=== PATIENT | female | born 1965 | race Caucasian/White ===

== ENCOUNTER → 2018-02-26 11:19 | Outpatient (CLI) | payer OTHER, SELFPAY ==
--- NOTE | 2018-02-26 | DI.RAD.S_ITS ---
PROCEDURE: XR ABDOMEN MIN 2V INDICATIONS: CONSTIPATION TECHNIQUE: 2 views of the abdomen were acquired. COMPARISON: None. FINDINGS: Surgical changes and devices: None. Bowel: No pneumoperitoneum. The bowel gas pattern is normal. Soft tissues: No masses; visualized solid organ contours appear normal in size. No suspicious abdominal calcifications. Bones: No suspicious bony abnormalities. IMPRESSION: Normal for age, source of current symptoms is not seen. Dictated by: Lewis Breen M.D. on 02/26/2018 at 14:27 Approved by: Lewis Breen M.D. on 02/26/2018 at 14:27
== END ==
PROVIDERS: Visit Provider Physician Assistant
DX: K59.00 Constipation, unspecified (principal)
CPT/HCPCS: 74019

== ENCOUNTER → 2019-07-17 18:52 | Outpatient (ROUT) | payer OTHER, SELFPAY ==
[2019-07-17 19:05] LABS: Add Manual Diff / Slide Review NO; Basophils Absolute Auto 100 /uL (0-100); Basophils Percent Auto 0.8 % (0-2); Eosinophils Absolute Auto 100 /uL (0-450); Eosinophils Percent Auto 1.3 % (2-4); Hematocrit 39.2 % (36-46); Hemoglobin 13.2 g/dL (12.0-16.0); Lymphocytes Absolute Auto 3100 /uL (1100-4500); Lymphocytes Percent Auto 32.8 % (25-40); Mean Corpuscular HGB Conc 33.6 % (30-36); Mean Corpuscular Hemoglobin 30.2 PG (26-34); Mean Corpuscular Volume 89.8 fL (80-100); Monocytes Absolute Auto 800 /uL (0-900); Monocytes Percent Auto 8.6 % (3-14); Neutrophils Absolute Auto 5400 /uL (1500-7000); Neutrophils Percent Auto 56.5 % (50-75); Platelet Count 298 X10^3/uL (150-400); Red Blood Cell Count 4.36 X10^6/uL (4.0-5.2); Red Cell Distribution Width 13.5 % (11.6-14.8); White Blood Cell Count 9.6 X10^3/uL (4.5-11.0)
[2019-07-17 19:39] LABS: Alanine Aminotransferase 15 IU/L (<35); Albumin 4.2 g/dL (3.5-5.0); Albumin Globulin Ratio 1.5 (1.0-2.8); Alkaline Phosphatase 56 U/L (38-126); Aspartate Aminotransferase 18 IU/L (14-36); BUN Creatinine Ratio 23.3 (6-22); Bilirubin Total 0.2 mg/dL (0.2-1.3); Blood Urea Nitrogen 21 mg/dL (7-17); Calcium 9.7 mg/dL (8.4-10.2); Carbon Dioxide 26 mmol/L (22-32); Chloride 104 mmol/L (98-107); Cholesterol 216 mg/dL (140-199); Estimated Glomerular Filt Rate > 60.0 mL/min (>60); Globulin 2.8 g/dL (1.7-4.1); Glucose 94 mg/dL (70-100); HDL Cholesterol 84 mg/dL (40-60); HEMOLYSIS < 15 (0-50); LDL Cholesterol Calculated 108 mg/dL (<100); Potassium 4.5 mmol/L (3.4-5.1); Sodium 137 mmol/L (137-145); Triglycerides 118 mg/dL (35-150)
[2019-07-17 19:56] LABS: Vitamin D 25 Hydroxy (D3) 20.1 ng/mL (30.0-100.0)
== END ==
PROVIDERS: Visit Provider Physician Assistant
DX: E78.2 Mixed hyperlipidemia (principal); E55.9 Vitamin D deficiency, unspecified
CPT/HCPCS: 80053; 80061; 82306; 85025

== ENCOUNTER → 2020-10-07 16:01 | Outpatient (CLI) | payer OTHER, SELFPAY ==
[2020-10-07] MEDS: COVID-19 VACC #1, MRNA(MOD) 100 MCG/0.5 ML VIAL IM (16:09)
== END ==
PROVIDERS: Visit Provider Internal Medicine
DX: Z23 Encounter for immunization (principal)
CPT/HCPCS: 0011A; 91301

== ENCOUNTER → 2020-11-04 16:01 | Outpatient (CLI) | payer OTHER, SELFPAY ==
[2020-11-04] MEDS: COVID-19 VACC #2, MRNA(MOD) 100 MCG/0.5 ML VIAL IM (16:11)
== END ==
PROVIDERS: Visit Provider Internal Medicine
DX: Z23 Encounter for immunization (principal)
CPT/HCPCS: 0012A; 91301

== ENCOUNTER 2021-04-27 18:49 | Inpatient (IN) | payer OTHER, SELFPAY ==
[2021-04-27 18:57] VITALS: BP 143/87; PULSE 79; RESP 20; O2SAT 97; BMI 27.4
--- NOTE | 2021-04-27 19:15 | DI.CT.S_ITS ---
PROCEDURE: CT HEAD/BRAIN WO CON INDICATIONS: head injury sunday, dizziness and amnesia since TECHNIQUE: Noncontrast 4.5 mm thick angled axial sections acquired from the foramen magnum to the vertex, with coronal and sagittal reformats. For radiation dose reduction, the following was used: automated exposure control, adjustment of mA and/or kV according to patient size. COMPARISON: None. FINDINGS: Image quality: Excellent. CSF spaces: Basal cisterns are patent. No extra-axial fluid collections. Ventricles are normal in size and shape. Brain: Small acute parenchymal hemorrhagic contusions with surrounding edema noted in the left temporal lobe, left frontal operculum left parietal operculum. No midline shift. No intracranial masses. Keith-white matter interface is normal. Skull and face: Calvarium and visualized facial bones are intact, without suspicious lesions. Right parietal scalp contusion. Sinuses: Visualized sinuses and mastoids are clear. IMPRESSION: Small parenchymal hemorrhagic contusions involving the lateral margins of the left temporal lobe, frontal lobe and parietal lobe. Findings discussed with JOSE RAFAEL Blackburn on April 27, 2021 at 7:45 p.m. Dictated by: Shayla Arana MD, PhD on 04/27/2021 at 19:41 Approved by: Shayla Arana MD, PhD on 04/27/2021 at 19:46
--- NOTE | 2021-04-27 19:17 | ED.DIZZY ---
HPI - Dizziness <DAHIANA Boston - Last Filed: 04/27/21 20:27> General Chief Complaint: Dizziness Stated Complaint: think she fell, bruise face, ear bleed, no memory Time Seen by Provider: 04/27/21 18:59 Source: patient and family Mode of arrival: Wheelchair History of Present Illness HPI Narrative: 55-year-old female presents to the emergency department with complaint of dizziness, amnesia, a possible head injury, and nausea and vomiting since this possible head injury 2 nights ago. Patient's states he came home and found emesis on the stairs and patient did not have any recollection of a fall, however patient did have a swollen and bloody bottom lip, complaint of blood found in her ear, and sleeping more than usual today. Patient reports she feels as if the room is spinning around her when she moves her head, she thought her ear was bleeding when she found blood in her right ear. She reports Sunday night she had 1 or 2 alcoholic beverages, she endorses smoking marijuana sometimes, she reports she does not do any other drugs or drink more than what she said she had that night. Patient does not know any sick contacts. She reports she called in sick to work yesterday because she had nausea and vomiting all day. Patient does not recall having any falls, she denies any chest pain, shortness of breath, headache, fever or abdominal pain. She denies any changes to her stool, denies dysuria. Patient's has been denies any changes to her speech or mentation with exception for this amnesia around the event. Related Data Home Medications Medication Instructions Recorded Confirmed acyclovir 200 mg capsule (Zovirax) 400 mg PO 1-2XD #0 07/12/17 04/27/21 citalopram 10 mg tablet (Celexa) #0 07/12/17 04/07/21 cyclobenzaprine 5 mg tablet #0 07/12/17 04/07/21 ResMed AirSense 10 CPAP #1 ea 09/17/18 04/07/21 omeprazole 40 mg capsule,delayed 40 mg PO DAILY 10/05/20 04/07/21 release Allergies Allergy/AdvReac Type Severity Reaction Status Date / Time No Known Drug Allergies Allergy Verified 04/07/21 15:40 Review of Systems <DAHIANA Boston - Last Filed: 04/27/21 20:27> Review of Systems Narrative: General: denies fever, chills Head/Neck: denies headache, neck pain, complains of dizziness Eyes: denies visual changes, eye pain Cardio: denies chest pain, palpitations Respiratory: denies shortness of breath, cough GI: denies abdominal pain or diarrhea, endorses nausea and vomiting : denies dysuria, hematuria MSK: denies joint pain, muscle weakness Skin: denies rash, itching Neuro: denies numbness, tingling, loss of bowel or bladder Patient History <DAHIANA Boston - Last Filed: 04/27/21 20:27> Medical History Excessive daytime sleepiness Fatigue due to sleep pattern disturbance GERD (gastroesophageal reflux disease) Insomnia due to medical condition Morbid obesity with body mass index (BMI) of 40.0 to 49.9 Obstructive sleep apnea, adult Social History household members: none Smoking Status: Former smoker Smoking Status: Former smoker alcohol intake frequency: 3 or more drinks per day Substance Use Type: marijuana Exam <DAHIANA Boston - Last Filed: 04/27/21 20:27> Narrative Exam Narrative: Independently reviewed vitals signs and nursing notes. General: Awake, alert, nontoxic, no cardiorespiratory distress Head/Neck: Atraumatic, neck full range of motion, No Solitario sign or raccoon eyes, no point tenderness along C-spine Eyes: EOMI, conjunctiva normal, Ears: Right ear with dried blood which appears to drained from her cheek in to the cavum, patient endorses right ear canal pain, no erythema, no bulging TM, no blood behind TM, no blood beyond the cavum of the right pinna. Nose: nares patent, no rhinorrhea Mouth/Throat: moist mucus membranes, posterior pharynx normal, no oral lesions, patient's bottom lip with a contusion, no laceration, no open perioral wound Cardio: Regular rate and rhythm, no peripheral edema Respiratory: respirations unlabored without wheezing, stridor, or rales. No retractions. GI: Abdomen soft, nontender to palpation, no masses MSK: Moves all extremities, neurovascularly intact Skin: Normal capillary refill, no rash Neuro: Normal speech and cognition, normal gait Initial Vital Signs Initial Vital Signs: Vital Signs Pulse Rate 79 04/27/21 18:57 Respiratory Rate 20 04/27/21 18:57 Blood Pressure 143/87 H 04/27/21 18:57 Pulse Oximetry 97 04/27/21 18:57 <Maria G Bernal MD - Last Filed: 04/27/21 23:37> Initial Vital Signs Initial Vital Signs: Vital Signs Pulse Rate 79 04/27/21 18:57 Respiratory Rate 20 04/27/21 18:57 Blood Pressure 143/87 H 04/27/21 18:57 Pulse Oximetry 97 04/27/21 18:57 Course <DAHIANA Boston - Last Filed: 04/27/21 20:27> Orders Ordered: ED Orders 04/27/21 18:15 Complete Blood Count AUTO DIFF Stat Comprehensive Metabolic Panel Stat Magnesium Stat Phosphorous Stat Troponin I Stat 04/27/21 19:14 Urinalysis Screen (Dip Only) Stat 04/27/21 19:15 CT head/brain wo con Stat EKG-12 Lead Stat 04/27/21 20:04 CT cervical spine wo con Stat 04/27/21 21:16 COVID19 - ADMIT (CABLE RIGGER swab/PCR) Stat Acetaminophen (Acetaminophen 325 Mg Tablet) 650 mg PO Q6HR PRN PRN Reason: Fever/Mild Pain (1-3) Hydrocodone Bitart/Acetaminophen (Hydrocodone/Acet 5/325 Tablet) 1 tab PO Q4HR PRN PRN Reason: Pain, Moderate (4-6) Al Hydrox/Mg Hydrox/Simethicone (Mag Hydrox/Alum/Simeth 30 Ml Udc) 30 ml PO Q6HR PRN PRN Reason: Dyspepsia Bisacodyl (Bisacodyl 10 Mg Supp) 10 mg MO DAILY PRN PRN Reason: Constipation Docusate Sodium (Docusate 100 Mg Capsule) 100 mg PO BID KRISTIAN Sodium Chloride (Normal Saline 0.9%) 1,000 mls @ 150 mls/hr IV CONT KRISTIAN Last Infusion: 04/27/21 22:36 Dose: 150 mls/hr Documented by: Admin: 04/27/21 21:55 Dose: 150 mls/hr Documented by: SAIMA Naloxone HCl (Naloxone 0.4 Mg/Ml Vial) 0.2 mg IV Q2MIN PRN PRN Reason: Opiate Reversal Ondansetron HCl (Ondansetron 4 Mg/2 Ml Inj) 4 mg IV Q8HR PRN PRN Reason: Nausea And Vomiting Pantoprazole Sodium (Pantoprazole Dr 20 Mg Tablet) 20 mg PO 0600 KRISTIAN Discontinued Medications Sodium Chloride (Normal Saline 0.9%) 1,000 mls @ 1,000 mls/hr IV BOLUS ONE Stop: 04/27/21 20:13 Last Infusion: 04/27/21 21:55 Dose: 0 mls/hr Documented by: Admin: 04/27/21 19:41 Dose: 1,000 mls/hr Documented by: SAIMA Ondansetron HCl (Ondansetron 4 Mg/2 Ml Inj) 4 mg IV NOW ONE Stop: 04/27/21 19:15 Last Admin: 04/27/21 19:41 Dose: 4 mg Documented by: SAIMA Vital Signs Vital signs: Vital Signs - 8 hr 04/27/21 18:57 04/27/21 19:18 04/27/21 19:33 Pulse Rate 79 68 60 Respiratory Rate 20 Blood Pressure 143/87 H Pulse Oximetry 97 98 98 04/27/21 20:00 04/27/21 20:30 Pulse Rate 59 L 57 L Respiratory Rate Blood Pressure Pulse Oximetry 96 94 <Maria G Bernal MD - Last Filed: 04/27/21 23:37> Orders Ordered: ED Orders 04/27/21 18:15 Complete Blood Count AUTO DIFF Stat Comprehensive Metabolic Panel Stat Magnesium Stat Phosphorous Stat Troponin I Stat 04/27/21 19:14 Urinalysis Screen (Dip Only) Stat 04/27/21 19:15 CT head/brain wo con Stat EKG-12 Lead Stat 04/27/21 20:04 CT cervical spine wo con Stat 04/27/21 21:16 COVID19 - ADMIT (CABLE RIGGER swab/PCR) Stat Acetaminophen (Acetaminophen 325 Mg Tablet) 650 mg PO Q6HR PRN PRN Reason: Fever/Mild Pain (1-3) Hydrocodone Bitart/Acetaminophen (Hydrocodone/Acet 5/325 Tablet) 1 tab PO Q4HR PRN PRN Reason: Pain, Moderate (4-6) Al Hydrox/Mg Hydrox/Simethicone (Mag Hydrox/Alum/Simeth 30 Ml Udc) 30 ml PO Q6HR PRN PRN Reason: Dyspepsia Bisacodyl (Bisacodyl 10 Mg Supp) 10 mg MO DAILY PRN PRN Reason: Constipation Docusate Sodium (Docusate 100 Mg Capsule) 100 mg PO BID KRISTIAN Sodium Chloride (Normal Saline 0.9%) 1,000 mls @ 150 mls/hr IV CONT KRISTIAN Last Infusion: 04/27/21 22:36 Dose: 150 mls/hr Documented by: Admin: 04/27/21 21:55 Dose: 150 mls/hr Documented by: SAIMA Naloxone HCl (Naloxone 0.4 Mg/Ml Vial) 0.2 mg IV Q2MIN PRN PRN Reason: Opiate Reversal Ondansetron HCl (Ondansetron 4 Mg/2 Ml Inj) 4 mg IV Q8HR PRN PRN Reason: Nausea And Vomiting Pantoprazole Sodium (Pantoprazole Dr 20 Mg Tablet) 20 mg PO 0600 KRISTIAN Discontinued Medications Sodium Chloride (Normal Saline 0.9%) 1,000 mls @ 1,000 mls/hr IV BOLUS ONE Stop: 04/27/21 20:13 Last Infusion: 04/27/21 21:55 Dose: 0 mls/hr Documented by: Admin: 04/27/21 19:41 Dose: 1,000 mls/hr Documented by: SAIMA Ondansetron HCl (Ondansetron 4 Mg/2 Ml Inj) 4 mg IV NOW ONE Stop: 04/27/21 19:15 Last Admin: 04/27/21 19:41 Dose: 4 mg Documented by: SAIMA Vital Signs Vital signs: Vital Signs - 8 hr 04/27/21 18:57 04/27/21 19:18 04/27/21 19:33 Pulse Rate 79 68 60 Respiratory Rate 20 Blood Pressure 143/87 H Pulse Oximetry 97 98 98 04/27/21 20:00 04/27/21 20:30 Pulse Rate 59 L 57 L Respiratory Rate Blood Pressure Pulse Oximetry 96 94 MDM - Dizziness <DAHIANA Boston - Last Filed: 04/27/21 20:27> Lab Data Result diagrams: 04/27/21 18:15 04/27/21 18:15 Labs: Lab Results 04/27/21 04/27/21 04/27/21 Range/Units 18:15 18:15 18:15 WBC 10.9 (4.5-11.0) X10^3/uL RBC 4.28 (4.0-5.2) X10^6/uL Hgb 12.9 (12.0-16.0) g/dL Hct 38.4 (36-46) % MCV 89.7 (80-100) fL MCH 30.1 (26-34) PG MCHC 33.5 (30-36) % RDW 13.4 (11.6-14.8) % Plt Count 338 (150-400) X10^3/uL Neut % (Auto) 71.1 (50-75) % Lymph % (Auto) 21.9 L (25-40) % Hendricks % (Auto) 6.0 (3-14) % Eos % (Auto) 0.3 L (2-4) % Baso % (Auto) 0.7 (0-2) % Neut # (Auto) 7700 H (8344-1974) /uL Lymph # (Auto) 2400 (0797-5903) /uL Hendricks # (Auto) 700 (0-900) /uL Eos # (Auto) 0 (0-450) /uL Baso # (Auto) 100 (0-100) /uL Sodium 137 (137-145) mmol/L Potassium 3.7 (3.4-5.1) mmol/L Chloride 104 (98-107) mmol/L Carbon Dioxide 24 (22-32) mmol/L BUN 17 (7-17) mg/dL Creatinine 0.71 (0.52-1.04) mg/dL Estimated GFR > 60.0 (>60) mL/min BUN/Creatinine Ratio 23.9 H (6-22) Glucose 121 H (70-100) mg/dL Calcium 9.4 (8.4-10.2) mg/dL Phosphorus (2.5-4.5) mg/dL Magnesium (1.6-2.3) mg/dL Total Bilirubin 0.7 (0.2-1.3) mg/dL AST 30 (14-36) IU/L ALT 25 (<35) IU/L Alkaline Phosphatase 57 (38-126) U/L Troponin I < 0.012 (0.01-0.034) ng/mL Total Protein 7.5 (6.3-8.2) g/dL Albumin 4.3 (3.5-5.0) g/dL Globulin 3.2 (1.7-4.1) g/dL Albumin/Globulin Ratio 1.3 (1.0-2.8) SARS-CoV-2 (PCR) (Negative) 04/27/21 04/27/21 Range/Units 18:15 21:16 WBC (4.5-11.0) X10^3/uL RBC (4.0-5.2) X10^6/uL Hgb (12.0-16.0) g/dL Hct (36-46) % MCV (80-100) fL MCH (26-34) PG MCHC (30-36) % RDW (11.6-14.8) % Plt Count (150-400) X10^3/uL Neut % (Auto) (50-75) % Lymph % (Auto) (25-40) % Hendricks % (Auto) (3-14) % Eos % (Auto) (2-4) % Baso % (Auto) (0-2) % Neut # (Auto) (6518-1504) /uL Lymph # (Auto) (2415-0589) /uL Hendricks # (Auto) (0-900) /uL Eos # (Auto) (0-450) /uL Baso # (Auto) (0-100) /uL Sodium (137-145) mmol/L Potassium (3.4-5.1) mmol/L Chloride (98-107) mmol/L Carbon Dioxide (22-32) mmol/L BUN (7-17) mg/dL Creatinine (0.52-1.04) mg/dL Estimated GFR (>60) mL/min BUN/Creatinine Ratio (6-22) Glucose (70-100) mg/dL Calcium (8.4-10.2) mg/dL Phosphorus 2.3 L (2.5-4.5) mg/dL Magnesium 2.1 (1.6-2.3) mg/dL Total Bilirubin (0.2-1.3) mg/dL AST (14-36) IU/L ALT (<35) IU/L Alkaline Phosphatase (38-126) U/L Troponin I (0.01-0.034) ng/mL Total Protein (6.3-8.2) g/dL Albumin (3.5-5.0) g/dL Globulin (1.7-4.1) g/dL Albumin/Globulin Ratio (1.0-2.8) SARS-CoV-2 (PCR) Negative (Negative) Imaging Data CT scan - head: Radiologist's Impression: PROCEDURE: CT HEAD/BRAIN WO CON INDICATIONS: head injury sunday, dizziness and amnesia since TECHNIQUE: Noncontrast 4.5 mm thick angled axial sections acquired from the foramen magnum to the vertex, with coronal and sagittal reformats. For radiation dose reduction, the following was used: automated exposure control, adjustment of mA and/or kV according to patient size. COMPARISON: None. FINDINGS: Image quality: Excellent. CSF spaces: Basal cisterns are patent. No extra-axial fluid collections. Ventricles are normal in size and shape. Brain: Small acute parenchymal hemorrhagic contusions with surrounding edema noted in the left temporal lobe, left frontal operculum left parietal operculum. No midline shift. No intracranial masses. Keith-white matter interface is normal. Skull and face: Calvarium and visualized facial bones are intact, without suspicious lesions. Right parietal scalp contusion. Sinuses: Visualized sinuses and mastoids are clear. IMPRESSION: Small parenchymal hemorrhagic contusions involving the lateral margins of the left temporal lobe, frontal lobe and parietal lobe. Findings discussed with JOSE RAFAEL Blackburn on April 27, 2021 at 7:45 p.m. Dictated by: Shayla Arana MD, PhD on 04/27/2021 at 19:41 Approved by: Shayla Arana MD, PhD on 04/27/2021 at 19:46 MDM Narrative Medical decision making narrative: [HPI] Initial ddx to include but not limited to [] [Vitals exam] ED workup to include [] [Tx] [Dispo] <Maria G Bernal MD - Last Filed: 04/27/21 23:37> Lab Data Labs: Lab Results 04/27/21 04/27/21 04/27/21 Range/Units 18:15 18:15 18:15 WBC 10.9 (4.5-11.0) X10^3/uL RBC 4.28 (4.0-5.2) X10^6/uL Hgb 12.9 (12.0-16.0) g/dL Hct 38.4 (36-46) % MCV 89.7 (80-100) fL MCH 30.1 (26-34) PG MCHC 33.5 (30-36) % RDW 13.4 (11.6-14.8) % Plt Count 338 (150-400) X10^3/uL Neut % (Auto) 71.1 (50-75) % Lymph % (Auto) 21.9 L (25-40) % Hendricks % (Auto) 6.0 (3-14) % Eos % (Auto) 0.3 L (2-4) % Baso % (Auto) 0.7 (0-2) % Neut # (Auto) 7700 H (6723-3434) /uL Lymph # (Auto) 2400 (6173-5373) /uL Hendricks # (Auto) 700 (0-900) /uL Eos # (Auto) 0 (0-450) /uL Baso # (Auto) 100 (0-100) /uL Sodium 137 (137-145) mmol/L Potassium 3.7 (3.4-5.1) mmol/L Chloride 104 (98-107) mmol/L Carbon Dioxide 24 (22-32) mmol/L BUN 17 (7-17) mg/dL Creatinine 0.71 (0.52-1.04) mg/dL Estimated GFR > 60.0 (>60) mL/min BUN/Creatinine Ratio 23.9 H (6-22) Glucose 121 H (70-100) mg/dL Calcium 9.4 (8.4-10.2) mg/dL Phosphorus (2.5-4.5) mg/dL Magnesium (1.6-2.3) mg/dL Total Bilirubin 0.7 (0.2-1.3) mg/dL AST 30 (14-36) IU/L ALT 25 (<35) IU/L Alkaline Phosphatase 57 (38-126) U/L Troponin I < 0.012 (0.01-0.034) ng/mL Total Protein 7.5 (6.3-8.2) g/dL Albumin 4.3 (3.5-5.0) g/dL Globulin 3.2 (1.7-4.1) g/dL Albumin/Globulin Ratio 1.3 (1.0-2.8) SARS-CoV-2 (PCR) (Negative) 04/27/21 04/27/21 Range/Units 18:15 21:16 WBC (4.5-11.0) X10^3/uL RBC (4.0-5.2) X10^6/uL Hgb (12.0-16.0) g/dL Hct (36-46) % MCV (80-100) fL MCH (26-34) PG MCHC (30-36) % RDW (11.6-14.8) % Plt Count (150-400) X10^3/uL Neut % (Auto) (50-75) % Lymph % (Auto) (25-40) % Hendricks % (Auto) (3-14) % Eos % (Auto) (2-4) % Baso % (Auto) (0-2) % Neut # (Auto) (7844-9478) /uL Lymph # (Auto) (5460-6756) /uL Hendricks # (Auto) (0-900) /uL Eos # (Auto) (0-450) /uL Baso # (Auto) (0-100) /uL Sodium (137-145) mmol/L Potassium (3.4-5.1) mmol/L Chloride (98-107) mmol/L Carbon Dioxide (22-32) mmol/L BUN (7-17) mg/dL Creatinine (0.52-1.04) mg/dL Estimated GFR (>60) mL/min BUN/Creatinine Ratio (6-22) Glucose (70-100) mg/dL Calcium (8.4-10.2) mg/dL Phosphorus 2.3 L (2.5-4.5) mg/dL Magnesium 2.1 (1.6-2.3) mg/dL Total Bilirubin (0.2-1.3) mg/dL AST (14-36) IU/L ALT (<35) IU/L Alkaline Phosphatase (38-126) U/L Troponin I (0.01-0.034) ng/mL Total Protein (6.3-8.2) g/dL Albumin (3.5-5.0) g/dL Globulin (1.7-4.1) g/dL Albumin/Globulin Ratio (1.0-2.8) SARS-CoV-2 (PCR) Negative (Negative) MDM Narrative Medical decision making narrative: 55-year-old woman who fell down the stairs 48 hours ago she has no recollection of the accident her events surrounding that. She comes in today complaining of dizziness low-grade headache and general malaise along with nausea. She has no focal neurologic findings. CT scan reveals parenchymal bleed with mild edema in the left temporal lobe and the frontal and parietal operculum areas. As she has a fracture of her left zygomatic arch (no complaints of pain at that site) and bilateral temporal bone fractures nondistressed. The right fracture extends through the skull base into the sphenoid sinuses . C-spine is unremarkable 9:10: Images were pushed to [facility] And talked with transfer center 9:20-spoke with , neurosurgeon at [facility]. After really and CT scans his recommendation was observation admission overnight. If there is any acute neurologic deterioration to repeat a CT scan as soon as that is noted. Aside from that repeating CT scan in the morning to make sure that there are no changes and repeating sodium level in the morning as well. Care is reviewed with Dr. Qureshi, hospitalist, who will arrange for admission. Patient is stable at this time, Zofran has not been particularly helpful for her nausea she is not complaining of pain significant enough to request additional pain medications. She is having no signs or symptoms of alcohol withdrawal at this time. Discharge Plan Departure Patient Disposition: Admitted as Observation Clinical Impression: Fall down stairs, Amnesia, Traumatic cerebral parenchymal hemorrhage, Closed fracture of temporal bone, Closed fracture of zygomatic arch, Closed sphenoid sinus fracture Admit Date/Time: 04/27/21 21:37 Admit Provider: Marry Qureshi
[2021-04-27 19:18] VITALS: PULSE 68; O2SAT 98
[2021-04-27 19:28] LABS: Add Manual Diff / Slide Review NO; Basophils Absolute Auto 100 /uL (0-100); Basophils Percent Auto 0.7 % (0-2); Eosinophils Absolute Auto 0 /uL (0-450); Eosinophils Percent Auto 0.3 % (2-4); Hematocrit 38.4 % (36-46); Hemoglobin 12.9 g/dL (12.0-16.0); Lymphocytes Absolute Auto 2400 /uL (1100-4500); Lymphocytes Percent Auto 21.9 % (25-40); Mean Corpuscular HGB Conc 33.5 % (30-36); Mean Corpuscular Hemoglobin 30.1 PG (26-34); Mean Corpuscular Volume 89.7 fL (80-100); Monocytes Absolute Auto 700 /uL (0-900); Neutrophils Absolute Auto 7700 /uL (1500-7000); Neutrophils Percent Auto 71.1 % (50-75); Platelet Count 338 X10^3/uL (150-400); Red Blood Cell Count 4.28 X10^6/uL (4.0-5.2); Red Cell Distribution Width 13.4 % (11.6-14.8); White Blood Cell Count 10.9 X10^3/uL (4.5-11.0)
[2021-04-27 19:33] VITALS: PULSE 60; O2SAT 98
[2021-04-27] MEDS: ONDANSETRON 4 MG/2 ML INJ IV (19:41)
[2021-04-27] MEDS: SODIUM CHLORIDE 0.9% 1,000 ML 1000 ML IV (19:41)
[2021-04-27 19:49] LABS: Magnesium 2.1 mg/dL (1.6-2.3); Phosphorous 2.3 mg/dL (2.5-4.5)
[2021-04-27 19:50] LABS: Alanine Aminotransferase 25 IU/L (<35); Albumin 4.3 g/dL (3.5-5.0); Albumin Globulin Ratio 1.3 (1.0-2.8); Alkaline Phosphatase 57 U/L (38-126); Aspartate Aminotransferase 30 IU/L (14-36); BUN Creatinine Ratio 23.9 (6-22); Bilirubin Total 0.7 mg/dL (0.2-1.3); Blood Urea Nitrogen 17 mg/dL (7-17); Calcium 9.4 mg/dL (8.4-10.2); Carbon Dioxide 24 mmol/L (22-32); Chloride 104 mmol/L (98-107); Estimated Glomerular Filt Rate > 60.0 mL/min (>60); Globulin 3.2 g/dL (1.7-4.1); Glucose 121 mg/dL (70-100); HEMOLYSIS 26 (0-50); Potassium 3.7 mmol/L (3.4-5.1); Sodium 137 mmol/L (137-145); Total Protein 7.5 g/dL (6.3-8.2)
[2021-04-27 20:00] VITALS: PULSE 59; O2SAT 96
[2021-04-27 20:01] LABS: Troponin I < 0.012 ng/mL (0.01-0.034)
--- NOTE | 2021-04-27 20:04 | DI.CT.S_ITS ---
PROCEDURE: CT CERVICAL SPINE WO CON INDICATIONS: head trauma 48 hrs ago w/bleed. r/o hemmorhage TECHNIQUE: Noncontrast 3 mm thick sections acquired from the skull base to the T4 level. Sagittal and coronal reformats were then constructed. For radiation dose reduction, the following was used: automated exposure control, adjustment of mA and/or kV according to patient size. COMPARISON: None. FINDINGS: Image quality: Excellent. Bones: No cervical spine fractures or dislocations. Nondepressed bilateral temporal bone fractures noted. Right temporal bone fracture extends through the skull base into the sphenoid bone and the sphenoid sinuses. Right otic capsule is intact. Spine degenerative disc disease and facet arthropathy. Visualized superior ribs are intact. Left side medic arch fractures noted Soft tissues: Prevertebral soft tissues are normal in thickness. Hemorrhage noted in the sphenoid sinuses. No paravertebral hematomas. No apical pneumothoraces. IMPRESSION: 1. No cervical spine fracture. No acute osseous lesion. If symptoms and/or clinical suspicion for pathology persists, evaluation with MRI should be considered for further assessment. 2. Nondepressed bilateral temporal bone fractures. Right temporal bone fracture extends longitudinally through the skull base into sphenoid bone and the sphenoid sinuses. Dictated by: Shayla Arana MD, PhD on 04/27/2021 at 20:40 Approved by: Shayla Arana MD, PhD on 04/27/2021 at 20:47
[2021-04-27 20:30] VITALS: PULSE 57; O2SAT 94
--- NOTE | 2021-04-27 20:46 | PC.NURSE ---
Pt with HX of sleep apnea, uses c-pap at home, desats to 88% when sleeping, place on 2L NC at this time.
[2021-04-27] MEDS: SODIUM CHLORIDE 0.9% 1,000 ML 150 ML IV (21:55)
[2021-04-27 22:33] LABS: COVID19 - ADMIT (NP swab/PCR) Negative (Negative)
[2021-04-27 22:43] VITALS: BMI 27.4
[2021-04-27 23:27] VITALS: BP 137/77; PULSE 54; RESP 16; TEMP 36.5; O2SAT 98
--- NOTE | 2021-04-27 23:32 | PM.HP.1 ---
History of Present Illness History of Present Illness Date Patient Seen: 04/27/21 Time Patient Seen: 23:32 Chief complaint: think she fell, bruise face, ear bleed, no memory Narrative: The patient is a 55 y/o female with a history of GERD, Morbid Obesity, CHRISTIANO, who presented to the ED for evaluation of blood coming from her ear. She also reports dizziness, not feeling well for the last few days secondary to nausea, and had evidence of head trauma 2 days prior to admission. She does not recall falling, she is unable to provide any history of what happened. Per the notes from the ED, her boyfriend came into her home and found emesis on the stairs. The patient does not recall what happened. She was noted to have a swollen and bloody bottom lip, complaint of blood found in her ear, reportedly sleeping more than usual. She also complained of the room spining and some visual changes. She does admit to drinking 3-4 drinks nightly to include rum and soda. She denies any history of alcohol withdrawal or seizures. She is vaccinated against Covid-19 and does not report any fever, chills, cough, loss of taste or smell. She does report feeling some shortness of breath. She was unable to work for the last few days as she has not felt very well. She does not recall much more and specifically does not remember falling or the circumstances of her fall. The patient underwent a head CT in the ED that revealed the following: Small parenchymal hemorrhagic contusions involving the lateral margins of the left temporal lobe, frontal lobe and parietal lobe.Bilateral temporal bone fractures.? Right temporal bone fracture extends to the skullbase into the sphenoid bone in the sphenoid sinuses.?A cervical spine CT was obtained as well that revealed the following: ?No cervical spine fracture. No acute osseous lesion. If symptoms and/or clinical suspicion for pathology persists, evaluation with MRI should be considered for further assessment. 2. Nondepressed bilateral temporal bone fractures.? Right temporal bone fracture extends longitudinally through the skull base into sphenoid bone and the sphenoid sinuses.? Evaluation of the eardrum reveals no evidence of rupture. The ED consulted with Neurosurgery who recommended repeat Head CT in am, Repeat sodium in AM, urgent CT if clinical deterioration. Patient does report forgetfulness. She is admitted to the hospital for observation. ? ? Patient History Medical History Excessive daytime sleepiness Fatigue due to sleep pattern disturbance GERD (gastroesophageal reflux disease) Insomnia due to medical condition Morbid obesity with body mass index (BMI) of 40.0 to 49.9 Obstructive sleep apnea, adult Family & Social History Family History (Updated 04/27/21 @ 23:51 by Marry Qureshi MD) Father Cirrhosis of liver Social History: household members none Prior Living Arrangements Apartment/Condo Safety & Behavioral: Feels Safe in Current Yes Environment Been Physically Hurt or No Threatened By a Person Suicidal Ideation Description None Suicide Plan Description No Plan Tobacco & Substance use: Smoking Status Former smoker alcohol intake frequency 3 or more drinks per day Substance Use Type marijuana Meds Home Medications and Allergies Home Medications Medication Instructions Recorded Confirmed Type acyclovir 200 mg capsule (Zovirax) 400 mg PO 1-2XD #0 07/12/17 04/27/21 History citalopram 10 mg tablet (Celexa) #0 07/12/17 04/07/21 History cyclobenzaprine 5 mg tablet #0 07/12/17 04/07/21 History ResMed AirSense 10 CPAP #1 ea 09/17/18 04/07/21 History omeprazole 40 mg capsule,delayed 40 mg PO DAILY 10/05/20 04/07/21 History release Allergies Allergy/AdvReac Type Severity Reaction Status Date / Time No Known Drug Allergies Allergy Verified 04/07/21 15:40 Review of Systems Review of Systems Narrative: 10 point review of system is negative except as described above Exam Vital Signs (past 8 hours): - 04/27/21 18:57 04/27/21 19:18 04/27/21 19:33 Pulse Rate 79 68 60 Respiratory Rate 20 Blood Pressure 143/87 H Pulse Oximetry 97 98 98 04/27/21 20:00 04/27/21 20:30 Pulse Rate 59 L 57 L Respiratory Rate Blood Pressure Pulse Oximetry 96 94 Oxygen Delivery Method Room Air Narrative Exam Narrative: Pleasant female slightly confused but in no acute distress HENMT Other: NC/AT right lower lip with blood, abrasion, oropharyx clear with dry mucus membranes Neck supple, no adenopathy or thyromegaly EOMI, sclera anicteric Resp Other: Lungs: clear to auscultation Cardio Other: RRR nl Sl S2 GI Other: Abd: soft/nontender/ non distended, no HSM, no rebound tenderness, no boardlike rigidity Skin Other: no lesions noted Neuro Other: Cranial 2-12 intact, strength is symmetric and equal, sensation is grossly intact, She did have some difficulty naming some objects, she was somewhat forgetful and had difficulty naming her usual medications, describing recent events, and stating her ongoing medical issues. She commented that she felt like she should be able to answer certain questions and was unable to do so. She recognized the cactus but could not name it correctly Psych Other: Calm and appropriate, thought content normal, no hallucinations, Objective Labs Result Diagrams: 04/27/21 18:15 04/27/21 18:15 Labs: Laboratory Results - last 24 hr 04/27/21 04/27/21 04/27/21 18:15 18:15 18:15 WBC 10.9 RBC 4.28 Hgb 12.9 Hct 38.4 MCV 89.7 MCH 30.1 MCHC 33.5 RDW 13.4 Plt Count 338 Neut % (Auto) 71.1 Lymph % (Auto) 21.9 L Winkler % (Auto) 6.0 Eos % (Auto) 0.3 L Baso % (Auto) 0.7 Neut # (Auto) 7700 H Lymph # (Auto) 2400 Winkler # (Auto) 700 Eos # (Auto) 0 Baso # (Auto) 100 Sodium 137 Potassium 3.7 Chloride 104 Carbon Dioxide 24 BUN 17 Creatinine 0.71 Estimated GFR > 60.0 BUN/Creatinine Ratio 23.9 H Glucose 121 H Calcium 9.4 Phosphorus Magnesium Total Bilirubin 0.7 AST 30 ALT 25 Alkaline Phosphatase 57 Troponin I < 0.012 Total Protein 7.5 Albumin 4.3 Globulin 3.2 Albumin/Globulin Ratio 1.3 SARS-CoV-2 (PCR) 04/27/21 04/27/21 18:15 21:16 WBC RBC Hgb Hct MCV MCH MCHC RDW Plt Count Neut % (Auto) Lymph % (Auto) Winkler % (Auto) Eos % (Auto) Baso % (Auto) Neut # (Auto) Lymph # (Auto) Winkler # (Auto) Eos # (Auto) Baso # (Auto) Sodium Potassium Chloride Carbon Dioxide BUN Creatinine Estimated GFR BUN/Creatinine Ratio Glucose Calcium Phosphorus 2.3 L Magnesium 2.1 Total Bilirubin AST ALT Alkaline Phosphatase Troponin I Total Protein Albumin Globulin Albumin/Globulin Ratio SARS-CoV-2 (PCR) Negative Assessment & Plan Assessment & Plan narrative: 55 y/o female with a history of depression, morbid obesity, obstructive sleep apnea, GERD admitted for generalized confusion after an unwitnessed fall -patient presents with a concussion following an unwitnessed fall -?seizure from withdrawal or primary, unable to determine-will check prolactin level -small parencymal hemorrhagic contusions involving the lateral margins of the left temporal lobe, frontal lobe, and parietal lobe -bilateral temporal bone fractures/right temporal bone fracture extends to the skull base into the sphenoid bone in the sphenoid sinuses -per Neurosurgery, non operative at this time -will repeat serum sodium and Head CT in am to confirm stability of hemorrhage and fractures -will get speech/OT evaluation for cognitive evaluation, she continues to be forgetful, likely from her concussion -will ask PT to evaluate given her unwitnessed fall -suspect blood in the eardrum related to the fall Nausea- -will observe, advance diet as tolerated -LFT's, cbc, labs normal GERD -will continue PPI Depression -resume celexa at discharge CHRISTIANO -home CPAP Morbid Obesity -consult dietary Patient reports she is a full code. Her boyfriend, Jan would be her surrogate decision maker Patient will be admitted under observation I have utilized all available means to update, review, and confirm her current medications. Time Spent With Patient Critical Care time: I spent a total of [] minutes of critical care time on this patient's care today; this time is exclusive of procedural time. Quality VTE Deep Vein Thrombosis/Pulmonary Embolism Present on Admission: No
[2021-04-28 00:40] LABS: Prolactin 35.5 ng/mL (3.0-18.6)
[2021-04-28 05:20] VITALS: BP 136/71; PULSE 68; RESP 18; TEMP 36.6; O2SAT 97
[2021-04-28] MEDS: SODIUM CHLORIDE 0.9% 1,000 ML 150 ML IV ×2 (05:36→12:36)
--- NOTE | 2021-04-28 06:00 | DI.CT.S_ITS ---
PROCEDURE: CT HEAD/BRAIN WO CON INDICATIONS: follow up for intracranial bleed TECHNIQUE: Noncontrast 4.5 mm thick angled axial sections acquired from the foramen magnum to the vertex, with coronal and sagittal reformats. For radiation dose reduction, the following was used: automated exposure control, adjustment of mA and/or kV according to patient size. COMPARISON: [facility], CT, CT HEAD/BRAIN WO CON, 04/27/2021, 19:22. FINDINGS: Image quality: Excellent. CSF spaces: Basal cisterns are patent. No extra-axial fluid collections. Ventricles are normal in size and shape. Brain: No midline shift. Again noted are acute parenchymal hemorrhagic contusions involving the left temporal lobe, left frontal lobe, and left parietal lobe with unchanged adjacent vasogenic edema. No new or increasing hemorrhages are identified. Keith-white matter interface is otherwise normal. Skull and face: Again noted are nondisplaced temporal bone fractures bilaterally. Sinuses: Bilateral sphenoid sinus hemorrhage, as before. Mastoids are clear. IMPRESSION: 1. Multifocal hemorrhagic parenchymal contusions are unchanged in the left temporal lobe, frontal lobe, and parietal lobe, with no significant change in the associated edema. 2. Bilateral temporal bone fractures, as before. Comment: Final report is concordant with preliminary interpretation provided by [facility]. Dictated by: Fabian Harris M.D. on 04/28/2021 at 7:22 Approved by: Fabian Harris M.D. on 04/28/2021 at 7:28
--- NOTE | 2021-04-28 06:09 | PC.NURSE ---
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
[2021-04-28] MEDS: PANTOPRAZOLE DR 20 MG TABLET PO (06:35)
[2021-04-28] MEDS: ACETAMINOPHEN 325 MG TABLET 650 MG PO ×2 (06:35→21:04)
[2021-04-28 08:18] VITALS: BP 126/89; PULSE 82; RESP 16; TEMP 36.1; O2SAT 97
[2021-04-28] MEDS: DOCUSATE 100 MG CAPSULE PO (09:00)
--- NOTE | 2021-04-28 10:05 | PC.NURSE ---
Patient is alert and oriented this morning and she denies pain. She slept in this morning and did eat some breakfast. Up to the commode to void and had good output this am. Does get dizzy at times. She is napping now and doing well.
[2021-04-28 11:07] LABS: BUN Creatinine Ratio 20.3 (6-22); Blood Urea Nitrogen 13 mg/dL (7-17); Calcium 8.8 mg/dL (8.4-10.2); Carbon Dioxide 27 mmol/L (22-32); Chloride 106 mmol/L (98-107); Estimated Glomerular Filt Rate > 60.0 mL/min (>60); Glucose 114 mg/dL (70-100); HEMOLYSIS 15 (0-50); Sodium 137 mmol/L (137-145)
--- NOTE | 2021-04-28 11:16 | ST.IPIE ---
Visit Care Team Role Provider Type Maria G Bernal MD Emergency Provider Physician Referring Provider Specialty: Emergency Medicine Address: [address] [place] [address], [id number] Email: Marry Qureshi MD Admit Provider Physician Attending Provider Specialty: Internal Medicine Address: [address] [place] [address], [id number] Email: [email or web address] Diagnoses Nontraumatic intracranial hemorrhage, unspecified (04/27/21) Past Medical History (Last Reviewed 04/27/21 @ 23:50 by Marry Qureshi MD) Excessive daytime sleepiness (Medical) resolved with CPAP Fatigue due to sleep pattern disturbance (Medical) resolved with CPAP GERD (gastroesophageal reflux disease) (Medical) Insomnia due to medical condition (Medical) Morbid obesity with body mass index (BMI) of 40.0 to 49.9 (Medical) Obstructive sleep apnea, adult (Medical) ST IP Initial Evaluation Report 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 Qureshi Reason for Referral concussion/cognitive function Setting Assessment Location Acute Care Visit Type Note Type Initial evaluation Next Note Type Next Note Type Treatment Note Patient Information Identification Type Name,Wristband Medical History PER H&P: Pt is a 55 y/o female with a history of depression, morbid obesity, obstructive sleep apnea, GERD admitted for generalized confusion and concussion after an unwitnessed fall. She was unable to work for the last few days as she has not felt very well. She does not recall much more and specifically does not remember falling or the circumstances of her fall. The patient underwent a head CT in the ED that revealed the following: Small parenchymal hemorrhagic contusions involving the lateral margins of the left temporal lobe, frontal lobe and parietal lobe .Bilateral temporal bone fractures.? Right temporal bone fracture extends to the skull base into the sphenoid bone in the sphenoid sinuses.? A cervical spine CT was obtained as well that revealed the following: ?No cervical spine fracture. No acute osseous lesion. If symptoms and/or clinical suspicion for pathology persists, evaluation with MRI should be considered for further assessment. 2. Nondepressed bilateral temporal bone fractures.? Right temporal bone fracture extends longitudinally through the skull base into sphenoid bone and the sphenoid sinuses. ? Subjective Patient Report Pt in her room napping. Introduced self and purpose for visit. She was agreeable to an evaluation. Pt reported she has no recall of the fall she took. Location Head Mental Status Alert,Responsive,Cooperative Assessment Oral Motor Examination Completed No Informal Assessment Receptive Language Normal Yes Expressive Language Normal No: Mild word finding deficit Expressive Language Impairment(s) Divergent naming Pragmatic Language Normal Yes Speech Normal Yes Cognition Normal No Cognitive Impairment(s) Long-term memory Formal Assessment Standardized Test/Screener Type [facility] Status ([facility]) Administration Complete Results Pt presented with a mild cognitive disorder based on the results of the SLUMS. She scored full points for most activities. She was able to name 2/5 words following ~ 5 minutes and she dad difficulty with divergent naming. During the SLUMS, it was observed that the pt had difficulty with word finding and demonstrated paraphasias when naming/describing objects , indicating mild aphasia. Findings/Results Language Function Mildly impaired Cognitive Function Mildly impaired Cognitive Communication Deficits Self-awareness of Cognitive- Situational awareness ( Communication Deficits recognition of problem in context;in real time) Impact on Functioning Activity Limits/Particip.Rest. Mild: General Tasks and Demands Interpersonal Interactions Employment Safety Risks Mild: Reacting to Emergency Managing Medication Prognosis Prognosis Good Based on Cognitive status,Duration of symptoms/severity,Time since onset Plan of Care Speech-Language Treatment Yes Frequency 1-2x/ day Duration during inpatient stay Patient/Caregiver Education Described results of evaluation,Patient expressed understanding of evaluation, Patient expressed agreement with goals and treatment plans Short Term Goals pt will be able to name a minimum of 15 items within a category. Pt will complete therapy tasks for word finding (i.e., word search, completion lists, etc) , Discharge Recommendations Home,Home with Home Health, Outpatient therapy
[2021-04-28 11:19] LABS: Potassium 4.2 mmol/L (3.4-5.1)
--- NOTE | 2021-04-28 11:38 | CM.IDA ---
Initial DCP Assessment Note Pt is a 55 yo female, resident of [place], arrives two days after a fall at home, has no memory of fall. Presents to the ED w/ S.O. w/complaints of dizziness, amnesia, a possible head injury, and nausea and vomiting since this possible head injury 2 nights ago. Imaging revealed Bilateral temporal bone fractures w/brain bleed. 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 PCP: None Listed Payer: Joseph Met w/patient to introduce role, stayed for session w/PT Sanjuana. According to patient's report: Patient lives in an apt, alone, S.O. Jan lives on [address]. Patient works for [employer] in [place] and is indp and active at baseline. Patient admits to drinking two alcoholic drinks at the restaurant where she ordered take out Sunday evening. Patient denies current domestic violence. Patient able to recall the same details that have already been well charted by medical staff since patient's arrival to the ED Patient became tearful re: next steps in medical care, paying my rent and states feeling overwhelmed. S.O. Jan scheduled to visit this afternoon/evening which appeared to be a relief to patient. At this time, no needs from this WIRE SAWYER, will plan to follow closely as medical plan of care unfolds, in case any DC needs or concerns arise. JETT Galvan Discharge Planning/Care Management CM Discharge Assessment Start: 04/28/21 11:32 Freq: Status: Active Protocol: Document 04/28/21 11:32 PK (Rec: 04/28/21 11:37 PK [id number]) Discharge Planning Assessment Assigned Bulk Pallet Builder JETT Talbot DPOA/Assigned Designee Name Jan Farley SMonica Contact Information [phone] Advance Directives? No Advance Directives on File No History Provided By Patient Prior Living Arrangements Apartment/Condo Household Members none Type of transporation used prior to Drives own vehicle admit Independent with ADL's Yes Is patient alert and oriented? Yes Barriers to Discharge Yes Comment Patient continues to have mild cog impairment. Medical plan of care unknown Transportation Arrangement TBD Referrals Initiated None needed Additional Comment At this time Whiteboard Updated in Patient Room with Yes name and ext. # of Bulk Pallet Builder
--- NOTE | 2021-04-28 11:39 | PT.IIE ---
Current Diagnoses Nontraumatic intracranial hemorrhage, unspecified (04/27/21) Medical History (Last Reviewed 04/27/21 @ 23:50 by Marry Qureshi MD) Excessive daytime sleepiness Fatigue due to sleep pattern disturbance GERD (gastroesophageal reflux disease) Insomnia due to medical condition Morbid obesity with body mass index (BMI) of 40.0 to 49.9 Obstructive sleep apnea, adult Physical Therapy Inpatient Evaluation/Re-Eval M1 PT/OT-IP Prior Functional Status Start: 04/28/21 11:11 Freq: Status: Active Protocol: Document 04/28/21 10:11 MB (Rec: 04/28/21 11:39 MB [id number]) Medical Review Prior Functional Status Medical History Reviewed Yes Diet/Fluid Consistency Regular Communication WNLs Mobility and Gait I Activities of Daily Living and IADL's I Prior Functional Level (Other details) I Social History Household Members none Living Arrangements Apartment/Condo Number of Floors (Floors) One Floor Number of Stairs To Enter/Railing? Flight of steps with rail to enter Additional Social History Comment Works, pt cannot state how much M2 PT-IP Current Condition Start: 04/28/21 11:11 Freq: Status: Active Protocol: Document 04/28/21 10:11 MB (Rec: 04/28/21 11:38 MB [id number]) Physical Therapy Current Condition Current Condition Evaluation Date 04/28/21 Treatment Diagnosis Decreased right pupil constriction and right hearing , imbalance s/p TBI Onset Date 04/25/21 M3 PT-IP Subjective Start: 04/28/21 11:11 Freq: Status: Active Protocol: Document 04/28/21 10:11 MB (Rec: 04/28/21 11:38 MB [id number]) Subjective Physical Therapy Visit Type Type Initial Evaluation Visit Start Time 10:11 Visit Stop Time 10:48 Total Visit Minutes 37 Physical Therapy Visit Comments Patient Comments Pt is tearful during assessment, is concerned about missing work and being able to pay rent at the end of the month Patient Goals To get back to work Therapy Pain Assessment Pain When Pain Assessed At Rest Location head Intensity 0 M4 PT-IP Mobility and Gait Start: 04/28/21 11:11 Freq: Status: Active Protocol: Document 04/28/21 10:11 MB (Rec: 04/28/21 11:38 MB [id number]) PT-Bed Mobility Assessment Rolling Type of Rolling Roll to Right Level of Assist Independent Supine to Sit Supine to Sit Standby Assistance,Head of Bed Elevated,Bedrails Sit to Supine Sit to Supine Standby Assistance,Head of Bed Elevated,Bedrails Scooting Scooting to Edge of Bed Standby Assistance PT-Transfer Assessment Sit to and From Stand Sit to and from Stand Standby Assistance,Contact Guard Assistance,1 Person Assistance,Use of Upper Extremities Equipment Transfer Assistive Device Gait Belt Orthotic/Prosthetic Devices or Brace: No Transfer Ability Level of Assist Standby Assistance,Contact Guard Assistance,1 Person Assistance,Use of Upper Extremities Comments Mobility Comments Pt is slow and cautious d/t imbalance and dizziness when getting up, heavy UE use and does push IV pole with gait training to the bathroom. Upon lying down, she gets quick beat torsional nystagmus and this does appear to be BPPV but PT does not feel safe treating in setting of recent skull fractures with lobe contusions, dried blood in right ear Gait Assessment Gait Gait Assistance Required: Contact Guard Assist,1 Person Assist Distance (Feet) 15 Able to Maintain Weight Bearing Status Yes During Gait Assistive Devices Assistive Device Gait Belt Orthotic/Prosthetic Devices or Brace: No Gait Deviations General Gait Pattern Flexed Trunk,Lateral Trunk Lean,Wide Based Gait Factors Limiting Gait Function Factors Limiting Gait Function Decreased Activity Tolerance Comments Gait Comments Pt's gait is not particularly ataxic in nature at this time. Given head injury, skull fractures and bone contusions, it will be beneficial to see if her gait quality changes. She pushes IV pole and gait trains x2 15' from door side of bed to BR and back. PT-Balance Assessment Sitting Balance and Reactions Static Sitting Balance Ability Fair Dynamic Sitting Balance Ability Fair Standing Balance and Reactions Static Standing Balance Ability Fair Dynamic Standing Balance Ability Fair Comments Other Balance Tests/Deviations/Treatment UE support for static and : dynamic sitting balance on EOB and reaches for IV pole for standing balance M5 PT-IP Objective Assessments Start: 04/28/21 11:11 Freq: Status: Active Protocol: Document 04/28/21 10:11 MB (Rec: 04/28/21 11:38 MB [id number]) Orientation Orientation/Cognition Level of Alertness Lethargic Orientation Name,Age,Birthday,Month,Date Language Function Ability Word Finding Difficulties Safety Awareness Decreased Safety Awareness Memory Description Short Term Impaired Comments Pt states location as [place] to begin with and knows that this is not correct, but has trouble coming up with Erica. She knows she lives and works here and can point to apartment outside hospital window but she cannot think of the name of her company where she works. She can recall the event happened on Sunday night and she woke up in her bed on Sunday morning but she cannot give any other clear details about the event. She states her boyfriend was not with her and lives on [place] and is helpful and is returning this evening. She states he noticed some blood on the floor near stairs. There is a flight of steps to get to her apartment. Gross Range of Motion Upper Extremity ROM Assessment Within Functional Limits Lower Extremity ROM Assessment Within Functional Limits Strength Upper Extremity Strength Assessment Within Functional Limits Lower Extremity Strength Assessment Within Functional Limits Coordination Assessment Gross Coordination Gross Coordination WNL Assessment Coordination Comments PT can only check right rapid supination and pronation d/t left IV and it is normal. Opposite foot tap over also normal B R pupil does not constrict readily to pen light compared to the left. She reports less hearing right ear with PT rubbing glove near both ears. Dried blood right ear, bruising and blood right mandible, B knees with ecchymosis and abrasions. Muscle Tone Muscle Tone WNL Yes Other Assessments Other Other Assessments See above comments for positional nystagmus, pupil constriction, coordination test. No clonus with rapid passive DF B. M6 PT-IP Treatment Start: 04/28/21 11:11 Freq: Status: Active Protocol: Document 04/28/21 10:11 MB (Rec: 04/28/21 11:38 MB [id number]) Physical Therapy Treatment Education Education Provided Precautions,Safety Other Treatments Other Treatment Performed PT ed pt on signs and symptoms of brain injury and concussion including dizziness , headache, fatigue, emotional lability and confusion and PT encourages pt that it is okay for her to cry and to let providers know if she is overwhelmed. PT does educate pt PT is going to recommend neurology consult and then PT at d/c for pt. M7 PT-IP Assessment and Plan Start: 04/28/21 11:11 Freq: Status: Active Protocol: Document 04/28/21 10:11 MB (Rec: 04/28/21 11:38 MB [id number]) PT Summary Assessment and Plan Potential Rehabilitation Potential Fair Status of Condition at Evaluation Evolving Summary Impairments Balance,Cognition,Bed Mobility ,Transfers,Gait,Activity Tolerance Assessment Summary Pt is a 55 y/o female presenting with B temporal fractures, right sphenoid fracture, temporal and other lobe contusions, right ear with dried blood, right mandibular bruising and dried blood and B knee contusions and abrasions. Mechanism of injury is unknown and this is concerning given bilateral temporal fractures. See PT comments above about pt's recollection of events and her reports of living situation. Pt is very concerned about missing work and getting her rent paid. She presents with right pupil with decreased constriction to pen light compared to the left, decreased right ear hearing. Normal smile and tongue movement today. She presents with confusion, decreased short-term memory and trouble with word-finding. She typically works and lives alone. PT does not note coordination impairment or ataxia today with testing. She is imbalance. She has positionally provoked nystagmus and PT does not feel comfortable assessing and treating BPPV given new brain injury and skull fractures. PT recommends neurology consult and outpatient follow-up as well as OPPT for imbalance and vertigo s/p TBI. Recommend social work follow-up about home safety situation. Recommend cognitive evaluation . Goals Bed Mobility Goal Independent Transfer Goal Independent Gait Goal Independent Gait Distance 200 Other Goals Ascend and descend flight of steps with rail and I Days to Meet Goals 5 Frequency of Treatment Frequency Of Treatment Once a Day Treatment Plan Physical Therapy Treatment Plan Bed Mobility Training,Transfer Training,Gait Training, Therapeutic Exercise,Balance Retraining,Neuromuscular Re-ed Other Recommendations and Next Treatment Formal balance assessment, Focus gait in hallway and steps Precautions Other Precautions S/p TBI and vestibular PT does feel that she also has BPPV BP and HR in RUE in hook lying 135/80, 62 and cuff does not read again when up Recommendations To Nursing Amount of Assist Needed 1 Person Assist Discharge Recommendations Other Discharge Recommendations 24 hour assist at d/c Progress to OPPT for imbalance post-concussion/TBI Transportation Needs at Discharge Private Vehicle
--- NOTE | 2021-04-28 12:31 | DI.MRI.S_ITS ---
PROCEDURE: MR HEAD/BRAIN WO CON INDICATIONS: 55-year-old female with recent fall, left-sided hemorrhagic contusions, bilateral temporal bone fractures TECHNIQUE: Noncontrast axial T1 spin echo, axial T2 fast spin echo, sagittal and axial FLAIR, coronal T2 fast spin echo, axial gradient echo, axial diffusion and ADC through the brain. COMPARISON: [facility], CT, CT HEAD/BRAIN WO CON, 04/27/2021, 19:22. [facility], CT, CT HEAD/BRAIN WO CON, 04/28/2021, 5:48. FINDINGS: Cerebrum, Cerebellum and Brainstem: Left-sided hemorrhagic contusions noted involving the mid left middle temporal gyrus, right inferior frontal gyrus pars orbitalis and opercularis. Surrounding cerebral edema similar from the prior CT. Diffusion sequence otherwise unremarkable without evidence of territorial acute infarct. No midline shift. Ventricles: Appropriate in size and position. No hydrocephalus. Skull Base: The bony sella, pituitary gland and infundibulum are unremarkable. Clivus and craniovertebral relationships are appropriate. Visualized portions of the seventh and eighth cranial nerve complexes and internal auditory canals are within normal limits. Scalp and Calvarium: Bilateral temporal bone fractures noted on the prior CT are not well demonstrated by MRI. Scalp subgaleal hematoma noted near the vertex. Paranasal Sinuses: Sphenoid mucosal thickening and debris noted. Remainder the paranasal sinuses are clear. Mastoids: Bilateral mastoid effusions greater on the right Orbits: The orbits, globes and ocular muscles are unremarkable. IMPRESSION: 1. Left-sided frontal and temporal hemorrhagic contusions with similar vasogenic edema. Otherwise, no evidence of acute territorial infarct. 2. Bilateral mastoid effusions probably related to temporal bone fractures. Consider dedicated CT temporal bones for complete assessment. 3. Sphenoid mucosal thickening and debris, stable Approved by: Ganga Cannon M.D. on 04/28/2021 at 15:37
[2021-04-28 13:00] VITALS: BP 133/74; PULSE 68; RESP 16; TEMP 36.4; O2SAT 92
--- NOTE | 2021-04-28 14:02 | OT.IP.EVAL ---
Current Diagnoses Nontraumatic intracranial hemorrhage, unspecified (04/27/21) Past Medical History (Last Reviewed 04/27/21 @ 23:50 by Marry Qureshi MD) Excessive daytime sleepiness Fatigue due to sleep pattern disturbance GERD (gastroesophageal reflux disease) Insomnia due to medical condition Morbid obesity with body mass index (BMI) of 40.0 to 49.9 Obstructive sleep apnea, adult Occupational Therapy Inpatient Evaluation/Re-Eval M1 PT/OT-IP Prior Functional Status Start: 04/28/21 11:11 Freq: Status: Active Protocol: Document 04/28/21 13:30 [facility] (Rec: 04/28/21 15:28 [facility] [id number]) Medical Review Prior Functional Status Medical History Reviewed Yes Diet/Fluid Consistency Regular Communication WNLs Mobility and Gait I Activities of Daily Living and IADL's I Prior Functional Level (Other details) I Social History Household Members none Living Arrangements Apartment/Condo Number of Floors (Floors) One Floor Number of Stairs To Enter/Railing? Flight of steps with left rail to enter Additional Social History Comment Works, pt cannot state how much. Pt is PM able to recall that she works for [employer]. M2 OT-IP Current Condition Start: 04/28/21 15:12 Freq: Status: Active Protocol: Document 04/28/21 13:30 [facility] (Rec: 04/28/21 15:28 [facility] [id number]) Occupational Therapy Current Condition Current Condition Evaluation Date 04/28/21 Treatment Diagnosis Concussion Diagnosis Onset Date 04/27/21 M3 OT- IP Subjective and Pain Start: 04/28/21 15:12 Freq: Status: Active Protocol: Document 04/28/21 13:30 [facility] (Rec: 04/28/21 15:28 [facility] [id number]) OT- Subjective Occupational Therapy Visit Type Type Initial Evaluation Visit Start Time 13:30 Visit Stop Time 14:02 Total Visit Minutes 32 Occupational Therapy Visit Comments Patient Comments Pt agreed to get up. Patient/Caregiver Goals TO go home. OT Pain Assessment Pain When Pain Assessed At Rest Pain Present Pain Present Denied Pain M4 OT- IP ADL's Start: 04/28/21 15:12 Freq: Status: Active Protocol: Document 04/28/21 13:30 [facility] (Rec: 04/28/21 15:28 [facility] [id number]) OT [id number] Comments OT Self-Feeding Comments NOt at meal time. OT ADL-Grooming General Evaluation Grooming Ability Independent OT ADL-Dressing General Eval Lower Body Dressing Ability Independent Comments OT Dressing Comments Pt able to independently don/ doff her socks while sitting on the edge of the bed. OT ADL-Toileting Comments OT Toileting Comments Pt did not have to go. OT ADL-Bathing Comments OT Bathing Comments Not performed. M5 OT- IP IADL's Start: 04/28/21 15:12 Freq: Status: Active Protocol: Document 04/28/21 13:30 [facility] (Rec: 04/28/21 15:28 [facility] [id number]) OT-Instrumental Activities of Daily Living Home Safety Awareness Home Safety Comments Pt has word finding difficulties and not remembering her medications or initially did not remember where she works. At this time pt would be beneficial for someone to stay with pt initially when she goes home. M6 OT- IP Functional Cognition Start: 04/28/21 15:12 Freq: Status: Active Protocol: Document 04/28/21 13:30 [facility] (Rec: 04/28/21 15:28 [facility] [id number]) Cognitive Factors Limiting Selfcare Function Cognitive Ability Level of Alertness Alert,Confusional State Patient Orientation Name,Place,Situation Attention Span Ability Capable of Focused Attention, Capable of Sustained Attention Ability to Follow Commands Able to Follow Multi-Step Commands Safety Awareness No Deficits Noted Problem Solving Ability No deficits Noted Cognitive Comments Cognitive Assessment Comments Per CRITICAL CARE PHYSICIAN eval pt scored 26/30 on the SLUMS. Pt scored 78 seconds on [place] making Part B which implies normal but not perfect for visual attention, speed of processing, mental flexibility, executive functioning, and task switching. Pt score is 40% for her age group. Pt's main difficulty is word finding at this time. OT- Vision and Hearing OT- Vision Assessment Visual Acuity Glasses For Reading Visual Attentiveness WFL Occular Pursuits WFL Visual Convergence WFL Visual [place] WFL Diplopia Absent M7 OT- IP Mobility and Balance Start: 04/28/21 15:12 Freq: Status: Active Protocol: Document 04/28/21 13:30 [facility] (Rec: 04/28/21 15:28 [facility] [id number]) OT- Bed Mobility Assessment Rolling Type of Rolling Roll to Right Level of Assistance Independent Supine to Sit Supine to Sit Assist Independent Sit to Supine Sit to Supine Assist Independent OT-Transfer Assessment Sit to and From Stand Sit to and from Stand Independent Transfers Transfer Ability Independent Technique Transfer Destination Bed Transfer Technique Stand Step Pivot Devices Transfer Assistive Devices Gait Belt Comments Mobility Comments Pt independent to move in the room and just assist with IV pole for level surfaces. OT- Balance Assessment Sitting Balance and Reactions Static Sitting Balance Ability Normal Dynamic Sitting Balance Ability Normal Standing Balance and Reactions Static Standing Balance Ability Good M8 OT- IP Objective Assessments Start: 04/28/21 15:12 Freq: Status: Active Protocol: Document 04/28/21 13:30 [facility] (Rec: 04/28/21 15:28 [facility] [id number]) OT Gross Range of Motion Upper Extremity Range of Motion Assessment Within Functional Limits OT Strength Upper Extremity Strength Assessment Within Functional Limits OT- Coordination Assessment Upper Extremity Finger to Nose Test Within Functional Limits OT-Muscle Tone Assessment Muscle Tone WNL Yes M9 OT- IP Assessment and Plan Start: 04/28/21 15:12 Freq: Status: Active Protocol: Document 04/28/21 13:30 [facility] (Rec: 04/28/21 15:28 [facility] [id number]) OT Summary Assessment and Plan Potential Rehabilitation Potential Good Analytic Complexity at Evaluation Low Summary OT Impairments Pain,Balance,Functional Cognition,Functional Mobility, Bathing Progress Towards Goals Progressing Toward Goals Assessment Summary Pt low complexity and here due to concussion and main barriers are word finding difficulties at this time. Pt lives alone and suggested to have someone stay with her initially as she recovers. Goals Dressing Goal Independent Toileting Goal Independent Bathing Goal Independent Toilet Transfer Goal Independent Shower Transfer Goal Independent Days to Meet Goals 2 Frequency of Treatment Frequency Of Treatment Once a Day Treatment Plan OT Treatment Plan ADL Training,Functional Mobility,Patient/Family Education,Discharge Planning Other Treatment Recommendations and Next shower if still here Treatment Focus Discharge Recommendations OT Discharge Recommendations Home with Assistance Transportation Needs at Discharge Private Vehicle
--- NOTE | 2021-04-28 14:41 | P.PN_ITS ---
Subjective Subjective Date Patient Seen: 04/28/21 Time Patient Seen: 08:00 Interval history: Today she still states she has a headache. She thinks she may have had a fall on stairs, but is not completely sure. She has a difficult time with her memory currently. Physical therapist reported to me concern for fixed right pupil, immediately went to examine, but per my exam pupil was reactive normally and equal with left eye. Exam Vital Signs (past 8 hours): - 04/28/21 08:18 04/28/21 13:00 Temperature 97 F L 97.6 F Pulse Rate 82 68 Respiratory Rate 16 16 Blood Pressure 126/89 133/74 Pulse Oximetry 97 92 Oxygen Delivery Method Room Air Oxygen Flow Rate 0 Narrative Exam Narrative: GEN: no acute distress HEENT: lower lip with blood, laceration, right ear with blood PULM: clear bilaterally CV: regular rate and rhythm with no murmurs ABD: soft, nontender, nondistended, no organomegaly Neuro: CN 2-12 intact, strength 5/5 ini upper and lower extremities, no numbness, she recognizes she is forgetful, difficulty thinking of words and explaining events Objective Labs Result Diagrams: 04/27/21 18:15 04/28/21 10:10 Labs: Laboratory Results - last 24 hr 04/27/21 04/27/21 04/27/21 18:15 18:15 18:15 WBC 10.9 RBC 4.28 Hgb 12.9 Hct 38.4 MCV 89.7 MCH 30.1 MCHC 33.5 RDW 13.4 Plt Count 338 Neut % (Auto) 71.1 Lymph % (Auto) 21.9 L Patrick % (Auto) 6.0 Eos % (Auto) 0.3 L Baso % (Auto) 0.7 Neut # (Auto) 7700 H Lymph # (Auto) 2400 Patrick # (Auto) 700 Eos # (Auto) 0 Baso # (Auto) 100 Sodium 137 Potassium 3.7 Chloride 104 Carbon Dioxide 24 BUN 17 Creatinine 0.71 Estimated GFR > 60.0 BUN/Creatinine Ratio 23.9 H Glucose 121 H Calcium 9.4 Phosphorus Magnesium Total Bilirubin 0.7 AST 30 ALT 25 Alkaline Phosphatase 57 Troponin I < 0.012 Total Protein 7.5 Albumin 4.3 Globulin 3.2 Albumin/Globulin Ratio 1.3 Prolactin SARS-CoV-2 (PCR) 1004/27/21 04/27/21 18:15 18:15 21:16 WBC RBC Hgb Hct MCV MCH MCHC RDW Plt Count Neut % (Auto) Lymph % (Auto) Patrick % (Auto) Eos % (Auto) Baso % (Auto) Neut # (Auto) Lymph # (Auto) Patrick # (Auto) Eos # (Auto) Baso # (Auto) Sodium Potassium Chloride Carbon Dioxide BUN Creatinine Estimated GFR BUN/Creatinine Ratio Glucose Calcium Phosphorus 2.3 L Magnesium 2.1 Total Bilirubin AST ALT Alkaline Phosphatase Troponin I Total Protein Albumin Globulin Albumin/Globulin Ratio Prolactin 35.5 H SARS-CoV-2 (PCR) Negative 04/28/21 10:10 WBC RBC Hgb Hct MCV MCH MCHC RDW Plt Count Neut % (Auto) Lymph % (Auto) Patrick % (Auto) Eos % (Auto) Baso % (Auto) Neut # (Auto) Lymph # (Auto) Patrick # (Auto) Eos # (Auto) Baso # (Auto) Sodium 137 Potassium 4.2 Chloride 106 Carbon Dioxide 27 BUN 13 Creatinine 0.64 Estimated GFR > 60.0 BUN/Creatinine Ratio 20.3 Glucose 114 H Calcium 8.8 Phosphorus Magnesium Total Bilirubin AST ALT Alkaline Phosphatase Troponin I Total Protein Albumin Globulin Albumin/Globulin Ratio Prolactin SARS-CoV-2 (PCR) PFSH Medical History Excessive daytime sleepiness Fatigue due to sleep pattern disturbance GERD (gastroesophageal reflux disease) Insomnia due to medical condition Morbid obesity with body mass index (BMI) of 40.0 to 49.9 Obstructive sleep apnea, adult Family History (Updated 04/27/21 @ 23:51 by Marry Qureshi MD) Father Cirrhosis of liver Social History (Reviewed 04/27/21 @ 19:22 by Penny Whitfield [facility]) household members: none Smoking Status: Former smoker Assessment & Plan Assessment & Plan narrative: Ms. Elizalde is a 55W with PMH of depression, morbid obesity, obstructive sleep apnea, GERD admitted for acute encephalopathy with trauma resulting in skull fracture and brain contusion 1. Bilateral temporal bone fracture, sphenoid fracture, brain contusion with acute encephalopathy -currently patient very forgetful, slightly confused, but no focal deficits -CT head was repeated and showed stable fracture and hemorrhage -neurosurgery said nonoperative -discussed with general surgery as patient is a trauma and states fracture are not surgical, and to follow up with ENT as outpatient -discussed with neurology and recommend MRI, eval for possible stroke as u nexplained cause of fall -prolactin was elevated, but patient has no known seizures, and this is not specific enough to indicate seizures -continue to monitor for seizures, no anti-epileptic for now 2. Nausea- -will observe, advance diet as tolerated -LFT's, cbc, labs normal 3. GERD -will continue PPI 4. Depression -resume celexa at discharge 5. CHRISTIANO -home CPAP Time Spent With Patient Critical Care time: I spent a total of [] minutes of critical care time on this patient's care today; this time is exclusive of procedural time. Quality VTE Deep Vein Thrombosis/Pulmonary Embolism Present on Admission: No
[2021-04-28 15:25] VITALS: BP 120/73; PULSE 54; RESP 16; TEMP 36.5; O2SAT 97
[2021-04-28 16:41] LABS: Add Manual Diff / Slide Review NO; Basophils Absolute Auto 200 /uL (0-100); Basophils Percent Auto 1.3 % (0-2); Eosinophils Absolute Auto 0 /uL (0-450); Eosinophils Percent Auto 0.2 % (2-4); Hematocrit 36.9 % (36-46); Hemoglobin 12.1 g/dL (12.0-16.0); Lymphocytes Absolute Auto 2500 /uL (1100-4500); Lymphocytes Percent Auto 21.4 % (25-40); Mean Corpuscular HGB Conc 32.8 % (30-36); Mean Corpuscular Hemoglobin 29.9 PG (26-34); Monocytes Absolute Auto 900 /uL (0-900); Monocytes Percent Auto 7.6 % (3-14); Neutrophils Absolute Auto 8100 /uL (1500-7000); Neutrophils Percent Auto 69.5 % (50-75); Platelet Count 301 X10^3/uL (150-400); Red Blood Cell Count 4.05 X10^6/uL (4.0-5.2); Red Cell Distribution Width 13.6 % (11.6-14.8); White Blood Cell Count 11.7 X10^3/uL (4.5-11.0)
--- NOTE | 2021-04-28 17:20 | DI.CT.S_ITS ---
PROCEDURE: CT MASTOID TEMPORAL INDICATIONS: mastoid effusion on MRI COMPARISON: [facility], CT, CT HEAD/BRAIN WO CON, 04/28/2021, 5:48. TECHNIQUE: Noncontrast 0.6 mm thick direct axial and coronal sections acquired through each temporal bone separately. FINDINGS: Image quality: Excellent. RIGHT: There is a longitudinal right temporal bone fracture extending through the right mastoid bone, right middle ear and extending into the right middle cranial fossa. Fracture extends through the right aspect of the sphenoid bone extends to the sphenoid sinus. Left additional fractures through the squamous portion of the right temporal bone is partially imaged. External auditory canal: Debris noted in the external auditory canal. Middle ear: There is fluid in the epitympanic present. Ossicular chain intact. Inner ear: Inner ear is normally formed and appears unremarkable. Facial nerve appears normal throughout is course. Mastoids: Moderate mastoid effusion probably reflects hemorrhage. Fluid in the sphenoid noted. LEFT: There is a short nondisplaced fracture through the squamous cell portion of the left temporal bone. A nondisplaced fracture through the left zygomatic arch current External auditory canal: Canal has a normal appearance. Middle ear: The middle ear structures, including the ossicles and tympanic membrane, appear normal. No abnormal fluid or soft tissue density. Inner ear: Inner ear is normally formed and appears unremarkable. Facial nerve appears normal throughout its course. Mastoids: Small mastoid effusion noted superiorly. MISCELLANEOUS: Visualized surrounding bones appear unremarkable. Visualized intracranial structures, including the cerebellopontine angle cisterns, appear normal. IMPRESSION: 1. Longitudinal right temporal bone fracture extends through the middle ear and extends to the right middle cranial fossa and sphenoid bone. Fluid in the middle ear and mastoid consistent with hemorrhage. No ossicular chain disruption 2. Nondisplace Approved by: Ganga Cannon M.D. on 04/28/2021 at 18:07
[2021-04-28 20:50] VITALS: BP 118/55; PULSE 57; RESP 14; TEMP 36.4; O2SAT 97
[2021-04-29 01:00] VITALS: BP 123/72; PULSE 49; RESP 14; TEMP 36.2; O2SAT 98
[2021-04-29 04:48] VITALS: BP 126/77; PULSE 63; RESP 14; TEMP 36.2; O2SAT 97
[2021-04-29] MEDS: SODIUM CHLORIDE 0.9% 1,000 ML 150 ML IV ×3 (06:11→19:14)
[2021-04-29] MEDS: PANTOPRAZOLE DR 20 MG TABLET PO (06:11)
[2021-04-29 07:26] LABS: Hematocrit 35.8 % (36-46); Hemoglobin 11.9 g/dL (12.0-16.0); Mean Corpuscular HGB Conc 33.2 % (30-36); Mean Corpuscular Hemoglobin 30.1 PG (26-34); Mean Corpuscular Volume 90.5 fL (80-100); Platelet Count 283 X10^3/uL (150-400); Red Blood Cell Count 3.95 X10^6/uL (4.0-5.2); Red Cell Distribution Width 13.5 % (11.6-14.8); White Blood Cell Count 9.5 X10^3/uL (4.5-11.0)
[2021-04-29 07:32] LABS: BUN Creatinine Ratio 15.9 (6-22); Blood Urea Nitrogen 11 mg/dL (7-17); Calcium 8.6 mg/dL (8.4-10.2); Carbon Dioxide 25 mmol/L (22-32); Chloride 106 mmol/L (98-107); Estimated Glomerular Filt Rate > 60.0 mL/min (>60); Glucose 103 mg/dL (70-100); HEMOLYSIS < 15 (0-50); Potassium 3.8 mmol/L (3.4-5.1); Sodium 137 mmol/L (137-145)
[2021-04-29 07:50] VITALS: BP 142/99; PULSE 60; RESP 18; TEMP 36.1; O2SAT 100
[2021-04-29] MEDS: DOCUSATE 100 MG CAPSULE PO ×2 (08:16→20:04)
[2021-04-29] MEDS: ACETAMINOPHEN 325 MG TABLET 650 MG PO ×2 (09:47→19:17)
--- NOTE | 2021-04-29 10:22 | PT.IPTN ---
Current Diagnoses Contusion and laceration of left cerebrum with loss of consciousness of unspecified duration, initial encounter (04/27/21) Physical Therapy Treatment Note M2 PT-IP Current Condition Start: 04/28/21 11:11 Freq: Status: Active Protocol: Document 04/28/21 10:11 MB (Rec: 04/28/21 11:38 MB [id number]) Physical Therapy Current Condition Current Condition Evaluation Date 04/28/21 Treatment Diagnosis Decreased right pupil constriction and right hearing , imbalance s/p TBI Onset Date 04/25/21 M3 PT-IP Subjective Start: 04/28/21 11:11 Freq: Status: Active Protocol: Document 04/29/21 09:10 AB (Rec: 04/29/21 11:23 AB [id number]) Subjective Physical Therapy Visit Type Type Treatment Note Visit Start Time 09:10 Visit Stop Time 09:46 Total Visit Minutes 36 Number of BARK SCALER Visits 0 Physical Therapy Visit Comments Patient Comments agreeable to do PT Therapy Pain Assessment Pain When Pain Assessed At Rest Pain Present Pain Present Pain Reported Location head Intensity 7 Scale Used Numeric (0 - 10) Pain Management Techniques Distraction,Modification of Treatment,Re-positioning, Timing of Activity with Medications M4 PT-IP Mobility and Gait Start: 04/28/21 11:11 Freq: Status: Active Protocol: Document 04/29/21 09:10 AB (Rec: 04/29/21 11:23 AB [id number]) PT-Bed Mobility Assessment Supine to Sit Supine to Sit Standby Assistance PT-Transfer Assessment Equipment Transfer Assistive Device Gait Belt Orthotic/Prosthetic Devices or Brace: No Transfers Transfer Destination Bed Transfer Technique ambulated Transfer Ability Level of Assist Standby Assistance,Contact Guard Assistance,1 Person Assistance,Use of Upper Extremities Comments Mobility Comments pt agreed to do PT. stated that she still has a headache and dizziness. BP in supine: 123/73. pt completed supine to sit SBA. c/o dizziness. BP in sittin/78. pt completed sit to stand SBA to CGA and ambulated in room without AD CGA and cues. presents with unsteady guarded gait and very slow guzman and tends to hold on to the bed/wall for support. pt stated that her head feels off . educated pt on use of FWW for steadiness/support and as an external feed back for head orientation. pt agreed to use FWW. completed ambulation using FWW SBA ~ 35 ft. pt is steadier with FWW and pt stated that she feels she was able to walk straighter. pt requested to go back to bed. pt sat on EOB and encouraged to eat and agreed. pt sitting on EOB for breakfast. Left with BF in room. informed nurse regarding pt's mobility and use of FWW at this time. Gait Assessment Gait Gait Assistance Required: Standby Assistance,Contact Guard Assist Distance (Feet) 35 Able to Maintain Weight Bearing Status Yes During Gait Assistive Devices Assistive Device None,Gait Belt,Front Wheeled Walker Orthotic/Prosthetic Devices or Brace: No Gait Deviations General Gait Pattern Decreased Stride Length, Decreased Feet Clearance,Step- to Gait Factors Limiting Gait Function Factors Limiting Gait Function Decreased Activity Tolerance, Decreased Strength,Difficulty Following Directions,Pain,Poor Balance,Poor Safety Awareness Comments Gait Comments pls refer to mobility section for details M5 PT-IP Objective Assessments Start: 04/28/21 11:11 Freq: Status: Active Protocol: Document 04/28/21 10:11 MB (Rec: 04/28/21 11:38 MB [id number]) Orientation Orientation/Cognition Level of Alertness Lethargic Orientation Name,Age,Birthday,Month,Date Language Function Ability Word Finding Difficulties Safety Awareness Decreased Safety Awareness Memory Description Short Term Impaired Comments Pt states location as [place] to begin with and knows that this is not correct, but has trouble coming up with [place]. She knows she lives and works here and can point to apartment outside hospital window but she cannot think of the name of her company where she works. She can recall the event happened on Sunday night and she woke up in her bed on Sunday morning but she cannot give any other clear details about the event. She states her boyfriend was not with her and lives on [address] and is helpful and is returning this evening. She states he noticed some blood on the floor near stairs. There is a flight of steps to get to her apartment. Gross Range of Motion Upper Extremity ROM Assessment Within Functional Limits Lower Extremity ROM Assessment Within Functional Limits Strength Upper Extremity Strength Assessment Within Functional Limits Lower Extremity Strength Assessment Within Functional Limits Coordination Assessment Gross Coordination Gross Coordination WNL Assessment Coordination Comments PT can only check right rapid supination and pronation d/t left IV and it is normal. Opposite foot tap over also normal B R pupil does not constrict readily to pen light compared to the left. She reports less hearing right ear with PT rubbing glove near both ears. Dried blood right ear, bruising and blood right mandible, B knees with ecchymosis and abrasions. Muscle Tone Muscle Tone WNL Yes Other Assessments Other Other Assessments See above comments for positional nystagmus, pupil constriction, coordination test. No clonus with rapid passive DF B. M6 PT-IP Treatment Start: 04/28/21 11:11 Freq: Status: Active Protocol: Document 04/29/21 09:10 AB (Rec: 04/29/21 11:23 AB [id number]) Physical Therapy Treatment Education Education Provided Safety M7 PT-IP Assessment and Plan Start: 04/28/21 11:11 Freq: Status: Active Protocol: Document 04/29/21 09:10 AB (Rec: 04/29/21 11:23 AB [id number]) PT Summary Assessment and Plan Potential Rehabilitation Potential Good Summary Impairments Pain,ROM,Strength,Balance, Coordination,Sensation,Tone, Cognition,Bed Mobility, Transfers,Gait,Activity Tolerance Assessment Summary pt requiring CGA with ambulation without AD and presents with unsteady gait. Assessed ambulation using FWW and pt is steadier and recommending use of FWW at this time. pt has decrease activity tolerance limiting independence. pt lives alone and at this time is not safe to go home. May require SNF vs acute rehab vs 24/7 assist available at home. will continue to assess progress. Goals Bed Mobility Goal Independent Transfer Goal Independent Gait Goal Independent,Front Wheel Walker Gait Distance 250 Other Goals improve ambulation without AD 150 ft mod I up/down 15 steps 1 rail mod I Days to Meet Goals 10 Frequency of Treatment Frequency Of Treatment Once a Day Treatment Plan Physical Therapy Treatment Plan Bed Mobility Training,Transfer Training,Gait Training, Therapeutic Exercise,Balance Retraining,Neuromuscular Re-ed Recommendations To Nursing Amount of Assist Needed 1 Person Assist Discharge Recommendations PT Discharge Recommendations Home with 24/7 Assist Available,Home Health,SNF Rehab,Acute Rehab,SNF vs Acute Rehab Transportation Needs at Discharge Private Vehicle
--- NOTE | 2021-04-29 11:03 | OT.IP.TRT ---
Current Diagnoses Contusion and laceration of left cerebrum with loss of consciousness of unspecified duration, initial encounter (04/27/21) Occupational Therapy Treatment Note M2 OT-IP Current Condition Start: 04/28/21 15:12 Freq: Status: Active Protocol: Document 04/28/21 13:30 [facility] (Rec: 04/28/21 15:28 [facility] [id number]) Occupational Therapy Current Condition Current Condition Evaluation Date 04/28/21 Treatment Diagnosis Concussion Diagnosis Onset Date 04/27/21 M3 OT- IP Subjective and Pain Start: 04/28/21 15:12 Freq: Status: Active Protocol: Document 04/29/21 12:08 [facility] (Rec: 04/29/21 12:20 [facility] [id number]) OT- Subjective Occupational Therapy Visit Type Type Treatment Note Visit Start Time 11:03 Visit Stop Time 11:50 Total Visit Minutes 47 Occupational Therapy Visit Comments Patient Comments Pt's boyfriend in the room for OT session and also hospitalist in the room for part of the session to talk to the pt. Patient/Caregiver Goals Pt wanting to be able to sleep and get better. Pt a bit labile. OT Pain Assessment Pain When Pain Assessed At Rest Pain Present Pain Present Pain Reported M4 OT- IP ADL's Start: 04/28/21 15:12 Freq: Status: Active Protocol: Document 04/28/21 13:30 [facility] (Rec: 04/28/21 15:28 [facility] [id number]) OT [id number] Comments OT Self-Feeding Comments NOt at meal time. OT ADL-Grooming General Evaluation Grooming Ability Independent OT ADL-Dressing General Eval Lower Body Dressing Ability Independent Comments OT Dressing Comments Pt able to independently elizabeth. doff her socks while sitting on the edge of the bed. OT ADL-Toileting Comments OT Toileting Comments Pt did not have to go. OT ADL-Bathing Comments OT Bathing Comments Not performed. Suggested to have a shower chair /stool in the shower in addition to a hand held shower spray. M5 OT- IP IADL's Start: 04/28/21 15:12 Freq: Status: Active Protocol: Document 04/28/21 13:30 [facility] (Rec: 04/28/21 15:28 [facility] [id number]) OT-Instrumental Activities of Daily Living Home Safety Awareness Home Safety Comments Pt has word finding difficulties and not remembering her medications or initially did not remember where she works. At this time would be beneficial for someone to stay with pt when she goes home. M6 OT- IP Functional Cognition Start: 04/28/21 15:12 Freq: Status: Active Protocol: Document 04/29/21 12:08 [facility] (Rec: 04/29/21 12:20 [facility] [id number]) Cognitive Factors Limiting Selfcare Function Cognitive Ability Level of Alertness Alert,Confusional State Patient Orientation Name,Place,Situation Attention Span Ability Capable of Focused Attention, Capable of Sustained Attention Ability to Follow Commands Able to Follow One Step Commands Memory Description Short Term Impaired Cognitive Comments Cognitive Assessment Comments Pt more emotional today and not comprehending information as well. Pt not open to taking a shower or redoing cognitive assessment at this time as just wanting to sleep due to not feeling well. M8 OT- IP Objective Assessments Start: 04/28/21 15:12 Freq: Status: Active Protocol: Document 04/28/21 13:30 [facility] (Rec: 04/28/21 15:28 [facility] [id number]) OT Gross Range of Motion Upper Extremity Range of Motion Assessment Within Functional Limits OT Strength Upper Extremity Strength Assessment Within Functional Limits OT- Coordination Assessment Upper Extremity Finger to Nose Test Within Functional Limits OT-Muscle Tone Assessment Muscle Tone WNL Yes M9 OT- IP Assessment and Plan Start: 04/28/21 15:12 Freq: Status: Active Protocol: Document 04/29/21 12:08 [facility] (Rec: 04/29/21 12:20 [facility] [id number]) OT Summary Assessment and Plan Potential Rehabilitation Potential Good Analytic Complexity at Evaluation Moderate Summary OT Impairments Pain,Balance,Functional Cognition,Functional Mobility, Bathing Progress Towards Goals Slow Progress due to Medical Issues,Slow Progress due to Cognition Assessment Summary Pt not thinking as well today or comprehending information as well and worried a bit emotional and having trouble to stay focused. Pt's boyfriend states can stay with her but uncertain for how long. Due to pt's increased difficulty with thinking, memory and getting the words out pt would benefit from 24/7 assist or skilled rehab. Per pt did PT earlier and due to dizziness having to use the FWW as she felt more unsteady than yesterday. Continue to work with pt for her needs while here in the hospital. Goals Dressing Goal Independent Toileting Goal Independent Bathing Goal Independent Toilet Transfer Goal Independent Shower Transfer Goal Independent Days to Meet Goals 15 Frequency of Treatment Frequency Of Treatment Once a Day Treatment Plan OT Treatment Plan ADL Training,Functional Cognition Training,Functional Mobility,Patient/Family Education,Discharge Planning Other Treatment Recommendations and Next shower if still here Treatment Focus Discharge Recommendations OT Discharge Recommendations Home with Assistance,Home with 24/7 Assist Available,SNF Rehab,Home vs SNF,SNF vs Acute Rehab Other Discharge Recommendations Pt would benefit from acute rehab that specializes in TBI, however as this time pt not able to tolerate much therapy. Transportation Needs at Discharge Private Vehicle,Wheelchair/ Cabulance
[2021-04-29 12:00] VITALS: BP 127/70; PULSE 53; RESP 16; TEMP 35.7; O2SAT 99
--- NOTE | 2021-04-29 14:27 | SLP.IPNOTE ---
Attempted to see patient at 11:35 and 14:20. She was with a hospitalist at 11:35 and asleep with a do not disturb sign at 14:20.
--- NOTE | 2021-04-29 14:42 | CM.DPNOTE ---
Faxed referral packet at [facility]'s request to [facility] and [facility] Received confirmations. Called all facilities previously to ensure they were contracted with [employer] because patient wants to stay in network. Hiral Kumar CM Asst.
[2021-04-29 15:00] VITALS: BP 127/63; PULSE 51; RESP 16; TEMP 36.1; O2SAT 99
--- NOTE | 2021-04-29 15:07 | CM.DPNOTE ---
Addendum entered by JETT Judd 04/29/21 15:52: ADD: Spoke w/Carlos Eduardo at [facility]; they can accept clinically and will begin auth request through [employer] this afternoon, do not anticipate an auth until Sunday however. Patient/S.O. Jan need update. Jan planning to stay in [place] for the weekend. JW Original Note: DCP Note According to Dr Lovell and therapy team; patient will benefit from SNF upon DC. Spoke w/Marina, OT, reviewed case. Discussed SNF vs Acute Rehab (?) According to PT Beth, patient would likely not meet the requirement for 3+ hours daily of therapies. Met w/patient and partner Jan (together 10 years). Reviewed recommendations for DCP. Patient agreeable to SNF stay, hopes to stay in [place] but agreeable to expanded search; patient asks how much it will cost w/her [employer] coverage? Explained coverage unknown until further research done by SNFs. S.O. Jan explained he and patient's sister Belen ( [place]) are discussing patient's needs and states if patient cannot DC to SNF he could take care of patient at her home, likely w/assist from her sister (a retired trauma RN). Placed call to Vero at [facility], reviewed referral. According to Vero- [facility] is out of network and so patient would be responsible for 50% of her bill, accrued at SNF. In network it would be 20% and patient has not yet met her annual deductible. NIRAJ Blackman assisting in this DCP and Referrals have been faxed to [facility], [facility] and [facility], all reviewing. [facility] will not be open over the w/e. CM team over the w/e will need to follow closely for coordination efforts- either DC home w/S.O. and HH vs awaiting SNF auth attempt 05.02. Need PASRR if SNF JETT Galvan
--- NOTE | 2021-04-29 17:11 | PM.PN.1 ---
Subjective Subjective Date Patient Seen: 04/29/21 Time Patient Seen: 08:00 Interval history: Today she remained forgetful. Still has a headache. Still is not able to state how injured herself. Exam Vital Signs (past 8 hours): - 04/29/21 12:00 04/29/21 15:00 Temperature 96.2 F L 97.0 F L Pulse Rate 53 L 51 L Respiratory Rate 16 16 Blood Pressure 127/70 127/63 Pulse Oximetry 99 99 Oxygen Delivery Method Room Air Oxygen Flow Rate 0 Narrative Exam Narrative: GEN: no acute distress HEENT: lower lip with blood, laceration, right ear with blood PULM: clear bilaterally CV: regular rate and rhythm with no murmurs ABD: soft, nontender, nondistended, no organomegaly Neuro: CN 2-12 intact, strength 5/5 ini upper and lower extremities, no numbness, she recognizes she is forgetful, difficulty thinking of words and explaining events Objective Labs Result Diagrams: 04/29/21 06:47 04/29/21 06:47 Labs: Laboratory Results - last 24 hr 04/28/21 04/29/21 04/29/21 10:10 06:47 06:47 WBC 11.7 H 9.5 RBC 4.05 3.95 L Hgb 12.1 11.9 L Hct 36.9 35.8 L MCV 91.0 90.5 MCH 29.9 30.1 MCHC 32.8 33.2 RDW 13.6 13.5 Plt Count 301 283 Neut % (Auto) 69.5 Lymph % (Auto) 21.4 L [place] % (Auto) 7.6 Eos % (Auto) 0.2 L Baso % (Auto) 1.3 Neut # (Auto) 8100 H Lymph # (Auto) 2500 [place] # (Auto) 900 Eos # (Auto) 0 Baso # (Auto) 200 H Sodium 137 Potassium 3.8 Chloride 106 Carbon Dioxide 25 BUN 11 Creatinine 0.69 Estimated GFR > 60.0 BUN/Creatinine Ratio 15.9 Glucose 103 H Calcium 8.6 PFSH Medical History Excessive daytime sleepiness Fatigue due to sleep pattern disturbance GERD (gastroesophageal reflux disease) Insomnia due to medical condition Morbid obesity with body mass index (BMI) of 40.0 to 49.9 Obstructive sleep apnea, adult Family History (Updated 04/27/21 @ 23:51 by Marry Qureshi MD) Father Cirrhosis of liver Social History household members: none Smoking Status: Former smoker Assessment & Plan Assessment & Plan narrative: Ms. Elizalde is a 55W with PMH of depression, morbid obesity, obstructive sleep apnea, GERD admitted for acute encephalopathy with trauma resulting in skull fracture and brain contusion 1. Bilateral temporal bone fracture, sphenoid fracture, brain contusion with acute encephalopathy -currently patient very forgetful, slightly confused, but no focal deficits -CT head was repeated and showed stable fracture and hemorrhage -neurosurgery said nonoperative -discussed with general surgery as patient is a trauma and states fracture are not surgical, and to follow up with ENT as outpatient -discussed with neurology and recommend MRI, eval for possible stroke as unexplained cause of fall, MRI negative for stroke -prolactin was elevated, but patient has no known seizures, and this is not specific enough to indicate seizures -continue to monitor for seizures, no anti-epileptic for now 2. Nausea- -will observe, advance diet as tolerated -LFT's, cbc, labs normal 3. GERD -will continue PPI 4. Depression -resume celexa at discharge 5. CHRISTIANO -home CPAP Dispo: patient is medically stable for discharge, she is awaiting placement to SNF Time Spent With Patient Critical Care time: I spent a total of [] minutes of critical care time on this patient's care today; this time is exclusive of procedural time. Quality VTE Deep Vein Thrombosis/Pulmonary Embolism Present on Admission: No
[2021-04-29 19:39] VITALS: BP 128/69; PULSE 53; RESP 16; TEMP 36; O2SAT 99
[2021-04-30] VITALS (9 sets, daily range): BP systolic 74–141; BP diastolic 46–112; PULSE 46–76; RESP 18–20; TEMP 35.9–36.8; O2SAT 97–100
[2021-04-30] MEDS: SODIUM CHLORIDE 0.9% 1,000 ML 150 ML IV (02:33)
[2021-04-30] MEDS: ACETAMINOPHEN 325 MG TABLET 650 MG PO ×2 (05:58→17:59)
[2021-04-30] MEDS: PANTOPRAZOLE DR 20 MG TABLET PO (05:58)
[2021-04-30] MEDS: DOCUSATE 100 MG CAPSULE PO ×2 (09:15→20:02)
[2021-04-30] MEDS: HYDROCODONE/ACET 5/325 TABLET 1 TAB PO (09:16)
--- NOTE | 2021-04-30 09:20 | PT.IPTN ---
Current Diagnoses Contusion and laceration of left cerebrum with loss of consciousness of unspecified duration, initial encounter (04/27/21) Physical Therapy Treatment Note M2 PT-IP Current Condition Start: 04/28/21 11:11 Freq: Status: Active Protocol: Document 04/28/21 10:11 MB (Rec: 04/28/21 11:38 MB [id number]) Physical Therapy Current Condition Current Condition Evaluation Date 04/28/21 Treatment Diagnosis Decreased right pupil constriction and right hearing , imbalance s/p TBI Onset Date 04/25/21 M3 PT-IP Subjective Start: 04/28/21 11:11 Freq: Status: Active Protocol: Document 04/30/21 09:20 AB (Rec: 04/30/21 11:34 AB [id number]) Subjective Physical Therapy Visit Type Type Treatment Note Visit Start Time 09:20 Visit Stop Time 09:55 Total Visit Minutes 35 Number of COOK LARDER Visits 0 Physical Therapy Visit Comments Patient Comments agreeable to do PT Therapy Pain Assessment Pain When Pain Assessed At Rest Pain Present Pain Present Pain Reported Location head Scale Used scale not stated M4 PT-IP Mobility and Gait Start: 04/28/21 11:11 Freq: Status: Active Protocol: Document 04/30/21 09:20 AB (Rec: 04/30/21 11:34 AB [id number]) PT-Bed Mobility Assessment Supine to Sit Supine to Sit Standby Assistance PT-Transfer Assessment Sit to and From Stand Sit to and from Stand Standby Assistance,1 Person Assistance Equipment Transfer Assistive Device Front Wheeled Walker Orthotic/Prosthetic Devices or Brace: No Comments Mobility Comments pt agreed to do PT. completed supine to sit SBA. able to sit on EOB SBA. BP: 133/78. completed sit to stand SBA to CGA and ambulated in room using FWW SBA to CGA ~ 25 ft. CGA during turns and cues for vision/head orientation to decrease dizziness. pt sat back on EOB. initiated VOR exercise with pt focusin on pen and slow head movement. pt tolerated. agreed to walk again and ambulated without AD CGA 25 ft. pt sat back on EOB. positioned breakfast table. left pt with BF in room. call light next to pt. Gait Assessment Gait Gait Assistance Required: Standby Assistance,Contact Guard Assist,1 Person Assist Distance (Feet) 25 Able to Maintain Weight Bearing Status Yes During Gait Assistive Devices Assistive Device None,Gait Belt,Front Wheeled Walker Orthotic/Prosthetic Devices or Brace: No Gait Deviations General Gait Pattern Decreased Stride Length, Decreased Feet Clearance Factors Limiting Gait Function Factors Limiting Gait Function Decreased Activity Tolerance, Decreased Strength,Pain,Poor Balance,Poor Safety Awareness Comments Gait Comments pls refer to mobility section for details M5 PT-IP Objective Assessments Start: 04/28/21 11:11 Freq: Status: Active Protocol: Document 04/28/21 10:11 MB (Rec: 04/28/21 11:38 MB [id number]) Orientation Orientation/Cognition Level of Alertness Lethargic Orientation Name,Age,Birthday,Month,Date Language Function Ability Word Finding Difficulties Safety Awareness Decreased Safety Awareness Memory Description Short Term Impaired Comments Pt states location as [place] to begin with and knows that this is not correct, but has trouble coming up with [place]. She knows she lives and works here and can point to apartment outside hospital window but she cannot think of the name of her company where she works. She can recall the event happened on Sunday night and she woke up in her bed on Sunday morning but she cannot give any other clear details about the event. She states her boyfriend was not with her and lives on [email or web address] and is helpful and is returning this evening. She states he noticed some blood on the floor near stairs. There is a flight of steps to get to her apartment. Gross Range of Motion Upper Extremity ROM Assessment Within Functional Limits Lower Extremity ROM Assessment Within Functional Limits Strength Upper Extremity Strength Assessment Within Functional Limits Lower Extremity Strength Assessment Within Functional Limits Coordination Assessment Gross Coordination Gross Coordination WNL Assessment Coordination Comments PT can only check right rapid supination and pronation d/t left IV and it is normal. Opposite foot tap over also normal B R pupil does not constrict readily to pen light compared to the left. She reports less hearing right ear with PT rubbing glove near both ears. Dried blood right ear, bruising and blood right mandible, B knees with ecchymosis and abrasions. Muscle Tone Muscle Tone WNL Yes Other Assessments Other Other Assessments See above comments for positional nystagmus, pupil constriction, coordination test. No clonus with rapid passive DF B. M6 PT-IP Treatment Start: 04/28/21 11:11 Freq: Status: Active Protocol: Document 04/30/21 09:20 AB (Rec: 04/30/21 11:34 [id number]) Physical Therapy Treatment Education Education Provided Safety Other Treatments Other Treatment Performed VOR exercise initiated M7 PT-IP Assessment and Plan Start: 04/28/21 11:11 Freq: Status: Active Protocol: Document 04/30/21 09:20 AB (Rec: 04/30/21 11:34 AB [id number]) PT Summary Assessment and Plan Potential Rehabilitation Potential Good Summary Impairments Pain,ROM,Strength,Balance, Coordination,Sensation,Tone, Cognition,Bed Mobility, Transfers,Gait,Activity Tolerance Progress Towards Goals Slow Progress due to Medical Issues,Slow Progress due to Activity Tolerance Assessment Summary pt requiring SBA to CGA with ambulation with FWW and CGA without AD but only able to ambulate short distance with c /o dizziness with movement. pt stated that she will not have assistance at home. pt will require SNF rehab to improve strength and mobility. Goals Bed Mobility Goal Independent Transfer Goal Independent Gait Goal Independent,Front Wheel Walker Gait Distance 250 Other Goals improve ambulation without AD 150 ft mod I up/down 15 steps 1 rail mod I Days to Meet Goals 10 Frequency of Treatment Frequency Of Treatment Once a Day Treatment Plan Physical Therapy Treatment Plan Bed Mobility Training,Transfer Training,Gait Training, Therapeutic Exercise,Balance Retraining,Neuromuscular Re-ed Recommendations To Nursing Amount of Assist Needed 1 Person Assist Discharge Recommendations PT Discharge Recommendations SNF Rehab Transportation Needs at Discharge Private Vehicle
--- NOTE | 2021-04-30 10:47 | OT.IP.TRT ---
Current Diagnoses Contusion and laceration of left cerebrum with loss of consciousness of unspecified duration, initial encounter (04/27/21) Occupational Therapy Treatment Note M2 OT-IP Current Condition Start: 04/28/21 15:12 Freq: Status: Active Protocol: Document 04/28/21 13:30 [facility] (Rec: 04/28/21 15:28 [facility] [id number]) Occupational Therapy Current Condition Current Condition Evaluation Date 04/28/21 Treatment Diagnosis Concussion Diagnosis Onset Date 04/27/21 M3 OT- IP Subjective and Pain Start: 04/28/21 15:12 Freq: Status: Active Protocol: Document 04/30/21 10:25 [facility] (Rec: 04/30/21 11:57 [facility] [id number]) OT- Subjective Occupational Therapy Visit Type Type Treatment Note Visit Start Time 10:25 Visit Stop Time 10:47 Total Visit Minutes 22 Occupational Therapy Visit Comments Patient Comments Pt's boyfriend in the room. Patient/Caregiver Goals Pt agreed to take a shower after encouragement from her boyfriend. OT Pain Assessment Pain When Pain Assessed At Rest Pain Present Pain Present Pain Reported M4 OT- IP ADL's Start: 04/28/21 15:12 Freq: Status: Active Protocol: Document 04/30/21 10:25 [facility] (Rec: 04/30/21 11:57 [facility] [id number]) OT ADL-Dressing General Eval Lower Body Dressing Ability Minimal Assistance OT ADL-Bathing Comments OT Bathing Comments Attempted to get pt into the bathroom for a shower. 04/30/21 Pt independent to get out of bed and use of FWW CGA to get to the doorway of the bathroom. Pt agreed to shower and then on the way to the shower, states not able to do and then proceeded to get shakey, panicked, and her legs started to buckle and needed to be lowered to the floor. Staff Emergency emergency called, codi lift brought in , vital and EKG taken. M8 OT- IP Objective Assessments Start: 04/28/21 15:12 Freq: Status: Active Protocol: Document 04/28/21 13:30 [facility] (Rec: 04/28/21 15:28 [facility] [id number]) OT Gross Range of Motion Upper Extremity Range of Motion Assessment Within Functional Limits OT Strength Upper Extremity Strength Assessment Within Functional Limits OT- Coordination Assessment Upper Extremity Finger to Nose Test Within Functional Limits OT-Muscle Tone Assessment Muscle Tone WNL Yes M9 OT- IP Assessment and Plan Start: 04/28/21 15:12 Freq: Status: Active Protocol: Document 04/30/21 10:25 [facility] (Rec: 04/30/21 11:57 [facility] [id number]) OT Summary Assessment and Plan Potential Rehabilitation Potential Good Analytic Complexity at Evaluation Moderate Summary OT Impairments Pain,Balance,Functional Cognition,Functional Mobility, Toileting,Bathing,Toilet Transfers,Shower Transfers, Activity Tolerance Progress Towards Goals Slow Progress due to Medical Issues,Slow Progress due to Activity Tolerance,Slow Progress due to Cognition Assessment Summary Pt not feeling well and had a controlled fall to the floor while trying to get into the bathroom. Pt's vitals were normal and EKG was taken. Staff emergency was called, Hospitalist and staff came in, codi lift used to assist pt back to bed, and Staff huddle performed. Goals Grooming Goal Independent Dressing Goal Independent Toileting Goal Independent Bathing Goal Independent Toilet Transfer Goal Independent Shower Transfer Goal Independent Days to Meet Goals 30 Frequency of Treatment Frequency Of Treatment Once a Day Treatment Plan OT Treatment Plan ADL Training,Functional Cognition Training,Functional Mobility,Patient/Family Education,Discharge Planning Other Treatment Recommendations and Next redo Belcher making B and try Treatment Focus SLUMS Discharge Recommendations OT Discharge Recommendations SNF Rehab,SNF vs Acute Rehab Transportation Needs at Discharge Wheelchair/Cabulance
--- NOTE | 2021-04-30 11:17 | DI.ECHO.S_ITS ---
[place] [facility]---------+ [facility] +---------+ : : [address] : [address] : : : : [id number] : : : : Phone: [phone]+ Echocardiogram Report + + :Name: MARY NORIEGA Study Date: 04/30/2021 Height: 65 in : :[facility] ReadingLocation: Weight: 266 lb : : Gender: Female BSA: 2.2 m2 : :: 1965 Age: 55 yrs BP: 118/74 mmHg: :Reason For Study: PRESYNCOPE : :Ordering Physician: NIKOLE, : :[place] Performed By: Rubia Jacobs : :Referring: STANFORD AGUSTIN : + + Interpretation Summary The left ventricle is normal in size and wall thickness. Left ventricular systolic function appears normal without focal wall motion abnormalities. The ejection fraction is estimated to be 60-65%. Diastolic parameters suggest a pseudonormalization pattern, consistent with probable elevated filling pressures. The right ventricle is normal in size and function. Pulmonary artery pressures cannot be estimated because of the lack of a measurable TR jet velocity but the IVC suggests a CVP of around 3 mmHg. The left atrium is mildly dilated. Right atrial size is normal. There is no significant valvular heart disease. The aortic root is normal size. Procedure: A two-dimensional transthoracic echocardiogram with color flow and Doppler was performed. The study quality was technically adequate. There is no prior echocardiogram noted for this patient. The patient was in sinus bradycardia with heart rates between 46-52 bpm during the exam. Left Ventricle: The left ventricle is normal in size and wall thickness. Left ventricular systolic function appears normal without focal wall motion abnormalities. The ejection fraction is estimated to be 60-65%. Diastolic parameters suggest a pseudonormalization pattern, consistent with probable elevated filling pressures. Right Ventricle: The right ventricle is normal in size and function. Atria: The left atrium is mildly dilated. Right atrial size is normal. There is no Doppler evidence for an interatrial shunt. Mitral Valve: The mitral valve is normal in structure and function. There is no mitral regurgitation noted. Aortic Valve: The aortic valve is trileaflet. The aortic valve opens well. There is no aortic valve stenosis. No aortic regurgitation is present. Tricuspid Valve: The tricuspid valve is normal in structure and function. There is trace tricuspid regurgitation. Pulmonary artery pressures cannot be estimated because of the lack of a measurable TR jet velocity but the IVC suggests a CVP of around 3 mmHg. Pulmonic Valve: The pulmonic valve leaflets are thin and pliable; valve motion is normal. There is no pulmonic valvular regurgitation. There is no significant valvular heart disease. Great Vessels: The aortic root is normal size. The ascending aorta is normal in size. The IVC is of normal diameter and collapses greater than 50% with a sniff. This suggests a low right atrial pressure of 3 mm Hg. Pericardium/ Pleura There is no pericardial effusion. There is no pleural effusion. MMode/2D Measurements & Calculations LVIDd: 4.9 cm LVOT diam: 2.0 cm LVIDs: 3.6 cm Ao root diam: 2.8 cm FS: 26.3 % asc Aorta Diam: 3.4 cm IVSd: 0.92 cm Ao Arch Diam (Prox Trans): 2.8 cm LVPWd: 0.84 cm LV forbes. diameter/BSA (cm/m^2): 2.2 LV sys. diameter/BSA (cm/m^2): 1.6 LA A2 area: 26.3 cm2 RA long axis: 5.8 cm LA A4 area: 22.0 cm2 RA area: 20.1 cm2 LA length (vol): 6.1 cm RA vol: 59.3 ml LA vol: 80.9 ml RA : 26.6 ml/m2 LA vol index: 36.2 ml/m2 IVC diam: 1.7 cm RVD1 (basal): 3.5 cm TAPSE: 2.8 cm Doppler Measurements & Calculations Ao V2 max: 160.5 cm/sec LVOT Max Finn: 110.5 cm/sec Ao V2 mean: 100.5 cm/sec LV V1 max P.9 mmHg Ao max P.3 mmHg LV V1 VTI: 28.6 cm Ao mean P.6 mmHg CAM(I,D): 2.8 cm2 Ao V2 VTI: 33.7 cm CAM(V,D): 2.3 cm2 sev ratio: 0.85 CAM indexed to BSA (cm^2/m^2): 1.2 MV E max finn: 120.3 cm/sec PA V2 max: 79.6 cm/sec MV A max finn: 65.8 cm/sec PA V2 mean: 55.7 cm/sec MV E/A: 1.8 PA mean P.4 mmHg Med Peak E' Finn: 6.4 cm/sec PA pr(Accel): 22.5 mmHg E/E' med: 18.8 Lat Peak E' Finn: 7.7 cm/sec E/E' lat: 15.7 E/e' average: 17.2 MV dec time: 0.23 sec SV(OT): 93.7 ml Reading Physician:04:13 PM
--- NOTE | 2021-04-30 11:33 | DI.CT.S_ITS ---
PROCEDURE: CT HEAD/BRAIN WO CON INDICATIONS: neuro change, recent head injury TECHNIQUE: Noncontrast 4.5 mm thick angled axial sections acquired from the foramen magnum to the vertex, with coronal and sagittal reformats. For radiation dose reduction, the following was used: automated exposure control, adjustment of mA and/or kV according to patient size. COMPARISON: , CT, CT HEAD/BRAIN WO CON, 04/27/2021, 19:22. , CT, CT HEAD/BRAIN WO CON, 04/28/2021, 5:48. FINDINGS: Image quality: Excellent. CSF spaces: Basal cisterns are patent. No extra-axial fluid collections. Ventricles are normal in size and shape. Brain: Several areas of hemorrhagic contusion are again seen, which are worst involving the left lateral temporal lobe. Small areas of hemorrhagic contusion are also seen involving the left lateral frontal lobe and the left lateral parietal lobe. The volume of blood is resolving compared to prior head CT examinations. No midline shift. No intracranial masses. Keith-white matter interface is normal. Skull and face: There is a right temporal bone fracture seen, which extends through the skull base and into the right sphenoid sinus. This fracture involves the right lateral calvarium, as on series 3, image 11. There is also a mildly displaced left temporal bone fracture seen, which also involves the lateral calvarium, as on series 3, image 6. Right parietal region scalp hematoma is again seen. Sinuses: Blood is seen within the sphenoid sinuses, with milder mucosal thickening seen elsewhere. No significant abnormal mastoid air cell fluid can be seen. IMPRESSION: Bilateral hemorrhagic contusions are seen, with slow resolution of the hemorrhage. No new hemorrhage can be seen. Bilateral temporal bone fractures are seen, with involvement of the lateral calvarium on both sides. The right temporal bone fracture extends into the right sphenoid sinus. There is a right parietal scalp hematoma again seen. Dictated by: Joey Thomas M.D. on 04/30/2021 at 11:37 Approved by: Joey Thomas M.D. on 04/30/2021 at 11:43
--- NOTE | 2021-04-30 11:50 | PC.NURSE ---
1040 Staff emergency paged to patients room, patient was lying on floor in the bathroom doorway, occupational therapist was behind patient on the floor supporting patients back and head. Per OT patient had agreed to shower and was ambulating with OT to the bathroom with FWW when patient stated I just can not do this, I do not feel well. Per OT, attempted to walk patient back to bed or recliner, patient became anxious, shaky and legs buckled. Patient was unable to move, OT lowered patient to the floor. Patient did not loose consciousness or hit her head. CHarge nurse and Dr Lovell in room to assist and assess. Patient hoyered to bed, vitals WNL, CBG 99, EKG ordered and completed. Tele placed as ordered and CT and labs ordered. Patient denies pain, states I'm just embarrassed.
[2021-04-30] MEDS: CITALOPRAM 10 MG TABLET 40 MG PO (12:10)
--- NOTE | 2021-04-30 13:14 | P.PN_ITS ---
Subjective Subjective Date Patient Seen: 04/30/21 Time Patient Seen: 08:00 Interval history: She feels quite poor. She got up to ambulate today felt lightheaded and unsteady, was slid down to the ground with PT. No head strike. She is still a bit dizzy and sleepy. She is emotionally labile Exam Vital Signs (past 8 hours): - 04/30/21 05:57 04/30/21 09:00 04/30/21 10:50 Temperature 98.1 F 97.9 F Pulse Rate 57 L 62 52 L Respiratory Rate 20 20 20 Blood Pressure 129/74 133/71 130/68 Pulse Oximetry 99 98 100 Oxygen Delivery Method Room Air Oxygen Flow Rate 0 Narrative Exam Narrative: GEN: no acute distress HEENT: lower lip with blood, laceration, right ear with blood PULM: clear bilaterally CV: regular rate and rhythm with no murmurs ABD: soft, nontender, nondistended, no organomegaly Neuro: CN 2-12 intact, strength 5/5 ini upper and lower extremities, no numbness, she recognizes she is forgetful, difficulty thinking of words and explaining events Objective Labs Result Diagrams: 04/29/21 06:47 04/29/21 06:47 [facility] Medical History Excessive daytime sleepiness Fatigue due to sleep pattern disturbance GERD (gastroesophageal reflux disease) Insomnia due to medical condition Morbid obesity with body mass index (BMI) of 40.0 to 49.9 Obstructive sleep apnea, adult Family History (Updated 04/27/21 @ 23:51 by Marry Qureshi MD) Father Cirrhosis of liver Social History household members: none Smoking Status: Former smoker Assessment & Plan Assessment & Plan narrative: Ms. Elizalde is a 55W with PMH of depression, morbid obesity, obstructive sleep apnea, GERD admitted for acute encephalopathy with trauma resulting in skull fracture and brain contusion 1. Bilateral temporal bone fracture, sphenoid fracture, brain contusion with acute encephalopathy -currently patient very forgetful, slightly confused, but no focal deficits -CT head was repeated and showed stable fracture and hemorrhage -neurosurgery said nonoperative -discussed with general surgery as patient is a trauma and states fracture are not surgical, and to follow up with ENT as outpatient -discussed with neurology and recommend MRI, eval for possible stroke as unexplained cause of fall, MRI negative for stroke -prolactin was elevated, but patient has no known seizures, and this is not specific enough to indicate seizures -continue to monitor for seizures, no anti-epileptic for now 2. Suspected fall -unclear how this happened -tele and EKG shows sinus bradycardia -no witnessed seizures -will order ECHO to see if any etiology to explain syncope 2. Nausea- -will observe, advance diet as tolerated -LFT's, cbc, labs normal 3. GERD -will continue PPI 4. Depression -resume celexa 5. CHRISTIANO -home CPAP Dispo: patient is medically stable for discharge, she is awaiting placement to SNF Time Spent With Patient Critical Care time: I spent a total of [] minutes of critical care time on this patient's care today; this time is exclusive of procedural time. Quality VTE Deep Vein Thrombosis/Pulmonary Embolism Present on Admission: No
[2021-04-30 13:26] LABS: TSH w/ Reflex to FT4 1.08 uIU/mL (0.47-4.68)
--- NOTE | 2021-04-30 14:03 | CM.DPC ---
DCP Ongoing SNF planning: Per MD, pt continuing to receive care but if SNF can accept pt could be stable enough to d/c to SNF. Per PT, pt had an assisted lowering to the ground this morning when working with OT for shower and did not get injured but was too weak and shaky to hold herself up. Pt was able to work some with PT after that but quite fatigued and PT/OT do not feel pt could tolerate Acute Inpt Rehab at this time and recommending SNF. PT states pt discussed that she is very agreeable and open to d/c to SNF as she does not have anyone who could stay 24/7 and her own space would not accommodate another person staying with her so preference is SNF. SW attempted to meet bedside with pt and sig other to update them on acceptance at [facility] and awaiting insurance auth likely on Sunday but pt was sleeping and RN states pt requested to sleep with no disturbances. PASRR completed today in anticipation of SNF at d/c. Plan: SW to follow for plan of [facility] if Joseph auth obtained for SNF on Sunday. JETT Marinelli
[2021-04-30] MEDS: ONDANSETRON 4 MG/2 ML INJ IV (17:45)
[2021-04-30] MEDS: SODIUM CHLORIDE 0.9% FLUSH 10 ML IV (20:03)
--- NOTE | 2021-04-30 21:03 | PC.NURSE ---
Addendum entered by Elvira Vizcaino R.N. 04/30/21 22:01: Dr. Bautista aware that this nurse wasn't able to do his orthorstatic vital signs due to pt feeling dizzy with any movement, he is also aware of pt tele being SR/SB as low as 39. Original Note: orthorstatic vital signs not done due to pt still complaining of dizziness with any type of movement. Pt this afternoon tolerated saltine crackles and gingerale. she voided via bed ortiz. C/o headache, tylenol given and headache resolved. pt on tele SR/SB as low as 47. Pt boyfriend Jan at the bed side most of the shift. Pt more alert towards the end of the shift.
[2021-05-01] VITALS (7 sets, daily range): BP systolic 67–152; BP diastolic 43–105; PULSE 55–94; RESP 17–20; TEMP 36–36.6; O2SAT 94–98
[2021-05-01] MEDS: PANTOPRAZOLE DR 20 MG TABLET PO (05:40)
[2021-05-01] MEDS: SODIUM CHLORIDE 0.9% FLUSH 10 ML IV ×2 (08:39→20:52)
[2021-05-01] MEDS: DOCUSATE 100 MG CAPSULE PO (08:39)
[2021-05-01] MEDS: CITALOPRAM 10 MG TABLET 40 MG PO (08:39)
--- NOTE | 2021-05-01 10:36 | PT.IPTN ---
Addendum entered and electronically signed by Jazz Kurtz, PT 05/01/21 11:55: Positive orthostatic hypotension reported to RN. Original Note: Current Diagnoses Contusion and laceration of left cerebrum with loss of consciousness of unspecified duration, initial encounter (04/27/21) Physical Therapy Treatment Note M2 PT-IP Current Condition Start: 04/28/21 11:11 Freq: Status: Active Protocol: Document 04/28/21 10:11 MB (Rec: 04/28/21 11:38 MB [id number]) Physical Therapy Current Condition Current Condition Evaluation Date 04/28/21 Treatment Diagnosis Decreased right pupil constriction and right hearing , imbalance s/p TBI Onset Date 04/25/21 M3 PT-IP Subjective Start: 04/28/21 11:11 Freq: Status: Active Protocol: Document 05/01/21 10:36 AW (Rec: 05/01/21 11:54 AW [id number]) Subjective Physical Therapy Visit Type Type Treatment Note Visit Start Time 09:35 Visit Stop Time 10:36 Total Visit Minutes 38 Notes Split visits [id number] and [id number] Number of NURSING STAFF DEVELOPMENT COORDINATOR Visits 0 Physical Therapy Visit Comments Patient Comments agreeable to do PT Therapy Pain Assessment Pain When Pain Assessed At Rest Pain Present Pain Present Pain Reported Location head Scale Used not quantified M4 PT-IP Mobility and Gait Start: 04/28/21 11:11 Freq: Status: Active Protocol: Document 05/01/21 10:36 AW (Rec: 05/01/21 11:54 AW [id number]) PT-Bed Mobility Assessment Supine to Sit Supine to Sit Standby Assistance PT-Transfer Assessment Sit to and From Stand Sit to and from Stand Standby Assistance,1 Person Assistance Equipment Transfer Assistive Device Front Wheeled Walker Orthotic/Prosthetic Devices or Brace: No Transfers Transfer Destination Chair Transfer Technique ambulated with FWW Transfer Ability Level of Assist Standby Assistance,Contact Guard Assistance,1 Person Assistance,Use of Upper Extremities Comments Mobility Comments As PT entered the room and walked past foot of bed, pt stated she had sensation that all objects in her visual field were repeatedly moving toward the left. Pt agreed to get up. She sat up EOB SBA and reported some dizziness. No nystagmus observed. Seated BP 111/64 HR 86. Pt stood from the bed and complained of increased dizziness. BP 81/50 HR 111. Pt was instructed to sit again. Symptoms resolved and pt returned to supine. PT departed for meeting and returned afterward. Her SO was in the room. Pt agreed to mobilize again, sitting up EOB and participating in seated VOR exercises to improve gaze stabilization. She stood and ambulated with FWW toward the window, remembering to fix her gaze to improve stability. She ambulated a total of 40 feet around the room slowly but with little reported dizziness. She then transferred to the chair SBA. BP was 111/77 HR 82. She agreed to remain in the chair and to call for all mobility needs. Gait Assessment Gait Gait Assistance Required: Standby Assistance,Contact Guard Assist,1 Person Assist Distance (Feet) 40 Assistive Devices Assistive Device Gait Belt,Front Wheeled Walker Orthotic/Prosthetic Devices or Brace: No Gait Deviations General Gait Pattern Decreased Stride Length, Decreased Feet Clearance Factors Limiting Gait Function Factors Limiting Gait Function Decreased Activity Tolerance, Decreased Strength,Pain,Poor Balance,Poor Safety Awareness Comments Gait Comments See mobility comments for details. Stair Climbing Assessment Comments Stair Climbing Comments Not assessed. PT-Balance Assessment Sitting Balance and Reactions Static Sitting Balance Ability Good Dynamic Sitting Balance Ability Good Standing Balance and Reactions Static Standing Balance Ability Good Dynamic Standing Balance Ability Fair Device Used FWW M5 PT-IP Objective Assessments Start: 04/28/21 11:11 Freq: Status: Active Protocol: Document 04/28/21 10:11 MB (Rec: 04/28/21 11:38 MB [id number]) Orientation Orientation/Cognition Level of Alertness Lethargic Orientation Name,Age,Birthday,Month,Date Language Function Ability Word Finding Difficulties Safety Awareness Decreased Safety Awareness Memory Description Short Term Impaired Comments Pt states location as [place] to begin with and knows that this is not correct, but has trouble coming up with [place]. She knows she lives and works here and can point to apartment outside hospital window but she cannot think of the name of her company where she works. She can recall the event happened on Sunday night and she woke up in her bed on Sunday morning but she cannot give any other clear details about the event. She states her boyfriend was not with her and lives on [address] and is helpful and is returning this evening. She states he noticed some blood on the floor near stairs. There is a flight of steps to get to her apartment. Gross Range of Motion Upper Extremity ROM Assessment Within Functional Limits Lower Extremity ROM Assessment Within Functional Limits Strength Upper Extremity Strength Assessment Within Functional Limits Lower Extremity Strength Assessment Within Functional Limits Coordination Assessment Gross Coordination Gross Coordination WNL Assessment Coordination Comments PT can only check right rapid supination and pronation d/t left IV and it is normal. Opposite foot tap over also normal B R pupil does not constrict readily to pen light compared to the left. She reports less hearing right ear with PT rubbing glove near both ears. Dried blood right ear, bruising and blood right mandible, B knees with ecchymosis and abrasions. Muscle Tone Muscle Tone WNL Yes Other Assessments Other Other Assessments See above comments for positional nystagmus, pupil constriction, coordination test. No clonus with rapid passive DF B. M6 PT-IP Treatment Start: 04/28/21 11:11 Freq: Status: Active Protocol: Document 05/01/21 10:36 AW (Rec: 05/01/21 11:54 AW [id number]) Physical Therapy Treatment Education Education Provided Safety Other Treatments Other Treatment Performed Instructed pt in seated gaze stabilization exercise with limited head rotation ROM. Pt was able to tolerate with no dizziness but headache did increase slightly with reps. Letters were clear but pt unable to increase head turn speed beyond 60 bpm. Pt was left with handout on gaze stabilization exercise and advised to continue at slow pace and small ROM as tolerated. M7 PT-IP Assessment and Plan Start: 04/28/21 11:11 Freq: Status: Active Protocol: Document 05/01/21 10:36 AW (Rec: 05/01/21 11:54 AW [id number]) PT Summary Assessment and Plan Potential Rehabilitation Potential Good Summary Impairments Pain,ROM,Strength,Balance, Coordination,Sensation,Tone, Cognition,Bed Mobility, Transfers,Gait,Activity Tolerance Progress Towards Goals Slow Progress due to Medical Issues,Slow Progress due to Activity Tolerance Assessment Summary Pt continues to require SBA to CGA for ambulation and transfers with FWW. She remains slightly confused and has some word-finding difficulty. She admits to memory impairments. Pt is not safe for home environment at this time and will require SNF rehab to improve mobility independence. Pt will ultimately benefit from outpatient PT for concussion/ TBI management. Goals Bed Mobility Goal Independent Transfer Goal Independent Gait Goal Independent,Front Wheel Walker Gait Distance 250 Other Goals improve ambulation without AD 150 ft mod I up/down 15 steps 1 rail mod I Days to Meet Goals 10 Frequency of Treatment Frequency Of Treatment Once a Day Treatment Plan Physical Therapy Treatment Plan Bed Mobility Training,Transfer Training,Gait Training, Therapeutic Exercise,Balance Retraining,Neuromuscular Re-ed Recommendations To Nursing Amount of Assist Needed 1 Person Assist Discharge Recommendations PT Discharge Recommendations SNF Rehab Transportation Needs at Discharge Private Vehicle
[2021-05-01] MEDS: ACETAMINOPHEN 325 MG TABLET 650 MG PO ×2 (11:04→20:49)
--- NOTE | 2021-05-01 11:09 | CM.DPC ---
DCP Cont: SW met bedside with pt and Sig Other Jan and updated pt on [facility] not being contracted with her insurance and acceptance at [facility] and location and still awaiting confirmation on insurance auth prior to being accepted at [facility] facility. SW discussed facility van for transport and pt and Sig Other are very agreeable with the plan and PT Jazz bedside and about to work further with pt today to determine her progress but likely still not appropriate for Acute Inpt Rehab at d/c. Plan: SW to follow tomorrow (Sun) with [facility] to inquire if they have received insurance auth yet for plan of SNF at discharge once auth obtained and pt stable. Rosenda Jung MSW
[2021-05-01] MEDS: SODIUM CHLORIDE 0.9% 1,000 ML 1000 ML IV (13:28)
--- NOTE | 2021-05-01 15:50 | P.PN_ITS ---
Subjective Subjective Date Patient Seen: 05/01/21 Time Patient Seen: 08:00 Interval history: She feels improved today. She is still dizzy when she gets up, but less so. She has more energy. She has less of headache. Exam Vital Signs (past 8 hours): - 05/01/21 08:45 05/01/21 11:34 05/01/21 15:15 Temperature 97.8 F 98 F 97.6 F Pulse Rate 55 L 78 70 Pulse Rate [Orthostatic Lying] 55 L Pulse Rate [Orthostatic Sitting] 74 Pulse Rate [Orthostatic Standing] 94 H Respiratory Rate 18 18 18 Blood Pressure 111/77 143/72 H 124/78 Blood Pressure [Orthostatic Lying] 111/77 Blood Pressure [Orthostatic Sitting] 107/46 L Blood Pressure [Orthostatic Standing] 67/43 L Pulse Oximetry 98 97 98 Oxygen Delivery Method Room Air Oxygen Flow Rate 0 Narrative Exam Narrative: GEN: no acute distress HEENT: lower lip with blood, laceration, right ear with blood PULM: clear bilaterally CV: regular rate and rhythm with no murmurs ABD: soft, nontender, nondistended, no organomegaly Neuro: CN 2-12 intact, strength 5/5 ini upper and lower extremities, no numbness, she recognizes she is forgetful, difficulty thinking of words and explaining events Objective Labs Result Diagrams: 04/29/21 06:47 04/29/21 06:47 [facility] Medical History Excessive daytime sleepiness Fatigue due to sleep pattern disturbance GERD (gastroesophageal reflux disease) Insomnia due to medical condition Morbid obesity with body mass index (BMI) of 40.0 to 49.9 Obstructive sleep apnea, adult Family History (Updated 04/27/21 @ 23:51 by Marry Qureshi MD) Father Cirrhosis of liver Social History household members: none Smoking Status: Former smoker Assessment & Plan Assessment & Plan narrative: Ms. Elizalde is a 55W with PMH of depression, morbid obesity, obstructive sleep apnea, GERD admitted for acute encephalopathy with trauma resulting in skull fracture and brain contusion 1. Bilateral temporal bone fracture, sphenoid fracture, brain contusion with acute encephalopathy -currently patient very forgetful, slightly confused, but no focal deficits -CT head was repeated and showed stable fracture and hemorrhage -neurosurgery said nonoperative -discussed with general surgery as patient is a trauma and states fracture are not surgical, and to follow up with ENT as outpatient -discussed with neurology and recommend MRI, eval for possible stroke as unexplained cause of fall, MRI negative for stroke -prolactin was elevated, but patient has no known seizures, and this is not specific enough to indicate seizures -continue to monitor for seizures, no anti-epileptic for now 2. Suspected fall -unclear how this happened -tele and EKG shows sinus bradycardia -no witnessed seizures -ECHO with no acute abnormalities 2. Nausea- -will observe, advance diet as tolerated -LFT's, cbc, labs normal 3. GERD -will continue PPI 4. Depression -resume celexa 5. CHRISTIANO -home CPAP Time Spent With Patient Critical Care time: I spent a total of [] minutes of critical care time on this patient's care today; this time is exclusive of procedural time. Quality VTE Deep Vein Thrombosis/Pulmonary Embolism Present on Admission: No
[2021-05-02] VITALS (7 sets, daily range): BP systolic 117–146; BP diastolic 57–108; PULSE 60–84; RESP 16–20; TEMP 35.9–36.6; O2SAT 96–99
--- NOTE | 2021-05-02 01:30 | PC.NURSE ---
Patient is alert and oriented except to day of month. Still not able to remember circumstances surrounding what happened prior to coming to ER. Does admit to some word finding difficulty at times. Breath sounds CTA with RA sat of 95%. HRR but bradycardic with rate in 50's. Does endorse intermittent episodes of dizziness especially if she turns her head too fast. Denied headache but is tender on right parietal/occipital bones. Denied nausea. BT present and abdomen is soft. Up to bathroom to void and denied dysuria, frequency or urgency. Able to turn self in bed and is using walker and 1 assist when getting up as is weak in bilateral LE. Bruising noted on right chin and bilateral knees. Refused to wear bilateral calf SCD's so reminded to ankle wave when awake. Fall risk score is high and bed alarm is activated.
[2021-05-02] MEDS: ACETAMINOPHEN 325 MG TABLET 650 MG PO ×2 (04:05→08:50)
[2021-05-02] MEDS: PANTOPRAZOLE DR 20 MG TABLET PO (06:26)
[2021-05-02] MEDS: CITALOPRAM 10 MG TABLET 40 MG PO (08:50)
[2021-05-02] MEDS: DOCUSATE 100 MG CAPSULE PO (08:50)
[2021-05-02] MEDS: SODIUM CHLORIDE 0.9% FLUSH 10 ML IV ×2 (08:50→21:14)
--- NOTE | 2021-05-02 10:00 | OT.IP.TRT ---
Current Diagnoses Contusion and laceration of left cerebrum with loss of consciousness of unspecified duration, initial encounter (04/27/21) Occupational Therapy Treatment Note M2 OT-IP Current Condition Start: 04/28/21 15:12 Freq: Status: Active Protocol: Document 04/28/21 13:30 CCC (Rec: 04/28/21 15:28 CCC [id number]) Occupational Therapy Current Condition Current Condition Evaluation Date 04/28/21 Treatment Diagnosis Concussion Diagnosis Onset Date 04/27/21 M3 OT- IP Subjective and Pain Start: 04/28/21 15:12 Freq: Status: Active Protocol: Document 05/02/21 10:06 CGR (Rec: 05/02/21 10:14 CGR [id number]) OT- Subjective Occupational Therapy Visit Type Type Progress Note Visit Start Time 09:33 Visit Stop Time 10:00 Total Visit Minutes 27 Notes Pt's sig other present throughout session. OT Pain Assessment Pain When Pain Assessed At Rest Pain Present Pain Present Pain Reported Location head Scale Used did not rate Management Techniques Distraction,Modification of Treatment M4 OT- IP ADL's Start: 04/28/21 15:12 Freq: Status: Active Protocol: Document 05/02/21 10:06 CGR (Rec: 05/02/21 10:14 CGR [id number]) OT [id number] Comments OT Self-Feeding Comments not meal time OT ADL-Grooming General Evaluation Grooming Ability Standby Assistance,Total Assistance Areas Needing Assistance Combing/Brushing Hair,Face Washing Comments OT Grooming Comments SBA for washing face standing at sink. Total assist for brushing out significant tangles and then braide performed to hair to prevent reoccurance of tangles . OT ADL-Oral Care General Eval Oral Care Ability Standby Assistance Areas of Assistance Brushing Teeth,Retrieving/Set- Up of Items Comments Oral Care Comments Standing at sink OT ADL-Dressing Comments OT Dressing Comments not performed OT ADL-Toileting General Evaluation Toileting Ability Standby Assistance Comments OT Toileting Comments Pt had BM seated on toielt, pt was able to perform back pericare without assist.. Nursing notified. OT ADL-Bathing Comments OT Bathing Comments Pt declined shower at this time. States concern over near fall with last attempted shower. M5 OT- IP IADL's Start: 04/28/21 15:12 Freq: Status: Active Protocol: Document 04/28/21 13:30 [facility] (Rec: 04/28/21 15:28 [facility] [id number]) OT-Instrumental Activities of Daily Living Home Safety Awareness Home Safety Comments Pt has word finding difficulties and not remembering her medications or initially dod not remember where she works. At this time woudl be beneficial for someone to stay with pt when she goes home. M6 OT- IP Functional Cognition Start: 04/28/21 15:12 Freq: Status: Active Protocol: Document 04/30/21 10:25 [facility] (Rec: 04/30/21 11:57 [facility] [id number]) Cognitive Factors Limiting Selfcare Function Cognitive Ability Level of Alertness Alert Patient Orientation Name,Place,Situation Attention Span Ability Capable of Focused Attention, Capable of Sustained Attention Ability to Follow Commands Able to Follow One Step Commands with Increased Time, Able to Follow One Step Commands with Repetition Cognitive Comments Cognitive Assessment Comments Initially pt able to folllow commands, however when pt starts to panic and get emotional partially due to her concussion has difficulty to follow commands. M7 OT- IP Mobility and Balance Start: 04/28/21 15:12 Freq: Status: Active Protocol: Document 05/02/21 10:06 CGR (Rec: 05/02/21 10:14 CGR [id number]) OT-Transfer Assessment Sit to and From Stand Sit to and from Stand Standby Assistance Transfers Transfer Ability Standby Assistance Technique Transfer Destination Chair,Toilet Transfer Technique Stand Step Pivot Devices Transfer Assistive Devices Gait Belt,Front Wheeled Walker Comments Mobility Comments Mobility around the room with SBA and walker. Noted scissoring of her feet with some steps. OT- Gait Assessment Gait Gait Assistance Required: Standby Assistance Assistive Devices Assistive Device Gait Belt,Front Wheeled Walker Comments Gait Ability Comments Mobility around the room with SBA and walker. Noted scissoring of her feet with some steps. OT- Balance Assessment Sitting Balance and Reactions Static Sitting Balance Ability Good M8 OT- IP Objective Assessments Start: 04/28/21 15:12 Freq: Status: Active Protocol: Document 04/28/21 13:30 [facility] (Rec: 04/28/21 15:28 [facility] [id number]) OT Gross Range of Motion Upper Extremity Range of Motion Assessment Within Functional Limits OT Strength Upper Extremity Strength Assessment Within Functional Limits OT- Coordination Assessment Upper Extremity Finger to Nose Test Within Functional Limits OT-Muscle Tone Assessment Muscle Tone WNL Yes M9 OT- IP Assessment and Plan Start: 04/28/21 15:12 Freq: Status: Active Protocol: Document 05/02/21 10:06 CGR (Rec: 05/02/21 10:14 CGR [id number]) OT Summary Assessment and Plan Potential Rehabilitation Potential Good Analytic Complexity at Evaluation Moderate Summary OT Impairments Pain,Balance,Functional Cognition,Functional Mobility, Toileting,Bathing,Toilet Transfers,Shower Transfers, Activity Tolerance Progress Towards Goals Slow Progress due to Medical Issues,Slow Progress due to Activity Tolerance,Slow Progress due to Cognition Assessment Summary Pt agreeable to therapy services but declined shower at this time. Pt was able to stand at sink for ADLs then go to toilet for BM. Nursing notified of BM. Pt will continue to benefit from therapy services. BP HR Position 139/92 74 sitting 140/83 80 standing at chair ~2 minutes 127/80 77 end of session Goals Grooming Goal Independent Dressing Goal Independent Toileting Goal Independent Bathing Goal Independent Toilet Transfer Goal Independent Shower Transfer Goal Independent Days to Meet Goals 30 Frequency of Treatment Frequency Of Treatment Once a Day Treatment Plan OT Treatment Plan ADL Training,Functional Cognition Training,Functional Mobility,Patient/Family Education,Discharge Planning Other Treatment Recommendations and Next redo [place] making B and try Treatment Focus SLUMS Discharge Recommendations OT Discharge Recommendations SNF Rehab,SNF vs Acute Rehab Transportation Needs at Discharge Wheelchair/Cabulance
--- NOTE | 2021-05-02 10:25 | ST.IPTN ---
Visit Care Team Role Provider Type Maria G Bernal MD Emergency Provider Physician Referring Provider Address: [address] [place] [address], [id number] Marry Qureshi MD Admit Provider Physician Attending Provider Address: [address] [place] [address], [id number] [facility] [facility]NER Treatment Note ANIMAL SKINNER Treatment Note Start: 04/28/21 10:40 Freq: Status: Active Protocol: Document 05/02/21 11:27 [facility] (Rec: 05/02/21 11:41 [facility] [id number]) Speech Pathology Treatment Note Session Time Visit Start Time 09:05 Visit Stop Time 09:25 Total Visit Minutes 20 Setting Treatment Setting Acute Care Visit Type Note Type Treatment Note Next Note Type Next Note Type Treatment Note General Information General Information Pt is a 55 y/o female with a history of depression, morbid obesity, obstructive sleep apnea, GERD admitted for generalized confusion and concussion after an unwitnessed fall. CT revealed Small parenchymal hemorrhagic contusions involving the lateral margins of the left temporal lobe, frontal lobe and parietal lobe.Bilateral temporal bone fractures.? Right temporal bone fracture extends to the skullbase into the sphenoid bone in the sphenoid sinuses.?A cervical spine CT was obtained as well that revealed the following: ? No cervical spine fracture. No acute osseous lesion. If symptoms and/or clinical suspicion for pathology persists, evaluation with MRI should be considered for further assessment. 2. Nondepressed bilateral temporal bone fractures.? Right temporal bone fracture extends longitudinally through the skull base into sphenoid bone and the sphenoid sinuses. ? Subjective Identification Type Name,ID Card Identification Reconciled With Medical Record Others Present Family Observations/Patient Presentation The pt was sitting up in bed awake and just having finished using the bathroom and grooming with OT assistance. Her SO was present throughout the session. ANIMAL SKINNER introduced herself and areas of treatment under umbrella of Speech Therapy. Pt denied swallow difficulties and reported occ memory and word retrieval difficulties. This is consistent with SLUMS results of last week. Chief Complaint(s) Language Patient Knowledge/Awareness of ANIMAL SKINNER Role Good in Treatment Parent/Caretake Knowledge/Awareness of Good ANIMAL SKINNER Role in Treatment Objective Treatment Activities Education and training was provided to the pt and SO RE word retrieval strategies and exercises. The pt indicated she had been using semantic features analysis (describing target words) and gestures when experiencing WFDs. She verbalized understanding of and interest in using the variety of strategies presented by ANIMAL SKINNER verbally and in writing. Word retrieval exercises were also provided with oral and written instructions. Pt completed divergent naming task, naming 21 foods in 60 sec with 1 repetition and 1 liquid item. This is an improvement since SLUMS administration, and the pt verbalized her thinking patterns, which indicated appropriate organization for recall. The pt expressed enthusiasm toward both strategies and exercises provided and requested her SO retrieve a book from her home so she could resume reading. She was agreeable to reading aloud, which was recommended as an exercise. During conversation, the pt exhibited WFD x1 and was responsive to phonemic cuing. Education was provided to SO regarding cuing strategies for conversation partners. He verbalized understanding and remarked on the pt's responsiveness to ANIMAL SKINNER's phonemic cue, demonstrating understanding. Assessment Patient Response to Treatment Excellent Rehab Potential Excellent Impairments Identified Aphasia,Memory - Transportation Officer Progress Towards Goals Excellent Progress Assessment of Overall Progress Improving Assessment of Improvement Based on ongoing assessment, pt, SO and Nsg reports, the pt has demonstrated improvement in mild expressive language deficits, particularly word recall, but mild deficits to persist. The pt was agreeable to and participatory with today's targets, demonstrated motivation and enthusiasm to improve. Would be a good candidate for inpatient rehab if otherwise appropriate. Reviewed with Patient Goals,Progress Being Made,Home Exercise Program Patient/Caregiver Understanding Excellent Plan Comment Daily during hospital stay Treatment Emphasis Next Session Word recall, STM exercises Therapeutic Contents Client Education,Cognitive- Linguistic Training,Expressive Language Training,Home Exercise Program Provided Patient/Caregiver Instruction Home Exercise Program,Plan of Care,Questions/Concerns Therapy Recommendations Continue with Current Program
--- NOTE | 2021-05-02 10:58 | PT.IPTN ---
Current Diagnoses Contusion and laceration of left cerebrum with loss of consciousness of unspecified duration, initial encounter (04/27/21) Physical Therapy Treatment Note M2 PT-IP Current Condition Start: 04/28/21 11:11 Freq: Status: Active Protocol: Document 04/28/21 10:11 MB (Rec: 04/28/21 11:38 MB [id number]) Physical Therapy Current Condition Current Condition Evaluation Date 04/28/21 Treatment Diagnosis Decreased right pupil constriction and right hearing , imbalance s/p TBI Onset Date 04/25/21 M3 PT-IP Subjective Start: 04/28/21 11:11 Freq: Status: Active Protocol: Document 05/02/21 10:32 KS (Rec: 05/02/21 11:56 KS [id number]) Subjective Physical Therapy Visit Type Type Treatment Note Visit Start Time 10:32 Visit Stop Time 10:58 Total Visit Minutes 26 Number of CODIFIER Visits 1 Physical Therapy Visit Comments Patient Comments agreeable to do PT M4 PT-IP Mobility and Gait Start: 04/28/21 11:11 Freq: Status: Active Protocol: Document 05/02/21 10:32 KS (Rec: 05/02/21 11:56 KS [id number]) PT-Transfer Assessment Sit to and From Stand Sit to and from Stand Standby Assistance,1 Person Assistance Equipment Transfer Assistive Device Front Wheeled Walker Orthotic/Prosthetic Devices or Brace: No Transfers Transfer Destination Chair Transfer Technique ambulated with FWW Transfer Ability Level of Assist Standby Assistance,Contact Guard Assistance,1 Person Assistance,Use of Upper Extremities Comments Mobility Comments Pt in chair upon arrival from therapy. Reveiwed gaze stabilizing exercises which pt reports she has been practicing on her own as well. Pts BP sitting 137/100, pt sit<>stand SBA w/ FWW and BP assessed again at 146/97. Pt reported feeling well and requested to walk around room. Pt ambulated 20 ft around room w/ FWW and CGA. Pt remained steady when able to focus gaze on still object. Pts BP assessed again and was 146/112 standing. Instructed pt to sit down, feet reclined and all needs in reach, RN and SURGICAL PATHOLOGIST notified of high BP. Gait Assessment Gait Gait Assistance Required: Contact Guard Assist,1 Person Assist Distance (Feet) 20 Assistive Devices Assistive Device Gait Belt,Front Wheeled Walker Orthotic/Prosthetic Devices or Brace: No Gait Deviations General Gait Pattern Decreased Stride Length, Decreased Feet Clearance Factors Limiting Gait Function Factors Limiting Gait Function Decreased Activity Tolerance, Decreased Strength,Pain,Poor Balance,Poor Safety Awareness Comments Gait Comments Pt limited in ambulation due to high BP today. Please see mobility section for more details. Stair Climbing Assessment Comments Stair Climbing Comments Not assessed. PT-Balance Assessment Sitting Balance and Reactions Static Sitting Balance Ability Good Dynamic Sitting Balance Ability Good Standing Balance and Reactions Static Standing Balance Ability Good Dynamic Standing Balance Ability Fair Device Used FWW M5 PT-IP Objective Assessments Start: 04/28/21 11:11 Freq: Status: Active Protocol: Document 04/28/21 10:11 MB (Rec: 04/28/21 11:38 MB [id number]) Orientation Orientation/Cognition Level of Alertness Lethargic Orientation Name,Age,Birthday,Month,Date Language Function Ability Word Finding Difficulties Safety Awareness Decreased Safety Awareness Memory Description Short Term Impaired Comments Pt states location as [place] to begin with and knows that this is not correct, but has trouble coming up with [place]. She knows she lives and works here and can point to apartment outside hospital window but she cannot think of the name of her company where she works. She can recall the event happened on Sunday night and she woke up in her bed on Sunday morning but she cannot give any other clear details about the event. She states her boyfriend was not with her and lives on [address] and is helpful and is returning this evening. She states he noticed some blood on the floor near stairs. There is a flight of steps to get to her apartment. Gross Range of Motion Upper Extremity ROM Assessment Within Functional Limits Lower Extremity ROM Assessment Within Functional Limits Strength Upper Extremity Strength Assessment Within Functional Limits Lower Extremity Strength Assessment Within Functional Limits Coordination Assessment Gross Coordination Gross Coordination WNL Assessment Coordination Comments PT can only check right rapid supination and pronation d/t left IV and it is normal. Opposite foot tap over also normal B R pupil does not constrict readily to pen light compared to the left. She reports less hearing right ear with PT rubbing glove near both ears. Dried blood right ear, bruising and blood right mandible, B knees with ecchymosis and abrasions. Muscle Tone Muscle Tone WNL Yes Other Assessments Other Other Assessments See above comments for positional nystagmus, pupil constriction, coordination test. No clonus with rapid passive DF B. M6 PT-IP Treatment Start: 04/28/21 11:11 Freq: Status: Active Protocol: Document 05/02/21 10:32 KS (Rec: 05/02/21 11:56 KS [id number]) Physical Therapy Treatment Education Education Provided Safety Other Treatments Other Treatment Performed Reveiwed gaze stabilization exercises. M7 PT-IP Assessment and Plan Start: 04/28/21 11:11 Freq: Status: Active Protocol: Document 05/02/21 10:32 KS (Rec: 05/02/21 11:56 KS [id number]) PT Summary Assessment and Plan Potential Rehabilitation Potential Good Summary Impairments Pain,ROM,Strength,Balance, Coordination,Sensation,Tone, Cognition,Bed Mobility, Transfers,Gait,Activity Tolerance Progress Towards Goals Slow Progress due to Medical Issues,Slow Progress due to Activity Tolerance Assessment Summary Pt limited in therapy due to high BP today. 146/112 in standing. Pt SBA for sit<> stand w/ FWW and CGA for 20 ft ambulation around room w/ FWW . Continues to be confused and have some word finding issues and is not safe to go home and will require SNF to improve functional mobility. Pt will ultimately benefit from outpatient PT for concussion/TBI management. Goals Bed Mobility Goal Independent Transfer Goal Independent Gait Goal Independent,Front Wheel Walker Gait Distance 250 Other Goals improve ambulation without AD 150 ft mod I up/down 15 steps 1 rail mod I Days to Meet Goals 10 Frequency of Treatment Frequency Of Treatment Once a Day Treatment Plan Physical Therapy Treatment Plan Bed Mobility Training,Transfer Training,Gait Training, Therapeutic Exercise,Balance Retraining,Neuromuscular Re-ed Recommendations To Nursing Amount of Assist Needed 1 Person Assist Discharge Recommendations PT Discharge Recommendations SNF Rehab Transportation Needs at Discharge Private Vehicle
[2021-05-02] MEDS: TRAMADOL 50 MG TABLET PO (16:32)
--- NOTE | 2021-05-02 17:43 | P.PN_ITS ---
Subjective Subjective Date Patient Seen: 05/02/21 Interval history: The patient is a 55-year-old female who was admitted to the hospital following unwitnessed fall. She does not recall the events. She had a post concussive syndrome. Patient continues to have headache, and complaints of dizziness. She was found to be markedly orthostatic previously. Blood pressures have been improved over the past 2 days. Exam Vital Signs (past 8 hours): - 05/02/21 11:00 05/02/21 16:07 05/02/21 16:08 Temperature 97.8 F 96.6 F L Pulse Rate 62 61 Pulse Rate [Orthostatic Lying] 76 61 Pulse Rate [Orthostatic Sitting] 62 76 Pulse Rate [Orthostatic Standing] 84 84 Respiratory Rate 16 18 Blood Pressure 146/96 H 136/85 Blood Pressure [Orthostatic Lying] 137/100 H 136/85 Blood Pressure [Orthostatic Sitting] 145/96 H 146/57 H Blood Pressure [Orthostatic Standing] 146/97 H 143/107 H Pulse Oximetry 96 98 Oxygen Delivery Method Room Air Oxygen Flow Rate 0 Narrative Exam Narrative: Pleasant female sitting in a chair in no obvious distress Resp Other: Lungs clear to auscultation Cardio Other: Cardiac exam: Regular rate and rhythm normal S1-S2 GI Other: Abdomen soft nontender nondistended Extrem Other: Extremity no edema Objective Labs Result Diagrams: 04/29/21 06:47 04/29/21 06:47 [facility] Medical History Excessive daytime sleepiness Fatigue due to sleep pattern disturbance GERD (gastroesophageal reflux disease) Insomnia due to medical condition Morbid obesity with body mass index (BMI) of 40.0 to 49.9 Obstructive sleep apnea, adult Family History (Updated 04/27/21 @ 23:51 by Marry Qureshi MD) Father Cirrhosis of liver Social History household members: none Smoking Status: Former smoker Assessment & Plan Assessment & Plan narrative: Bilateral temporal bone fracture, sphenoid fracture, brain contusion with acute encephalopathy -currently patient very forgetful, slightly confused, but no focal deficits -CT head was repeated and showed stable fracture and hemorrhage -neurosurgery said nonoperative -discussed with general surgery as patient is a trauma and states fracture are not surgical, and to follow up with ENT as outpatient -discussed with neurology and recommend MRI, eval for possible stroke as unexplained cause of fall, MRI negative for stroke -prolactin was elevated, but patient has no known seizures, and this is not specific enough to indicate seizures -continue to monitor for seizures, no anti-epileptic for now -patient found to have marked orthostatic hypotension. This may have precipitated her fall at home. No longer orthostatic 2. Suspected fall -unclear how this happened -tele and EKG shows sinus bradycardia -no witnessed seizures -ECHO with no acute abnormalities -orthostatic hypotension likely etiology 2. Nausea- -will observe, advance diet as tolerated -LFT's, cbc, labs normal 3. GERD -will continue PPI 4. Depression -resume celexa 5. CHRISTIANO -continue CPAP Patient will continue with PT OT. She is quite unsteady. She will need placement in rehabilitation prior to returning home. Time Spent With Patient Critical Care time: I spent a total of [] minutes of critical care time on this patient's care today; this time is exclusive of procedural time. Quality VTE Deep Vein Thrombosis/Pulmonary Embolism Present on Admission: No
[2021-05-03] VITALS (8 sets, daily range): BP systolic 122–147; BP diastolic 68–116; PULSE 64–91; RESP 16–18; TEMP 36.1–37.1; O2SAT 95–100
--- NOTE | 2021-05-03 03:11 | PC.NURSE ---
Patient is alert and oriented but still having some memory problems. Breath sounds CTA with RA sat of 99%; encouraged to wear home CPAP but declined. HRR. Still having some intermittent dizziness. Denied nausea. BT hypoactive but is passing flatus and had a BM yesterday. Denied dysuria, frequency or urgency with urination. Is able to turn self in bed. Up to bathroom with walker and 1 assist. Still complains of tenderness on left parietal/occipital regions and rates severity as 6/10 but declines offer of pain medication; ice pack provided. Again refused to wear SCD's so reminded of importance of ankle waving when awake. Fall risk score is high and bed alarm is activated.
[2021-05-03] MEDS: PANTOPRAZOLE DR 20 MG TABLET PO (05:41)
[2021-05-03] MEDS: ACETAMINOPHEN 325 MG TABLET 650 MG PO ×2 (05:41→17:53)
[2021-05-03] MEDS: DOCUSATE 100 MG CAPSULE PO ×2 (08:45→19:59)
[2021-05-03] MEDS: CITALOPRAM 10 MG TABLET 40 MG PO (08:45)
--- NOTE | 2021-05-03 09:28 | PC.NURSE ---
Addendum entered by Lynne Soriano R.N. 05/03/21 13:44: Patient had a sponge bath with OT, tolerated well. SHe denies pain at this time... She is visiting with her boyfriend now. Original Note: Patient is awaiting to go to senior living facility. Covid test will be done before she leaves to rehab. She denies pain. One person assist to ambulate to the bathroom. She is sitting up in her chair now and eating breakfst.
[2021-05-03 10:26] LABS: COVID19 -Nasal RAPID Negative (Negative)
--- NOTE | 2021-05-03 11:32 | PT.IPTN ---
Current Diagnoses Contusion and laceration of left cerebrum with loss of consciousness of unspecified duration, initial encounter (04/27/21) Physical Therapy Treatment Note M2 PT-IP Current Condition Start: 04/28/21 11:11 Freq: Status: Active Protocol: Document 04/28/21 10:11 MB (Rec: 04/28/21 11:38 MB [id number]) Physical Therapy Current Condition Current Condition Evaluation Date 04/28/21 Treatment Diagnosis Decreased right pupil constriction and right hearing , imbalance s/p TBI Onset Date 04/25/21 M3 PT-IP Subjective Start: 04/28/21 11:11 Freq: Status: Active Protocol: Document 05/03/21 11:12 KS (Rec: 05/03/21 12:20 KS [id number]) Subjective Physical Therapy Visit Type Type Treatment Note Visit Start Time 11:12 Visit Stop Time 11:32 Total Visit Minutes 20 Number of APPLICATION PROGRAMMER ANALYST Visits 2 Physical Therapy Visit Comments Patient Comments agreeable to do PT, significant other present M4 PT-IP Mobility and Gait Start: 04/28/21 11:11 Freq: Status: Active Protocol: Document 05/03/21 11:12 KS (Rec: 05/03/21 12:20 KS [id number]) PT-Bed Mobility Assessment Scooting Scooting to Edge of Bed Standby Assistance PT-Transfer Assessment Sit to and From Stand Sit to and from Stand Standby Assistance,1 Person Assistance Equipment Transfer Assistive Device Front Wheeled Walker Orthotic/Prosthetic Devices or Brace: No Transfers Transfer Destination Chair Transfer Technique ambulated with FWW Transfer Ability Level of Assist Standby Assistance,Contact Guard Assistance,1 Person Assistance,Use of Upper Extremities Comments Mobility Comments Pt in chair upon arrival from therapy w/ significant other in room. Pts BP in sitting 136 /94. SBA for scooting to edge of chair and for sit<>stand w/ FWW. Pts BP in standing 137/ 92. Pt then ambulated ~65 ft in room w/ FWW and CGA. Pt ambulated slowly and cautiously w/ decreased stride and foot clearance but demonstrated appropriate use of FWW. Pt then performed 3 min standing balance w/ FWW prior to sitting back in chair SBA. Pts BP following ambulation 147/85. Explained importance of ankle pumps, reviewed gaze stabilization exercises. Pt left reclined in chair w/ all needs in reach. Gait Assessment Gait Gait Assistance Required: Contact Guard Assist,1 Person Assist Distance (Feet) 65 Assistive Devices Assistive Device Gait Belt,Front Wheeled Walker Orthotic/Prosthetic Devices or Brace: No Gait Deviations General Gait Pattern Decreased Stride Length, Decreased Feet Clearance Factors Limiting Gait Function Factors Limiting Gait Function Decreased Activity Tolerance, Decreased Strength,Pain,Poor Balance,Poor Safety Awareness Comments Gait Comments Please see mobility section for more details. Stair Climbing Assessment Comments Stair Climbing Comments Not assessed. PT-Balance Assessment Sitting Balance and Reactions Static Sitting Balance Ability Good Dynamic Sitting Balance Ability Good Standing Balance and Reactions Static Standing Balance Ability Good Dynamic Standing Balance Ability Fair Device Used FWW M5 PT-IP Objective Assessments Start: 04/28/21 11:11 Freq: Status: Active Protocol: Document 04/28/21 10:11 MB (Rec: 04/28/21 11:38 MB [id number]) Orientation Orientation/Cognition Level of Alertness Lethargic Orientation Name,Age,Birthday,Month,Date Language Function Ability Word Finding Difficulties Safety Awareness Decreased Safety Awareness Memory Description Short Term Impaired Comments Pt states location as [place] to begin with and knows that this is not correct, but has trouble coming up with [place]. She knows she lives and works here and can point to apartment outside hospital window but she cannot think of the name of her company where she works. She can recall the event happened on Sunday night and she woke up in her bed on Sunday morning but she cannot give any other clear details about the event. She states her boyfriend was not with her and lives on [address] and is helpful and is returning this evening. She states he noticed some blood on the floor near stairs. There is a flight of steps to get to her apartment. Gross Range of Motion Upper Extremity ROM Assessment Within Functional Limits Lower Extremity ROM Assessment Within Functional Limits Strength Upper Extremity Strength Assessment Within Functional Limits Lower Extremity Strength Assessment Within Functional Limits Coordination Assessment Gross Coordination Gross Coordination WNL Assessment Coordination Comments PT can only check right rapid supination and pronation d/t left IV and it is normal. Opposite foot tap over also normal B R pupil does not constrict readily to pen light compared to the left. She reports less hearing right ear with PT rubbing glove near both ears. Dried blood right ear, bruising and blood right mandible, B knees with ecchymosis and abrasions. Muscle Tone Muscle Tone WNL Yes Other Assessments Other Other Assessments See above comments for positional nystagmus, pupil constriction, coordination test. No clonus with rapid passive DF B. M6 PT-IP Treatment Start: 04/28/21 11:11 Freq: Status: Active Protocol: Document 05/03/21 11:12 KS (Rec: 05/03/21 12:20 KS [id number]) Physical Therapy Treatment Exercises Exercises Ankle Pumps Education Education Provided Safety Other Treatments Other Treatment Performed Reveiwed gaze stabilization exercises. M7 PT-IP Assessment and Plan Start: 04/28/21 11:11 Freq: Status: Active Protocol: Document 05/03/21 11:12 KS (Rec: 05/03/21 12:20 KS [id number]) PT Summary Assessment and Plan Potential Rehabilitation Potential Good Summary Impairments Pain,ROM,Strength,Balance, Coordination,Sensation,Tone, Cognition,Bed Mobility, Transfers,Gait,Activity Tolerance Progress Towards Goals Slow Progress due to Medical Issues,Slow Progress due to Activity Tolerance Assessment Summary Pt had slightly lower BP today and was not orthostatic either, therefore able to complete more with therapy. SBA for scooting and transfers , CGA for ambulation w/ FWW.Pt ambulated ~65 ft w/ FWW and CGA and performed 3 min standing balance. Reveiwed ankle pumps and gaze stabilization exercises w/ pt which she agrees to keep working on. Continues to have poor memory and some word finding issues. Pt unsafe to go home due to dizziness and weakness and will benefit from SNF and eventually outpatient PT for concussion/TBI management when appropriate. Goals Bed Mobility Goal Independent Transfer Goal Independent Gait Goal Independent,Front Wheel Walker Gait Distance 250 Other Goals improve ambulation without AD 150 ft mod I up/down 15 steps 1 rail mod I Days to Meet Goals 10 Frequency of Treatment Frequency Of Treatment Once a Day Treatment Plan Physical Therapy Treatment Plan Bed Mobility Training,Transfer Training,Gait Training, Therapeutic Exercise,Balance Retraining,Neuromuscular Re-ed Recommendations To Nursing Amount of Assist Needed 1 Person Assist Discharge Recommendations PT Discharge Recommendations SNF Rehab Transportation Needs at Discharge Private Vehicle
--- NOTE | 2021-05-03 13:05 | OT.IP.TRT ---
Current Diagnoses Contusion and laceration of left cerebrum with loss of consciousness of unspecified duration, initial encounter (04/27/21) Occupational Therapy Treatment Note M2 OT-IP Current Condition Start: 04/28/21 15:12 Freq: Status: Active Protocol: Document 04/28/21 13:30 [facility] (Rec: 04/28/21 15:28 [facility] [id number]) Occupational Therapy Current Condition Current Condition Evaluation Date 04/28/21 Treatment Diagnosis Concussion Diagnosis Onset Date 04/27/21 M3 OT- IP Subjective and Pain Start: 04/28/21 15:12 Freq: Status: Active Protocol: Document 05/03/21 13:32 [facility] (Rec: 05/03/21 13:40 [facility] [id number]) OT- Subjective Occupational Therapy Visit Type Type Treatment Note Visit Start Time 13:05 Visit Stop Time 13:29 Total Visit Minutes 24 Occupational Therapy Visit Comments Patient Comments Pt not wanting to get into the shower, but agreed to sponge off while standing with FWW in front of the sink. Patient/Caregiver Goals Pt not sure what she wants to do. OT Pain Assessment Pain When Pain Assessed At Rest Pain Present Pain Present Denied Pain M4 OT- IP ADL's Start: 04/28/21 15:12 Freq: Status: Active Protocol: Document 05/03/21 13:32 [facility] (Rec: 05/03/21 13:40 [facility] [id number]) OT [id number] Comments OT Self-Feeding Comments not meal time OT ADL-Oral Care General Eval Oral Care Ability Standby Assistance Areas of Assistance Brushing Teeth,Retrieving/Set- Up of Items Comments Oral Care Comments Standing at sink with FWW OT ADL-Bathing Bathing Type Bathing Type Sponge Bath General Evaluation Bathing Ability Minimal Assistance Comments OT Bathing Comments Pt able to stand at the sink with FWW and able to sit for part of the task to [facility] Pt just needing assist to wash/ dry her back at this time. Pt having to sit at times throughout the task. Pt able to reach and do her own pericare needs. Noted brown color while wiping with wash cloth, pt states has hemorrhoids. M5 OT- IP IADL's Start: 04/28/21 15:12 Freq: Status: Active Protocol: pt when she goes home. M6 OT- IP Functional Cognition Start: 04/28/21 15:12 Freq: Status: Active Protocol: Document 05/03/21 13:32 [facility] (Rec: 05/03/21 13:40 [facility] [id number]) Cognitive Factors Limiting Selfcare Function Cognitive Comments Cognitive Assessment Comments Pt getting the words out better today. M7 OT- IP Mobility and Balance Start: 04/28/21 15:12 Freq: Status: Active Protocol: Document 05/03/21 13:32 [facility] (Rec: 05/03/21 13:40 [facility] [id number]) OT-Transfer Assessment Sit to and From Stand Sit to and from Stand Standby Assistance Transfers Transfer Ability Standby Assistance Technique Transfer Destination Bedside Commode,Chair Transfer Technique Stand Step Pivot Devices Transfer Assistive Devices Gait Belt,Front Wheeled Walker Comments Mobility Comments SBA with FWW to the sink and back. OT- Gait Assessment Comments Gait Ability Comments CGA/closeSBA with FWW to and from the recliner to sink. OT- Balance Assessment Sitting Balance and Reactions Static Sitting Balance Ability Normal Dynamic Sitting Balance Ability Normal Standing Balance and Reactions Static Standing Balance Ability Good M8 OT- IP Objective Assessments Start: 04/28/21 15:12 Freq: Status: Active Protocol: Document 04/28/21 13:30 [facility] (Rec: 04/28/21 15:28 [facility] [id number]) OT Gross Range of Motion Upper Extremity Range of Motion Assessment Within Functional Limits OT Strength Upper Extremity Strength Assessment Within Functional Limits OT- Coordination Assessment Upper Extremity Finger to Nose Test Within Functional Limits OT-Muscle Tone Assessment Muscle Tone WNL Yes M9 OT- IP Assessment and Plan Start: 04/28/21 15:12 Freq: Status: Active Protocol: Document 05/03/21 13:32 [facility] (Rec: 05/03/21 13:40 [facility] [id number]) OT Summary Assessment and Plan Potential Rehabilitation Potential Good Analytic Complexity at Evaluation Moderate Summary OT Impairments Pain,Balance,Functional Cognition,Functional Mobility, Toileting,Bathing,Toilet Transfers,Shower Transfers, Activity Tolerance Progress Towards Goals Slow Progress due to Medical Issues,Slow Progress due to Activity Tolerance,Slow Progress due to Cognition Assessment Summary Pt agreed to sponge off at this time. BP 146/90 while seated and 138/92 while standing. Pt would benefit from therapy to help get pt back to prior level. Pt today seems to have a little better awareness to take breaks and sit down as needed. Able to educate pt on decreasing use of electronic devices and it can flare her symptoms of her concussion. Goals Grooming Goal Independent Dressing Goal Independent Toileting Goal Independent Bathing Goal Independent Toilet Transfer Goal Independent Shower Transfer Goal Independent Days to Meet Goals 29 Frequency of Treatment Frequency Of Treatment Once a Day Treatment Plan OT Treatment Plan ADL Training,Functional Cognition Training,Functional Mobility,Patient/Family Education,Discharge Planning Other Treatment Recommendations and Next redo [place] making B and try Treatment Focus [facility] Discharge Recommendations OT Discharge Recommendations SNF Rehab,SNF vs Acute Rehab Transportation Needs at Discharge Wheelchair/Cabulance
--- NOTE | 2021-05-03 13:58 | ST.IPTN ---
Visit Care Team Role Provider Type Maria G Bernal MD Emergency Provider Physician Referring Provider Address: [address] [place] [address], [id number] Marry Qureshi MD Admit Provider Physician Attending Provider Address: [address] [place] [address], [id number] WAREHOUSE REPRESENTATIVE Treatment Note WAREHOUSE REPRESENTATIVE Treatment Note Start: 04/28/21 10:40 Freq: Status: Active Protocol: Document 05/03/21 13:53 LNK (Rec: 05/03/21 13:57 LNK [id number]) Speech Pathology Treatment Note Session Time Visit Start Time 08:35 Visit Stop Time 08:55 Total Visit Minutes 20 Setting Treatment Setting Acute Care Visit Type Note Type Treatment Note Next Note Type Next Note Type Treatment Note General Information General Information Pt is a 55 y/o female with a history of depression, morbid obesity, obstructive sleep apnea, GERD admitted for generalized confusion and concussion after an unwitnessed fall. CT revealed Small parenchymal hemorrhagic contusions involving the lateral margins of the left temporal lobe, frontal lobe and parietal lobe.Bilateral temporal bone fractures.? Right temporal bone fracture extends to the skullbase into the sphenoid bone in the sphenoid sinuses.?A cervical spine CT was obtained as well that revealed the following: ? No cervical spine fracture. No acute osseous lesion. If symptoms and/or clinical suspicion for pathology persists, evaluation with MRI should be considered for further assessment. 2. Nondepressed bilateral temporal bone fractures.? Right temporal bone fracture extends longitudinally through the skull base into sphenoid bone and the sphenoid sinuses. ? Subjective Identification Type Name,ID Card Identification Reconciled With Medical Record Others Present Family Observations/Patient Presentation agreeable to do PT, significant other present Chief Complaint(s) Language Patient Knowledge/Awareness of WAREHOUSE REPRESENTATIVE Role Good in Treatment Parent/Caretake Knowledge/Awareness of Good WAREHOUSE REPRESENTATIVE Role in Treatment Objective Treatment Activities Education and training was provided to the pt and SO RE word finding strategies and exercises. The pt indicated she had been practicing her word lists and naming body parts, things in her room, etc with SO. She verbalized understanding of and interest in using the variety of strategies presented by WAREHOUSE REPRESENTATIVE in writing. The pt expressed enthusiasm toward both strategies and exercises provided and noted that her SO brought a book so she could resume reading. She was agreeable to reading aloud, which was recommended as an exercise. Assessment Patient Response to Treatment Excellent Rehab Potential Excellent Impairments Identified Aphasia,Memory - Curbing Stonecutter Progress Towards Goals Excellent Progress Assessment of Overall Progress Improving Assessment of Improvement Based on ongoing assessment, pt, SO and Nsg reports, the pt has demonstrated improvement in mild expressive language deficits, particularly word recall, but mild deficits to persist. The pt was agreeable to and participatory with today's targets, demonstrated motivation and enthusiasm to improve. Would be a good candidate for inpatient rehab if otherwise appropriate. Reviewed with Patient Goals,Progress Being Made,Home Exercise Program Patient/Caregiver Understanding Excellent Plan Comment Daily during hospital stay Treatment Emphasis Next Session Word recall, STM exercises Therapeutic Contents Client Education,Cognitive- Linguistic Training,Expressive Language Training,Home Exercise Program Provided Patient/Caregiver Instruction Home Exercise Program,Plan of Care,Questions/Concerns Therapy Recommendations Continue with Current Program
--- NOTE | 2021-05-03 18:42 | PM.PN.1 ---
Subjective Subjective Date Patient Seen: 05/03/21 Time Patient Seen: 18:42 Interval history: Patient is a 55-year-old female who was admitted to the hospital for an unwitnessed fall resulting in bitemporal fractures and small parenchymal hemorrhages. She continues to have intermittent headaches, dizziness, and overall feeling weak. Exam Vital Signs (past 8 hours): - 05/03/21 12:00 05/03/21 15:45 Temperature 97.2 F L 98.7 F Pulse Rate 76 75 Respiratory Rate 18 16 Blood Pressure 147/85 H 129/78 Pulse Oximetry 98 100 Oxygen Delivery Method Room Air Oxygen Flow Rate 0 Narrative Exam Narrative: Pleasant female lying in bed Resp Other: lungs clear to auscultation Cardio Other: cardiac exam: Regular rate and rhythm normal S1-S2 with a 2/6 systolic ejection murmur GI Other: abdomen: Soft nontender nondistended Extrem Other: extremities: No edema Objective Labs Result Diagrams: 04/29/21 06:47 04/29/21 06:47 Labs: Laboratory Results - last 24 hr 05/03/21 10:05 SARS-CoV-2 (PCR) Negative [facility] Medical History Excessive daytime sleepiness Fatigue due to sleep pattern disturbance GERD (gastroesophageal reflux disease) Insomnia due to medical condition Morbid obesity with body mass index (BMI) of 40.0 to 49.9 Obstructive sleep apnea, adult Family History (Updated 04/27/21 @ 23:51 by Marry Qureshi MD) Father Cirrhosis of liver Social History household members: none Smoking Status: Former smoker Assessment & Plan Assessment & Plan narrative: Bilateral temporal bone fracture, sphenoid fracture, brain contusion with acute encephalopathy -currently patient very forgetful, slightly confused, but no focal deficits -CT head was repeated and showed stable fracture and hemorrhage -neurosurgery said nonoperative -discussed with general surgery as patient is a trauma and states fracture are not surgical, and to follow up with ENT as outpatient -discussed with neurology and recommend MRI, eval for possible stroke as unexplained cause of fall, MRI negative for stroke -prolactin was elevated, but patient has no known seizures, and this is not specific enough to indicate seizures -continue to monitor for seizures, no anti-epileptic for now -patient found to have marked orthostatic hypotension.? This may have precipitated her fall at home.? No longer orthostatic -patient still with some weakness, awaiting placement, hopefully tomorrow -will add meclizine for dizziness 2. Suspected fall -unclear how this happened -tele and EKG shows sinus bradycardia -no witnessed seizures -ECHO with no acute abnormalities -orthostatic hypotension likely etiology, this is now resolved 2. Nausea- -will observe, advance diet as tolerated -LFT's, cbc, labs normal 3. GERD -will continue PPI 4. Depression -resume celexa 5. CHRISTIANO -continue CPAP Patient will continue with PT OT.? She is quite unsteady.? She will need placement in rehabilitation prior to returning home. Awaiting placement Time Spent With Patient Critical Care time: I spent a total of [] minutes of critical care time on this patient's care today; this time is exclusive of procedural time. Quality VTE Deep Vein Thrombosis/Pulmonary Embolism Present on Admission: No
[2021-05-03] MEDS: SODIUM CHLORIDE 0.9% FLUSH 10 ML IV (22:41)
[2021-05-04 00:23] VITALS: BP 138/69; PULSE 67; RESP 19; TEMP 36.6; O2SAT 98
[2021-05-04 04:34] VITALS: BP 112/84; BP 137/93; PULSE 63; PULSE 83; RESP 19; TEMP 36.8
[2021-05-04] MEDS: PANTOPRAZOLE DR 20 MG TABLET PO (06:31)
[2021-05-04 08:00] VITALS: BP 125/61; PULSE 57; RESP 14; TEMP 36; O2SAT 100
--- NOTE | 2021-05-04 08:10 | CM.DPC ---
Addendum entered by Hannah Escobar R.N. 05/04/21 13:07: Authorization was received by patient's [facility] PPO. Had already updated patient that this was pending. Authorization number is: [id number]. Went ahead and had Dr. Qureshi complete orders. Spoke to Yogi at [facility], and confirmed picker/puller time for 1330. Faxed over DC Summary, PASSR, med orders and prescriptions, COVID swab information, as well as vaccination information. Updated patient and spouse, and updated white board at main nurses station. Original Note: DCP Cont: Have a message out to Benitez, in admissions at [facility] to see about insurance auth. Asking Hiral, assistant program manager in care management, if she would be able to call Joseph as well to follow up with authorization. P: DCP to continue to work on getting patient over to [facility]. COVID swab was completed yesterday. Hannah Escobar RN/Crutch Maker
[2021-05-04 08:54] VITALS: O2SAT 99
[2021-05-04] MEDS: CITALOPRAM 10 MG TABLET 40 MG PO (09:20)
[2021-05-04] MEDS: DOCUSATE 100 MG CAPSULE PO (09:20)
[2021-05-04] MEDS: ACETAMINOPHEN 325 MG TABLET 650 MG PO (09:23)
[2021-05-04] MEDS: SODIUM CHLORIDE 0.9% FLUSH 10 ML IV (09:24)
--- NOTE | 2021-05-04 09:26 | CM.DPNOTE ---
Spoke to [facility], at 0925 and she said they did receive additional clinicals this morning and the information was routed to their nurse. She asked to call this afternoon, if we did not hear from them. Hiral Kumar CM Asst.
--- NOTE | 2021-05-04 09:55 | PT.IPTN ---
Current Diagnoses Contusion and laceration of left cerebrum with loss of consciousness of unspecified duration, initial encounter (04/27/21) Physical Therapy Treatment Note M2 PT-IP Current Condition Start: 04/28/21 11:11 Freq: Status: Active Protocol: Document 05/04/21 09:20 SP (Rec: 05/04/21 12:32 SP [id number]) Physical Therapy Current Condition Current Condition Evaluation Date 04/28/21 Treatment Diagnosis Decreased right pupil constriction and right hearing , imbalance s/p TBI Onset Date 04/25/21 M3 PT-IP Subjective Start: 04/28/21 11:11 Freq: Status: Active Protocol: Document 05/04/21 09:20 SP (Rec: 05/04/21 12:32 SP [id number]) Subjective Physical Therapy Visit Type Type Treatment Note Visit Start Time 09:20 Visit Stop Time 09:55 Total Visit Minutes 35 Notes LORRAINE Barboza attended tx, observation only provided. SO in room when arrived, completed caregiver training, donned GB and provided assist required during stair mgt only needed. Vitals during tx: seated at EOB: BP 141/91 HR 87 SaO2 98 % on RA. Standing: BP 137/ 87 Number of CORPORATE VP ADVERTISING & ONLINE Visits 3 Physical Therapy Visit Comments Patient Comments Pt agreeable to working with therapy. Patient Goals Return home with SO to assist her after acute rehab. Therapy Pain Assessment Pain When Pain Assessed At Rest Pain Present Pain Present Pain Reported Location head Intensity 8 Scale Used Numeric (0 - 10) Pain Behaviors Facial Grimacing Pain Management Techniques Distraction,Re-positioning M4 PT-IP Mobility and Gait Start: 04/28/21 11:11 Freq: Status: Active Protocol: Document 05/04/21 09:20 SP (Rec: 05/04/21 12:32 SP [id number]) PT-Bed Mobility Assessment Supine to Sit Supine to Sit Standby Assistance Scooting Scooting to Edge of Bed Standby Assistance PT-Transfer Assessment Sit to and From Stand Sit to and from Stand Standby Assistance,1 Person Assistance,Use of Upper Extremities Equipment Transfer Assistive Device Gait Belt,Front Wheeled Walker Orthotic/Prosthetic Devices or Brace: No Transfers Transfer Destination Chair,Toilet Transfer Technique ambulated w/ FWW Transfer Ability Level of Assist Standby Assistance,1 Person Assistance,Use of Upper Extremities Comments Mobility Comments sup>sit and scoot to EOB SBA. Pt performed gaze exercises pre standing mobility, she states trying to be better about looking at stationary object, feels little weird if looks to quick. SO donned gait belt. Sit>stand use of 1 UE and FWW, ambulated to restroom SBA w/ FWW, pivot front toilet and good slow descent without need for UE support SBA. Pt was able to void and lrg loose BM noted. Provided assist for pericare due to pain in R lateral ribcage while reaching posteriorly. sit>stand SBA with support of 1 UE needed on grab bar. progressed gait to sink w/FWW SBA slowed turns cues for looking at stationary object for safety balance, stable. Pt returned to chair SPT and safety descent to chair with 1 UE support. Rest in chair. Gait further distance into hallway to stairs and back approx 230 ft using FWW close sBA by SO and CORPORATE VP ADVERTISING & ONLINE, SPTA followed with w/c for safety, not needed. Pt complete 6 stairs using L HR ARCHIVAL STUDIES PROFESSOR initially then with BUE on 1 rail. Completed gait around nursing station and back to room. Pt returned to chair. Pt had call light and all needs in reach with SO in room before left. Gait Assessment Gait Gait Assistance Required: Standby Assistance,1 Person Assist Distance (Feet) 230 Able to Maintain Weight Bearing Status Yes During Gait Assistive Devices Assistive Device Gait Belt,Front Wheeled Walker Orthotic/Prosthetic Devices or Brace: No Gait Deviations General Gait Pattern Decreased Stride Length, Decreased Feet Clearance Factors Limiting Gait Function Factors Limiting Gait Function Decreased Activity Tolerance, Decreased Strength,Pain,Poor Balance Comments Gait Comments Please see mobility comments. Stair Climbing Assessment Evaluation Level of Assist On Stairs Contact Guard Assistance, Minimal Assistance,1 Person Assistance Devices Stair Climbing Assistive Devices Left Railing Technique/Endurance Stair Climbing Direction Ascend and Descend Stair Climbing Technique Step Over Step Number of Steps Climbed 3 Stair Climbing Set # Repetitions (reps) 2 Comments Stair Climbing Comments Pt receiprocal patterning ascend/ descend, L HR and ARCHIVAL STUDIES PROFESSOR initially then use of BUE on HR descend, cued for slow eccentric knee flexion not stable firm land R>L CG-Min A. After 2nd set pt unsteady wt shift at bottom of step, reported looking up and felt uneasy not tracking self recovery. PT-Balance Assessment Sitting Balance and Reactions Static Sitting Balance Ability Normal Dynamic Sitting Balance Ability Normal Standing Balance and Reactions Static Standing Balance Ability Good Dynamic Standing Balance Ability Fair Device Used FWW M5 PT-IP Objective Assessments Start: 04/28/21 11:11 Freq: Status: Active Protocol: Document 04/28/21 10:11 MB (Rec: 04/28/21 11:38 MB [id number]) Orientation Orientation/Cognition Level of Alertness Lethargic Orientation Name,Age,Birthday,Month,Date Language Function Ability Word Finding Difficulties Safety Awareness Decreased Safety Awareness Memory Description Short Term Impaired Comments Pt states location as [place] to begin with and knows that this is not correct, but has trouble coming up with [place]. She knows she lives and works here and can point to apartment outside hospital window but she cannot think of the name of her company where she works. She can recall the event happened on Sunday night and she woke up in her bed on Sunday morning but she cannot give any other clear details about the event. She states her boyfriend was not with her and lives on [address] and is helpful and is returning this evening. She states he noticed some blood on the floor near stairs. There is a flight of steps to get to her apartment. Gross Range of Motion Upper Extremity ROM Assessment Within Functional Limits Lower Extremity ROM Assessment Within Functional Limits Strength Upper Extremity Strength Assessment Within Functional Limits Lower Extremity Strength Assessment Within Functional Limits Coordination Assessment Gross Coordination Gross Coordination WNL Assessment Coordination Comments PT can only check right rapid supination and pronation d/t left IV and it is normal. Opposite foot tap over also normal B R pupil does not constrict readily to pen light compared to the left. She reports less hearing right ear with PT rubbing glove near both ears. Dried blood right ear, bruising and blood right mandible, B knees with ecchymosis and abrasions. Muscle Tone Muscle Tone WNL Yes Other Assessments Other Other Assessments See above comments for positional nystagmus, pupil constriction, coordination test. No clonus with rapid passive DF B. M6 PT-IP Treatment Start: 04/28/21 11:11 Freq: Status: Active Protocol: Document 05/04/21 09:20 SP (Rec: 05/04/21 12:32 SP [id number]) Physical Therapy Treatment Education Education Provided Safety Other Treatments Other Treatment Performed Reveiwed gaze stabilization exercises. M7 PT-IP Assessment and Plan Start: 04/28/21 11:11 Freq: Status: Active Protocol: Document 05/04/21 09:20 SP (Rec: 05/04/21 12:32 SP [id number]) PT Summary Assessment and Plan Potential Rehabilitation Potential Good Status of Condition at Evaluation Evolving Summary Impairments Pain,ROM,Strength,Balance, Coordination,Sensation,Tone, Cognition,Bed Mobility, Transfers,Gait,Activity Tolerance Progress Towards Goals Progressing Toward Goals,Slow Progress due to Medical Issues ,Slow Progress due to Activity Tolerance Assessment Summary Pt maintained stable vitals. SBA for most mobility using fWW, CG- Min A on stairs, LEs unsteady firm land descend to next step, weak quad control. Cues for eye tracking during mobility for improve stability stance/gait while using fWW for safety support. Recommending SNF and eventually outpatient PT for concussion/TBI management when appropriate. Goals Bed Mobility Goal Independent Transfer Goal Independent Gait Goal Independent,Front Wheel Walker Gait Distance 250 Other Goals improve ambulation without AD 150 ft mod I up/down 15 steps 1 rail mod I Days to Meet Goals 10 Frequency of Treatment Frequency Of Treatment Once a Day Treatment Plan Physical Therapy Treatment Plan Bed Mobility Training,Transfer Training,Gait Training, Therapeutic Exercise,Balance Retraining,Neuromuscular Re-ed Other Recommendations and Next Treatment transfers, gaze exercises, Focus check vitals, gait using FWW, stair mgt if safe. Recommendations To Nursing Amount of Assist Needed Standby Assistance,1 Person Assist Discharge Recommendations PT Discharge Recommendations SNF Rehab Transportation Needs at Discharge Private Vehicle
--- NOTE | 2021-05-04 11:39 | ST.IPTN ---
Visit Care Team Role Provider Type Maria G Bernal MD Emergency Provider Physician Referring Provider Address: [address] [place] [address], [id number] Marry Qureshi MD Admit Provider Physician Attending Provider Address: [address] [place] [address], [id number] FURNITURE AND BEDDING INSPECTOR Treatment Note FURNITURE AND BEDDING INSPECTOR Treatment Note Start: 04/28/21 10:40 Freq: Status: Active Protocol: Document 05/04/21 11:23 PERCY (Rec: 05/04/21 11:39 PERCY [id number]) Speech Pathology Treatment Note Session Time Visit Start Time 09:05 Visit Stop Time 09:25 Total Visit Minutes 20 Setting Treatment Setting Acute Care Visit Type Note Type Treatment Note Next Note Type Next Note Type Treatment Note General Information General Information Per MD report: Patient is a 55 -year-old female who was admitted to the hospital for an unwitnessed fall resulting in bitemporal fractures and small parenchymal hemorrhages. She continues to have intermittent headaches, dizziness, and overall feeling weak. Subjective Identification Type Name,ID Card Identification Reconciled With Intake Sheet Others Present Family Observations/Patient Presentation The pt was seen immediately following PT session. She was sitting up in chair with SO present. The pt recognized this FURNITURE AND BEDDING INSPECTOR from 2 days ago and stated she was enjoying completing word recall tasks with SO and was reading quite a lot. Per MD report, the pt is presenting with some forgetfulness and confusion. When asked about this, the pt agreed there might be a little of that. Chief Complaint(s) Language,Cognitive Patient Knowledge/Awareness of FURNITURE AND BEDDING INSPECTOR Role Excellent in Treatment Parent/Caretake Knowledge/Awareness of Excellent FURNITURE AND BEDDING INSPECTOR Role in Treatment Patient/Caregiver Compliance with Home Excellent Exercise Program Objective Treatment Activities Education and training was provided in areas of memory strategies and external tools to assist with memory. Information was provided orally and in writing. The pt identified tools/strategies including visualization, calendar use, smart phone tools (e.g., notes, audio messages) and memory notebook as likely to be helpful both for personal use and related to work responsibilities. FURNITURE AND BEDDING INSPECTOR provided recommendations for setting up a memory notebook, and SO explored the pt's cell phone and identified tools that it had. He offered to assist the pt in learning to use these tools, and the pt was agreeable to this. The pt was able to read the handouts provided (12-16 font sizes) with occasional need to distance paper, stating The lines are a bit blurred. SO reminded pt of strategy recommended in previous session to use paper or other marker to isolate lines of text, demonstrating good family support. WFDs x3 were noted during the session. The pt managed 2 episodes independently by using strategies (substituting a synonym, and semantic features analysis) and was unable to resolve one episode, although this did not result in a communication breakdown. Assessment Patient Response to Treatment Good Rehab Potential Excellent Impairments Identified Attention,Cognitive-Linguistic Skills,Expressive Language, Memory - Short Term,Memory - Working Assessment of Improvement The pt is using word recall strategies independently with good success and is compliant with HEP tasks. She has excellent support from her SO. She was receptive to memory and attention strategies education and training provided today. Expressive language and cognitive deficits appear to be mild but do interfere with communication and ability to track information. She continues to be a good candidate for inpatient rehab from a Speech Therapy standpoint or would benefit from SNF and/or outpatient therapy, particularly as she prepares to return to work. Reviewed with Patient Goals,Progress Being Made,Home Exercise Program Patient/Caregiver Understanding Excellent Plan Comment Daily during hospital stay Therapy Recommendations Continue with Current Program Comment Inpt rehab, SNF or outpatient therapy upon hospital dc
[2021-05-04 12:00] VITALS: BP 106/63; BP 122/61; BP 123/75; PULSE 52; PULSE 70; PULSE 84
[2021-05-04] MEDS: MECLIZINE HCL 12.5 MG TABLET 25 MG PO (12:08)
--- NOTE | 2021-05-04 12:20 | OT.IP.TRT ---
Current Diagnoses Contusion and laceration of left cerebrum with loss of consciousness of unspecified duration, initial encounter (04/27/21) Occupational Therapy Treatment Note M2 OT-IP Current Condition Start: 04/28/21 15:12 Freq: Status: Active Protocol: Document 04/28/21 13:30 [facility] (Rec: 04/28/21 15:28 [facility] [id number]) Occupational Therapy Current Condition Current Condition Evaluation Date 04/28/21 Treatment Diagnosis Concussion Diagnosis Onset Date 04/27/21 M3 OT- IP Subjective and Pain Start: 04/28/21 15:12 Freq: Status: Active Protocol: Document 05/04/21 12:19 [facility] (Rec: 05/04/21 12:28 [facility] [id number]) OT- Subjective Occupational Therapy Visit Type Type Treatment Note Visit Start Time 11:20 Visit Stop Time 12:20 Total Visit Minutes 60 Occupational Therapy Visit Comments Patient Comments Pt wanting to wash her hair. Patient/Caregiver Goals TO go to skilled rehab. OT Pain Assessment Pain When Pain Assessed During Mobility Pain Present Pain Present Pain Reported M4 OT- IP ADL's Start: 04/28/21 15:12 Freq: Status: Active Protocol: Document 05/04/21 12:19 [facility] (Rec: 05/04/21 12:28 [facility] [id number]) OT [id number] Comments OT Self-Feeding Comments not meal time OT ADL-Grooming Comments OT Grooming Comments Not performed. OT ADL-Dressing General Eval Lower Body Dressing Ability Standby Assistance Comments OT Dressing Comments Pt able to bend over to elizabeth/ doff her socks while seated on the bed. OT ADL-Toileting Comments OT Toileting Comments Pt not having to go at this time. OT ADL-Bathing Comments OT Bathing Comments Pt wanting to try to shower but starting to feel whoozy , tired and deciding to lie down instead. M6 OT- IP Functional Cognition Start: 04/28/21 15:12 Freq: Status: Active Protocol: Document 05/04/21 12:19 [facility] (Rec: 05/04/21 12:28 [facility] [id number]) Cognitive Factors Limiting Selfcare Function Cognitive Comments Cognitive Assessment Comments Pt scored 80 seconds on [place] Making Part B which is similiar score as on OT eval. Pt score is 40% for her age group. Pt's main difficulty is at times has word finding. Able to have pt write down a list of items that she will need to bring to skilled rehab . M7 OT- IP Mobility and Balance Start: 04/28/21 15:12 Freq: Status: Active Protocol: Document 05/04/21 12:19 [facility] (Rec: 05/04/21 12:28 [facility] [id number]) OT-Transfer Assessment Sit to and From Stand Sit to and from Stand Standby Assistance Transfers Transfer Ability Standby Assistance Technique Transfer Destination Bed,Chair Transfer Technique Stand Step Pivot Devices Transfer Assistive Devices Gait Belt,Front Wheeled Walker Comments Mobility Comments BP sitting 123/75, standing 122/61 and in supine 106/63. Nursing present in the room. Educated pt to try to slow down her movements as tends to use momentum and move quickly during bed mobility needs.Pt complaining of pain/tightness underneath her chest, nursing present and aware. M8 OT- IP Objective Assessments Start: 04/28/21 15:12 Freq: Status: Active Protocol: Document 04/28/21 13:30 [facility] (Rec: 04/28/21 15:28 [facility] [id number]) OT Gross Range of Motion Upper Extremity Range of Motion Assessment Within Functional Limits OT Strength Upper Extremity Strength Assessment Within Functional Limits OT- Coordination Assessment Upper Extremity Finger to Nose Test Within Functional Limits OT-Muscle Tone Assessment Muscle Tone WNL Yes M9 OT- IP Assessment and Plan Start: 04/28/21 15:12 Freq: Status: Active Protocol: Document 05/04/21 12:19 [facility] (Rec: 05/04/21 12:28 [facility] [id number]) OT Summary Assessment and Plan Potential Rehabilitation Potential Good Analytic Complexity at Evaluation Moderate Summary OT Impairments Pain,Balance,Functional Cognition,Functional Mobility, Toileting,Bathing,Toilet Transfers,Shower Transfers, Activity Tolerance Progress Towards Goals Slow Progress due to Medical Issues,Slow Progress due to Activity Tolerance,Slow Progress due to Cognition Assessment Summary Pt initially wanting to try to shower however after doing cognitive needs starting to feel tired and then whoozy after bed mobility needs. Pt looking to go to skilled rehab when medically stable. Goals Grooming Goal Independent Dressing Goal Independent Toileting Goal Independent Bathing Goal Independent Toilet Transfer Goal Independent Shower Transfer Goal Independent Days to Meet Goals 29 Frequency of Treatment Frequency Of Treatment Once a Day Treatment Plan OT Treatment Plan ADL Training,Functional Cognition Training,Functional Mobility,Patient/Family Education,Discharge Planning Other Treatment Recommendations and Next shower Treatment Focus Discharge Recommendations OT Discharge Recommendations SNF Rehab,SNF vs Acute Rehab Transportation Needs at Discharge Wheelchair/Cabulance
--- NOTE | 2021-05-04 12:36 | PM.DS.1 ---
History of Present Illness History of Present Illness Chief complaint: think she fell, bruise face, ear bleed, no memory Narrative: The patient is a 55 y/o female with a history of GERD, Morbid Obesity, CHRISTIANO, who presented to the ED for evaluation of blood coming from her ear. She also reports dizziness, not feeling well for the last few days secondary to nausea, and had evidence of head trauma 2 days prior to admission. She does not recall falling, she is unable to provide any history of what happened. Per the notes from the ED, her boyfriend came into her home and found emesis on the stairs. The patient does not recall what happened. She was noted to have a swollen and bloody bottom lip, complaint of blood found in her ear, reportedly sleeping more than usual. She also complained of the room spining and some visual changes. She does admit to drinking 3-4 drinks nightly to include rum and soda. She denies any history of alcohol withdrawal or seizures. She is vaccinated against Covid-19 and does not report any fever, chills, cough, loss of taste or smell. She does report feeling some shortness of breath. She was unable to work for the last few days as she has not felt very well. She does not recall much more and specifically does not remember falling or the circumstances of her fall. The patient underwent a head CT in the ED that revealed the following: Small parenchymal hemorrhagic contusions involving the lateral margins of the left temporal lobe, frontal lobe and parietal lobe.Bilateral temporal bone fractures.? Right temporal bone fracture extends to the skullbase into the sphenoid bone in the sphenoid sinuses.?A cervical spine CT was obtained as well that revealed the following: ?No cervical spine fracture. No acute osseous lesion. If symptoms and/or clinical suspicion for pathology persists, evaluation with MRI should be considered for further assessment. 2. Nondepressed bilateral temporal bone fractures.? Right temporal bone fracture extends longitudinally through the skull base into sphenoid bone and the sphenoid sinuses.? Evaluation of the eardrum reveals no evidence of rupture. The ED consulted with Neurosurgery who recommended repeat Head CT in am, Repeat sodium in AM, urgent CT if clinical deterioration. Patient does report forgetfulness. She is admitted to the hospital for observation. ? ? Discharge Providers Provider Date of admission: 04/27/21 21:37 Discharge Date: 05/04/21 Consults: 04/27/21 23:30 Consult to Occupational Therapy Evaluate & Treat Comment: Physician Instructions: Evaluate and treat Consult to Speech Therapy Evaluate & Treat Comment: cognitive evaluation Physician Instructions: Evaluate and treat 04/28/21 00:04 Consult to Physical Therapy Evaluate & Treat Comment: Physician Instructions: Evaluate and Treat 04/28/21 00:05 Consult to Dietitian, Adult Routine Comment: morbid obesity, dietary discussion Reason For Exam: dietary discussion Discharge provider: Marry Qureshi MD Summary Hospital Course Discharge Diagnosis: 1. Contusion status post fall 2. Bitemporal bonefracture 3. Small parenchymal hemorrhages following a fall 4. orthostatic hypotension, resolved 5. GERD 6. Depression 7. Morbid obesity Hospital Course: Patient was admitted to the hospital following a fall. This was an unwitnessed event. In the patient was confused and amnestic for the event. CT scan confirmed is bitemporal bone fractures. A repeat CT revealed the fracture was stable and as well as parenchymal hemorrhages. A neurosurgery consultation was obtained via the phone and they recommended no intervention. Patient should follow-up with ENT as above outpatient. The patient was discussed with Neurology. They recommended an MRI to look for a cause such as stroke. The MRI was negative for stroke. Patient's prolactin was elevated. However this was unclear whether this was a seizure. We monitored her for seizures and there were no evidence of seizure. Patient was found to have orthostatic hypotension. She received IV hydration and that resolved. She continued to have intermittent headaches and dizziness. She was started on meclizine for that. She made slow but steady progress. She was seen by PT and OT. Recommendations were made for rehabilitation before discharge home. Patient was deemed appropriate for discharge and discharged accordingly. Status at Discharge Cognitive/behavioral status at discharge: oriented Functional status at discharge: uses cane/walker Overall status at discharge: patient is progressing back to baseline Exam Vital Signs (past 8 hours): - 05/04/21 08:00 05/04/21 08:54 Temperature 96.8 F L Pulse Rate 57 L Respiratory Rate 14 Blood Pressure 125/61 Pulse Oximetry 100 99 Oxygen Delivery Method Room Air Oxygen Flow Rate 0 Narrative Exam Narrative: Pleasant female in no acute distress Resp Other: Lungs clear to auscultation Cardio Other: Cardiac exam: Regular rate and rhythm normal S1-S2 GI Other: Abdomen soft nontender nondistended Extrem Other: Extremity no edema Objective Labs Result Diagrams: 04/29/21 06:47 04/29/21 06:47 [facility] Medical History Excessive daytime sleepiness Fatigue due to sleep pattern disturbance GERD (gastroesophageal reflux disease) Insomnia due to medical condition Morbid obesity with body mass index (BMI) of 40.0 to 49.9 Obstructive sleep apnea, adult Family History (Updated 04/27/21 @ 23:51 by Marry Qureshi MD) Father Cirrhosis of liver Social History household members: none Smoking Status: Former smoker Discharge Assessment & Plan Assessment and Plan Assessment: 1. By temporal bone fractures following a fall 2. Intraparenchymal hemorrhage, following a fall 3. Post concussive syndrome 4. Orthostatic hypotension, resolved 5. Depression 6. GERD 7. Morbid obesity Plan of Treatment: Discharge to [facility] for ongoing rehabilitation Outpatient ENT follow-up given fractures on CT. Discharge Plan Discharge Plan Patient Disposition: SNF Transfer to: [facility] Consult as needed: Dental, Hearing, Mental health, Podiatry and Vision Discharge orders & Medications Prescriptions: New hydrocodone-acetaminophen 5-325 mg Tablet 1 tab PO Q4HR PRN (Reason: Pain, Moderate (4-6)) Qty: 15 RF: 0 tramadol 50 mg Tablet 50 mg PO QID PRN (Reason: Pain, Moderate (4-6)) Qty: 15 RF: 0 meclizine 12.5 mg Tablet 25 mg PO TID PRN (Reason: Vertigo) Qty: 30 RF: 0 Continued citalopram [Celexa] 10 mg Tablet 40 mg PO DAILY Qty: 0 RF: 0 acyclovir [Zovirax] 200 mg Capsule 400 mg PO DAILY Qty: 0 RF: 0 omeprazole 40 mg capsule,delayed release(DR/EC) 40 mg PO DAILY RF: 0 No Action (DME) ResMed AirSense 10 CPAP Qty: 1 RF: 0 Quality VTE Deep Vein Thrombosis/Pulmonary Embolism Present on Admission: No
--- NOTE | 2021-05-04 13:45 | PC.NURSE ---
Pt A&Ox3, slightly forgetful. Needing reminders to change position slowly and to call for assistance for transferring from bed to chair. at bedside this a.m. helpful and supportive. She initially complains of headache 7-02/15 but requests tylenol only. Upon reassessment pt reports headache is much improved with only intermittent aching. OT attempting to work with patient this a.m. and preparing patient for shower, however patient feels whoozy Orthostatic BP was negative. Pt settled to bed and BP in low 100's, at this time feeling symptomatic. Medicated patient with PRN meclizine. Pt cleared for discharge by hospitalist. Per CM, received authorization from insurance and discharge scheduled for 1330. 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
[2021-05-04 14:00] VITALS: BP 123/75; PULSE 57; RESP 18; TEMP 36.5; O2SAT 100
== END 2021-05-04 14:30 | DRG 83 ==
LOC: ED 20:09 → AC 21:45
PROVIDERS: Internal Medicine; Nurse Practitioner Critical Care Medicine; Admitting Provider Internal Medicine; Emergency Provider Emergency Medicine; Referring Provider Emergency Medicine; Visit Provider Internal Medicine
DX: S06.329A Contusion and laceration of left cerebrum with loss of consciousness of unspecified duration, initial encounter (principal); Z68.42 Body mass index [BMI] 45.0-49.9, adult; G93.40 Encephalopathy, unspecified; S02.19XA Other fracture of base of skull, initial encounter for closed fracture; S02.40FA Zygomatic fracture, left side, initial encounter for closed fracture; E66.01 Morbid (severe) obesity due to excess calories; R00.1 Bradycardia, unspecified; K21.9 Gastro-esophageal reflux disease without esophagitis; G47.33 Obstructive sleep apnea (adult) (pediatric); F32.A Depression, unspecified; F07.81 Postconcussional syndrome; W19.XXXA Unspecified fall, initial encounter; Z20.822 Contact with and (suspected) exposure to COVID-19; Z87.891 Personal history of nicotine dependence
CPT/HCPCS: 36415; 70450; 70480; 70551; 72125; 80048; 80053; 83735; 84100; 84146; 84443; 84484; 85025; 85027; 87635; 92507; 92523; 93005; 93010; 93306; 94760; 97110; 97112; 97116; 97129; 97130; 97163; 97165; 97530; 97535; 99284; C9803; J2405

== ENCOUNTER 2021-11-01 16:45 | Outpatient (RCR) | payer OTHER, SELFPAY ==
--- NOTE | 2021-09-07 17:49 | PT.OIE ---
Current Diagnoses Benign paroxysmal vertigo, right ear (09/07/21) Sensorineural hearing loss, bilateral (09/07/21) Dizziness and giddiness (09/07/21) Unspecified intracranial injury with loss of consciousness of 30 minutes or less, initial encounter (09/07/21) Personal history of (healed) traumatic fracture (09/07/21) Past Medical History (Last Reviewed 04/27/21 @ 23:50 by Marry Qureshi MD) Excessive daytime sleepiness Fatigue due to sleep pattern disturbance GERD (gastroesophageal reflux disease) Insomnia due to medical condition Morbid obesity with body mass index (BMI) of 40.0 to 49.9 Obstructive sleep apnea, adult Visit Care Team Role Provider Type Terri Batista PA-C Family Provider Non-Staff Primary Care Provider Specialty: Internal Medicine Address: [address] [place] [address] Email: [email or web address] Supa Williamson MD Attending Provider Physician Referring Provider Specialty: Ear, Nose, Throat Address: [address] [place] [address], [facility] Email: [email or web address] Physical Therapy Initial Evaluation PT-OP-A Visit Information Start: 09/07/21 16:32 Freq: Status: Active Protocol: Document 09/07/21 13:45 [facility] (Rec: 09/07/21 16:37 [facility] [id number]) Out-Patient Physical Therapy Visit Information Visit Information Visit Type Initial Evaluation Visit Start Time 13:45 Visit Stop Time 14:30 Total Visit Minutes 45 Visit Number 1 Number of WATCH MECHANIC Visits 0 Evaluation Information Evaluation Date 09/07/21 PT-OP-B Current Condition Start: 09/07/21 16:32 Freq: Status: Active Protocol: Document 09/07/21 13:45 [facility] (Rec: 09/07/21 17:48 [facility] [id number]) Current Condition History of Current Condition Onset Date 04/25/21 Current Complaints Positional dizziness History of Current Condition Pt is a 56 year old female complaining of a 4.5 month history of motion-induced vertigo. On 04/25/21, pt tripped and fell down her steps, resulting in cranial fractures and a significant TBI. Pt was initially hospitalized, and then spent 20 days in a rehab center, followed by a month of home health. Notes her dizziness has improved over the past few months, was initially fairly constant. Pt reports she had multiple falls while she was in the hospital, and was experiencing nausea and vomiting. Pt reports current episodes last a few seconds. Symptoms are provoked by changes in position. Pt was seen at [facility] on , when her symptoms were largely suggestive of TBI after effects, and again on and 08/30/21, following a VNG on 08/23/21, where her symptoms were more suggestive of BPPV. Pt underwent an Edmond maneuver, which helped reduce some of her symptoms, however pt has been experiencing persistent imbalance and positional vertigo. Pt does note she is very anxious today . Does feel that her other symptoms have been improving significantly. Treatment Goals Patient/Caregiver Goals To feel better and hopefully normal again. Personal Factors Other Personal Factors That May Effect TBI, Skull fracture, Therapy/Recovery positional vertigo, multiple falls PT-OP-C Subjective Start: 09/07/21 16:32 Freq: Status: Active Protocol: Document 09/07/21 13:45 [facility] (Rec: 09/07/21 16:40 [facility] [id number]) OP-PT Subjective Patient Comments Patient Comments I'm sorry, I'm just really nervous about thas. Patient Reported Progress Improving Patient Questionnaires Dizziness Handicap Inventory DHI Score 58% DHI Functional Impairment 40 to 59% Impaired (Score 40- 59) OP-PT Pain Assessment Location head Intensity 6 Scale Used Numeric (0 - 10) Frequency Constant PT-OP-O Vestibular Start: 09/07/21 16:32 Freq: Status: Active Protocol: Document 09/07/21 13:45 [facility] (Rec: 09/07/21 16:42 [facility] [id number]) Vestibular Assessment Screening Tests Vestibular Artery Screen Negative Sharp-Jodee Test Negative Auditory Tests Richard Test Within normal limits Rinne Test Negative Air Conduction Results Equal Visual Testing Smooth Pursuits Horizontal WNL Smooth Pursuits Vertical WNL Saccades Horizontal WNL Saccades Vertical WNL Heave Test Negative Thrust Head Negative Positional Testing Lori-Hallpike Positive Right,Negative Left, Upbeating,< 60 Seconds PT-OP-Q Treatments Start: 09/07/21 16:32 Freq: Status: Active Protocol: Document 09/07/21 13:45 [facility] (Rec: 09/07/21 16:39 [facility] [id number]) Canalithic Repositioning BPPV Treatment Edmond Affected Canal(s) R posterior Reps x2 Comments Modifies Edmond PT-OP-T Assessment and Plan Start: 09/07/21 16:32 Freq: Status: Active Protocol: Document 09/07/21 13:45 [facility] (Rec: 09/07/21 17:48 [facility] [id number]) Physical Therapy Assessment Rehab Potential Rehabilitation Potential Good Evaluation Complexity Number of Personal Factors/Comorbidities 3 or More Number of Body Systems Impaired 4 or More Clinical Presentation at Evaluation Unstable Impairments Impairments Balance,Functional Activities, Functional Mobility,Gait, Vestibular Goals Two Impairment Pt has difficulty with bed mobility due to vertigo [place] Loader And Unloader Goal (LTG) Pt to report no positional vertigo with bed mobility over a period of two weeks. LTG Duration 10/19/21 One Impairment Positive right Mil[place]-Hallpike Residential Goal (LTG) Positional testing negative bilaterally LTG Duration 10/19/21 Assessment Summary Assessment During right Lori-Hallpike test , pt complained of vertigo and demonstrated up-beating, torsional nystagmus lasting approximately 10 seconds, consistent with diagnosis of right-sided posterior canal BPPV, canalithiasis-type. Pt was treated with a right-sided modified Edmond maneuver. Pt complained of symptoms in the first and third position, which is normally indicative of a successful treatment. Further positional testing was negative. Pt was educated on BPPV, expectations for treatment, possible recurrence (BPPV has a ~50% recurrence rate in the five years following treatment), and post -Edmond restrictions. Pt to return in ~1 week for a follow -up appointment, and intermittently afterward as indicated for treatment of BPPV. Pt may also be suffering from after effects from TBI/ Post-concussion syndrome, however other testing today was inconclusive. Upon pt'e return to this clinic, therapist should plan to retest for BPPV, and then complete testing for balance/ vestibular effects following TBI. Due to pt's increased anxiety regarding her evaluation today, more aggressive testing was put on hold until pt hopefully feels more comfortable. Physical Therapy Plan Frequency and Duration Frequency of Treatment 1-2 x/week Duration of Treatment 6 weeks Plan of Care Start Date 09/07/21 Plan of Care End Date 10/19/21 Therapeutic Interventions Therapeutic Interventions Balance Training,Canalithic Repositioning,Coordination Training,Home Exercise Program ,Manual Therapy,Neuromuscular Re-education,Patient/Caregiver Education,Self-Care/Home Management,Therapeutic Activities,Therapeutic Exercises Next Visit Focus/Plan Next Note Type Treatment Note Next Visit Plan Positional testing, further vestibular/balance/TBI assessment
--- NOTE | 2021-09-07 17:50 | PT.OPPOC ---
Physical, Occupational & Speech Therapy At [facility] Current Diagnoses Benign paroxysmal vertigo, right ear (09/07/21) Sensorineural hearing loss, bilateral (09/07/21) Dizziness and giddiness (09/07/21) Unspecified intracranial injury with loss of consciousness of 30 minutes or less, initial encounter (09/07/21) Personal history of (healed) traumatic fracture (09/07/21) Visit Care Team Role Provider Type Terri Batista PA-C Family Provider Non-Staff Primary Care Provider Specialty: Internal Medicine Address: [address] [place] [address] Email: [email or web address] Supa Williamson MD Attending Provider Physician Referring Provider Specialty: Ear, Nose, Throat Address: [address] [place] [address] Email: [email or web address] Plan Of Care PT-OP-T Assessment and Plan Start: 09/07/21 16:32 Freq: Status: Active Protocol: Document 09/07/21 13:45 [facility] (Rec: 09/07/21 17:48 [facility] [id number]) Physical Therapy Assessment Rehab Potential Rehabilitation Potential Good Evaluation Complexity Number of Personal Factors/Comorbidities 3 or More Number of Body Systems Impaired 4 or More Clinical Presentation at Evaluation Unstable Impairments Impairments Balance,Functional Activities, Functional Mobility,Gait, Vestibular Goals Two Impairment Pt has difficulty with bed mobility due to vertigo Prison Goal (LTG) Pt to report no positional vertigo with bed mobility over a period of two weeks. LTG Duration 10/19/21 One Impairment Positive right Lori-Hallpike Community Liaison Officer Goal (LTG) Positional testing negative bilaterally LTG Duration 10/19/21 Assessment Summary Assessment During right Crosby-Hallpike test , pt complained of vertigo and demonstrated up-beating, torsional nystagmus lasting approximately 10 seconds, consistent with diagnosis of right-sided posterior canal BPPV, canalithiasis-type. Pt was treated with a right-sided modified Edmond maneuver. Pt complained of symptoms in the first and third position, which is normally indicative of a successful treatment. Further positional testing was negative. Pt was educated on BPPV, expectations for treatment, possible recurrence (BPPV has a ~50% recurrence rate in the five years following treatment), and post -Edmond restrictions. Pt to return in ~1 week for a follow -up appointment, and intermittently afterward as indicated for treatment of BPPV. Pt may also be suffering from after effects from TBI/ Post-concussion syndrome, however other testing today was inconclusive. Upon pt'e return to this clinic, therapist should plan to retest for BPPV, and then complete testing for balance/ vestibular effects following TBI. Due to pt's increased anxiety regarding her evaluation today, more aggressive testing was put on hold until pt hopefully feels more comfortable. Physical Therapy Plan Frequency and Duration Frequency of Treatment 1-2 x/week Duration of Treatment 6 weeks Plan of Care Start Date 09/07/21 Plan of Care End Date 10/19/21 Therapeutic Interventions Therapeutic Interventions Balance Training,Canalithic Repositioning,Coordination Training,Home Exercise Program ,Manual Therapy,Neuromuscular Re-education,Patient/Caregiver Education,Self-Care/Home Management,Therapeutic Activities,Therapeutic Exercises Next Visit Focus/Plan Next Note Type Treatment Note Next Visit Plan Positional testing, further vestibular/balance/TBI assessment Plan of Care Dates Plan of Care Start Date 09/07/21 Plan of Care End Date 10/19/21 Electronically Signed by: Isidro Saldivar, PT 09/07/21 1409 Please Sign and Return: I have reviewed this Plan of Care and certify that the skilled therapy services above are required to meet the patient?s needs. Physician Signature Date Printed Name and Credentials Clinical Instructor Signature Printed Name and Credentials
--- NOTE | 2021-09-28 12:35 | PT.OTN ---
Current Diagnoses Benign paroxysmal vertigo, right ear (09/28/21) Sensorineural hearing loss, bilateral (09/28/21) Dizziness and giddiness (09/28/21) Unspecified intracranial injury with loss of consciousness of 30 minutes or less, initial encounter (09/28/21) Personal history of (healed) traumatic fracture (09/28/21) Physical Therapy Treatment Note PT-OP-A Visit Information Start: 09/07/21 16:32 Freq: Status: Active Protocol: Document 09/28/21 12:00 DCW (Rec: 09/28/21 12:33 DCW [id number]) Out-Patient Physical Therapy Visit Information Visit Information Visit Type Treatment Note Visit Start Time 12:00 Visit Stop Time 12:25 Total Visit Minutes 25 Visit Number 2 Number of PROCUREMENT PROFESSIONAL LOGISTICS Visits 0 Evaluation Information Evaluation Date 09/07/21 PT-OP-B Current Condition Start: 09/07/21 16:32 Freq: Status: Active Protocol: Document 09/07/21 13:45 DCW (Rec: 09/07/21 17:48 DCW [id number]) Current Condition History of Current Condition Onset Date 04/25/21 Current Complaints Positional dizziness History of Current Condition Pt is a 56 year old female complaining of a 4.5 month history of motion-induced vertigo. On 04/25/21, pt tripped and fell down her steps, resulting in cranial fractures and a significant TBI. Pt was initially hospitalized, adn then spent 20 days in a rehab center, followed by a month of home health. Notes her dizziness has improved over the past few months, was initially fairly constant. Pt reports she had multiple falls while she was in the hospital, and was experiencing nausea and vomiting. Pt reports current episodes last a few seconds. Symptoms are provoked by changes in position. Pt was seen at [facility] on , when her symptoms were largely suggestive of TBI after effects, and again on and 08/30/21, following a VNG on 08/23/21, where her symptoms were more suggestive of BPPV. Pt underwent an Edmond maneuver, which helped reduce some of her symptoms, however pt has been experiencing persistent imbalance and positional vertigo. Pt does note she is very anxious today . Does feel that her other symptoms have been improving significantly. Treatment Goals Patient/Caregiver Goals To feel better and hopefully normal again. Personal Factors Other Personal Factors That May Effect TBI, Skull fracture, Therapy/Recovery positional vertigo, multiple falls PT-OP-C Subjective Start: 09/07/21 16:32 Freq: Status: Active Protocol: Document 09/28/21 12:00 DCW (Rec: 09/28/21 12:33 DCW [id number]) OP-PT Subjective Patient Comments Patient Comments Pt notes she has been better overall, has had few instances of positional symptoms, less severe, less frequently, but still present. PT-OP-O Vestibular Start: 09/07/21 16:32 Freq: Status: Active Protocol: Document 09/28/21 12:00 DCW (Rec: 09/28/21 12:33 DCW [id number]) Vestibular Assessment Positional Testing Lori-Hallpike Positive Left,Positive Right, Upbeating,< 60 Seconds PT-OP-Q Treatments Start: 09/07/21 16:32 Freq: Status: Active Protocol: Document 09/28/21 12:00 DCW (Rec: 09/28/21 12:34 DCW [id number]) Manual Therapy Treatment Other Other Manual Treatments Positional testing Canalithic Repositioning BPPV Treatment Edmond Affected Canal(s) R posterior Reps x2 Comments Modified Edmond PT-OP-T Assessment and Plan Start: 09/07/21 16:32 Freq: Status: Active Protocol: Document 09/28/21 12:00 DCW (Rec: 09/28/21 12:33 DCW [id number]) Physical Therapy Assessment Impairments Impairments Balance,Functional Activities, Functional Mobility,Gait, Vestibular Goals Two Impairment Pt has difficulty with bed mobility due to vertigo [facility] Goal (LTG) Pt to report no positional vertigo with bed mobility over a period of two weeks. 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 Pt complained of vertigo and demonstrated up- beating, torsional nystagmus lasting approximately 10 seconds, consistent with diagnosis of bilateral posterior canal BPPV, canalithiasis-type. Pt was treated with a right-sided modified Edmond maneuver. Pt complained of symptoms in the first and third position, which is normally indicative of a successful treatment. Unfortunately, treating both sides during the same treatment session is typically unsuccessful, so will address the left side at her next appointment. Physical Therapy Plan Frequency and Duration Frequency of Treatment 1-2 x/week Duration of Treatment 6 weeks Plan of Care Start Date 09/07/21 Plan of Care End Date 10/19/21 Therapeutic Interventions Therapeutic Interventions Balance Training,Canalithic Repositioning,Coordination Training,Home Exercise Program ,Manual Therapy,Neuromuscular Re-education,Patient/Caregiver Education,Self-Care/Home Management,Therapeutic Activities,Therapeutic Exercises Next Visit Focus/Plan Next Note Type Treatment Note Next Visit Plan Positional testing, further vestibular/balance/TBI assessment
--- NOTE | 2021-10-05 12:25 | PT.OTN ---
Current Diagnoses Benign paroxysmal vertigo, right ear (10/05/21) Sensorineural hearing loss, bilateral (10/05/21) Dizziness and giddiness (10/05/21) Unspecified intracranial injury with loss of consciousness of 30 minutes or less, initial encounter (10/05/21) Personal history of (healed) traumatic fracture (10/05/21) Physical Therapy Treatment Note PT-OP-A Visit Information Start: 09/07/21 16:32 Freq: Status: Active Protocol: Document 10/05/21 12:00 DCW (Rec: 10/05/21 12:25 DCW [id number]) Out-Patient Physical Therapy Visit Information Visit Information Visit Type Treatment Note Visit Start Time 12:00 Visit Stop Time 12:17 Total Visit Minutes 17 Visit Number 3 Number of ARCHITECTURAL DESIGNER Visits 0 Evaluation Information Evaluation Date 09/07/21 PT-OP-B Current Condition Start: 09/07/21 16:32 Freq: Status: Active Protocol: Document 09/07/21 13:45 DCW (Rec: 09/07/21 17:48 DCW [id number]) Current Condition History of Current Condition Onset Date 04/25/21 Current Complaints Positional dizziness History of Current Condition Pt is a 56 year old female complaining of a 4.5 month history of motion-induced vertigo. On 04/25/21, pt tripped and fell down her steps, resulting in cranial fractures and a significant TBI. Pt was initially hospitalized, adn then spent 20 days in a rehab center, followed by a month of home health. Notes her dizziness has improved over the past few months, was initially fairly constant. Pt reports she had multiple falls while she was in the hospital, and was experiencing nausea and vomiting. Pt reports current episodes last a few seconds. Symptoms are provoked by changes in position. Pt was seen at [facility] on , when her symptoms were largely suggestive of TBI after effects, and again on and 08/30/21, following a VNG on 08/23/21, where her symptoms were more suggestive of BPPV. Pt underwent an Edmond maneuver, which helped reduce some of her symptoms, however pt has been experiencing persistent imbalance and positional vertigo. Pt does note she is very anxious today . Does feel that her other symptoms have been improving significantly. Treatment Goals Patient/Caregiver Goals To feel better and hopefully normal again. Personal Factors Other Personal Factors That May Effect TBI, Skull fracture, Therapy/Recovery positional vertigo, multiple falls PT-OP-C Subjective Start: 09/07/21 16:32 Freq: Status: Active Protocol: Document 10/05/21 12:00 DCW (Rec: 10/05/21 12:25 DCW [id number]) OP-PT Subjective Patient Comments Patient Comments I'm doing pretty good. I haven't been as dizzy this week. I did notice one yesterday though. PT-OP-O Vestibular Start: 09/07/21 16:32 Freq: Status: Active Protocol: Document 10/05/21 12:00 DCW (Rec: 10/05/21 12:25 DCW [id number]) Vestibular Assessment Positional Testing [place]-Hallpike Positive Left,Positive Right, Upbeating,< 60 Seconds PT-OP-Q Treatments Start: 09/07/21 16:32 Freq: Status: Active Protocol: Document 10/05/21 12:00 DCW (Rec: 10/05/21 12:25 DCW [id number]) Canalithic Repositioning BPPV Treatment Edmond Affected Canal(s) R posterior Reps x2 Comments Modified Edmond PT-OP-T Assessment and Plan Start: 09/07/21 16:32 Freq: Status: Active Protocol: Document 10/05/21 12:00 DCW (Rec: 10/05/21 12:25 DCW [id number]) Physical Therapy Assessment Impairments Impairments Balance,Functional Activities, Functional Mobility,Gait, Vestibular Goals Two Impairment Pt has difficulty with bed mobility due to vertigo Tax Examiner Goal (LTG) Pt to report no positional vertigo with bed mobility over a period of two weeks. LTG Duration 10/19/21 One Impairment Positive right Lori-Hallpike Snf Goal (LTG) Positional testing negative bilaterally LTG Duration 10/19/21 Assessment Summary Assessment Pt presents once again today with a bilaterally positive lori-hallpike. Right was substantially less severe than last week, but still present. Left-side was symptomatic during second position of R Edmond. During second Hallpike, pt symptoms and nystagmus were almost nonexistent, only 3-4 beats of mild nystagmus. Once again chose to defer treatment of left side to another day that the right side was not addressed. Physical Therapy Plan Frequency and Duration Frequency of Treatment 1-2 x/week Duration of Treatment 6 weeks Plan of Care Start Date 09/07/21 Plan of Care End Date 10/19/21 Therapeutic Interventions Therapeutic Interventions Balance Training,Canalithic Repositioning,Coordination Training,Home Exercise Program ,Manual Therapy,Neuromuscular Re-education,Patient/Caregiver Education,Self-Care/Home Management,Therapeutic Activities,Therapeutic Exercises Next Visit Focus/Plan Next Note Type Treatment Note Next Visit Plan Positional testing, further vestibular/balance/TBI assessment
--- NOTE | 2021-10-12 12:27 | PT.OTN ---
Current Diagnoses Benign paroxysmal vertigo, right ear (10/12/21) Sensorineural hearing loss, bilateral (10/12/21) Dizziness and giddiness (10/12/21) Unspecified intracranial injury with loss of consciousness of 30 minutes or less, initial encounter (10/12/21) Personal history of (healed) traumatic fracture (10/12/21) Physical Therapy Treatment Note PT-OP-A Visit Information Start: 09/07/21 16:32 Freq: Status: Active Protocol: Document 10/12/21 12:00 DCW (Rec: 10/12/21 12:27 DCW [id number]) Out-Patient Physical Therapy Visit Information Visit Information Visit Type Treatment Note Visit Start Time 12:00 Visit Stop Time 12:25 Total Visit Minutes 25 Visit Number 4 Number of CLINICAL TRAINER Visits 0 Evaluation Information Evaluation Date 09/07/21 PT-OP-B Current Condition Start: 09/07/21 16:32 Freq: Status: Active Protocol: Document 09/07/21 13:45 DCW (Rec: 09/07/21 17:48 DCW [id number]) Current Condition History of Current Condition Onset Date 04/25/21 Current Complaints Positional dizziness History of Current Condition Pt is a 56 year old female complaining of a 4.5 month history of motion-induced vertigo. On 04/25/21, pt tripped and fell down her steps, resulting in cranial fractures and a significant TBI. Pt was initially hospitalized, adn then spent 20 days in a rehab center, followed by a month of home health. Notes her dizziness has improved over the past few months, was initially fairly constant. Pt reports she had multiple falls while she was in the hospital, and was experiencing nausea and vomiting. Pt reports current episodes last a few seconds. Symptoms are provoked by changes in position. Pt was seen at [facility] on , when her symptoms were largely suggestive of TBI after effects, and again on and 08/30/21, following a VNG on 08/23/21, where her symptoms were more suggestive of BPPV. Pt underwent an Edmond maneuver, which helped reduce some of her symptoms, however pt has been experiencing persistent imbalance and positional vertigo. Pt does note she is very anxious today . Does feel that her other symptoms have been improving significantly. Treatment Goals Patient/Caregiver Goals To feel better and hopefully normal again. Personal Factors Other Personal Factors That May Effect TBI, Skull fracture, Therapy/Recovery positional vertigo, multiple falls PT-OP-C Subjective Start: 09/07/21 16:32 Freq: Status: Active Protocol: Document 10/12/21 12:00 DCW (Rec: 10/12/21 12:26 DCW [id number]) OP-PT Subjective Patient Comments Patient Comments Pt notes she is not too bad, I've had a couple of episodes, but nothing really terrible. PT-OP-O Vestibular Start: 09/07/21 16:32 Freq: Status: Active Protocol: Document 10/12/21 12:00 DCW (Rec: 10/12/21 12:26 DCW [id number]) Vestibular Assessment Positional Testing Lori-Hallpike Positive Left,Positive Right, Upbeating,< 60 Seconds PT-OP-Q Treatments Start: 09/07/21 16:32 Freq: Status: Active Protocol: Document 10/12/21 12:00 DCW (Rec: 10/12/21 12:27 DCW [id number]) Manual Therapy Treatment Other Other Manual Treatments Positional testing Canalithic Repositioning BPPV Treatment Edmond Affected Canal(s) L posterior Reps x2 Comments Modified Edmond PT-OP-T Assessment and Plan Start: 09/07/21 16:32 Freq: Status: Active Protocol: Document 10/12/21 12:00 DCW (Rec: 10/12/21 12:26 DCW [id number]) Physical Therapy Assessment Assessment Summary Assessment Attempted today to address left side instead of right. Initial Hallpike was mildly positive with light up-beating nystagmus. Following first L- Edmond, pt had a severe reversal. Follow-up testing showed significantly less severe L posterior BPPV, a second Edmond was performed, and a mild reversal was once again present. Due to continued reversal, decision was made to attempt to treat both sides, however right Hallpike was then negative, as was roll test. Physical Therapy Plan Frequency and Duration Frequency of Treatment 1-2 x/week Duration of Treatment 6 weeks Plan of Care Start Date 09/07/21 Plan of Care End Date 10/19/21 Therapeutic Interventions Therapeutic Interventions Balance Training,Canalithic Repositioning,Coordination Training,Home Exercise Program ,Manual Therapy,Neuromuscular Re-education,Patient/Caregiver Education,Self-Care/Home Management,Therapeutic Activities,Therapeutic Exercises Next Visit Focus/Plan Next Note Type Treatment Note Next Visit Plan Positional testing, further vestibular/balance/TBI assessment
--- NOTE | 2021-10-18 15:36 | PT.OTN ---
Current Diagnoses Benign paroxysmal vertigo, right ear (10/18/21) Sensorineural hearing loss, bilateral (10/18/21) Dizziness and giddiness (10/18/21) Unspecified intracranial injury with loss of consciousness of 30 minutes or less, initial encounter (10/18/21) Personal history of (healed) traumatic fracture (10/18/21) Physical Therapy Treatment Note PT-OP-A Visit Information Start: 09/07/21 16:32 Freq: Status: Active Protocol: Document 10/18/21 15:15 DCW (Rec: 10/18/21 15:36 DCW [id number]) Out-Patient Physical Therapy Visit Information Visit Information Visit Type Treatment Note Visit Start Time 15:15 Visit Stop Time 15:34 Total Visit Minutes 19 Visit Number 5 Number of EMBRYOLOGY TEACHER Visits 0 Evaluation Information Evaluation Date 09/07/21 PT-OP-B Current Condition Start: 09/07/21 16:32 Freq: Status: Active Protocol: Document 09/07/21 13:45 DCW (Rec: 09/07/21 17:48 DCW [id number]) Current Condition History of Current Condition Onset Date 04/25/21 Current Complaints Positional dizziness History of Current Condition Pt is a 56 year old female complaining of a 4.5 month history of motion-induced vertigo. On 04/25/21, pt tripped and fell down her steps, resulting in cranial fractures and a significant TBI. Pt was initially hospitalized, adn then spent 20 days in a rehab center, followed by a month of home health. Notes her dizziness has improved over the past few months, was initially fairly constant. Pt reports she had multiple falls while she was in the hospital, and was experiencing nausea and vomiting. Pt reports current episodes last a few seconds. Symptoms are provoked by changes in position. Pt was seen at [facility] on , when her symptoms were largely suggestive of TBI after effects, and again on and 08/30/21, following a VNG on 08/23/21, where her symptoms were more suggestive of BPPV. Pt underwent an Edmond maneuver, which helped reduce some of her symptoms, however pt has been experiencing persistent imbalance and positional vertigo. Pt does note she is very anxious today . Does feel that her other symptoms have been improving significantly. Treatment Goals Patient/Caregiver Goals To feel better and hopefully normal again. Personal Factors Other Personal Factors That May Effect TBI, Skull fracture, Therapy/Recovery positional vertigo, multiple falls PT-OP-C Subjective Start: 09/07/21 16:32 Freq: Status: Active Protocol: Document 10/18/21 15:15 DCW (Rec: 10/18/21 15:36 DCW [id number]) OP-PT Subjective Patient Comments Patient Comments I've felt pretty good, I've only had the room spin not too bad 2-3 times this past week. PT-OP-O Vestibular Start: 09/07/21 16:32 Freq: Status: Active Protocol: Document 10/18/21 15:15 DCW (Rec: 10/18/21 15:36 DCW [id number]) Vestibular Assessment Positional Testing Lori-Hallpike Positive Left,Positive Right, Upbeating,< 60 Seconds PT-OP-Q Treatments Start: 09/07/21 16:32 Freq: Status: Active Protocol: Document 10/18/21 15:15 DCW (Rec: 10/18/21 15:36 DCW [id number]) Manual Therapy Treatment Other Other Manual Treatments Positional testing Canalithic Repositioning BPPV Treatment Edmond Affected Canal(s) L posterior Reps x2 Comments Modified Edmond PT-OP-T Assessment and Plan Start: 09/07/21 16:32 Freq: Status: Active Protocol: Document 10/18/21 15:15 DCW (Rec: 10/18/21 15:36 DCW [id number]) Physical Therapy Assessment Impairments Impairments Balance,Functional Activities, Functional Mobility,Gait, Vestibular Goals Two Impairment Pt has difficulty with bed mobility due to vertigo [employer] Goal (LTG) Pt to report no positional vertigo with bed mobility over a period of two weeks. 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 First Hallpike was mildly positive, up-beating nystagmus, left Edmond was performed, pt tolerated well. Second L Hallpike was negative , but pt did show symptoms from right ear during position 2 and upon return to sitting. Will work again next visit on treatment of right ear. Physical Therapy Plan Frequency and Duration Frequency of Treatment 1-2 x/week Duration of Treatment 6 weeks Plan of Care Start Date 10/18/21 Plan of Care End Date 11/29/21 Therapeutic Interventions Therapeutic Interventions Balance Training,Canalithic Repositioning,Coordination Training,Home Exercise Program ,Manual Therapy,Neuromuscular Re-education,Patient/Caregiver Education,Self-Care/Home Management,Therapeutic Activities,Therapeutic Exercises Next Visit Focus/Plan Next Note Type Treatment Note Next Visit Plan Positional testing, further vestibular/balance/TBI assessment
--- NOTE | 2021-10-27 15:44 | PT.OTN ---
Current Diagnoses Benign paroxysmal vertigo, right ear (10/27/21) Sensorineural hearing loss, bilateral (10/27/21) Dizziness and giddiness (10/27/21) Unspecified intracranial injury with loss of consciousness of 30 minutes or less, initial encounter (10/27/21) Personal history of (healed) traumatic fracture (10/27/21) Physical Therapy Treatment Note PT-OP-A Visit Information Start: 09/07/21 16:32 Freq: Status: Active Protocol: Document 10/27/21 15:15 DCW (Rec: 10/27/21 15:44 DCW [id number]) Out-Patient Physical Therapy Visit Information Visit Information Visit Type Treatment Note Visit Start Time 15:15 Visit Stop Time 15:40 Total Visit Minutes 25 Visit Number 6 Number of INTERNET MARKETING STRATEGIST Visits 0 Evaluation Information Evaluation Date 09/07/21 PT-OP-B Current Condition Start: 09/07/21 16:32 Freq: Status: Active Protocol: Document 09/07/21 13:45 DCW (Rec: 09/07/21 17:48 DCW [id number]) Current Condition History of Current Condition Onset Date 04/25/21 Current Complaints Positional dizziness History of Current Condition Pt is a 56 year old female complaining of a 4.5 month history of motion-induced vertigo. On 04/25/21, pt tripped and fell down her steps, resulting in cranial fractures and a significant TBI. Pt was initially hospitalized, adn then spent 20 days in a rehab center, followed by a month of home health. Notes her dizziness has improved over the past few months, was initially fairly constant. Pt reports she had multiple falls while she was in the hospital, and was experiencing nausea and vomiting. Pt reports current episodes last a few seconds. Symptoms are provoked by changes in position. Pt was seen at [facility] on , when her symptoms were largely suggestive of TBI after effects, and again on and 08/30/21, following a VNG on 08/23/21, where her symptoms were more suggestive of BPPV. Pt underwent an Edmond maneuver, which helped reduce some of her symptoms, however pt has been experiencing persistent imbalance and positional vertigo. Pt does note she is very anxious today . Does feel that her other symptoms have been improving significantly. Treatment Goals Patient/Caregiver Goals To feel better and hopefully normal again. Personal Factors Other Personal Factors That May Effect TBI, Skull fracture, Therapy/Recovery positional vertigo, multiple falls PT-OP-C Subjective Start: 09/07/21 16:32 Freq: Status: Active Protocol: Document 10/27/21 15:15 DCW (Rec: 10/27/21 15:44 DCW [id number]) OP-PT Subjective Patient Comments Patient Comments I've been feeling a little dizzier today, not really the spinning, just overall feeling more imbalanced. PT-OP-O Vestibular Start: 09/07/21 16:32 Freq: Status: Active Protocol: Document 10/27/21 15:15 DCW (Rec: 10/27/21 15:44 DCW [id number]) Vestibular Assessment Positional Testing [place]-Hallpike Positive Left,Upbeating,< 60 Seconds PT-OP-Q Treatments Start: 09/07/21 16:32 Freq: Status: Active Protocol: Document 10/27/21 15:15 DCW (Rec: 10/27/21 15:44 DCW [id number]) Manual Therapy Treatment Other Other Manual Treatments Positional testing Canalithic Repositioning BPPV Treatment Edmond Affected Canal(s) L posterior Reps x2 Comments Modified Edmond PT-OP-T Assessment and Plan Start: 09/07/21 16:32 Freq: Status: Active Protocol: Document 10/27/21 15:15 DCW (Rec: 10/27/21 15:44 DCW [id number]) Physical Therapy Assessment Impairments Impairments Balance,Functional Activities, Functional Mobility,Gait, Vestibular Goals Two Impairment Pt has difficulty with bed mobility due to vertigo [facility] Goal (LTG) Pt to report no positional vertigo with bed mobility over a period of two weeks. LTG Duration 10/19/21 One Impairment Positive right Lori-Hallpike Photocomposing Machine Operator Goal (LTG) Positional testing negative bilaterally LTG Duration 10/19/21 Assessment Summary Assessment Incredibly mildly positive to the point of being negative to the right, Hallpike still positive left, first Edmond provoked symptoms in 1st and 3rd, as well as reversal upon sitting. Further testing Physical Therapy Plan Frequency and Duration Frequency of Treatment 1-2 x/week Duration of Treatment 6 weeks Plan of Care Start Date 10/18/21 Plan of Care End Date 11/29/21 Therapeutic Interventions Therapeutic Interventions Balance Training,Canalithic Repositioning,Coordination Training,Home Exercise Program ,Manual Therapy,Neuromuscular Re-education,Patient/Caregiver Education,Self-Care/Home Management,Therapeutic Activities,Therapeutic Exercises Next Visit Focus/Plan Next Note Type Treatment Note Next Visit Plan Positional testing, further vestibular/balance/TBI assessment
--- NOTE | 2021-11-01 17:05 | PT.OTN ---
Current Diagnoses Benign paroxysmal vertigo, right ear (11/01/21) Sensorineural hearing loss, bilateral (11/01/21) Dizziness and giddiness (11/01/21) Unspecified intracranial injury with loss of consciousness of 30 minutes or less, initial encounter (11/01/21) Personal history of (healed) traumatic fracture (11/01/21) Physical Therapy Treatment Note PT-OP-A Visit Information Start: 09/07/21 16:32 Freq: Status: Active Protocol: Document 11/01/21 16:45 DCW (Rec: 11/01/21 17:05 DCW [id number]) Out-Patient Physical Therapy Visit Information Visit Information Visit Type Treatment Note Visit Start Time 16:45 Visit Stop Time 17:00 Total Visit Minutes 15 Visit Number 7 Number of CARTON INSPECTOR Visits 0 Evaluation Information Evaluation Date 09/07/21 PT-OP-B Current Condition Start: 09/07/21 16:32 Freq: Status: Active Protocol: Document 09/07/21 13:45 DCW (Rec: 09/07/21 17:48 DCW [id number]) Current Condition History of Current Condition Onset Date 04/25/21 Current Complaints Positional dizziness History of Current Condition Pt is a 56 year old female complaining of a 4.5 month history of motion-induced vertigo. On 04/25/21, pt tripped and fell down her steps, resulting in cranial fractures and a significant TBI. Pt was initially hospitalized, adn then spent 20 days in a rehab center, followed by a month of home health. Notes her dizziness has improved over the past few months, was initially fairly constant. Pt reports she had multiple falls while she was in the hospital, and was experiencing nausea and vomiting. Pt reports current episodes last a few seconds. Symptoms are provoked by changes in position. Pt was seen at [facility] on , when her symptoms were largely suggestive of TBI after effects, and again on and 08/30/21, following a VNG on 08/23/21, where her symptoms were more suggestive of BPPV. Pt underwent an Edmond maneuver, which helped reduce some of her symptoms, however pt has been experiencing persistent imbalance and positional vertigo. Pt does note she is very anxious today . Does feel that her other symptoms have been improving significantly. Treatment Goals Patient/Caregiver Goals To feel better and hopefully normal again. Personal Factors Other Personal Factors That May Effect TBI, Skull fracture, Therapy/Recovery positional vertigo, multiple falls PT-OP-C Subjective Start: 09/07/21 16:32 Freq: Status: Active Protocol: Document 11/01/21 16:45 DCW (Rec: 11/01/21 17:05 DCW [id number]) OP-PT Subjective Patient Comments Patient Comments I feel like something is clogging my right ear, but I haven't been dizzy. PT-OP-O Vestibular Start: 09/07/21 16:32 Freq: Status: Active Protocol: Document 11/01/21 16:45 DCW (Rec: 11/01/21 17:05 DCW [id number]) Vestibular Assessment Positional Testing [place]-Hallpike Positive Right,Upbeating,< 60 Seconds PT-OP-Q Treatments Start: 09/07/21 16:32 Freq: Status: Active Protocol: Document 11/01/21 16:45 DCW (Rec: 11/01/21 17:05 DCW [id number]) Manual Therapy Treatment Other Other Manual Treatments Positional testing Canalithic Repositioning BPPV Treatment Edmond Affected Canal(s) R posterior Reps x2 Comments Modified Edmond PT-OP-T Assessment and Plan Start: 09/07/21 16:32 Freq: Status: Active Protocol: Document 11/01/21 16:45 DCW (Rec: 11/01/21 17:05 DCW [id number]) Physical Therapy Assessment Impairments Impairments Balance,Functional Activities, Functional Mobility,Gait, Vestibular Goals Two Impairment Pt has difficulty with bed mobility due to vertigo Fci Goal (LTG) Pt to report no positional vertigo with bed mobility over a period of two weeks. LTG Duration 10/19/21 One Impairment Positive right [place]-Hallpike [facility]ci Goal (LTG) Positional testing negative bilaterally LTG Duration 10/19/21 Assessment Summary Assessment Pt was treated with a right- sided modified Edmond maneuver. Pt complained of symptoms in the first and third position, which is normally indicative of a successful treatment. Further positional testing was negative. Pt not scheduling any more visits, will call for an appointment within the next month if symptoms recur. If not, pt will be discharged at that time. Physical Therapy Plan Frequency and Duration Frequency of Treatment 1-2 x/week Duration of Treatment 6 weeks Plan of Care Start Date 10/18/21 Plan of Care End Date 11/29/21 Therapeutic Interventions Therapeutic Interventions Balance Training,Canalithic Repositioning,Coordination Training,Home Exercise Program ,Manual Therapy,Neuromuscular Re-education,Patient/Caregiver Education,Self-Care/Home Management,Therapeutic Activities,Therapeutic Exercises Next Visit Focus/Plan Next Note Type Treatment Note Next Visit Plan Positional testing, further vestibular/balance/TBI assessment
--- NOTE | 2022-02-24 10:07 | PT.OPDS ---
Current Diagnoses Benign paroxysmal vertigo, right ear (11/01/21) Sensorineural hearing loss, bilateral (11/01/21) Dizziness and giddiness (11/01/21) Unspecified intracranial injury with loss of consciousness of 30 minutes or less, initial encounter (11/01/21) Personal history of (healed) traumatic fracture (11/01/21) Visit Care Team Role Provider Type Terri Batista PA-C Family Provider Non-Staff Primary Care Provider Specialty: Internal Medicine Address: [address] [place] [address] Email: [email or web address] Supa Williamson MD Attending Provider Physician Referring Provider Specialty: Ear, Nose, Throat Address: [address] [place] [address], [facility] Email: [email or web address] Visit Number Visit Number 7 Discharge Summary PT-OP-B Current Condition Start: 09/07/21 16:32 Freq: Status: Active Protocol: Document 09/07/21 13:45 DCW (Rec: 09/07/21 17:48 DCW [id number]) Current Condition History of Current Condition Onset Date 04/25/21 Current Complaints Positional dizziness History of Current Condition Pt is a 56 year old female complaining of a 4.5 month history of motion-induced vertigo. On 04/25/21, pt tripped and fell down her steps, resulting in cranial fractures and a significant TBI. Pt was initially hospitalized, adn then spent 20 days in a rehab center, followed by a month of home health. Notes her dizziness has improved over the past few months, was initially fairly constant. Pt reports she had multiple falls while she was in the hospital, and was experiencing nausea and vomiting. Pt reports current episodes last a few seconds. Symptoms are provoked by changes in position. Pt was seen at [facility] on , when her symptoms were largely suggestive of TBI after effects, and again on and 08/30/21, following a VNG on 08/23/21, where her symptoms were more suggestive of BPPV. Pt underwent an Edmond maneuver, which helped reduce some of her symptoms, however pt has been experiencing persistent imbalance and positional vertigo. Pt does note she is very anxious today . Does feel that her other symptoms have been improving significantly. Treatment Goals Patient/Caregiver Goals To feel better and hopefully normal again. Personal Factors Other Personal Factors That May Effect TBI, Skull fracture, Therapy/Recovery positional vertigo, multiple falls PT-OP-C Subjective Start: 09/07/21 16:32 Freq: Status: Active Protocol: Document 11/01/21 16:45 DCW (Rec: 11/01/21 17:05 DCW [id number]) OP-PT Subjective Patient Comments Patient Comments I feel like something is clogging my right ear, but I haven't been dizzy. PT-OP-O Vestibular Start: 09/07/21 16:32 Freq: Status: Active Protocol: Document 11/01/21 16:45 DCW (Rec: 11/01/21 17:05 DCW [id number]) Vestibular Assessment Positional Testing [place]-Hallpike Positive Right,Upbeating,< 60 Seconds PT-OP-T Assessment and Plan Start: 09/07/21 16:32 Freq: Status: Active Protocol: Document 02/24/22 10:06 DCW (Rec: 02/24/22 10:07 DCW [id number]) Physical Therapy Assessment Assessment Summary Assessment Pt was instructed to call for a follow-up within one month if BPPV symptoms recurred. This was three months ago, and pt has not scheduled any further follow-up visits. Pt will be discharged at this time, will require a new referral in order to return to skilled PT Physical Therapy Plan Discharge Physical Therapy Discharge Reasons No Longer Attending PT
== END 2022-02-27 13:19 ==
LOC: PHYS 16:45
PROVIDERS: Family Provider Physician Assistant; PCP Physician Assistant; Referring Provider Otolaryngology; Visit Provider Otolaryngology
DX: H81.11 Benign paroxysmal vertigo, right ear (principal); S06.9X1A Unspecified intracranial injury with loss of consciousness of 30 minutes or less, initial encounter; Z87.81 Personal history of (healed) traumatic fracture; H90.3 Sensorineural hearing loss, bilateral
CPT/HCPCS: 95992; 97140; 97163

== ENCOUNTER → 2022-02-23 16:42 | Outpatient (CLI) | payer OTHER, SELFPAY ==
--- NOTE | 2022-02-23 16:48 | DI.MG.S_ITS ---
BILATERAL DIGITAL SCREENING MAMMOGRAM 3D/2D WITH CAD: 02/23/2022 CLINICAL: Routine screening. Comparison is made to exam dated: 11/18/2012 mammogram - [facility]. There are scattered fibroglandular elements in both breasts. Current study was also evaluated with a Computer Aided Detection (CAD) system. There is a focal asymmetry in the right breast central to the nipple anterior depth. No other significant masses, calcifications, or other findings are seen in either breast. IMPRESSION: INCOMPLETE: NEEDS ADDITIONAL IMAGING EVALUATION The focal asymmetry in the right breast is indeterminate. Additional views with possible ultrasound are recommended. Based on the Tyrer Cuzick model (a risk assessment model) the patient's lifetime risk is 9.5% and her 10 year risk is 3.1%. According to the ACR, ACS, and NCCN guidelines, an annual breast MRI exam along with mammogram is recommended if the patient's lifetime risk is 20% or greater. This exam was interpreted at Station ID: [id number]. NOTE: For mammograms, a report in lay terms will be sent to the patient. Approximately 15% of breast malignancies will not be visualized mammographically. In the management of a palpable breast mass, a negative mammogram must not discourage biopsy of a clinically suspicious lesion. Electronically Signed By: Bri del valle/:02/24/2022 13:14:37 letter sent: Additional Imaging Needed ACR BI-RADS Category 0: Incomplete 3340F
== END ==
PROVIDERS: Family Provider Physician Assistant; PCP Physician Assistant; Referring Provider Physician Assistant; Visit Provider Physician Assistant
DX: Z12.31 Encounter for screening mammogram for malignant neoplasm of breast (principal); M25.552 Pain in left hip; M25.551 Pain in right hip
CPT/HCPCS: 73522; 77063; 77067

== ENCOUNTER → 2022-02-23 16:50 | Outpatient (CLI) | payer OTHER, SELFPAY ==
--- NOTE | 2022-02-23 16:57 | DI.RAD.S_ITS ---
PROCEDURE: XR HIP W PEL IF DONE DWAYNE MIN 4V INDICATIONS: DWAYNE. HIP PAIN TECHNIQUE: AP pelvis with lateral view(s) of both hip(s). COMPARISON: None. FINDINGS: Bones: No fractures or dislocations. Pelvic ring appears intact. No suspicious bony lesions. Mild bilateral hip joint space narrowing and spurring. Soft tissues: The visualized bowel gas pattern is normal. No suspicious soft tissue calcifications. IMPRESSION: Mild degenerative changes of both hips. Dictated by: Ed Callejas M.D. on 02/24/2022 at 13:33 Approved by: Ed Callejas M.D. on 02/24/2022 at 13:38
== END ==
PROVIDERS: Family Provider Physician Assistant; PCP Physician Assistant; Referring Provider Physician Assistant; Visit Provider Physician Assistant
DX: M25.552 Pain in left hip (principal); M25.551 Pain in right hip
CPT/HCPCS: 73522

== ENCOUNTER → 2022-07-06 13:22 | Outpatient (CLI) | payer OTHER, SELFPAY ==
--- NOTE | 2022-07-06 | DI.MG.S_ITS ---
UNILATERAL RIGHT DIGITAL DIAGNOSTIC MAMMOGRAM 3D/2D WITH ADDITIONAL VIEWS: 07/06/2022 CLINICAL: Additional evaluation requested from prior study. Comparison is made to exams dated: 02/23/2022 mammogram and 11/18/2012 mammogram - [facility]. There are scattered areas of fibroglandular density in the right breast (category b / 25%-50% glandular tissue). There is an irregular mass with an indistinct margin in the right breast central to the nipple anterior depth. No other significant masses or calcifications are seen in the breast. IMPRESSION: INCOMPLETE: NEEDS ADDITIONAL IMAGING EVALUATION The irregular mass in the right breast is indeterminate. An ultrasound is recommended. Based on the Tyrer Cuzick model (a risk assessment model) the patient's lifetime risk is 7.5% and her 10 year risk is 2.6%. According to the ACR, ACS, and NCCN guidelines, an annual breast MRI exam along with mammogram is recommended if the patient's lifetime risk is 20% or greater. This exam was interpreted at Station ID: [id number]. NOTE: For mammograms, a report in lay terms will be sent to the patient. Approximately 15% of breast malignancies will not be visualized mammographically. In the management of a palpable breast mass, a negative mammogram must not discourage biopsy of a clinically suspicious lesion. Electronically Signed By: Matty Oro M.D., jr/keegan:07/06/2022 15:27:23 ACR BI-RADS Category 0: Incomplete 3340F
--- NOTE | 2022-07-06 | DI.US.S_ITS ---
LIMITED ULTRASOUND OF RIGHT BREAST AND AXILLA: 07/06/2022 CLINICAL: Patient returns today to evaluate a focal asymmetry in the right breast. Comparison is made to exams dated: 07/06/2022 mammogram, 02/23/2022 mammogram, and 11/18/2012 mammogram - [facility]. Color flow and real-time ultrasound of the right breast retroareolar and axilla regions were performed. Keith scale images of the real-time examination were reviewed. There is an oval intraductal mass in the right breast central to the nipple anterior depth. This oval intraductal mass is hypoechoic with no posterior acoustic shadowing or enhancement. Color flow imaging demonstrates that there is vascularity present. No significant abnormalities were seen sonographically in the right axilla. IMPRESSION: SUSPICIOUS OF MALIGNANCY The oval intraductal mass in the right breast is suspicious of malignancy. An ultrasound guided biopsy is recommended. This exam was interpreted at Station ID: [id number]. Electronically Signed By: Matty Oro M.D. jr/:07/06/2022 15:28:26 letter sent: Biopsy Required Ultrasound BI-RADS: 4 Suspicious for malignancy
== END ==
LOC: MAMMO 13:23
PROVIDERS: Family Provider Physician Assistant; PCP Physician Assistant; Referring Provider Physician Assistant; Visit Provider Physician Assistant
DX: R92.8 Other abnormal and inconclusive findings on diagnostic imaging of breast (principal); N63.15 Unspecified lump in the right breast, overlapping quadrants
CPT/HCPCS: 76642; 77065; G0279

== ENCOUNTER → 2022-08-04 12:24 | Outpatient (CLI) | payer OTHER, SELFPAY ==
--- NOTE | 2022-08-04 | DI.MG.S_ITS ---
UNILATERAL RIGHT DIGITAL DIAGNOSTIC MAMMOGRAM 3D/2D: 08/04/2022 CLINICAL: Post clip right. Comparison is made to exams dated: 08/04/2022 ultrasound biopsy, 07/06/2022 ultrasound, 07/06/2022 mammogram, and 02/23/2022 mammogram - [facility]. There are scattered areas of fibroglandular density in the right breast (category b / 25%-50% glandular tissue). There is a marker clip in the right breast at 7 o'clock anterior depth. This marker clip placement is in the region of the biopsy site, although the mass was poorly visualized after biopsy samples were taken. IMPRESSION: POST PROCEDURE MAMMOGRAM FOR MARKER PLACEMENT Marker clip placement in the right breast anterior depth is in the approximate location of the biopsy site. Based on the Tyrer Cuzick model (a risk assessment model) the patient's lifetime risk is 7.5% and her 10 year risk is 2.6%. According to the ACR, ACS, and NCCN guidelines, an annual breast MRI exam along with mammogram is recommended if the patient's lifetime risk is 20% or greater. This exam was interpreted at Station ID: [id number]. NOTE: For mammograms, a report in lay terms will be sent to the patient. Approximately 15% of breast malignancies will not be visualized mammographically. In the management of a palpable breast mass, a negative mammogram must not discourage biopsy of a clinically suspicious lesion. Electronically Signed By: Ed Mclaughlin M.D. ar/:08/04/2022 16:41:41 ACR BI-RADS Category Post-procedure mammogram for marker placement
--- NOTE | 2022-08-04 | DI.US.S_ITS ---
ULTRASOUND GUIDED BIOPSY RIGHT BREAST USING VACUUM DEVICE WITH MARKING DEVICE INSERTED AND POST DIGITAL MAMMOGRAPHIC AND ULTRASOUND IMAGIN08/04/2022 CLINICAL: Right breast mass. PATIENT CONSENT: Risks (minor bleeding, infection, vasovagal reaction and repeat procedure), benefits and alternatives were explained to the patient and written informed consent was obtained. Correlation is made to exams dated: 07/06/2022 ultrasound, 07/06/2022 mammogram, and 02/23/2022 mammogram - [facility]. An ultrasound guided biopsy using real-time ultrasound was performed for the 1 cm x 0.3 cm x 0.5 cm mass located in the right breast at 7 o'clock anterior depth 4 cm from the nipple. This was described on the previous mammography and ultrasound reports. The skin was prepped in the usual manner. Local anesthetic was administered to the access site. A skin clint was made in the breast. The abnormality was approached from the lateral aspect. A 13 gauge biopsy needle was placed adjacent to the abnormality under ultrasound guidance. Once the needle was documented to be in the correct location, four specimens were obtained using the Mammotome biopsy system. A clip was inserted into the biopsy cavity. A sterile dressing was applied to the access site. Post procedure digital mammographic and ultrasound imaging demonstrates the location device resides in the targeted area. The specimens were sent to the laboratory for pathological analysis. IMPRESSION: ULTRASOUND GUIDED BIOPSY BENIGN Ultrasound guided biopsy of the 1 cm x 0.3 cm x 0.5 cm mass in the right breast at 7 o'clock anterior depth 4 cm from the nipple was successful with no apparent post procedure complications. Pathology indicates benign intraductal papilloma with adenosis and usual ductal hyperplasia. Pathology results are concordant with imaging findings. Consideration for surgical consultation is recommended. This exam was interpreted at Station ID: [id number]. Ed Lala M.D. ar,aty/:08/11/2022 18:36:43
--- NOTE | 2022-08-04 | PATH_ITS ---
[facility] Accession Number: [id number] No. of containers..01 Tissue . 01 Material submitted: . breast - RIGHT BREAST MASS . 01 Diagnosis: Right Breast, Intraductal Mass, Biopsies: Benign intraductal papilloma with adenosis and usual ductal hyperplasia. Negative for atypical hyperplasia, in-situ or invasive carcinoma. MRV 08/07/2022 1429 Local . 01 Electronically signed: . Penny Patel MD, Pathologist NPI- [id number] . 01 Gross description: . The specimen is received in formalin labeled with the patient's name, , and bx breast, and consists of multiple yellow to gómez soft tissue fragments aggregating to 2.4 x 1.2 x 0.2 cm. The specimen is inked green, filtered into a biopsy bag, and submitted entirely in cassette A1. The specimen was removed on 08/04/22 at 1349. Time in formalin not provided. Cold ischemic time cannot be calculated. Total fixation time is approximately 49 hours. ([id number]) /FRR 08/05/2022 1544 Local . 01 Pathologist provided ICD-10: D24.9 . 01 CPT . 532148 Specimen Comment: A courtesy copy of this report has been sent to [phone] Performed at: 01 [facility] [address] [place] [address], [place], [place] [id number] MD Adriel Mendes MD Phone: [phone]
== END ==
LOC: US 12:26
PROVIDERS: Family Provider Physician Assistant; PCP Physician Assistant; Referring Provider Physician Assistant; Visit Provider Physician Assistant
DX: D24.1 Benign neoplasm of right breast (principal); N60.21 Fibroadenosis of right breast
CPT/HCPCS: 19083; 77065

== ENCOUNTER → 2024-04-10 14:17 | Outpatient (CLI) | payer OTHER, MEDICAID, SELFPAY ==
--- NOTE | 2024-04-10 14:18 | DI.MG.S_ITS ---
BILATERAL DIGITAL SCREENING MAMMOGRAM 3D/2D WITH CAD: 04/10/2024 CLINICAL: Routine screening. Comparison is made to exams dated: 02/23/2022 mammogram, 11/18/2012 mammogram, 08/04/2022 mammogram, and 07/06/2022 mammogram - [facility]. The breasts are almost entirely fatty (category a/<25% glandular tissue). Current study was also evaluated with a Computer Aided Detection (CAD) system. There are benign calcifications in the left breast. There also is a biopsy clip in the right breast. No significant masses, calcifications, or other findings are seen in either breast. There has been no significant interval change. IMPRESSION: BENIGN There is no mammographic evidence of malignancy. A 1 year screening mammogram is recommended. Based on the Tyrer Cuzick model (a risk assessment model) the patient's lifetime risk is 4.9% and her 10 year risk is 1.8%. According to the ACR, ACS, and NCCN guidelines, an annual breast MRI exam along with mammogram is recommended if the patient's lifetime risk is 20% or greater. This exam was interpreted at Station ID: [id number]. NOTE: For mammograms, a report in lay terms will be sent to the patient. Approximately 15% of breast malignancies will not be visualized mammographically. In the management of a palpable breast mass, a negative mammogram must not discourage biopsy of a clinically suspicious lesion. Electronically Signed By: Audrey connelly/keegan:04/11/2024 12:41:29 letter sent: Normal Exam ACR BI-RADS Category 2: Benign
== END ==
LOC: MAMMO 14:18
PROVIDERS: Family Provider Physician Assistant; PCP Family Medicine; Referring Provider Family Medicine; Visit Provider Family Medicine
DX: Z12.31 Encounter for screening mammogram for malignant neoplasm of breast (principal); R92.313 Mammographic fatty tissue density, bilateral breasts
CPT/HCPCS: 77063; 77067

== ENCOUNTER → 2024-09-10 11:04 | Outpatient (CLI) | payer OTHER, SELFPAY ==
[2024-09-10 11:46] LABS: Add Manual Diff / Slide Review NO; Basophils Absolute Auto 0 /uL (0-100); Basophils Percent Auto 0.6 % (0-2); Eosinophils Absolute Auto 100 /uL (0-450); Eosinophils Percent Auto 1.9 % (2-4); Hematocrit 40.1 % (36-46); Hemoglobin 13.5 g/dL (12.0-16.0); Lymphocytes Absolute Auto 2900 /uL (1100-4500); Lymphocytes Percent Auto 39.6 % (25-40); Mean Corpuscular HGB Conc 33.7 % (30-36); Mean Corpuscular Hemoglobin 29.4 PG (26-34); Mean Corpuscular Volume 87.1 fL (80-100); Monocytes Absolute Auto 500 /uL (0-900); Monocytes Percent Auto 6.3 % (3-14); Neutrophils Absolute Auto 3800 /uL (1500-7000); Neutrophils Percent Auto 51.6 % (50-75); Platelet Count 312 X10^3/uL (150-400); Red Blood Cell Count 4.61 X10^6/uL (4.0-5.2); Red Cell Distribution Width 13.8 % (11.6-14.8); White Blood Cell Count 7.4 X10^3/uL (4.5-11.0)
[2024-09-10 13:25] LABS: Hemoglobin A1C% w Est Avg Glu 5.2 % (4.0-6.0)
[2024-09-10 13:26] LABS: Alanine Aminotransferase 18 IU/L (<35); Albumin 4.3 g/dL (3.5-5.0); Albumin Globulin Ratio 1.5 (1.0-2.8); Alkaline Phosphatase 48 U/L (38-126); Aspartate Aminotransferase 23 IU/L (14-36); BUN Creatinine Ratio 18.8 (6-22); Bilirubin Total 0.4 mg/dL (0.2-1.3); Blood Urea Nitrogen 16 mg/dL (7-17); Calcium 9.8 mg/dL (8.4-10.2); Carbon Dioxide 24 mmol/L (22-32); Chloride 107 mmol/L (98-107); Cholesterol 259 mg/dL (140-199); Estimated Glomerular Filt Rate > 60 mL/min (>60); Globulin 2.8 g/dL (1.7-4.1); Glucose 86 mg/dL (70-100); HDL Cholesterol 78 mg/dL (40-60); HEMOLYSIS < 15 (0-50); LDL Cholesterol Calculated 168 mg/dL (<100); Potassium 4.8 mmol/L (3.4-5.1); Sodium 140 mmol/L (137-145); Total Protein 7.1 g/dL (6.3-8.2); Triglycerides 67 mg/dL (35-150)
== END ==
PROVIDERS: Family Provider Physician Assistant; PCP Family Medicine; Referring Provider Family Medicine; Visit Provider Family Medicine
DX: E66.01 Morbid (severe) obesity due to excess calories (principal); Z79.899 Other long term (current) drug therapy; Z00.00 Encounter for general adult medical examination without abnormal findings; E78.00 Pure hypercholesterolemia, unspecified
CPT/HCPCS: 36415; 80053; 80061; 83036; 85025

== ENCOUNTER → 2024-12-18 10:48 | Outpatient (CLI) | payer OTHER, SELFPAY ==
--- NOTE | 2024-12-18 10:53 | DI.RAD.S_ITS ---
PROCEDURE: XR HIP W PEL IF DONE BILAT 2V INDICATIONS: BILAT HIP PAIN TECHNIQUE: AP pelvis with lateral view(s) of the bilateral hip(s). COMPARISON: [facility], , XR HIP W PEL IF DONE DWAYNE 3TO4V, 02/23/2022, 17:04. FINDINGS: Bones: No fractures or dislocations. Pelvic ring appears intact. No suspicious bony lesions. Moderate degenerative changes of the bilateral femoroacetabular joints which have mildly progressed compared to the prior study. Lower lumbar spondylosis. Soft tissues: The visualized bowel gas pattern is normal. No suspicious soft tissue calcifications. IMPRESSION: Bilateral hip without acute osseous abnormalities. Mild interval progression of moderate degenerative changes of the bilateral femoroacetabular joints. Dictated by: Terry Lala M.D. on 12/18/2024 at 16:02 Approved by: Terry Lala M.D. on 12/18/2024 at 16:03
== END ==
LOC: RAD 10:51
PROVIDERS: Family Provider Family Medicine; PCP Family Medicine; Referring Provider Family Medicine; Visit Provider Internal Medicine Cardiovascular Disease
DX: M25.551 Pain in right hip (principal); M25.552 Pain in left hip; M47.816 Spondylosis without myelopathy or radiculopathy, lumbar region
CPT/HCPCS: 73521

== ENCOUNTER 2025-03-18 09:00 | Outpatient (RCR) | payer OTHER, SELFPAY ==
--- NOTE | 2024-10-10 10:27 | PT.OIE ---
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 Morbid obesity with body mass index (BMI) of 40.0 to 49.9 Obstructive sleep apnea, adult Visit Care Team Role Provider Type Michelle Cronin DO Attending Provider Physician Family Provider Primary Care Provider Referring Provider Specialty: Family Practice Address: [address] [place] [address], [address], [facility] Email: [email or web address] Physical Therapy Initial Evaluation PT-OP-A Visit Information Start: 10/10/24 08:58 Freq: Status: Active Protocol: Document 10/10/24 09:04 KW (Rec: 10/10/24 10:25 KW [id number]) Out-Patient Physical Therapy Visit Information Visit Information Visit Type Initial Evaluation Visit Start Time 09:00 Visit Stop Time 09:46 Visit Number 1 Evaluation Information Evaluation Date 10/10/24 Precautions Precautions none PT-OP-B Current Condition Start: 10/10/24 08:58 Freq: Status: Active Protocol: Document 10/10/24 09:04 KW (Rec: 10/10/24 10:25 KW [id number]) Current Condition History of Current Condition Onset Date 2020 Current Complaints B hip groin pain History of Current Condition 50 yo female, childhood h/o hypermobility, now with B groin pain with sit/stand, ambulation, stairs, ambulation . significant current h/o 80 Lb weight loss, struggling with prior TBI, job loss, stress of sister's sudden , loss of personal relationship. She comes to PT to improve her B hip pain. She is in therapy and is in a TBI support group. She currently bought a [employer] bike and would like to start riding it around town. Prior Treatments and Tests x-rays years ago, B hips, hip OA Future Testing and Treatments Planned F/u with PCP Treatment Goals Patient/Caregiver Goals continue with 80Lb weight loss , ride her bike, possibly return to sailing, isn't sure she can go back to work due to her TBI Sx Prior Functional Status Baseline Function- ADL's Independent Baseline Function- Mobility Independent Baseline Function- Gait has trekking poles for snow shoeing Baseline Function- Recreation/Hobbies bike, sail, walking trails Current Functional Impairments (Reported) Functional Limitations- ADL's struggles to go up/down 2 flights of stairs, especially if carrying objects. Personal Factors Other Personal Factors That May Effect TBI Sx Therapy/Recovery PT-OP-C Subjective Start: 10/10/24 08:58 Freq: Status: Active Protocol: Document 10/10/24 09:04 KW (Rec: 10/10/24 10:25 KW [id number]) OP-PT Subjective Patient Comments Patient Comments patient is quite motivated Patient Questionnaires Lower Extremity Functional Scale LEFS Impairment 20 to 39% Impaired (Score 48- 62) OP-PT Pain Assessment Pain Assessment Grid Paper Pain Assessment Grid Completed Yes Location head Pain Location Details hips and low back Intensity 6 Scale Used Numeric (0 - 10) Description Aching,Pinching,Pulling,Sharp, With Movement Frequency Frequent Radiating Location B thighs, inner primarily Pain Aggravating Factors Position,ADL's,Activity, Exercise,Standing,Walking Other Pain Aggravating Factors sitting position, ie tucking feet under her when in chair Pain Alleviating Factors Cold,Heat,Medication,Position, Massage Other Pain Alleviating Factors hooklying supine bolster Patient Stated Pain Goal to make it manageable PT-OP-D Balance Start: 10/10/24 08:58 Freq: Status: Active Protocol: Document 10/10/24 09:04 KW (Rec: 10/10/24 10:25 KW [id number]) OP-PT Balance Assessment Sitting Balance Static Sitting Balance Ability Normal Dynamic Sitting Balance Ability Normal Standing Balance Static Standing Balance Ability Good Dynamic Standing Balance Ability Fair Sol Fall Scale Copyright Permission PT-OP-E Functional Tests Start: 10/10/24 08:58 Freq: Status: Active Protocol: Document 10/10/24 09:04 KW (Rec: 10/10/24 10:25 KW [id number]) Functional Tests Timed Up and Go (TUG) TUG Impairment Rating 1 to <20% Impaired (Score 11) PT-OP-F Manual Assessment Start: 10/10/24 08:58 Freq: Status: Active Protocol: Document 10/10/24 09:04 KW (Rec: 10/10/24 10:25 KW [id number]) Manual Assessments Soft Tissue Assessment Soft Tissue Mobility Assessment guarded adductor tone R > L Joint Mobility Assessment Joint Mobility Assessment B hip impingement R > L , anterior/inferior Other Manual Assessments Other Manual Assessments tight posterior hip capsule R and L PT-OP-G Mobility & Gait Start: 10/10/24 08:58 Freq: Status: Active Protocol: Document 10/10/24 09:04 KW (Rec: 10/10/24 10:25 KW [id number]) OP Mobility Evaluation Bed Mobility Supine to and from Sit tends to denise knife, cues to exhale as she comes up. Tends to brace with breath hold Transfers Sit to Stand pain in groin, breath holding, heels lifted off of ground Functional Movements Squats increased lumbar extension Other Functional Movements forward bend to touch top of ankles, R knee hyper-extension > L OP Gait Assessment Gait Gait Assistance Required: Independent Assistive Devices Assistive Device None Gait Deviations General Gait Pattern Antalgic,Wide Based Gait Factors Limiting Gait Function Factors Limiting Gait Function Pain Stair Climbing Evaluation Comments Stair Climbing Comments deferred. will assess next visit PT-OP-H Neuro Start: 10/10/24 08:58 Freq: Status: Active Protocol: Document 10/10/24 09:04 KW (Rec: 10/10/24 10:25 KW [id number]) Sensation Evaluation Gross Sensation Gross Sensation WNL PT-OP-J Posture/Palpation/Skin Start: 10/10/24 08:58 Freq: Status: Active Protocol: Document 10/10/24 09:04 KW (Rec: 10/10/24 10:25 KW [id number]) Posture Evaluation Dorian Postural Classification System Dorian Postural Classifications Posterior/Anterior Comments Posture Comments anterior pelvic tilt, genu recurvatum R > L, toe gripping PT-OP-K Range of Motion Start: 10/10/24 08:58 Freq: Status: Active Protocol: Document 10/10/24 09:04 KW (Rec: 10/10/24 10:25 KW [id number]) Hip Goniometric Range of Motion Hip ROM Limitations Hip ROM Limitations Pain Comments R hip IR in sitting 45, supine 10 L hip IR in sitting 55, supine 20 R hip pure flexion 90 before impingement with lumbar compensation and deviation into BLAISE L hip flexion 95, then deviates into BLAISE PT-OP-M Strength Start: 10/10/24 08:58 Freq: Status: Active Protocol: Document 10/10/24 09:04 KW (Rec: 10/10/24 10:25 KW [id number]) Hip Strength Hip Manual Muscle Testing Right Flexion (L2) 3+ Fair+ Abduction 4- Good- Adduction 4 Good External Rotation 4- Good- Internal Rotation 4- Good- Comments painful, guared anticipation Left Flexion (L2) 4- Good- Abduction 4- Good- Adduction 4 Good External Rotation 4- Good- Internal Rotation 4- Good- Comments painful, guarded, breath holding PT-OP-Q Treatments Start: 10/10/24 08:58 Freq: Status: Active Protocol: Document 10/10/24 09:04 KW (Rec: 10/10/24 10:25 KW [id number]) Therapeutic Exercises Supine Exercises 4 Supine Exercise Name supine hamstring curls with physioball and coordinated breathing Side bilateral Equipment Used red ball Reps/Minutes 10 3 Supine Exercise Name supine bridge on exhale Side bilateral Equipment Used ball between knees Reps/Minutes 10 Comments elbows pressing in at side for added stability 2 Supine Exercise Name supine TKE over small ball, lift foot on exhale, lower on the inhale Side bilateral Equipment Used ball Reps/Minutes 10 Comments eyes closed helped her to feel the movement 1 Supine Exercise Name supine bent knee fall outs with coordinated breathing, stay in pain free RO Side bilateral Reps/Minutes 10 Comments eyes closed helped her to concentrate mind body connection Sitting Exercises 1 Sitting Exercise Name sit to stand with coordinated exhale Equipment Used band Reps/Minutes [address] thru heels, toes pressing down Neuro Re-Education Treatment Movement Re-Education Movement Re-education Activities cues for arm swing and breathing with gait PT-OP-T Assessment and Plan Start: 10/10/24 08:58 Freq: Status: Active Protocol: Document 10/10/24 09:04 KW (Rec: 10/10/24 10:25 KW [id number]) Physical Therapy Assessment Rehab Potential Rehabilitation Potential Good Evaluation Complexity Number of Personal Factors/Comorbidities 3 or More Number of Body Systems Impaired 1-2 Clinical Presentation at Evaluation Evolving Impairments Impairments Activity Tolerance,Functional Mobility,Gait,Pain,Posture,ROM ,Strength Other Impairments TBI limiting focus and contributing to mind/body disconnect but in our controlled environment today, she did quite well. Goals 1 Impairment LEFS 35% limitations with recreation, ADLS, gait, sitting, sit to stand Short Term Goal (STG) patient with improved LEFS to 50% STG Duration 6 weeks Biomedical Photographer Goal (LTG) patient with improved LEFS to 75% LTG Duration 12 weeks Assessment Summary Assessment very pleasant 59 y/o female, presents to PT with B hip impingement, significant muscle spasm and significant mind/body disconnect s/p TBI. patient responded very well with PT session and anticipate slow and steady progress in a controlled therapy environment . She has significant life stress at presents which is likely to be a barrier to treatment. She is motivated to improve her physical condition and pain. Physical Therapy Plan Frequency and Duration Frequency of Treatment 2xWx2, 1 x W Duration of treatment (weeks) 12 Plan of Care Start Date 10/10/24 Plan of Care End Date 01/09/25 Therapeutic Interventions Therapeutic Interventions Balance Training,Gait Training ,Home Exercise Program, Neuromuscular Re-education, Patient/Caregiver Education, Self-Care/Home Management, Therapeutic Activities, Therapeutic Exercises Modalities Hot Packs Next Visit Focus/Plan Next Visit Plan gym: cardio equip of choice, balance, stair training, Shuttle, seated on large physioball to simulate sitting on a bicycle, trunk control
--- NOTE | 2024-10-10 10:29 | PT.OPPOC ---
Physical, Occupational & Speech Therapy At [facility] Current Diagnoses Pain in right hip (10/10/24) Pain in left hip (10/10/24) Visit Care Team Role Provider Type Michelle Cronin DO Attending Provider Physician Family Provider Primary Care Provider Referring Provider Specialty: Family Practice Address: [address] [place] [address], [address], [facility] Email: [email or web address] Plan Of Care PT-OP-B Current Condition Start: 10/10/24 08:58 Freq: Status: Active Protocol: Document 10/10/24 09:04 KW (Rec: 10/10/24 10:25 KW [id number]) Current Condition History of Current Condition Onset Date 2020 Current Complaints B hip groin pain History of Current Condition 50 yo female, childhood h/o hypermobility, now with B groin pain with sit/stand, ambulation, stairs, ambulation . significant current h/o 80 Lb weight loss, struggling with prior TBI, job loss, stress of sister's sudden , loss of personal relationship. She comes to PT to improve her B hip pain. She is in therapy and is in a TBI support group. She currently bought a [employer] bike and would like to start riding it around town. Prior Treatments and Tests x-rays years ago, B hips, hip OA Future Testing and Treatments Planned F/u with PCP Treatment Goals Patient/Caregiver Goals continue with 80Lb weight loss , ride her bike, possibly return to sailing, isn't sure she can go back to work due to her TBI Sx Prior Functional Status Baseline Function- ADL's Independent Baseline Function- Mobility Independent Baseline Function- Gait has trekking poles for snow shoeing Baseline Function- Recreation/Hobbies bike, sail, walking trails Current Functional Impairments (Reported) Functional Limitations- ADL's struggles to go up/down 2 flights of stairs, especially if carrying objects. Personal Factors Other Personal Factors That May Effect TBI Sx Therapy/Recovery PT-OP-T Assessment and Plan Start: 10/10/24 08:58 Freq: Status: Active Protocol: Document 10/10/24 09:04 KW (Rec: 10/10/24 10:25 KW [id number]) Physical Therapy Assessment Rehab Potential Rehabilitation Potential Good Evaluation Complexity Number of Personal Factors/Comorbidities 3 or More Number of Body Systems Impaired 1-2 Clinical Presentation at Evaluation Evolving Impairments Impairments Activity Tolerance,Functional Mobility,Gait,Pain,Posture,ROM ,Strength Other Impairments TBI limiting focus and contributing to mind/body disconnect but in our controlled environment today, she did quite well. Goals 1 Impairment LEFS 35% limitations with recreation, ADLS, gait, sitting, sit to stand Short Term Goal (STG) patient with improved LEFS to 50% STG Duration 6 weeks Halfway Goal (LTG) patient with improved LEFS to 75% LTG Duration 12 weeks Assessment Summary Assessment very pleasant 59 y/o female, presents to PT with B hip impingement, significant muscle spasm and significant mind/body disconnect s/p TBI. patient responded very well with PT session and anticpate slow and steady progress in a controlled therapy environment . She has significant life stress at pressent which is likely to be a barrier to treatment. She is motivated to improve her physical condition and pain. Physical Therapy Plan Frequency and Duration Frequency of Treatment 2xWx2, 1 x W Duration of treatment (weeks) 12 Plan of Care Start Date 10/10/24 Plan of Care End Date 01/09/25 Therapeutic Interventions Therapeutic Interventions Balance Training,Gait Training ,Home Exercise Program, Neuromuscular Re-education, Patient/Caregiver Education, Self-Care/Home Management, Therapeutic Activities, Therapeutic Exercises Modalities Hot Packs Next Visit Focus/Plan Next Visit Plan gym: cardio equip of choice, balance, stair training, Shuttle, seated on large physioball to simulate sitting on a bicycle, trunk control Plan of Care Dates Plan of Care Start Date 10/10/24 Plan of Care End Date 01/09/25 Electronically Signed by: Anahy Lamb, ABEBE 10/10/24 0162 If you are in agreement with this Plan of Care, please return a signed and dated copy. I have reviewed this Plan of Care and certify that the skilled therapy services above are required to meet the patient?s needs. Physician Signature Date Printed Name and Credentials Clinical Instructor Signature Printed Name and Credentials
--- NOTE | 2024-10-13 11:07 | PT.OTN ---
Current Diagnoses Pain in right hip (10/13/24) Pain in left hip (10/13/24) Physical Therapy Treatment Note PT-OP-A Visit Information Start: 10/10/24 08:58 Freq: Status: Active Protocol: Document 10/13/24 08:23 KW (Rec: 10/13/24 11:07 KW Laptop) Out-Patient Physical Therapy Visit Information Visit Information Visit Type Treatment Note Visit Start Time 09:00 Visit Stop Time 09:45 Visit Number 2 Number of POINTER HELPER Visits 0 Precautions Precautions none PT-OP-B Current Condition Start: 10/10/24 08:58 Freq: Status: Active Protocol: Document 10/10/24 09:04 KW (Rec: 10/10/24 10:25 KW [id number]) Current Condition History of Current Condition Onset Date 2020 Current Complaints B hip groin pain History of Current Condition 50 yo female, childhood h/o hypermobility, now with B groin pain with sit/stand, ambulation, stairs, ambulation . significant current h/o 80 Lb weight loss, struggling with prior TBI, job loss, stress of sister's sudden , loss of personal relationship. She comes to PT to improve her B hip pain. She is in therapy and is in a TBI support group. She currently bought a [employer] bike and would like to start riding it around town. Prior Treatments and Tests x-rays years ago, B hips, hip OA Future Testing and Treatments Planned F/u with PCP Treatment Goals Patient/Caregiver Goals continue with 80Lb weight loss , ride her bike, possibly return to sailing, isn't sure she can go back to work due to her TBI Sx Prior Functional Status Baseline Function- ADL's Independent Baseline Function- Mobility Independent Baseline Function- Gait has trekking poles for snow shoeing Baseline Function- Recreation/Hobbies bike, sail, walking trails Current Functional Impairments (Reported) Functional Limitations- ADL's struggles to go up/down 2 flights of stairs, especially if carrying objects. Personal Factors Other Personal Factors That May Effect TBI Sx Therapy/Recovery PT-OP-C Subjective Start: 10/10/24 08:58 Freq: Status: Active Protocol: Document 10/13/24 08:23 KW (Rec: 10/13/24 11:07 KW Laptop) OP-PT Subjective Patient Comments Patient Comments [place] bus [place] over the weekend, ended up doing a lot of walking, sitting on curb 60 -90 min with legs out extended , sore across low back PT-OP-D Balance Start: 10/10/24 08:58 Freq: Status: Active Protocol: Document 10/10/24 09:04 KW (Rec: 10/10/24 10:25 KW [id number]) OP-PT Balance Assessment Sitting Balance Static Sitting Balance Ability Normal Dynamic Sitting Balance Ability Normal Standing Balance Static Standing Balance Ability Good Dynamic Standing Balance Ability Fair Sol Fall Scale Copyright Permission PT-OP-E Functional Tests Start: 10/10/24 08:58 Freq: Status: Active Protocol: Document 10/10/24 09:04 KW (Rec: 10/10/24 10:25 KW [id number]) Functional Tests Timed Up and Go (TUG) TUG Impairment Rating 1 to <20% Impaired (Score 11) PT-OP-F Manual Assessment Start: 10/10/24 08:58 Freq: Status: Active Protocol: Document 10/10/24 09:04 KW (Rec: 10/10/24 10:25 KW [id number]) Manual Assessments Soft Tissue Assessment Soft Tissue Mobility Assessment guarded adductor tone R > L Joint Mobility Assessment Joint Mobility Assessment B hip impingement R > L , anterior/inferior Other Manual Assessments Other Manual Assessments tight posterior hip capsule R and L PT-OP-G Mobility & Gait Start: 10/10/24 08:58 Freq: Status: Active Protocol: Document 10/10/24 09:04 KW (Rec: 10/10/24 10:25 KW [id number]) OP Mobility Evaluation Bed Mobility Supine to and from Sit tends to denise knife, cues to exhale as she comes up. Tends to brace with breath hold Transfers Sit to Stand pain in groin, breath holding, heels lifted off of ground Functional Movements Squats increased lumbar extension Other Functional Movements forward bend to touch top of ankles, R knee hyper-extension > L OP Gait Assessment Gait Gait Assistance Required: Independent Assistive Devices Assistive Device None Gait Deviations General Gait Pattern Antalgic,Wide Based Gait Factors Limiting Gait Function Factors Limiting Gait Function Pain Stair Climbing Evaluation Comments Stair Climbing Comments deffered. will asssess next visit PT-OP-H Neuro Start: 10/10/24 08:58 Freq: Status: Active Protocol: Document 10/10/24 09:04 KW (Rec: 10/10/24 10:25 KW [id number]) Sensation Evaluation Gross Sensation Gross Sensation WNL PT-OP-J Posture/Palpation/Skin Start: 10/10/24 08:58 Freq: Status: Active Protocol: Document 10/10/24 09:04 KW (Rec: 10/10/24 10:25 KW [id number]) Posture Evaluation [facility] Postural Classification System [facility] Postural Classifications Posterior/Anterior Comments Posture Comments anterior pelvic tilt, genu recurvatum R > L, toe gripping PT-OP-K Range of Motion Start: 10/10/24 08:58 Freq: Status: Active Protocol: Document 10/10/24 09:04 KW (Rec: 10/10/24 10:25 KW [id number]) Hip Goniometric Range of Motion Hip ROM Limitations Hip ROM Limitations Pain Comments R hip IR in sitting 45, supine 10 L hip IR in sitting 55, supine 20 R hip pure flexion 90 before impingement with lumbar compensation and deviation into BLAISE L hip flexion 95, then deviates into BLAISE PT-OP-M Strength Start: 10/10/24 08:58 Freq: Status: Active Protocol: Document 10/10/24 09:04 KW (Rec: 10/10/24 10:25 KW [id number]) Hip Strength Hip Manual Muscle Testing Right Flexion (L2) 3+ Fair+ Abduction 4- Good- Adduction 4 Good External Rotation 4- Good- Internal Rotation 4- Good- Comments painful, guared anticipation Left Flexion (L2) 4- Good- Abduction 4- Good- Adduction 4 Good External Rotation 4- Good- Internal Rotation 4- Good- Comments painful, guarded, breath holding PT-OP-Q Treatments Start: 10/10/24 08:58 Freq: Status: Active Protocol: Document 10/13/24 08:23 KW (Rec: 10/13/24 11:07 KW Laptop) Cardio Equipment Recumbent Stepper (Sci-Fit) Duration (Minutes) 5 Resistance 2 Seat Position 10 Therapeutic Exercises Supine Exercises 5 Supine Exercise Name supine CORE stabilization: heel slides, bent knee fall outs, marching Reps/Minutes 3 x 1 min Comments cues for IO/TA recruitment, breathing 4 Supine Exercise Name supine hamstring curls with physioball and coordinated breathing Side bilateral Equipment Used red ball Reps/Minutes 10 3 Supine Exercise Name supine bridge on exhale Side bilateral Equipment Used ball between knees Reps/Minutes 10 Comments elbows pressing in at side for added stability 2 Supine Exercise Name supine TKE over small ball, lift foot on exhale, lower on the inhale Side bilateral Equipment Used ball Reps/Minutes 10 Comments eyes closed helped her to feel the movement 1 Supine Exercise Name supine bent knee fall outs with coordinated breathing, stay in pain free RO Side bilateral Reps/Minutes 10 Comments eyes closed helped her to concentrate mind body connection Sitting Exercises 1 Sitting Exercise Name sit to stand with coordinated exhale Equipment Used band Reps/Minutes [address] thru heels, toes pressing down Standing Exercises 1 Standing Exercise Name standing gastroc stretch with wedge, step thru gait Reps/Minutes 2/30 sec holds R/L Gait Training Gait Activity 1 Description up/down flight of stairs Comments cues for foot placement, trunk lean, pressing thru heels Neuro Re-Education Treatment Balance Activities 1 Details foam pad and tilt board: head turns, weight shifting Surface foam pad, tilt board Reps/Duration 5 min Comments eyes closed with narrow JEANETTE eyes open, tandem stance R/L and l/R eye and head movements SBA, cues for alignment, breathing PT-OP-T Assessment and Plan Start: 10/10/24 08:58 Freq: Status: Active Protocol: Document 10/13/24 08:23 KW (Rec: 10/13/24 11:07 KW Laptop) Physical Therapy Assessment Goals 1 Impairment LEFS 35% limitations with recreation, ADLS, gait, sitting, sit to stand Short Term Goal (STG) patient with improved LEFS to 50% STG Duration 6 weeks Residential Program Worker Goal (LTG) patient with improved LEFS to 75% LTG Duration 12 weeks Assessment Summary Assessment much improved breathing today with activity, less distracted and reactionary toward pain. stepper was better than recumbent bike for hip impingement on L she struggles with deep CORE recruitment Physical Therapy Plan Frequency and Duration Frequency of Treatment 2xWx2, 1 x W Duration of treatment (weeks) 12 Plan of Care Start Date 10/10/24 Plan of Care End Date 01/09/25 Therapeutic Interventions Therapeutic Interventions Balance Training,Gait Training ,Home Exercise Program, Neuromuscular Re-education, Patient/Caregiver Education, Self-Care/Home Management, Therapeutic Activities, Therapeutic Exercises Modalities Hot Packs Next Visit Focus/Plan Next Note Type Treatment Note Next Visit Plan Shuttle, seated on large physio-ball to simulate sitting on a bicycle, trunk control Deep CORE stabilization level 1
--- NOTE | 2024-10-15 10:42 | PT.OTN ---
Current Diagnoses Pain in right hip (10/15/24) Pain in left hip (10/15/24) Physical Therapy Treatment Note PT-OP-A Visit Information Start: 10/10/24 08:58 Freq: Status: Active Protocol: Document 10/15/24 09:57 KW (Rec: 10/15/24 10:42 KW Laptop) Out-Patient Physical Therapy Visit Information Visit Information Visit Type Treatment Note Visit Start Time 09:45 Visit Stop Time 10:30 Visit Number 3 Number of ADJUSTER LEADER Visits 0 Evaluation Information Evaluation Date 10/10/24 Precautions Precautions none PT-OP-B Current Condition Start: 10/10/24 08:58 Freq: Status: Active Protocol: Document 10/15/24 09:57 KW (Rec: 10/15/24 10:42 KW Laptop) Current Condition History of Current Condition Onset Date 2020 Current Complaints B hip groin pain History of Current Condition 50 yo female, childhood h/o hypermobility, now with B groin pain with sit/stand, ambulation, stairs, ambulation . significant current h/o 80 Lb weight loss, struggling with prior TBI, job loss, stress of sister's sudden , loss of personal relationship. She comes to PT to improve her B hip pain. She is in therapy and is in a TBI support group. She currently bought a [employer] bike and would like to start riding it around town. Prior Treatments and Tests x-rays years ago, B hips, hip OA Future Testing and Treatments Planned F/u with PCP Treatment Goals Patient/Caregiver Goals continue with 80Lb weight loss , ride her bike, possibly return to sailing, isn't sure she can go back to work due to her TBI Sx PT-OP-C Subjective Start: 10/10/24 08:58 Freq: Status: Active Protocol: Document 10/15/24 09:57 KW (Rec: 10/15/24 10:42 KW Laptop) OP-PT Subjective Patient Comments Patient Comments started a new ADHD medication. has dropped down caffeine intake as well. Likes the LTR exercises, finds them relaxing . PT-OP-D Balance Start: 10/10/24 08:58 Freq: Status: Active Protocol: Document 10/10/24 09:04 KW (Rec: 10/10/24 10:25 KW [id number]) OP-PT Balance Assessment Sitting Balance Static Sitting Balance Ability Normal Dynamic Sitting Balance Ability Normal Standing Balance Static Standing Balance Ability Good Dynamic Standing Balance Ability Fair Sol Fall Scale Copyright Permission PT-OP-E Functional Tests Start: 10/10/24 08:58 Freq: Status: Active Protocol: Document 10/10/24 09:04 KW (Rec: 10/10/24 10:25 KW [id number]) Functional Tests Timed Up and Go (TUG) TUG Impairment Rating 1 to <20% Impaired (Score 11) PT-OP-F Manual Assessment Start: 10/10/24 08:58 Freq: Status: Active Protocol: Document 10/10/24 09:04 KW (Rec: 10/10/24 10:25 KW [id number]) Manual Assessments Soft Tissue Assessment Soft Tissue Mobility Assessment guarded adductor tone R > L Joint Mobility Assessment Joint Mobility Assessment B hip impingement R > L , anterior/inferior Other Manual Assessments Other Manual Assessments tight posterior hip capsule R and L PT-OP-G Mobility & Gait Start: 10/10/24 08:58 Freq: Status: Active Protocol: Document 10/10/24 09:04 KW (Rec: 10/10/24 10:25 KW [id number]) OP Mobility Evaluation Bed Mobility Supine to and from Sit tends to denise knife, cues to exhale as she comes up. Tends to brace with breath hold Transfers Sit to Stand pain in groin, breath holding, heels lifted off of ground Functional Movements Squats increased lumbar extension Other Functional Movements forward bend to touch top of ankles, R knee hyper-extension > L OP Gait Assessment Gait Gait Assistance Required: Independent Assistive Devices Assistive Device None Gait Deviations General Gait Pattern Antalgic,Wide Based Gait Factors Limiting Gait Function Factors Limiting Gait Function Pain Stair Climbing Evaluation Comments Stair Climbing Comments deffered. will asssess next visit PT-OP-H Neuro Start: 10/10/24 08:58 Freq: Status: Active Protocol: Document 10/10/24 09:04 KW (Rec: 10/10/24 10:25 KW [id number]) Sensation Evaluation Gross Sensation Gross Sensation WNL PT-OP-J Posture/Palpation/Skin Start: 10/10/24 08:58 Freq: Status: Active Protocol: Document 10/10/24 09:04 KW (Rec: 10/10/24 10:25 KW [id number]) Posture Evaluation Dorian Postural Classification System Dorian Postural Classifications Posterior/Anterior Comments Posture Comments anterior pelvic tilt, genu recurvatum R > L, toe gripping PT-OP-K Range of Motion Start: 10/10/24 08:58 Freq: Status: Active Protocol: Document 10/10/24 09:04 KW (Rec: 10/10/24 10:25 KW [id number]) Hip Goniometric Range of Motion Hip ROM Limitations Hip ROM Limitations Pain Comments R hip IR in sitting 45, supine 10 L hip IR in sitting 55, supine 20 R hip pure flexion 90 before impingement with lumbar compensation and deviation into BLAISE L hip flexion 95, then deviates into BLAISE PT-OP-M Strength Start: 10/10/24 08:58 Freq: Status: Active Protocol: Document 10/10/24 09:04 KW (Rec: 10/10/24 10:25 KW [id number]) Hip Strength Hip Manual Muscle Testing Right Flexion (L2) 3+ Fair+ Abduction 4- Good- Adduction 4 Good External Rotation 4- Good- Internal Rotation 4- Good- Comments painful, guared anticipation Left Flexion (L2) 4- Good- Abduction 4- Good- Adduction 4 Good External Rotation 4- Good- Internal Rotation 4- Good- Comments painful, guarded, breath holding PT-OP-Q Treatments Start: 10/10/24 08:58 Freq: Status: Active Protocol: Document 10/15/24 09:57 KW (Rec: 10/15/24 10:42 KW Laptop) Gym Equipment Therapeutic Ball hooklying LTR Exercise Details supine, flow with the breath Ball Size/Color red Body Position Hooklying Reps/Duration 1 min Comments patient finds good relief Therapeutic Exercises Supine Exercises supine marching Supine Exercise Name supine marching Comments coordinated breathing, max cues for IO/TA recruitment 5 Supine Exercise Name supine CORE stabilization: heel slides, bent knee fall outs, marching Reps/Minutes 3 x 1 min Comments cues for IO/TA recruitment, breathing, very challenging to engage IO/TA 4 Supine Exercise Name supine hamstring curls with physioball and coordinated breathing Side bilateral Equipment Used red ball Reps/Minutes 10 3 Supine Exercise Name supine bridge on exhale, both on ball and bent knees pressing thru heels Side bilateral Equipment Used ball between knees Reps/Minutes 10 Comments elbows pressing in at side for added stability 2 Supine Exercise Name supine TKE over small ball, lift foot on exhale, lower on the inhale Side bilateral Equipment Used ball Reps/Minutes 10 Comments eyes closed helped her to feel the movement 1 Supine Exercise Name supine bent knee fall outs with coordinated breathing, stay in pain free RO Side bilateral Reps/Minutes 10 Comments eyes closed helped her to concentrate mind body connection Sidelying Exercises clamshell Sidelying Exercise Name R and L clamshell Comments cues for continued breathing, Sitting Exercises 1 Sitting Exercise Name sit to stand with coordinated exhale Equipment Used band around kneeds Reps/Minutes [address] thru heels, toes pressing down Gait Training Gait Activity trekking poles Comments trial with trekking poles for B hip pain relief Manual Therapy Treatment Consent Patient gave verbal consent for manual Yes treatment Soft Tissue Mobilization tennis ball supine Body Location self mobilization with tennis ball under hip Comments BKFO, bent knee fall outs R and L, cues for breathing and moving the ball around B hips Body Location deep hip rotators Intensity/Depth mild Body Position Sidelying both R and L Comments cues for breathing Neuro Re-Education Treatment Balance Activities 1 Details foam pad and tilt board: head turns, weight shifting Surface foam pad, tilt board Reps/Duration 5 min Comments eyes closed with narrow JEANETTE eyes open, tandem stance R/L and l/R eye and head movements SBA, cues for alignment, breathing PT-OP-T Assessment and Plan Start: 10/10/24 08:58 Freq: Status: Active Protocol: Document 10/15/24 09:57 KW (Rec: 10/15/24 10:42 KW Laptop) Physical Therapy Assessment Rehab Potential Rehabilitation Potential Good Evaluation Complexity Number of Personal Factors/Comorbidities 3 or More Number of Body Systems Impaired 1-2 Clinical Presentation at Evaluation Evolving Impairments Impairments Activity Tolerance,Functional Mobility,Gait,Pain,Posture,ROM ,Strength Other Impairments TBI limiting focus and contributing to mind/body disconnect but in our controlled environment today, she did quite well. Goals 1 Impairment LEFS 35% limitations with recreation, ADLS, gait, sitting, sit to stand Short Term Goal (STG) patient with improved LEFS to 50% STG Duration 6 weeks Carpenter'S Helper Goal (LTG) patient with improved LEFS to 75% LTG Duration 12 weeks Assessment Summary Assessment did not tolerate elliptical, even with no resistance. trekking poles are a great option for her. She found good relief with supine over tennis ball bent knee fall outs and soft tissue mobilization manual techniques . very tearful during Rx, hard on herself. Reassurance given that she was doing well Physical Therapy Plan Frequency and Duration Frequency of Treatment 2xWx2, 1 x W Duration of treatment (weeks) 12 Plan of Care Start Date 10/10/24 Plan of Care End Date 01/09/25 Therapeutic Interventions Therapeutic Interventions Balance Training,Gait Training ,Home Exercise Program, Neuromuscular Re-education, Patient/Caregiver Education, Self-Care/Home Management, Therapeutic Activities, Therapeutic Exercises Modalities Hot Packs Next Visit Focus/Plan Next Note Type Treatment Note Next Visit Plan Shuttle, seated on large physio-ball to simulate sitting on a bicycle, trunk control Deep CORE stabilization level 1
--- NOTE | 2024-10-21 15:41 | PT.OTN ---
Current Diagnoses Pain in right hip (10/21/24) Pain in left hip (10/21/24) Physical Therapy Treatment Note PT-OP-A Visit Information Start: 10/10/24 08:58 Freq: Status: Active Protocol: Document 10/21/24 08:19 SP (Rec: 10/21/24 09:05 SP Laptop) Out-Patient Physical Therapy Visit Information Visit Information Visit Type Treatment Note Visit Note LORRAINE Mcgarry assisted with manual and ther ex instruction while under direction supervision of INDERJIT Oliva with permission of pt. Visit Start Time 08:19 Visit Stop Time 09:03 Visit Number 4 Number of LONG CHAIN BEAMER Visits 1 Evaluation Information Evaluation Date 10/10/24 Precautions Precautions none PT-OP-B Current Condition Start: 10/10/24 08:58 Freq: Status: Active Protocol: Document 10/15/24 09:57 KW (Rec: 10/15/24 10:42 KW Laptop) Current Condition History of Current Condition Onset Date 2020 Current Complaints B hip groin pain History of Current Condition 50 yo female, childhood h/o hypermobility, now with B groin pain with sit/stand, ambulation, stairs, ambulation . significant current h/o 80 Lb weight loss, struggling with prior TBI, job loss, stress of sister's sudden , loss of personal relationship. She comes to PT to improve her B hip pain. She is in therapy and is in a TBI support group. She currently bought a [employer] bike and would like to start riding it around town. Prior Treatments and Tests x-rays years ago, B hips, hip OA Future Testing and Treatments Planned F/u with PCP Treatment Goals Patient/Caregiver Goals continue with 80Lb weight loss , ride her bike, possibly return to sailing, isn't sure she can go back to work due to her TBI Sx PT-OP-C Subjective Start: 10/10/24 08:58 Freq: Status: Active Protocol: Document 10/21/24 08:19 SP (Rec: 10/21/24 09:05 SP Laptop) OP-PT Subjective Patient Comments Patient Comments Primary report today was bilateral adductor tension and had irritation with some of her HEP. PT-OP-D Balance Start: 10/10/24 08:58 Freq: Status: Active Protocol: Document 10/10/24 09:04 KW (Rec: 10/10/24 10:25 KW [id number]) OP-PT Balance Assessment Sitting Balance Static Sitting Balance Ability Normal Dynamic Sitting Balance Ability Normal Standing Balance Static Standing Balance Ability Good Dynamic Standing Balance Ability Fair Sol Fall Scale Copyright Permission PT-OP-E Functional Tests Start: 10/10/24 08:58 Freq: Status: Active Protocol: Document 10/10/24 09:04 KW (Rec: 10/10/24 10:25 KW [id number]) Functional Tests Timed Up and Go (TUG) TUG Impairment Rating 1 to <20% Impaired (Score 11) PT-OP-F Manual Assessment Start: 10/10/24 08:58 Freq: Status: Active Protocol: Document 10/10/24 09:04 KW (Rec: 10/10/24 10:25 KW [id number]) Manual Assessments Soft Tissue Assessment Soft Tissue Mobility Assessment guarded adductor tone R > L Joint Mobility Assessment Joint Mobility Assessment B hip impingement R > L , anterior/inferior Other Manual Assessments Other Manual Assessments tight posterior hip capsule R and L PT-OP-G Mobility & Gait Start: 10/10/24 08:58 Freq: Status: Active Protocol: Document 10/10/24 09:04 KW (Rec: 10/10/24 10:25 KW [id number]) OP Mobility Evaluation Bed Mobility Supine to and from Sit tends to denise knife, cues to exhale as she comes up. Tends to brace with breath hold Transfers Sit to Stand pain in groin, breath holding, heels lifted off of ground Functional Movements Squats increased lumbar extension Other Functional Movements forward bend to touch top of ankles, R knee hyper-extension > L OP Gait Assessment Gait Gait Assistance Required: Independent Assistive Devices Assistive Device None Gait Deviations General Gait Pattern Antalgic,Wide Based Gait Factors Limiting Gait Function Factors Limiting Gait Function Pain Stair Climbing Evaluation Comments Stair Climbing Comments deffered. will asssess next visit PT-OP-H Neuro Start: 10/10/24 08:58 Freq: Status: Active Protocol: Document 10/10/24 09:04 KW (Rec: 10/10/24 10:25 KW [id number]) Sensation Evaluation Gross Sensation Gross Sensation WNL PT-OP-J Posture/Palpation/Skin Start: 10/10/24 08:58 Freq: Status: Active Protocol: Document 10/10/24 09:04 KW (Rec: 10/10/24 10:25 KW [id number]) Posture Evaluation Dorian Postural Classification System Dorian Postural Classifications Posterior/Anterior Comments Posture Comments anterior pelvic tilt, genu recurvatum R > L, toe gripping PT-OP-K Range of Motion Start: 10/10/24 08:58 Freq: Status: Active Protocol: Document 10/10/24 09:04 KW (Rec: 10/10/24 10:25 KW [id number]) Hip Goniometric Range of Motion Hip ROM Limitations Hip ROM Limitations Pain Comments R hip IR in sitting 45, supine 10 L hip IR in sitting 55, supine 20 R hip pure flexion 90 before impingement with lumbar compensation and deviation into BLAISE L hip flexion 95, then deviates into BLAISE PT-OP-M Strength Start: 10/10/24 08:58 Freq: Status: Active Protocol: Document 10/10/24 09:04 KW (Rec: 10/10/24 10:25 KW [id number]) Hip Strength Hip Manual Muscle Testing Right Flexion (L2) 3+ Fair+ Abduction 4- Good- Adduction 4 Good External Rotation 4- Good- Internal Rotation 4- Good- Comments painful, guared anticipation Left Flexion (L2) 4- Good- Abduction 4- Good- Adduction 4 Good External Rotation 4- Good- Internal Rotation 4- Good- Comments painful, guarded, breath holding PT-OP-Q Treatments Start: 10/10/24 08:58 Freq: Status: Active Protocol: Document 10/21/24 08:19 SP (Rec: 10/21/24 09:05 SP Laptop) Therapeutic Exercises Supine Exercises Leg lengthener Supine Exercise Name added to HEP with HO Side bilateral Resistance AROM Reps/Minutes 2x5 each side Comments VC's to DF foot and elongating her leg, had difficulty applying 20% press. Hip stretching Supine Exercise Name Trialed: adductor (butterfly, figure 4, strap out to side, Nnamdi stretch) Side bilateral Reps/Minutes 2 reps each - assessment Comments cued TA and PPT- not comfortable- DC 5 Supine Exercise Name supine CORE stabilization: heel slides, bent knee fall outs, marching Reps/Minutes 3 x 1 min Comments cues for PPT/TA recruitment, challenged with incorporating breaths/mvmnt. Standing Exercises Adductor stretch Standing Exercise Name trialed Side bilateral Equipment Used table support Reps/Minutes 10s Comments VC's to shift weight into bent leg, weakness in R LE; mod lean twrd table Manual Therapy Treatment Consent Patient gave verbal consent for manual Yes treatment Soft Tissue Mobilization B hips Body Location mid to proximal adductors, prox RF& VM, Mobilization Type Rolling Intensity/Depth Moderate Body Position Hooklying Comments gentle STMs, sensitive to modified pressure with feedback. PT-OP-T Assessment and Plan Start: 10/10/24 08:58 Freq: Status: Active Protocol: Document 10/21/24 08:19 SP (Rec: 10/21/24 09:05 SP Laptop) Physical Therapy Assessment Goals 1 Impairment LEFS 35% limitations with recreation, ADLS, gait, sitting, sit to stand Short Term Goal (STG) patient with improved LEFS to 50% STG Duration 6 weeks Brick Chimney Supervisor Goal (LTG) patient with improved LEFS to 75% LTG Duration 12 weeks Assessment Summary Assessment Trialed multiple positions for adductor stretch. Found leg lengthener to be the most comfortable stretch for patient. Of her HEP, was able to perform heel slides with no adductor discomfort. Would benefit from continued skilled PT for hip mobility and core strengthening. Physical Therapy Plan Frequency and Duration Frequency of Treatment 2xWx2, 1 x W Duration of treatment (weeks) 12 Plan of Care Start Date 10/10/24 Plan of Care End Date 01/09/25 Therapeutic Interventions Therapeutic Interventions Balance Training,Gait Training ,Home Exercise Program, Neuromuscular Re-education, Patient/Caregiver Education, Self-Care/Home Management, Therapeutic Activities, Therapeutic Exercises Modalities Hot Packs Next Visit Focus/Plan Next Note Type Treatment Note Next Visit Plan Shuttle (recovery, balance or rebounder?), recheck response to tx with leg lengthener Next: manual adductors POC: seated on large physio- ball to simulate sitting on a bicycle, trunk control Deep CORE stabilization level 1
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
--- NOTE | 2024-10-31 09:29 | PT.OTN ---
Current Diagnoses Pain in right hip (10/31/24) Pain in left hip (10/31/24) Physical Therapy Treatment Note PT-OP-A Visit Information Start: 10/10/24 08:58 Freq: Status: Active Protocol: Document 10/31/24 09:18 KW (Rec: 10/31/24 09:27 KW Laptop) Out-Patient Physical Therapy Visit Information Visit Information Visit Type Treatment Note Visit Start Time 09:00 Visit Stop Time 09:45 Visit Number 7 Number of APPAREL SALES LEADER Visits 0 Evaluation Information Evaluation Date 10/10/24 Precautions Precautions none PT-OP-B Current Condition Start: 10/10/24 08:58 Freq: Status: Active Protocol: Document 10/15/24 09:57 KW (Rec: 10/15/24 10:42 KW Laptop) Current Condition History of Current Condition Onset Date 2020 Current Complaints B hip groin pain History of Current Condition 50 yo female, childhood h/o hypermobility, now with B groin pain with sit/stand, ambulation, stairs, ambulation . significant current h/o 80 Lb weight loss, struggling with prior TBI, job loss, stress of sister's sudden , loss of personal relationship. She comes to PT to improve her B hip pain. She is in therapy and is in a TBI support group. She currently bought a [employer] bike and would like to start riding it around town. Prior Treatments and Tests x-rays years ago, B hips, hip OA Future Testing and Treatments Planned F/u with PCP Treatment Goals Patient/Caregiver Goals continue with 80Lb weight loss , ride her bike, possibly return to sailing, isn't sure she can go back to work due to her TBI Sx PT-OP-C Subjective Start: 10/10/24 08:58 Freq: Status: Active Protocol: Document 10/31/24 09:18 KW (Rec: 10/31/24 09:27 KW Laptop) OP-PT Subjective Patient Comments Patient Comments has a 6 hr travel day ahead of her on public transit to [place] to see her mom PT-OP-D Balance Start: 10/10/24 08:58 Freq: Status: Active Protocol: Document 10/10/24 09:04 KW (Rec: 10/10/24 10:25 KW [id number]) OP-PT Balance Assessment Sitting Balance Static Sitting Balance Ability Normal Dynamic Sitting Balance Ability Normal Standing Balance Static Standing Balance Ability Good Dynamic Standing Balance Ability Fair Sol Fall Scale Copyright Permission PT-OP-E Functional Tests Start: 10/10/24 08:58 Freq: Status: Active Protocol: Document 10/10/24 09:04 KW (Rec: 10/10/24 10:25 KW [id number]) Functional Tests Timed Up and Go (TUG) TUG Impairment Rating 1 to <20% Impaired (Score 11) PT-OP-F Manual Assessment Start: 10/10/24 08:58 Freq: Status: Active Protocol: Document 10/10/24 09:04 KW (Rec: 10/10/24 10:25 KW [id number]) Manual Assessments Soft Tissue Assessment Soft Tissue Mobility Assessment guarded adductor tone R > L Joint Mobility Assessment Joint Mobility Assessment B hip impingement R > L , anterior/inferior Other Manual Assessments Other Manual Assessments tight posterior hip capsule R and L PT-OP-G Mobility & Gait Start: 10/10/24 08:58 Freq: Status: Active Protocol: Document 10/10/24 09:04 KW (Rec: 10/10/24 10:25 KW [id number]) OP Mobility Evaluation Bed Mobility Supine to and from Sit tends to denise knife, cues to exhale as she comes up. Tends to brace with breath hold Transfers Sit to Stand pain in groin, breath holding, heels lifted off of ground Functional Movements Squats increased lumbar extension Other Functional Movements forward bend to touch top of ankles, R knee hyper-extension > L OP Gait Assessment Gait Gait Assistance Required: Independent Assistive Devices Assistive Device None Gait Deviations General Gait Pattern Antalgic,Wide Based Gait Factors Limiting Gait Function Factors Limiting Gait Function Pain Stair Climbing Evaluation Comments Stair Climbing Comments deffered. will asssess next visit PT-OP-H Neuro Start: 10/10/24 08:58 Freq: Status: Active Protocol: Document 10/10/24 09:04 KW (Rec: 10/10/24 10:25 KW [id number]) Sensation Evaluation Gross Sensation Gross Sensation WNL PT-OP-J Posture/Palpation/Skin Start: 10/10/24 08:58 Freq: Status: Active Protocol: Document 10/10/24 09:04 KW (Rec: 10/10/24 10:25 KW [id number]) Posture Evaluation Dorian Postural Classification System Dorian Postural Classifications Posterior/Anterior Comments Posture Comments anterior pelvic tilt, genu recurvatum R > L, toe gripping PT-OP-K Range of Motion Start: 10/10/24 08:58 Freq: Status: Active Protocol: Document 10/10/24 09:04 KW (Rec: 10/10/24 10:25 KW [id number]) Hip Goniometric Range of Motion Hip ROM Limitations Hip ROM Limitations Pain Comments R hip IR in sitting 45, supine 10 L hip IR in sitting 55, supine 20 R hip pure flexion 90 before impingement with lumbar compensation and deviation into BLAISE L hip flexion 95, then deviates into BLAISE PT-OP-M Strength Start: 10/10/24 08:58 Freq: Status: Active Protocol: Document 10/10/24 09:04 KW (Rec: 10/10/24 10:25 KW [id number]) Hip Strength Hip Manual Muscle Testing Right Flexion (L2) 3+ Fair+ Abduction 4- Good- Adduction 4 Good External Rotation 4- Good- Internal Rotation 4- Good- Comments painful, guared anticipation Left Flexion (L2) 4- Good- Abduction 4- Good- Adduction 4 Good External Rotation 4- Good- Internal Rotation 4- Good- Comments painful, guarded, breath holding PT-OP-Q Treatments Start: 10/10/24 08:58 Freq: Status: Active Protocol: Document 10/31/24 09:18 KW (Rec: 10/31/24 09:27 KW Laptop) Cardio Equipment Recumbent Bicycle Duration (Minutes) 6 Resistance 0 Other spin back and forth Gym Equipment Therapeutic Ball reverse crunch Ball Size/Color small blue Body Position hooklying over ball Reps/Duration 10 Comments lift ball with hamstrings on EXHALE only. hooklying LTR Exercise Details supine, flow with the breath Ball Size/Color small blue Body Position Hooklying Reps/Duration 1 min Comments patient finds good relief Therapeutic Exercises Supine Exercises Leg lengthener Supine Exercise Name CORE stabilization Side bilateral Resistance AROM Equipment Used barefoot Reps/Minutes 2x5 each side Comments VC's to DF foot and elongating her leg, had difficulty applying 20% press. Hip stretching Supine Exercise Name Trialed: adductor (butterfly, figure 4, strap out to side, Nnamdi stretch) Side bilateral Reps/Minutes 2 reps each - assessment Comments cued TA and PPT- not comfortable- DC supine marching Supine Exercise Name supine marching Reps/Minutes 1 min Comments coordinated breathing, max cues for IO/TA recruitment 5 Supine Exercise Name supine CORE stabilization: heel slides, bent knee fall outs, marching Reps/Minutes 3 x 1 min Comments cues for PPT/TA recruitment, challenged with incorporating breaths/mvmnt. 4 Supine Exercise Name supine hamstring curls with physioball and coordinated breathing Side bilateral Equipment Used red ball Reps/Minutes 10 3 Supine Exercise Name supine bridge on exhale, both on ball and bent knees pressing thru heels Side bilateral Equipment Used ball between knees Reps/Minutes 10 Comments elbows pressing in at side for added stability 2 Supine Exercise Name supine TKE over small ball, lift foot on exhale, lower on the inhale Side bilateral Equipment Used ball Reps/Minutes 10 Comments eyes closed helped her to feel the movement 1 Supine Exercise Name supine bent knee fall outs with coordinated breathing, stay in pain free RO Side bilateral Reps/Minutes 10 Comments eyes closed helped her to concentrate mind body connection Sitting Exercises 1 Sitting Exercise Name sit to stand with coordinated exhale Equipment Used band around kneeds Reps/Minutes [address] thru heels, toes pressing down Standing Exercises Adductor stretch Standing Exercise Name trialed Side bilateral Equipment Used table support Reps/Minutes 10s Comments VC's to shift weight into bent leg, weakness in R LE; mod lean twrd table 1 Standing Exercise Name standing gastroc stretch with wedge, step thru gait Reps/Minutes 2/30 sec holds R/L Manual Therapy Treatment Consent Patient gave verbal consent for manual Yes treatment Soft Tissue Mobilization B hips Body Location mid to proximal adductors, prox RF& VM, Mobilization Type Rolling Intensity/Depth Moderate Body Position Hooklying Comments gentle STMs, sensitive to modified pressure with feedback. PT-OP-T Assessment and Plan Start: 10/10/24 08:58 Freq: Status: Active Protocol: Document 10/31/24 09:18 KW (Rec: 10/31/24 09:27 KW Laptop) Physical Therapy Assessment Impairments Impairments Activity Tolerance,Functional Mobility,Gait,Pain,Posture,ROM ,Strength Other Impairments TBI limiting focus and contributing to mind/body disconnect but in our controlled environment today, she did quite well. Goals 1 Impairment LEFS 35% limitations with recreation, ADLS, gait, sitting, sit to stand Short Term Goal (STG) patient with improved LEFS to 50% STG Duration 6 weeks Correction Goal (LTG) patient with improved LEFS to 75% LTG Duration 12 weeks Assessment Summary Assessment more stable on new medication stress is keeping her from sleeping, conflict with her mom. attends group therapy which is helpful. pain is less sharp, less reactive Physical Therapy Plan Frequency and Duration Frequency of Treatment 2xWx2, 1 x W Duration of treatment (weeks) 12 Plan of Care Start Date 10/10/24 Plan of Care End Date 01/09/25 Therapeutic Interventions Therapeutic Interventions Balance Training,Gait Training ,Home Exercise Program, Neuromuscular Re-education, Patient/Caregiver Education, Self-Care/Home Management, Therapeutic Activities, Therapeutic Exercises Modalities Hot Packs
--- NOTE | 2024-11-12 09:07 | PT.OTN ---
Current Diagnoses Pain in right hip (11/12/24) Pain in left hip (11/12/24) Physical Therapy Treatment Note PT-OP-A Visit Information Start: 10/10/24 08:58 Freq: Status: Active Protocol: Document 11/12/24 08:20 SP (Rec: 11/12/24 09:07 SP [id number]) Out-Patient Physical Therapy Visit Information Visit Information Visit Type Treatment Note Visit Note SPTA Mino observed tx with permission of pt. Visit Start Time 08:20 Visit Stop Time 09:07 Visit Number 02/17 Number of LOGGING EQUIPMENT MECHANIC Visits 1 Precautions Precautions none PT-OP-B Current Condition Start: 10/10/24 08:58 Freq: Status: Active Protocol: Document 10/15/24 09:57 KW (Rec: 10/15/24 10:42 KW Laptop) Current Condition History of Current Condition Onset Date 2020 Current Complaints B hip groin pain History of Current Condition 50 yo female, childhood h/o hypermobility, now with B groin pain with sit/stand, ambulation, stairs, ambulation . significant current h/o 80 Lb weight loss, struggling with prior TBI, job loss, stress of sister's sudden , loss of personal relationship. She comes to PT to improve her B hip pain. She is in therapy and is in a TBI support group. She currently bought a [employer] bike and would like to start riding it around town. Prior Treatments and Tests x-rays years ago, B hips, hip OA Future Testing and Treatments Planned F/u with PCP Treatment Goals Patient/Caregiver Goals continue with 80Lb weight loss , ride her bike, possibly return to sailing, isn't sure she can go back to work due to her TBI Sx PT-OP-C Subjective Start: 10/10/24 08:58 Freq: Status: Active Protocol: Document 11/12/24 08:20 SP (Rec: 11/12/24 09:07 SP [id number]) OP-PT Subjective Patient Comments Patient Comments Pt reports was helping friend rake up pine cones on an incline and used R adductor noted soreness so held onto bin and added some ROM stretches could think of. PT-OP-D Balance Start: 10/10/24 08:58 Freq: Status: Active Protocol: Document 10/10/24 09:04 KW (Rec: 10/10/24 10:25 KW [id number]) OP-PT Balance Assessment Sitting Balance Static Sitting Balance Ability Normal Dynamic Sitting Balance Ability Normal Standing Balance Static Standing Balance Ability Good Dynamic Standing Balance Ability Fair Sol Fall Scale Copyright Permission PT-OP-E Functional Tests Start: 10/10/24 08:58 Freq: Status: Active Protocol: Document 10/10/24 09:04 KW (Rec: 10/10/24 10:25 KW [id number]) Functional Tests Timed Up and Go (TUG) TUG Impairment Rating 1 to <20% Impaired (Score 11) PT-OP-F Manual Assessment Start: 10/10/24 08:58 Freq: Status: Active Protocol: Document 10/10/24 09:04 KW (Rec: 10/10/24 10:25 KW [id number]) Manual Assessments Soft Tissue Assessment Soft Tissue Mobility Assessment guarded adductor tone R > L Joint Mobility Assessment Joint Mobility Assessment B hip impingement R > L , anterior/inferior Other Manual Assessments Other Manual Assessments tight posterior hip capsule R and L PT-OP-G Mobility & Gait Start: 10/10/24 08:58 Freq: Status: Active Protocol: Document 10/10/24 09:04 KW (Rec: 10/10/24 10:25 KW [id number]) OP Mobility Evaluation Bed Mobility Supine to and from Sit tends to denise knife, cues to exhale as she comes up. Tends to brace with breath hold Transfers Sit to Stand pain in groin, breath holding, heels lifted off of ground Functional Movements Squats increased lumbar extension Other Functional Movements forward bend to touch top of ankles, R knee hyper-extension > L OP Gait Assessment Gait Gait Assistance Required: Independent Assistive Devices Assistive Device None Gait Deviations General Gait Pattern Antalgic,Wide Based Gait Factors Limiting Gait Function Factors Limiting Gait Function Pain Stair Climbing Evaluation Comments Stair Climbing Comments deffered. will asssess next visit PT-OP-H Neuro Start: 10/10/24 08:58 Freq: Status: Active Protocol: Document 10/10/24 09:04 KW (Rec: 10/10/24 10:25 KW [id number]) Sensation Evaluation Gross Sensation Gross Sensation WNL PT-OP-J Posture/Palpation/Skin Start: 10/10/24 08:58 Freq: Status: Active Protocol: Document 10/10/24 09:04 KW (Rec: 10/10/24 10:25 KW [id number]) Posture Evaluation Dorian Postural Classification System Dorian Postural Classifications Posterior/Anterior Comments Posture Comments anterior pelvic tilt, genu recurvatum R > L, toe gripping PT-OP-K Range of Motion Start: 10/10/24 08:58 Freq: Status: Active Protocol: Document 10/10/24 09:04 KW (Rec: 10/10/24 10:25 KW [id number]) Hip Goniometric Range of Motion Hip ROM Limitations Hip ROM Limitations Pain Comments R hip IR in sitting 45, supine 10 L hip IR in sitting 55, supine 20 R hip pure flexion 90 before impingement with lumbar compensation and deviation into BLAISE L hip flexion 95, then deviates into BLAISE PT-OP-M Strength Start: 10/10/24 08:58 Freq: Status: Active Protocol: Document 10/10/24 09:04 KW (Rec: 10/10/24 10:25 KW [id number]) Hip Strength Hip Manual Muscle Testing Right Flexion (L2) 3+ Fair+ Abduction 4- Good- Adduction 4 Good External Rotation 4- Good- Internal Rotation 4- Good- Comments painful, guared anticipation Left Flexion (L2) 4- Good- Abduction 4- Good- Adduction 4 Good External Rotation 4- Good- Internal Rotation 4- Good- Comments painful, guarded, breath holding PT-OP-Q Treatments Start: 10/10/24 08:58 Freq: Status: Active Protocol: Document 11/12/24 08:20 SP (Rec: 11/12/24 09:07 SP [id number]) Therapeutic Exercises Supine Exercises Leg lengthener Supine Exercise Name CORE stabilization Side left Resistance AROM Equipment Used barefoot Reps/Minutes 2x5 each side Comments VC's to DF foot and elongating her leg, had difficulty applying 20% press. Hip stretching Supine Exercise Name added 1. Nnamdi stretch to HEP with HO 2. trialed R piriformis stretch Side right Equipment Used 1. L thigh on table, R leg full off table 2. set up/ instruct self support Reps/Minutes 2 reps each - assessment Comments cued TA and PPT- good resp 1. gentle stretch, uncomfortable on L/even mod supine marching Supine Exercise Name hooklying marching- aded to HEP with HO Side bilateral Reps/Minutes 10 reps alternating Comments coordinated breathing, max cues for PPT neutral with TA recruitment 3 Supine Exercise Name hooklying bridge on exhale, both on ball and bent knees pressing thru heels Side bilateral Equipment Used ball between knees Reps/Minutes 10 Comments elbows pressing in at side for added stability 1 Supine Exercise Name Bitayli bent knee fall outs with coordinated breathing, stay in pn free ROM Side bilateral Equipment Used level pelvis/hands under pelvis self feedback, Reps/Minutes 10 Comments Cued PPT with TA and breath, KFO range, improved with EC Sidelying Exercises clamshell Sidelying Exercise Name REviewed clamshell Side bilateral Resistance AROM Equipment Used hand on top hip vs front trunk on table help stacked alignment Reps/Minutes 15 reps Comments Continued cues for breathing exhale effort lift, good mm tiring effort Sitting Exercises 1 Sitting Exercise Name sit to stand with continued coordinated exhale Resistance Tb #1 light blue around knees- hands front Equipment Used mesh chair Reps/Minutes [address] thru heels, toes pressing down, hip hinge desc w/ TA w breath Standing Exercises Adductor stretch Standing Exercise Name Reviewed Side bilateral Equipment Used table support Reps/Minutes 10s Comments VC's to shift weight into bent leg, weakness in R LE; mod lean twrd table PT-OP-T Assessment and Plan Start: 10/10/24 08:58 Freq: Status: Active Protocol: Document 11/12/24 08:20 SP (Rec: 11/12/24 09:07 SP [id number]) Physical Therapy Assessment Goals 1 Impairment LEFS 35% limitations with recreation, ADLS, gait, sitting, sit to stand Short Term Goal (STG) patient with improved LEFS to 50% STG Duration 6 weeks All Source Collection Manager Goal (LTG) patient with improved LEFS to 75% LTG Duration 12 weeks Assessment Summary Assessment Pt good tolerance to instruction nnamdi stretch for R then leg lengthener and Piriformis stretch for L, decreased R hip tightness and click feeling in R hip during KFO. Continued breath instruction during core exercises. Provided HOs for home to allow carryover set up and performance with cues written. She has good tolerance to resisted to lateral distal thigh during STS today no pain and reports tiring quad post reps with good form post cues hip hinge & TA to allow functional strengthening. She would benefit from progression to balance, assess stair mgt, Trial shuttle and use tball though doesn't have one home. Physical Therapy Plan Frequency and Duration Frequency of Treatment 2xWx2, 1 x W Duration of treatment (weeks) 12 Plan of Care Start Date 10/10/24 Plan of Care End Date 01/09/25 Therapeutic Interventions Therapeutic Interventions Balance Training,Gait Training ,Home Exercise Program, Neuromuscular Re-education, Patient/Caregiver Education, Self-Care/Home Management, Therapeutic Activities, Therapeutic Exercises Modalities Hot Packs Next Visit Focus/Plan Next Note Type Treatment Note Next Visit Plan 4 more visits approved. Next: Recheck core HEP with HO provided last tx. POC: adductor manual STM, gym: cardio equip of choice, balance, stair training, Shuttle, seated on large physioball to simulate sitting on a bicycle, trunk control. Pt would benefit from support manual tx, will ask supervising PT to add to POC.
--- NOTE | 2024-11-14 10:31 | PT.OTN ---
Current Diagnoses Pain in right hip (11/14/24) Pain in left hip (11/14/24) Physical Therapy Treatment Note PT-OP-A Visit Information Start: 10/10/24 08:58 Freq: Status: Active Protocol: Document 11/14/24 09:51 SP (Rec: 11/14/24 12:34 SP [id number]) Out-Patient Physical Therapy Visit Information Visit Information Visit Type Treatment Note Visit Note SPTA Mino observed tx with permission of pt. Visit Start Time 09:51 Visit Stop Time 10:31 Visit Number 03/20 Number of RIG HAND Visits 2 Evaluation Information Evaluation Date 10/10/24 Precautions Precautions none PT-OP-B Current Condition Start: 10/10/24 08:58 Freq: Status: Active Protocol: Document 10/15/24 09:57 KW (Rec: 10/15/24 10:42 KW Laptop) Current Condition History of Current Condition Onset Date 2020 Current Complaints B hip groin pain History of Current Condition 50 yo female, childhood h/o hypermobility, now with B groin pain with sit/stand, ambulation, stairs, ambulation . significant current h/o 80 Lb weight loss, struggling with prior TBI, job loss, stress of sister's sudden , loss of personal relationship. She comes to PT to improve her B hip pain. She is in therapy and is in a TBI support group. She currently bought a [employer] bike and would like to start riding it around town. Prior Treatments and Tests x-rays years ago, B hips, hip OA Future Testing and Treatments Planned F/u with PCP Treatment Goals Patient/Caregiver Goals continue with 80Lb weight loss , ride her bike, possibly return to sailing, isn't sure she can go back to work due to her TBI Sx PT-OP-C Subjective Start: 10/10/24 08:58 Freq: Status: Active Protocol: Document 11/14/24 09:51 SP (Rec: 11/14/24 12:34 SP [id number]) OP-PT Subjective Patient Comments Patient Comments Pt reports has been doing some of her HEP: stretches and pushes but not as many yesterday due to intestinal issues and full head feeling with positive emesis after out doing errands. Still arrives c/o little tight head pressure with pain over lateral R side of head and continued L adductor tightness closer to groin and low back on L not tolerating stretch leg off table. Wants to continue to review HEP for comfort positioning. PT-OP-D Balance Start: 10/10/24 08:58 Freq: Status: Active Protocol: Document 10/10/24 09:04 KW (Rec: 10/10/24 10:25 KW [id number]) OP-PT Balance Assessment Sitting Balance Static Sitting Balance Ability Normal Dynamic Sitting Balance Ability Normal Standing Balance Static Standing Balance Ability Good Dynamic Standing Balance Ability Fair Sol Fall Scale Copyright Permission PT-OP-E Functional Tests Start: 10/10/24 08:58 Freq: Status: Active Protocol: Document 10/10/24 09:04 KW (Rec: 10/10/24 10:25 KW [id number]) Functional Tests Timed Up and Go (TUG) TUG Impairment Rating 1 to <20% Impaired (Score 11) PT-OP-F Manual Assessment Start: 10/10/24 08:58 Freq: Status: Active Protocol: Document 10/10/24 09:04 KW (Rec: 10/10/24 10:25 KW [id number]) Manual Assessments Soft Tissue Assessment Soft Tissue Mobility Assessment guarded adductor tone R > L Joint Mobility Assessment Joint Mobility Assessment B hip impingement R > L , anterior/inferior Other Manual Assessments Other Manual Assessments tight posterior hip capsule R and L PT-OP-G Mobility & Gait Start: 10/10/24 08:58 Freq: Status: Active Protocol: Document 10/10/24 09:04 KW (Rec: 10/10/24 10:25 KW [id number]) OP Mobility Evaluation Bed Mobility Supine to and from Sit tends to denise knife, cues to exhale as she comes up. Tends to brace with breath hold Transfers Sit to Stand pain in groin, breath holding, heels lifted off of ground Functional Movements Squats increased lumbar extension Other Functional Movements forward bend to touch top of ankles, R knee hyper-extension > L OP Gait Assessment Gait Gait Assistance Required: Independent Assistive Devices Assistive Device None Gait Deviations General Gait Pattern Antalgic,Wide Based Gait Factors Limiting Gait Function Factors Limiting Gait Function Pain Stair Climbing Evaluation Comments Stair Climbing Comments deffered. will asssess next visit PT-OP-H Neuro Start: 10/10/24 08:58 Freq: Status: Active Protocol: Document 10/10/24 09:04 KW (Rec: 10/10/24 10:25 KW [id number]) Sensation Evaluation Gross Sensation Gross Sensation WNL PT-OP-J Posture/Palpation/Skin Start: 10/10/24 08:58 Freq: Status: Active Protocol: Document 10/10/24 09:04 KW (Rec: 10/10/24 10:25 KW [id number]) Posture Evaluation [facility] Postural Classification System Dorian Postural Classifications Posterior/Anterior Comments Posture Comments anterior pelvic tilt, genu recurvatum R > L, toe gripping PT-OP-K Range of Motion Start: 10/10/24 08:58 Freq: Status: Active Protocol: Document 10/10/24 09:04 KW (Rec: 10/10/24 10:25 KW [id number]) Hip Goniometric Range of Motion Hip ROM Limitations Hip ROM Limitations Pain Comments R hip IR in sitting 45, supine 10 L hip IR in sitting 55, supine 20 R hip pure flexion 90 before impingement with lumbar compensation and deviation into BLAISE L hip flexion 95, then deviates into BLAISE PT-OP-M Strength Start: 10/10/24 08:58 Freq: Status: Active Protocol: Document 10/10/24 09:04 KW (Rec: 10/10/24 10:25 KW [id number]) Hip Strength Hip Manual Muscle Testing Right Flexion (L2) 3+ Fair+ Abduction 4- Good- Adduction 4 Good External Rotation 4- Good- Internal Rotation 4- Good- Comments painful, guared anticipation Left Flexion (L2) 4- Good- Abduction 4- Good- Adduction 4 Good External Rotation 4- Good- Internal Rotation 4- Good- Comments painful, guarded, breath holding PT-OP-Q Treatments Start: 10/10/24 08:58 Freq: Status: Active Protocol: Document 11/14/24 09:51 SP (Rec: 11/14/24 12:34 SP [id number]) Therapeutic Exercises Supine Exercises Leg lengthener Supine Exercise Name CORE stabilization Side bilateral Resistance AROM Equipment Used barefoot Reps/Minutes 2x5sec hold each side Comments VC's to DF foot and elongating her leg Hip stretching Supine Exercise Name Trialed DC Nnamdi&emily- pain, 11/14 trialed Fig 4 foot inner thigh Side bilateral Equipment Used ed foot high inner thigh oppo LE comfortable range Reps/Minutes 10 sec hold each side Comments cued TA and PPT- better slow motion no pain range after prone quad 5 Supine Exercise Name supine CORE stabilization: heel slides, bent knee fall outs, marching Reps/Minutes 1 min heel slide, only gricel 10 reps KFO and march before L adductor pain Comments cues for PPT/TA recruitment, continue ed incorporating breaths w/mvmnt. 3 Supine Exercise Name hooklying bridge lift on exhale Side bilateral Equipment Used ball between knees Reps/Minutes 10 Comments Reminders heel press and elbow into table with exhale 1 Supine Exercise Name Hookyli bent knee fall outs with coordinated breathing, stay in pn free ROM Side bilateral Equipment Used level pelvis/hands under pelvis self feedback, Reps/Minutes 10 Comments Cued PPT with TA and breath, KFO range- impr range post quad stretch Prone Exercises quad stretch Prone Exercise Name added to HEP w/ HO ( alternative to Nnamdi Stretch) Side left Resistance use strap in foot Reps/Minutes 30 SH each LE Comments cued breath with small PPT eliminated no LB recruitment Sitting Exercises 1 Sitting Exercise Name sit to stand with continued coordinated exhale Resistance Tb #1 light blue around knees- hands front Equipment Used mesh chair Reps/Minutes [address] thru heels, toes pressing down, hip hinge desc w/ TA w breath Standing Exercises Adductor stretch Standing Exercise Name Reviewed Side bilateral Equipment Used table support Reps/Minutes 10s Comments Cued wt shift into opp LE and buttocks back-improved proximal adductor Neuro Re-Education Treatment Balance Activities 1 Details Corner bal for home: head turns, weight shifting Surface floor Equipment corner to back/chair front- PRN stability Reps/Duration 8 min Comments Tandem stationary easy then slow head turns for home carryover- provided HO *Cued elongate posture, even WB BLE, with Rhomboid and TA engagement improved midline stability. PT-OP-T Assessment and Plan Start: 10/10/24 08:58 Freq: Status: Active Protocol: Document 11/14/24 09:51 SP (Rec: 11/14/24 12:34 SP [id number]) Physical Therapy Assessment Goals 1 Impairment LEFS 35% limitations with recreation, ADLS, gait, sitting, sit to stand Short Term Goal (STG) patient with improved LEFS to 50% STG Duration 6 weeks Tube Turner Goal (LTG) patient with improved LEFS to 75% LTG Duration 12 weeks Assessment Summary Assessment Pt reports decreased adductor pain on L during KFO and L leg extension ROM then carryover TA HEP with improved hip adductor elongation after initiated prone quad stretch with use strap post instruction. Cues for trunk and pelvic alignment correction during standing adductor stretch less tension walking end tx. Physical Therapy Plan Frequency and Duration Frequency of Treatment 2xWx2, 1 x W Duration of treatment (weeks) 12 Plan of Care Start Date 10/10/24 Plan of Care End Date 01/09/25 Therapeutic Interventions Therapeutic Interventions Balance Training,Gait Training ,Home Exercise Program, Neuromuscular Re-education, Patient/Caregiver Education, Self-Care/Home Management, Therapeutic Activities, Therapeutic Exercises Modalities Hot Packs Next Visit Focus/Plan Next Note Type Treatment Note Next Visit Plan 3 more visits approved. Next: Recheck core HEP with HO provided last tx. Review ball sitting for tolerance on bike for gym use. POC: adductor manual STM, Progress: cardio equip of choice, balance, stair training, Shuttle, seated on large physioball to simulate sitting on a bicycle, trunk control. Pt would benefit from support manual tx, will ask supervising PT to add to POC.
--- NOTE | 2024-11-19 09:38 | PT.OTN ---
Current Diagnoses Pain in right hip (11/14/24) Pain in left hip (11/14/24) Physical Therapy Treatment Note PT-OP-A Visit Information Start: 10/10/24 08:58 Freq: Status: Active Protocol: Document 11/19/24 09:06 KW (Rec: 11/19/24 09:38 KW Laptop) Out-Patient Physical Therapy Visit Information Visit Information Visit Type Treatment Note Visit Start Time 09:00 Visit Stop Time 09:45 Visit Number 04/19 Number of MILL WORKER Visits 2 Evaluation Information Evaluation Date 10/10/24 Precautions Precautions none PT-OP-B Current Condition Start: 10/10/24 08:58 Freq: Status: Active Protocol: Document 10/15/24 09:57 KW (Rec: 10/15/24 10:42 KW Laptop) Current Condition History of Current Condition Onset Date 2020 Current Complaints B hip groin pain History of Current Condition 50 yo female, childhood h/o hypermobility, now with B groin pain with sit/stand, ambulation, stairs, ambulation . significant current h/o 80 Lb weight loss, struggling with prior TBI, job loss, stress of sister's sudden , loss of personal relationship. She comes to PT to improve her B hip pain. She is in therapy and is in a TBI support group. She currently bought a [employer] bike and would like to start riding it around town. Prior Treatments and Tests x-rays years ago, B hips, hip OA Future Testing and Treatments Planned F/u with PCP Treatment Goals Patient/Caregiver Goals continue with 80Lb weight loss , ride her bike, possibly return to sailing, isn't sure she can go back to work due to her TBI Sx PT-OP-C Subjective Start: 10/10/24 08:58 Freq: Status: Active Protocol: Document 11/19/24 09:06 KW (Rec: 11/19/24 09:38 KW Laptop) OP-PT Subjective Patient Comments Patient Comments has new dentures that feel good. travel time to [place] has been fine. Feels good about HEP able to dog sit without hesitation able to work in yard now able to cross legs now PT-OP-D Balance Start: 10/10/24 08:58 Freq: Status: Active Protocol: Document 10/10/24 09:04 KW (Rec: 04/04/25 10:25 KW [id number]) OP-PT Balance Assessment Sitting Balance Static Sitting Balance Ability Normal Dynamic Sitting Balance Ability Normal Standing Balance Static Standing Balance Ability Good Dynamic Standing Balance Ability Fair Sol Fall Scale Copyright Permission PT-OP-E Functional Tests Start: 10/10/24 08:58 Freq: Status: Active Protocol: Document 10/10/24 09:04 KW (Rec: 10/10/24 10:25 KW [id number]) Functional Tests Timed Up and Go (TUG) TUG Impairment Rating 1 to <20% Impaired (Score 11) PT-OP-F Manual Assessment Start: 10/10/24 08:58 Freq: Status: Active Protocol: Document 10/10/24 09:04 KW (Rec: 10/10/24 10:25 KW [id number]) Manual Assessments Soft Tissue Assessment Soft Tissue Mobility Assessment guarded adductor tone R > L Joint Mobility Assessment Joint Mobility Assessment B hip impingement R > L , anterior/inferior Other Manual Assessments Other Manual Assessments tight posterior hip capsule R and L PT-OP-G Mobility & Gait Start: 10/10/24 08:58 Freq: Status: Active Protocol: Document 10/10/24 09:04 KW (Rec: 10/10/24 10:25 KW [id number]) OP Mobility Evaluation Bed Mobility Supine to and from Sit tends to denise knife, cues to exhale as she comes up. Tends to brace with breath hold Transfers Sit to Stand pain in groin, breath holding, heels lifted off of ground Functional Movements Squats increased lumbar extension Other Functional Movements forward bend to touch top of ankles, R knee hyper-extension > L OP Gait Assessment Gait Gait Assistance Required: Independent Assistive Devices Assistive Device None Gait Deviations General Gait Pattern Antalgic,Wide Based Gait Factors Limiting Gait Function Factors Limiting Gait Function Pain Stair Climbing Evaluation Comments Stair Climbing Comments deffered. will asssess next visit PT-OP-H Neuro Start: 10/10/24 08:58 Freq: Status: Active Protocol: Document 10/10/24 09:04 KW (Rec: 10/10/24 10:25 KW [id number]) Sensation Evaluation Gross Sensation Gross Sensation WNL PT-OP-J Posture/Palpation/Skin Start: 10/10/24 08:58 Freq: Status: Active Protocol: Document 10/10/24 09:04 KW (Rec: 10/10/24 10:25 KW [id number]) Posture Evaluation Dorian Postural Classification System Dorian Postural Classifications Posterior/Anterior Comments Posture Comments anterior pelvic tilt, genu recurvatum R > L, toe gripping PT-OP-K Range of Motion Start: 10/10/24 08:58 Freq: Status: Active Protocol: Document 10/10/24 09:04 KW (Rec: 10/10/24 10:25 KW [id number]) Hip Goniometric Range of Motion Hip ROM Limitations Hip ROM Limitations Pain Comments R hip IR in sitting 45, supine 10 L hip IR in sitting 55, supine 20 R hip pure flexion 90 before impingement with lumbar compensation and deviation into BLAISE L hip flexion 95, then deviates into BLAISE PT-OP-M Strength Start: 10/10/24 08:58 Freq: Status: Active Protocol: Document 10/10/24 09:04 KW (Rec: 10/10/24 10:25 KW [id number]) Hip Strength Hip Manual Muscle Testing Right Flexion (L2) 3+ Fair+ Abduction 4- Good- Adduction 4 Good External Rotation 4- Good- Internal Rotation 4- Good- Comments painful, guared anticipation Left Flexion (L2) 4- Good- Abduction 4- Good- Adduction 4 Good External Rotation 4- Good- Internal Rotation 4- Good- Comments painful, guarded, breath holding PT-OP-Q Treatments Start: 10/10/24 08:58 Freq: Status: Active Protocol: Document 11/19/24 09:06 KW (Rec: 11/19/24 09:38 KW Laptop) Cardio Equipment Recumbent Bicycle Duration (Minutes) 6 Resistance 2 Gym Equipment Therapeutic Ball reverse crunch Ball Size/Color small blue Body Position hooklying over ball Reps/Duration 10 Comments lift ball with hamstrings on EXHALE only. hooklying LTR Exercise Details supine, flow with the breath Ball Size/Color small blue Body Position Hooklying Reps/Duration 1 min Comments patient finds good relief Therapeutic Exercises Supine Exercises Leg lengthener Supine Exercise Name CORE stabilization Side bilateral Resistance AROM Equipment Used barefoot Reps/Minutes 2x5sec hold each side Comments VC's to DF foot and elongating her leg Hip stretching Supine Exercise Name DC'd Side bilateral Equipment Used ed foot high inner thigh oppo LE comfortable range Reps/Minutes 10 sec hold each side Comments cued TA and PPT- better slow motion no pain range after prone quad 5 Supine Exercise Name supine CORE stabilization: heel slides, bent knee fall outs, marching Reps/Minutes 1 min heel slide, only gricel 10 reps KFO and march before L adductor pain Comments cues for PPT/TA recruitment, continue ed incorporating breaths w/mvmnt. 4 Supine Exercise Name supine hamstring curls with physioball and coordinated breathing Side bilateral Equipment Used red ball Reps/Minutes 10 3 Supine Exercise Name hooklying bridge lift on exhale Side bilateral Equipment Used ball between knees Reps/Minutes 10 Comments Reminders heel press and elbow into table with exhale 2 Supine Exercise Name supine TKE over small ball, lift foot on exhale, lower on the inhale Side bilateral Equipment Used ball Reps/Minutes 10 Comments eyes closed helped her to feel the movement 1 Supine Exercise Name Hookyli bent knee fall outs with coordinated breathing, stay in pn free ROM Side bilateral Equipment Used level pelvis/hands under pelvis self feedback, Reps/Minutes 10 Comments Cued PPT with TA and breath, KFO range- impr range post quad stretch Sitting Exercises 1 Sitting Exercise Name sit to stand with continued coordinated exhale Resistance Tb #1 light blue around knees- hands front Equipment Used mesh chair Reps/Minutes [address] thru heels, toes pressing down, hip hinge desc w/ TA w breath Neuro Re-Education Treatment Balance Activities 1 Details Corner bal for home: head turns, weight shifting Surface floor - reviewed with shoes on and off Equipment corner to back/chair front- PRN stability Reps/Duration 8 min Comments Tandem stationary easy then slow head turns for home carryover- Cued elongate posture, even WB BLE, with Rhomboid and TA engagement improved midline stability. PT-OP-T Assessment and Plan Start: 10/10/24 08:58 Freq: Status: Active Protocol: Document 11/19/24 09:06 KW (Rec: 11/19/24 09:38 KW Laptop) Physical Therapy Assessment Rehab Potential Rehabilitation Potential Good Evaluation Complexity Number of Personal Factors/Comorbidities 3 or More Number of Body Systems Impaired 1-2 Clinical Presentation at Evaluation Evolving Impairments Impairments Activity Tolerance,Functional Mobility,Gait,Pain,Posture,ROM ,Strength Goals 1 Impairment LEFS 35% limitations with recreation, ADLS, gait, sitting, sit to stand Short Term Goal (STG) patient with improved LEFS to 50% STG Duration 6 weeks Assistant Produce Manager Goal (LTG) patient with improved LEFS to 75% LTG Duration 12 weeks Assessment Summary Assessment progressing well, able to work in yard 2 hrs/day all weekend , breathing SO much better with movement. making excellent progress to meet PT goals. Encouragement given for anti inflammatory diet, hydration, daily walking with trekking poles, consistent HEP for strength and flexibility. Physical Therapy Plan Frequency and Duration Frequency of Treatment 2 more visits Duration of treatment (weeks) 12 Plan of Care Start Date 10/10/24 Plan of Care End Date 01/09/25 Therapeutic Interventions Therapeutic Interventions Balance Training,Gait Training ,Home Exercise Program, Neuromuscular Re-education, Patient/Caregiver Education, Self-Care/Home Management, Therapeutic Activities, Therapeutic Exercises Modalities Hot Packs Next Visit Focus/Plan Next Note Type Treatment Note Next Visit Plan progress to DC, finalize questions with HEP encouragement for community based fitness programs
--- NOTE | 2024-11-21 09:47 | PT.OTN ---
Current Diagnoses Pain in right hip (11/21/24) Pain in left hip (11/21/24) Physical Therapy Treatment Note PT-OP-A Visit Information Start: 10/10/24 08:58 Freq: Status: Active Protocol: Document 11/21/24 09:06 SP (Rec: 11/21/24 10:33 SP [id number]) Out-Patient Physical Therapy Visit Information Visit Information Visit Type Treatment Note Visit Start Time 09:06 Visit Stop Time 09:47 Visit Number 11/12 Number of JACQUARD LOOM [employer]ER Visits 3 Evaluation Information Evaluation Date 10/10/24 Precautions Precautions none PT-OP-B Current Condition Start: 10/10/24 08:58 Freq: Status: Active Protocol: Document 10/15/24 09:57 KW (Rec: 10/15/24 10:42 KW Laptop) Current Condition History of Current Condition Onset Date 2020 Current Complaints B hip groin pain History of Current Condition 50 yo female, childhood h/o hypermobility, now with B groin pain with sit/stand, ambulation, stairs, ambulation . significant current h/o 80 Lb weight loss, struggling with prior TBI, job loss, stress of sister's sudden , loss of personal relationship. She comes to PT to improve her B hip pain. She is in therapy and is in a TBI support group. She currently bought a [employer] bike and would like to start riding it around town. Prior Treatments and Tests x-rays years ago, B hips, hip OA Future Testing and Treatments Planned F/u with PCP Treatment Goals Patient/Caregiver Goals continue with 80Lb weight loss , ride her bike, possibly return to sailing, isn't sure she can go back to work due to her TBI Sx PT-OP-C Subjective Start: 10/10/24 08:58 Freq: Status: Active Protocol: Document 11/21/24 09:06 SP (Rec: 11/21/24 10:33 SP [id number]) OP-PT Subjective Patient Comments Patient Comments Pt reports little tired from walking around [employer]. She reports incorporates adductor stretch when feels tension inner thigh at pubic bone which helps relieve. PT-OP-D Balance Start: 10/10/24 08:58 Freq: Status: Active Protocol: Document 10/10/24 09:04 KW (Rec: 10/10/24 10:25 KW [id number]) OP-PT Balance Assessment Sitting Balance Static Sitting Balance Ability Normal Dynamic Sitting Balance Ability Normal Standing Balance Static Standing Balance Ability Good Dynamic Standing Balance Ability Fair Sol Fall Scale Copyright Permission PT-OP-E Functional Tests Start: 10/10/24 08:58 Freq: Status: Active Protocol: Document 10/10/24 09:04 KW (Rec: 10/10/24 10:25 KW [id number]) Functional Tests Timed Up and Go (TUG) TUG Impairment Rating 1 to <20% Impaired (Score 11) PT-OP-F Manual Assessment Start: 10/10/24 08:58 Freq: Status: Active Protocol: Document 10/10/24 09:04 KW (Rec: 10/10/24 10:25 KW [id number]) Manual Assessments Soft Tissue Assessment Soft Tissue Mobility Assessment guarded adductor tone R > L Joint Mobility Assessment Joint Mobility Assessment B hip impingement R > L , anterior/inferior Other Manual Assessments Other Manual Assessments tight posterior hip capsule R and L PT-OP-G Mobility & Gait Start: 10/10/24 08:58 Freq: Status: Active Protocol: Document 10/10/24 09:04 KW (Rec: 10/10/24 10:25 KW [id number]) OP Mobility Evaluation Bed Mobility Supine to and from Sit tends to denise knife, cues to exhale as she comes up. Tends to brace with breath hold Transfers Sit to Stand pain in groin, breath holding, heels lifted off of ground Functional Movements Squats increased lumbar extension Other Functional Movements forward bend to touch top of ankles, R knee hyper-extension > L OP Gait Assessment Gait Gait Assistance Required: Independent Assistive Devices Assistive Device None Gait Deviations General Gait Pattern Antalgic,Wide Based Gait Factors Limiting Gait Function Factors Limiting Gait Function Pain Stair Climbing Evaluation Comments Stair Climbing Comments deffered. will asssess next visit PT-OP-H Neuro Start: 10/10/24 08:58 Freq: Status: Active Protocol: Document 10/10/24 09:04 KW (Rec: 10/10/24 10:25 KW [id number]) Sensation Evaluation Gross Sensation Gross Sensation WNL PT-OP-J Posture/Palpation/Skin Start: 10/10/24 08:58 Freq: Status: Active Protocol: Document 10/10/24 09:04 KW (Rec: 10/10/24 10:25 KW [id number]) Posture Evaluation [facility] Postural Classification System [facility] Postural Classifications Posterior/Anterior Comments Posture Comments anterior pelvic tilt, genu recurvatum R > L, toe gripping PT-OP-K Range of Motion Start: 10/10/24 08:58 Freq: Status: Active Protocol: Document 10/10/24 09:04 KW (Rec: 10/10/24 10:25 KW [id number]) Hip Goniometric Range of Motion Hip ROM Limitations Hip ROM Limitations Pain Comments R hip IR in sitting 45, supine 10 L hip IR in sitting 55, supine 20 R hip pure flexion 90 before impingement with lumbar compensation and deviation into BLAISE L hip flexion 95, then deviates into BLAISE PT-OP-M Strength Start: 10/10/24 08:58 Freq: Status: Active Protocol: Document 10/10/24 09:04 KW (Rec: 10/10/24 10:25 KW [id number]) Hip Strength Hip Manual Muscle Testing Right Flexion (L2) 3+ Fair+ Abduction 4- Good- Adduction 4 Good External Rotation 4- Good- Internal Rotation 4- Good- Comments painful, guared anticipation Left Flexion (L2) 4- Good- Abduction 4- Good- Adduction 4 Good External Rotation 4- Good- Internal Rotation 4- Good- Comments painful, guarded, breath holding PT-OP-Q Treatments Start: 10/10/24 08:58 Freq: Status: Active Protocol: Document 11/21/24 09:06 SP (Rec: 11/21/24 10:33 SP [id number]) Cardio Equipment Recumbent Bicycle Duration (Minutes) 8 Resistance 3- 2 miles Seat Position 5 Other 40 RPMs- improved L hip motion /eliminated discomfort Therapeutic Exercises Prone Exercises quad stretch Prone Exercise Name Reviewed alternative position: 1. prone 2. std grasp foot 3. stand ft chair Side bilateral Resistance use strap in foot Equipment Used Stand hand onto rail Reps/Minutes 10-20 SH each LE Comments Cued slow range into & out stretch- found stand grasp foot behind best. Sitting Exercises 1 Sitting Exercise Name sit to stand with continued coordinated exhale- Reviewed Resistance Tb #1> 2 teal green below knees- arms across chest Equipment Used BIG chair Reps/Minutes [address] thru heels, toes pressing down, hip hinge desc w/ TA w breath Standing Exercises Stationary Lunge Standing Exercise Name added to HEP with HO: Front & lateral Side bilateral Resistance * assimulate grasp item on floor Equipment Used counter support fwd, none needed lateral Reps/Minutes 10 reps Comments Occ cues for knee behind with forefoot, JEANETTE, buttocks back Adductor stretch Standing Exercise Name Reviewed Side bilateral Equipment Used BUE on side stair rail- ed use car/shopping cart/dresser/ counter PRN Reps/Minutes 20s x2 each Comments Cued wt shift into opp LE and buttocks back-impr prox add flexibility Other Exercises lateral walk out with cable Other Exercise Name cable walk outs (Gave Band home)- reviewed HEP Side bilateral Resistance #3 [place] green TB Reps/Minutes 10 each Comments cues soft knee bend normal lateral stride, neutral LS/ pelvis PT-OP-T Assessment and Plan Start: 10/10/24 08:58 Freq: Status: Active Protocol: Document 11/21/24 09:06 SP (Rec: 11/21/24 10:33 SP [id number]) Physical Therapy Assessment Goals 1 Impairment LEFS 35% limitations with recreation, ADLS, gait, sitting, sit to stand Short Term Goal (STG) patient with improved LEFS to 50% STG Duration 6 weeks Retirement Goal (LTG) patient with improved LEFS to 75% LTG Duration 12 weeks Assessment Summary Assessment Pt improved review performance and progression active leg and core strengthening today. Cues for hip hinge with awareness of back and knee alignment behind and with forefoot during lunges, good muscle tiring. Improved form resisted side stepping review for core and postural progression. Pt reports she feels more active HEP to progress on own into standing today and stretching program. Physical Therapy Plan Frequency and Duration Frequency of Treatment 1 more visit Duration of treatment (weeks) 12 Plan of Care Start Date 10/10/24 Plan of Care End Date 01/09/25 Therapeutic Interventions Therapeutic Interventions Balance Training,Gait Training ,Home Exercise Program, Neuromuscular Re-education, Patient/Caregiver Education, Self-Care/Home Management, Therapeutic Activities, Therapeutic Exercises Modalities Hot Packs Next Visit Focus/Plan Next Note Type Discharge Note Next Next Visit Plan Next last tx with PT: finalize home fitness program Next answer any questions with HEP Education/encouragement for community based fitness programs, eg pool enjoys.
--- NOTE | 2024-11-27 17:43 | PT.OTN ---
Current Diagnoses Pain in right hip (11/27/24) Pain in left hip (11/27/24) Physical Therapy Treatment Note PT-OP-A Visit Information Start: 10/10/24 08:58 Freq: Status: Active Protocol: Document 11/27/24 17:30 KW (Rec: 11/27/24 17:43 KW Laptop) Out-Patient Physical Therapy Visit Information Visit Information Visit Type Progress Note Visit Start Time 09:00 Visit Stop Time 09:45 Visit Number 12, 12 new visits approved Evaluation Information Evaluation Date 10/10/24 Precautions Precautions none PT-OP-B Current Condition Start: 10/10/24 08:58 Freq: Status: Active Protocol: Document 11/27/24 17:30 KW (Rec: 11/27/24 17:43 KW Laptop) Current Condition History of Current Condition Onset Date 2020 Current Complaints B hip groin pain History of Current Condition 50 yo female, childhood h/o hypermobility, now with B groin pain with sit/stand, ambulation, stairs, ambulation . significant current h/o 80 Lb weight loss, struggling with prior TBI, job loss, stress of sister's sudden , loss of personal relationship. She comes to PT to improve her B hip pain. She is in therapy and is in a TBI support group. She currently bought a [employer] bike and would like to start riding it around town. Prior Treatments and Tests x-rays years ago, B hips, hip OA Future Testing and Treatments Planned F/u with PCP PT-OP-C Subjective Start: 10/10/24 08:58 Freq: Status: Active Protocol: Document 11/27/24 17:30 KW (Rec: 11/27/24 17:43 KW Laptop) OP-PT Subjective Patient Comments Patient Comments Tequila is feeling stronger, less pain. would like to continue PT visits to progress PT-OP-D Balance Start: 10/10/24 08:58 Freq: Status: Active Protocol: Document 11/27/24 17:30 KW (Rec: 11/27/24 17:43 KW Laptop) OP-PT Balance Assessment Sitting Balance Static Sitting Balance Ability Normal Dynamic Sitting Balance Ability Normal Standing Balance Static Standing Balance Ability Good Dynamic Standing Balance Ability Good Sol Fall Scale Copyright Permission PT-OP-E Functional Tests Start: 10/10/24 08:58 Freq: Status: Active Protocol: Document 10/10/24 09:04 KW (Rec: 10/10/24 10:25 KW [id number]) Functional Tests Timed Up and Go (TUG) TUG Impairment Rating 1 to <20% Impaired (Score 11) PT-OP-F Manual Assessment Start: 10/10/24 08:58 Freq: Status: Active Protocol: Document 11/27/24 17:30 KW (Rec: 11/27/24 17:43 KW Laptop) Manual Assessments Soft Tissue Assessment Soft Tissue Mobility Assessment guarded adductor tone R > L Joint Mobility Assessment Joint Mobility Assessment B hip impingement R > L , anterior/inferior PT-OP-G Mobility & Gait Start: 10/10/24 08:58 Freq: Status: Active Protocol: Document 11/27/24 17:30 KW (Rec: 11/27/24 17:43 KW Laptop) OP Mobility Evaluation Transfers Sit to Stand no longer with pain sit to stand, improved alignment OP Gait Assessment Gait Gait Assistance Required: Independent Assistive Devices Assistive Device None Gait Deviations General Gait Pattern Antalgic,Wide Based Gait Comments Gait Comments improving with little to no pain, stride length impacts quality of her gait Stair Climbing Evaluation Comments Stair Climbing Comments cues for tracking of knees over toes PT-OP-H Neuro Start: 10/10/24 08:58 Freq: Status: Active Protocol: Document 10/10/24 09:04 KW (Rec: 10/10/24 10:25 KW [id number]) Sensation Evaluation Gross Sensation Gross Sensation WNL PT-OP-J Posture/Palpation/Skin Start: 10/10/24 08:58 Freq: Status: Active Protocol: Document 11/27/24 17:30 KW (Rec: 11/27/24 17:43 KW Laptop) Posture Evaluation [facility] Postural Classification System [facility] Postural Classifications Posterior/Anterior Comments Posture Comments anterior pelvic tilt, genu recurvatum R > L, toe gripping - this is improving with increased stance thru heels and big toe grounded PT-OP-K Range of Motion Start: 10/10/24 08:58 Freq: Status: Active Protocol: Document 11/27/24 17:30 KW (Rec: 11/27/24 17:43 KW Laptop) Hip Goniometric Range of Motion Hip ROM Limitations Hip ROM Limitations Pain Comments R hip IR in sitting 55, supine 15 L hip IR in sitting 60, supine 25 R hip pure flexion 90 before impingement with lumbar compensation and deviation into BLAISE L hip flexion 105, then deviates into BLAISE PT-OP-M Strength Start: 10/10/24 08:58 Freq: Status: Active Protocol: Document 11/27/24 17:30 KW (Rec: 11/27/24 17:43 KW Laptop) Hip Strength Hip Manual Muscle Testing Right Flexion (L2) 4- Good- Abduction 4 Good Adduction 4 Good External Rotation 4 Good Internal Rotation 4 Good Comments less painful, no longer with guarded anticipation Left Flexion (L2) 4 Good Abduction 4 Good Adduction 4 Good External Rotation 4 Good Internal Rotation 4 Good Comments less painful, no longer guarded, breath holding PT-OP-Q Treatments Start: 10/10/24 08:58 Freq: Status: Active Protocol: Document 11/27/24 17:30 KW (Rec: 11/27/24 17:43 KW Laptop) Cardio Equipment Recumbent Bicycle Duration (Minutes) 10 Seat Position 5 Other 40 RPMs- improved L hip motion /eliminated discomfort Gym Equipment Therapeutic Ball reverse crunch Ball Size/Color small blue Body Position hooklying over ball Reps/Duration 10 Comments lift ball with hamstrings on EXHALE only. hooklying LTR Exercise Details supine, flow with the breath Ball Size/Color small blue Body Position Hooklying Reps/Duration 1 min Comments patient finds good relief Therapeutic Exercises Supine Exercises Leg lengthener Supine Exercise Name CORE stabilization Side bilateral Resistance AROM Equipment Used barefoot Reps/Minutes 2x5sec hold each side Comments VC's to DF foot and elongating her leg 5 Supine Exercise Name supine CORE stabilization: heel slides, bent knee fall outs, marching Reps/Minutes 1 min heel slide, only gricel 10 reps KFO and march before L adductor pain Comments cues for PPT/TA recruitment, continue ed incorporating breaths w/mvmnt. 4 Supine Exercise Name supine hamstring curls with physioball and coordinated breathing Side bilateral Equipment Used red ball Reps/Minutes 10 3 Supine Exercise Name hooklying bridge lift on exhale Side bilateral Equipment Used ball between knees Reps/Minutes 10 Comments Reminders heel press and elbow into table with exhale 2 Supine Exercise Name supine TKE over small ball, lift foot on exhale, lower on the inhale Side bilateral Equipment Used ball Reps/Minutes 10 Comments eyes closed helped her to feel the movement 1 Supine Exercise Name Brain bent knee fall outs with coordinated breathing, stay in pn free ROM Side bilateral Equipment Used level pelvis/hands under pelvis self feedback, Reps/Minutes 10 Comments Cued PPT with TA and breath, KFO range- impr range post quad stretch Prone Exercises quad stretch Prone Exercise Name Reviewed alternative position: 1. prone 2. std grasp foot 3. stand ft chair Side bilateral Resistance use strap in foot Equipment Used Stand hand onto rail Reps/Minutes 10-20 SH each LE Comments Cued slow range into & out stretch- found stand grasp foot behind best. Sitting Exercises 1 Sitting Exercise Name sit to stand with continued coordinated exhale- Reviewed Resistance Tb #1> 2 teal green below knees- arms across chest Equipment Used BIG chair Reps/Minutes [address] thru heels, toes pressing down, hip hinge desc w/ TA w breath Standing Exercises Stationary Lunge Standing Exercise Name : Front & lateral Side bilateral Resistance * assimulate grasp item on floor Equipment Used counter support fwd, none needed lateral Reps/Minutes 10 reps Comments Occ cues for knee behind with forefoot, JEANETTE, buttocks back Adductor stretch Standing Exercise Name Reviewed Side bilateral Equipment Used BUE on side stair rail- ed use car/shopping cart/dresser/ counter PRN Reps/Minutes 20s x2 each Comments Cued wt shift into opp LE and buttocks back-impr prox add flexibility Neuro Re-Education Treatment Balance Activities 1 Details Corner bal for home: head turns, weight shifting Surface floor - reviewed with shoes on and off Equipment corner to back/chair front- PRN stability Reps/Duration 8 min Comments Tandem stationary easy then slow head turns for home carryover- Cued elongate posture, even WB BLE, with Rhomboid and TA engagement improved midline stability. PT-OP-T Assessment and Plan Start: 10/10/24 08:58 Freq: Status: Active Protocol: Document 11/27/24 17:30 KW (Rec: 11/27/24 17:43 KW Laptop) Physical Therapy Assessment Rehab Potential Rehabilitation Potential Good Evaluation Complexity Number of Personal Factors/Comorbidities 3 or More Number of Body Systems Impaired 1-2 Clinical Presentation at Evaluation Evolving Impairments Impairments Activity Tolerance,Functional Mobility,Gait,Pain,Posture,ROM ,Strength Goals Three Impairment lack of HEP Short Term Goal (STG) pt demonstrates indep with Hep STG Duration 6 weeks Two Impairment bike riding Short Term Goal (STG) return to riding her bike in town 5 miles STG Duration 6 weeks 1 Impairment LEFS 35% limitations with recreation, ADLS, gait, sitting, sit to stand Short Term Goal (STG) patient with improved LEFS to 50% MET STG Duration 6 weeks Halfway Goal (LTG) patient with improved LEFS to 75% LTG Duration 12 weeks Assessment Summary Assessment making good gains with pain, ROM, strength, movement patterns. Tequila will benefit from cont PT to address higher level goals of better strength, balance, gait, movement patterns. She is more mindful of her movements. She is needing more time due to her brain injury. Physical Therapy Plan Frequency and Duration Frequency of Treatment 1 x week Duration of treatment (weeks) 6 Plan of Care Start Date 10/10/24 Plan of Care End Date 01/09/25 Therapeutic Interventions Therapeutic Interventions Balance Training,Gait Training ,Home Exercise Program, Lymphedema Management,Manual Therapy,Neuromuscular Re- education,Patient/Caregiver Education,Self-Care/Home Management,Soft Tissue Mobilization,Therapeutic Activities,Therapeutic Exercises Modalities Biofeedback,Cold Pack/Ice Massage,Electric Stimulation, Hot Packs,Ultrasound Next Visit Focus/Plan Next Note Type Treatment Note Next Visit Plan advance higher level stabilization, balance, ther- ex encouragement for community based fitness programs
--- NOTE | 2024-12-10 09:03 | PT.OTN ---
Current Diagnoses Pain in right hip (12/10/24) Pain in left hip (12/10/24) Physical Therapy Treatment Note PT-OP-A Visit Information Start: 10/10/24 08:58 Freq: Status: Active Protocol: Document 12/10/24 08:16 SP (Rec: 12/10/24 09:05 SP [id number]) Out-Patient Physical Therapy Visit Information Visit Information Visit Type Treatment Note Visit Start Time 08:16 Visit Stop Time 09:03 Visit Number 08/20 (2nd set approved visits), 08/18 visits with PN Number of LINUX ADMIN Visits 1 Evaluation Information Evaluation Date 10/10/24 Precautions Precautions none PT-OP-B Current Condition Start: 10/10/24 08:58 Freq: Status: Active Protocol: Document 11/27/24 17:30 KW (Rec: 11/27/24 17:43 KW Laptop) Current Condition History of Current Condition Onset Date 2020 Current Complaints B hip groin pain History of Current 50 yo female, childhood h/o hypermobility, now with B Condition groin pain with sit/stand, ambulation, stairs, ambulation. significant current h/o 80 Lb weight loss, struggling with prior TBI, job loss, stress of sister's sudden , loss of personal relationship. She comes to PT to improve her B hip pain. She is in therapy and is in a TBI support group. She currently bought a [employer] bike and would like to start riding it around town. Prior Treatments and x-rays years ago, B hips, hip OA Tests Future Testing and F/u with PCP Treatments Planned PT-OP-C Subjective Start: 10/10/24 08:58 Freq: Status: Active Protocol: Document 12/10/24 08:16 SP (Rec: 12/10/24 09:05 SP [id number]) OP-PT Subjective Patient Comments Patient Comments Pt reports did feel to bad after last tx. She is sleeping at friends house and bed little uncomfortable. She reports wont use gym or classes for exercise after PT but might use pool and own HEP. She stated woke Sat or Sun and had little vestibular with room spinning, hasn't happened in while (hx PPV and seen PT for this). She stated just layed and rocked head side to side for self recovery in 1 min or less. PT-OP-D Balance Start: 10/10/24 08:58 Freq: Status: Active Protocol: Document 11/27/24 17:30 KW (Rec: 11/27/24 17:43 KW Laptop) OP-PT Balance Assessment Sitting Balance Static Sitting Normal Balance Ability Dynamic Sitting Normal Balance Ability Standing Balance Static Standing Good Balance Ability Dynamic Standing Good Balance Ability Sol Fall Scale Copyright Permission PT-OP-E Functional Tests Start: 10/10/24 08:58 Freq: Status: Active Protocol: Document 10/10/24 09:04 KW (Rec: 10/10/24 10:25 KW [id number]) Functional Tests Timed Up and Go (TUG) TUG Impairment 1 to <20% Impaired (Score 11) Rating PT-OP-F Manual Assessment Start: 10/10/24 08:58 Freq: Status: Active Protocol: Document 11/27/24 17:30 KW (Rec: 11/27/24 17:43 KW Laptop) Manual Assessments Soft Tissue Assessment Soft Tissue Mobility guarded adductor tone R > L Assessment Joint Mobility Assessment Joint Mobility B hip impingement R > L , anterior/inferior Assessment PT-OP-G Mobility & Gait Start: 10/10/24 08:58 Freq: Status: Active Protocol: Document 11/27/24 17:30 KW (Rec: 11/27/24 17:43 KW Laptop) OP Mobility Evaluation Transfers Sit to Stand no longer with pain sit to stand, improved alignment OP Gait Assessment Gait Gait Assistance Independent Required: Assistive Devices Assistive Device None Gait Deviations General Gait Pattern Antalgic,Wide Based Gait Comments Gait Comments improving with little to no pain, stride length impacts quality of her gait Stair Climbing Evaluation Comments Stair Climbing cues for tracking of knees over toes Comments PT-OP-H Neuro Start: 10/10/24 08:58 Freq: Status: Active Protocol: Document 10/10/24 09:04 KW (Rec: 10/10/24 10:25 KW [id number]) Sensation Evaluation Gross Sensation Gross Sensation WNL PT-OP-J Posture/Palpation/Skin Start: 10/10/24 08:58 Freq: Status: Active Protocol: Document 11/27/24 17:30 KW (Rec: 11/27/24 17:43 KW Laptop) Posture Evaluation Dorian Postural Classification System Dorian Postural Posterior/Anterior Classifications Comments Posture Comments anterior pelvic tilt, genu recurvatum R > L, toe gripping - this is improving with increased stance thru heels and big toe grounded PT-OP-K Range of Motion Start: 10/10/24 08:58 Freq: Status: Active Protocol: Document 11/27/24 17:30 KW (Rec: 11/27/24 17:43 KW Laptop) Hip Goniometric Range of Motion Hip ROM Limitations Hip ROM Limitations Pain Comments R hip IR in sitting 55, supine 15 L hip IR in sitting 60, supine 25 R hip pure flexion 90 before impingement with lumbar compensation and deviation into BLAISE L hip flexion 105, then deviates into BLAISE PT-OP-M Strength Start: 10/10/24 08:58 Freq: Status: Active Protocol: Document 11/27/24 17:30 KW (Rec: 11/27/24 17:43 KW Laptop) Hip Strength Hip Manual Muscle Testing Right Flexion (L2) 4- Good- Abduction 4 Good Adduction 4 Good External Rotation 4 Good Internal Rotation 4 Good Comments less painful, no longer with guarded anticipation Left Flexion (L2) 4 Good Abduction 4 Good Adduction 4 Good External Rotation 4 Good Internal Rotation 4 Good Comments less painful, no longer guarded, breath holding PT-OP-Q Treatments Start: 10/10/24 08:58 Freq: Status: Active Protocol: Document 12/10/24 08:16 SP (Rec: 12/10/24 09:05 SP [id number]) Cardio Equipment Recumbent Bicycle Duration (Minutes) 8 Resistance 4 Seat Position 5 Other 40 RPMs Therapeutic Exercises Supine Exercises 4 Supine Exercise Name supine hamstring curls Side bilateral Equipment Used 55cm orange tball Reps/Minutes 10 Comments good coordinated breathing 3 Supine Exercise Name hooklying bridge lift on exhale Side bilateral Equipment Used yellow small ball between knees Reps/Minutes 10 Comments Reminders heel press and elbow into table with exhale during lift effort 2 Supine Exercise Name supine TKE long leg bridge 55ball, lift foot on exhale, lower on the inhale Side bilateral Equipment Used ball Reps/Minutes 10 Comments good breath with reps 1 Supine Exercise Name Hookyli bent knee fall outs with coordinated breathing, stay in pn free ROM Side bilateral Resistance TB #2 teal Equipment Used level pelvis/hands under pelvis self feedback, Reps/Minutes 20 reps alternate Comments Impr PPT with TA & breath, KFO range- L limited range gricel before groin pn Prone Exercises quad stretch Prone Exercise Name Reviewed- stand ft on chair today Side bilateral Resistance (verbal review prone, stand grasp foot behind her) Equipment Used contact rail Reps/Minutes 20 SH each LE Comments Cued slow range into & out stretch Other Exercises lateral walk out with cable Other Exercise Name reviewed HEP Side bilateral Resistance #3 [place] green TB Reps/Minutes 10 each Comments cues soft knee bend normal lateral stride, neutral LS/ pelvis, small steps Manual Therapy Treatment Consent Patient gave verbal Yes consent for manual treatment Soft Tissue Mobilization B hips Body Location L prox adductor Mobilization Type Rolling Intensity/Depth Moderate Body Position Hooklying Comments gentle STMs, Joint Mobilizations hips Joint L Comments lateral and inferior glide pinch adductor reduction in jt. Neuro Re-Education Treatment Balance Activities Sit Tball Bal Details marching, LAQ Equipment 65cm tball, near table for contact support PRN Reps/Duration 20 reps alternating BLE Comments assimilate bal/stability for return to bike riding PT-OP-T Assessment and Plan Start: 10/10/24 08:58 Freq: Status: Active Protocol: Document 12/10/24 08:16 SP (Rec: 12/10/24 09:05 SP [id number]) Physical Therapy Assessment Goals Three Impairment lack of HEP Short Term Goal (STG pt demonstrates indep with Hep ) STG Duration 6 weeks Two Impairment bike riding Short Term Goal (STG return to riding her bike in town 5 miles ) STG Duration 6 weeks 1 Impairment LEFS 35% limitations with recreation, ADLS, gait, sitting, sit to stand Short Term Goal (STG patient with improved LEFS to 50% MET ) STG Duration 6 weeks Senior Care Goal (LTG) patient with improved LEFS to 75% LTG Duration 12 weeks Assessment Summary Assessment Pt improved core and hip strengthening this tx with reports hip mm tiring L>R, incorporated unbal sit on tball for progression return to bike. Continue bal progression next tx stand HTs, uneven surface walk/sit. Physical Therapy Plan Frequency and Duration Frequency of 1 x week Treatment Duration of 6 treatment (weeks) Plan of Care Start 10/10/24 Date Plan of Care End 01/09/25 Date Therapeutic Interventions Therapeutic Balance Training,Gait Training,Home Exercise Program, Interventions Lymphedema Management,Manual Therapy,Neuromuscular Re- education,Patient/Caregiver Education,Self-Care/Home Management,Soft Tissue Mobilization,Therapeutic Activities,Therapeutic Exercises Modalities Biofeedback,Cold Pack/Ice Massage,Electric Stimulation, Hot Packs,Ultrasound Next Visit Focus/Plan Next Note Type Treatment Note Next Visit Plan Next warm up upright bike for assimulation return to outside riding, COntinue sit tbseptember & for bal progression, advance higher level stabilization, balance, ther-ex in standing for uneven surface progression * encouragement for community based fitness programs- interested in pool only.
--- NOTE | 2024-12-24 09:03 | PT.OTN ---
Current Diagnoses Pain in right hip (12/24/24) Pain in left hip (12/24/24) Physical Therapy Treatment Note PT-OP-A Visit Information Start: 10/10/24 08:58 Freq: Status: Active Protocol: Document 12/24/24 08:18 SP (Rec: 12/24/24 09:13 SP [id number]) Out-Patient Physical Therapy Visit Information Visit Information Visit Type Treatment Note Visit Start Time 08:18 Visit Stop Time 09:03 Visit Number 09/17 (2nd set approved visits), 09/15 visits with PN Number of PRESALES ENGINEER Visits 2 Evaluation Information Evaluation Date 10/10/24 Precautions Precautions none PT-OP-B Current Condition Start: 10/10/24 08:58 Freq: Status: Active Protocol: Document 11/27/24 17:30 KW (Rec: 11/27/24 17:43 KW Laptop) Current Condition History of Current Condition Onset Date 2020 Current Complaints B hip groin pain History of Current 50 yo female, childhood h/o hypermobility, now with B Condition groin pain with sit/stand, ambulation, stairs, ambulation. significant current h/o 80 Lb weight loss, struggling with prior TBI, job loss, stress of sister's sudden , loss of personal relationship. She comes to PT to improve her B hip pain. She is in therapy and is in a TBI support group. She currently bought a [employer] bike and would like to start riding it around town. Prior Treatments and x-rays years ago, B hips, hip OA Tests Future Testing and F/u with PCP Treatments Planned PT-OP-C Subjective Start: 10/10/24 08:58 Freq: Status: Active Protocol: Document 12/24/24 08:18 SP (Rec: 12/24/24 09:13 SP [id number]) OP-PT Subjective Patient Comments Patient Comments Pt reports she is sore at arrival inner L hip after her hip xray last week position had to lay in (wide range hip ER). She states overall hips are better/not as painful. She still hasn't returned to lifting heavy things due to pain, so ask someone else. She is incorporating walking many isles in stores ([employer]) for activity, hasn't started any walking outside yet. Compliant with stretching and HEP like lunges but at times is bothersome so stops. PT-OP-D Balance Start: 10/10/24 08:58 Freq: Status: Active Protocol: Document 11/27/24 17:30 KW (Rec: 11/27/24 17:43 KW Laptop) OP-PT Balance Assessment Sitting Balance Static Sitting Normal Balance Ability Dynamic Sitting Normal Balance Ability Standing Balance Static Standing Good Balance Ability Dynamic Standing Good Balance Ability Sol Fall Scale Copyright Permission PT-OP-E Functional Tests Start: 10/10/24 08:58 Freq: Status: Active Protocol: Document 10/10/24 09:04 KW (Rec: 10/10/24 10:25 KW [id number]) Functional Tests Timed Up and Go (TUG) TUG Impairment 1 to <20% Impaired (Score 11) Rating PT-OP-F Manual Assessment Start: 10/10/24 08:58 Freq: Status: Active Protocol: Document 11/27/24 17:30 KW (Rec: 11/27/24 17:43 KW Laptop) Manual Assessments Soft Tissue Assessment Soft Tissue Mobility guarded adductor tone R > L Assessment Joint Mobility Assessment Joint Mobility B hip impingement R > L , anterior/inferior Assessment PT-OP-G Mobility & Gait Start: 10/10/24 08:58 Freq: Status: Active Protocol: Document 11/27/24 17:30 KW (Rec: 11/27/24 17:43 KW Laptop) OP Mobility Evaluation Transfers Sit to Stand no longer with pain sit to stand, improved alignment OP Gait Assessment Gait Gait Assistance Independent Required: Assistive Devices Assistive Device None Gait Deviations General Gait Pattern Antalgic,Wide Based Gait Comments Gait Comments improving with little to no pain, stride length impacts quality of her gait Stair Climbing Evaluation Comments Stair Climbing cues for tracking of knees over toes Comments PT-OP-H Neuro Start: 10/10/24 08:58 Freq: Status: Active Protocol: Document 10/10/24 09:04 KW (Rec: 10/10/24 10:25 KW [id number]) Sensation Evaluation Gross Sensation Gross Sensation WNL PT-OP-J Posture/Palpation/Skin Start: 10/10/24 08:58 Freq: Status: Active Protocol: Document 11/27/24 17:30 KW (Rec: 11/27/24 17:43 KW Laptop) Posture Evaluation Dorian Postural Classification System Dorian Postural Posterior/Anterior Classifications Comments Posture Comments anterior pelvic tilt, genu recurvatum R > L, toe gripping - this is improving with increased stance thru heels and big toe grounded PT-OP-K Range of Motion Start: 10/10/24 08:58 Freq: Status: Active Protocol: Document 11/27/24 17:30 KW (Rec: 11/27/24 17:43 KW Laptop) Hip Goniometric Range of Motion Hip ROM Limitations Hip ROM Limitations Pain Comments R hip IR in sitting 55, supine 15 L hip IR in sitting 60, supine 25 R hip pure flexion 90 before impingement with lumbar compensation and deviation into BLAISE L hip flexion 105, then deviates into BLAISE PT-OP-M Strength Start: 10/10/24 08:58 Freq: Status: Active Protocol: Document 11/27/24 17:30 KW (Rec: 11/27/24 17:43 KW Laptop) Hip Strength Hip Manual Muscle Testing Right Flexion (L2) 4- Good- Abduction 4 Good Adduction 4 Good External Rotation 4 Good Internal Rotation 4 Good Comments less painful, no longer with guarded anticipation Left Flexion (L2) 4 Good Abduction 4 Good Adduction 4 Good External Rotation 4 Good Internal Rotation 4 Good Comments less painful, no longer guarded, breath holding PT-OP-Q Treatments Start: 10/10/24 08:58 Freq: Status: Active Protocol: Document 12/24/24 08:18 SP (Rec: 12/24/24 09:13 SP [id number]) Cardio Equipment Recumbent Bicycle Duration (Minutes) 8 Resistance 4 Seat Position 5>6 Other 40 RPMs Therapeutic Exercises Supine Exercises Leg lengthener Supine Exercise Name CORE stabilization Side left Resistance Gato stretch on R Equipment Used barefoot Reps/Minutes 2x5sec hold each side Comments VC's to DF foot and elongating her leg Standing Exercises hip abd, extension Standing Exercise added to HEP with HO Name Side bilateral Resistance TB #3 teal aorund ankles Equipment Used rail support Reps/Minutes 2x10 reps each direction Comments cued tall posture Quad stretch Standing Exercise Reviewed: Name Side bilateral Resistance foot on chair behind, rail contact support Reps/Minutes 30 sec x3 each LE Comments godo feedback quad and adductor stretch Stationary Lunge Standing Exercise : Front & lateral- miniature range Name Side bilateral Resistance * assimulate grasp item on floor Equipment Used rail support Reps/Minutes 10 reps Comments Occ cues for knee behind with forefoot, JEANETTE, buttocks back Adductor stretch Standing Exercise Reviewed Name Side bilateral Equipment Used BUE on side stair rail- ed use car/shopping cart/ dresser/counter PRN Reps/Minutes 20s x2 each Comments Cued wt shift into opp LE and buttocks back-impr prox add flexibility 1 Standing Exercise standing gastroc stretch with wedge, step thru gait Name Reps/Minutes 2/30 sec holds R/L Manual Therapy Treatment Consent Patient gave verbal Yes consent for manual treatment Soft Tissue Mobilization B hips Body Location L>R prox adductor Mobilization Type Rolling Intensity/Depth Moderate Body Position Hooklying Comments gentle STMs, Joint Mobilizations hips Joint B Grade II Body Position Supine Comments anteromedial, lateral and inferior glide - decreased adductor pinching and hip rotation allowance. PT-OP-T Assessment and Plan Start: 10/10/24 08:58 Freq: Status: Active Protocol: Document 12/24/24 08:18 SP (Rec: 12/24/24 09:13 SP [id number]) Physical Therapy Assessment Goals Three Impairment lack of HEP Short Term Goal (STG pt demonstrates indep with Hep ) STG Duration 6 weeks Two Impairment bike riding Short Term Goal (STG return to riding her bike in town 5 miles ) 12/24/24: hasn't tried yet dueto busy schedule and has to take it down stairs form apartment and challenging. STG Duration 6 weeks no progression yet. 1 Impairment LEFS 35% limitations with recreation, ADLS, gait, sitting, sit to stand Short Term Goal (STG patient with improved LEFS to 50% MET ) STG Duration 6 weeks Shelter Goal (LTG) patient with improved LEFS to 75% LTG Duration 12 weeks Assessment Summary Assessment Pt reports improved relief post manual. She is using self massage gun for relief home. She is compliant with stretching and started resisted kicking for strengthening with no complaints. Continued standing functional strengthening mini lunges and resisted hip ext and abduction for strengthening carryover home with provided HO and TB. She has 1 more appt with PT and reports not sure if ready and would like to continue to be able to do all activities has done in previously. Suggested to return to walking out side and ride her bike to assess progress with Goals created at [facility]. Physical Therapy Plan Frequency and Duration Frequency of 1 x week Treatment Duration of 6 treatment (weeks) Plan of Care Start 10/10/24 Date Plan of Care End 01/09/25 Date Therapeutic Interventions Therapeutic Balance Training,Gait Training,Home Exercise Program, Interventions Lymphedema Management,Manual Therapy,Neuromuscular Re- education,Patient/Caregiver Education,Self-Care/Home Management,Soft Tissue Mobilization,Therapeutic Activities,Therapeutic Exercises Modalities Biofeedback,Cold Pack/Ice Massage,Electric Stimulation, Hot Packs,Ultrasound Next Visit Focus/Plan Next Note Type Treatment Note Next Visit Plan Next warm up upright bike for assimulation return to outside riding recheck standing HEP, sit tball september & LAQ for bal progression, advance higher level stabilization, balance, ther-ex in standing for uneven surface progression * encouragement for community based fitness programs- interested in pool only.
--- NOTE | 2025-01-07 09:29 | PT.OTN ---
Current Diagnoses Pain in right hip (01/07/25) Pain in left hip (01/07/25) Physical Therapy Treatment Note PT-OP-A Visit Information Start: 10/10/24 08:58 Freq: Status: Active Protocol: Document 01/07/25 09:06 KW (Rec: 01/07/25 09:29 KW Laptop) Out-Patient Physical Therapy Visit Information Visit Information Visit Type Progress Note Visit Start Time 09:00 Visit Stop Time 09:45 Visit Number 10/18 Evaluation Information Evaluation Date 10/10/24 Precautions Precautions none PT-OP-B Current Condition Start: 10/10/24 08:58 Freq: Status: Active Protocol: Document 01/07/25 09:06 KW (Rec: 01/07/25 09:29 KW Laptop) Current Condition History of Current Condition Onset Date 2020 Current Complaints B hip groin pain History of Current 50 yo female, childhood h/o hypermobility, now with B Condition groin pain with sit/stand, ambulation, stairs, ambulation. significant current h/o 80 Lb weight loss, struggling with prior TBI, job loss, stress of sister's sudden , loss of personal relationship. She comes to PT to improve her B hip pain. She is in therapy and is in a TBI support group. She currently bought a [employer] bike and would like to start riding it around town. Prior Treatments and x-rays years ago, B hips, hip OA Tests Future Testing and F/u with PCP Treatments Planned Prior Functional Status Baseline Function- Independent ADL's Baseline Function- Independent Mobility Baseline Function- has trekking poles for snow shoeing Gait Baseline Function- bike, sail, walking trails Recreation/Hobbies Current Functional Impairments (Reported) Functional struggles to go up/down 2 flights of stairs, especially Limitations- ADL's if carrying objects. - ok now, easier going up PT-OP-C Subjective Start: 10/10/24 08:58 Freq: Status: Active Protocol: Document 01/07/25 09:06 KW (Rec: 01/07/25 09:29 KW Laptop) OP-PT Subjective Patient Comments Patient Comments feeling less pain, has better understanding of what to do when pain happens. going up stairs is better. Getting on/off bike is easier PT-OP-D Balance Start: 10/10/24 08:58 Freq: Status: Active Protocol: Document 01/07/25 09:06 KW (Rec: 01/07/25 09:29 KW Laptop) OP-PT Balance Assessment Sitting Balance Static Sitting Normal Balance Ability Dynamic Sitting Normal Balance Ability Standing Balance Static Standing Good Balance Ability Dynamic Standing Good Balance Ability Sol Fall Scale Copyright Permission PT-OP-E Functional Tests Start: 10/10/24 08:58 Freq: Status: Active Protocol: Document 10/10/24 09:04 KW (Rec: 10/10/24 10:25 KW [id number]) Functional Tests Timed Up and Go (TUG) TUG Impairment 1 to <20% Impaired (Score 11) Rating PT-OP-F Manual Assessment Start: 10/10/24 08:58 Freq: Status: Active Protocol: Document 01/07/25 09:06 KW (Rec: 01/07/25 09:29 KW Laptop) Manual Assessments Soft Tissue Assessment Soft Tissue Mobility guarded adductor tone R > L - improved Assessment Joint Mobility Assessment Joint Mobility B hip impingement R > L , anterior/inferior Assessment PT-OP-G Mobility & Gait Start: 10/10/24 08:58 Freq: Status: Active Protocol: Document 01/07/25 09:06 KW (Rec: 01/07/25 09:29 KW Laptop) OP Mobility Evaluation Bed Mobility Supine to and from tends to denise knife, cues to exhale as she comes up. Sit Tends to brace with breath hold - much improved Transfers Sit to Stand no longer with pain sit to stand, improved alignment Functional Movements Squats increased lumbar extension Other Functional forward bend to touch top of ankles, R knee hyper- Movements extension> L PT-OP-H Neuro Start: 10/10/24 08:58 Freq: Status: Active Protocol: Document 10/10/24 09:04 KW (Rec: 10/10/24 10:25 KW [id number]) Sensation Evaluation Gross Sensation Gross Sensation WNL PT-OP-J Posture/Palpation/Skin Start: 10/10/24 08:58 Freq: Status: Active Protocol: Document 11/27/24 17:30 KW (Rec: 11/27/24 17:43 KW Laptop) Posture Evaluation Dorian Postural Classification System Dorian Postural Posterior/Anterior Classifications Comments Posture Comments anterior pelvic tilt, genu recurvatum R > L, toe gripping - this is improving with increased stance thru heels and big toe grounded PT-OP-K Range of Motion Start: 10/10/24 08:58 Freq: Status: Active Protocol: Document 11/27/24 17:30 KW (Rec: 11/27/24 17:43 KW Laptop) Hip Goniometric Range of Motion Hip ROM Limitations Hip ROM Limitations Pain Comments R hip IR in sitting 55, supine 15 L hip IR in sitting 60, supine 25 R hip pure flexion 90 before impingement with lumbar compensation and deviation into BLAISE L hip flexion 105, then deviates into BLAISE PT-OP-M Strength Start: 10/10/24 08:58 Freq: Status: Active Protocol: Document 01/07/25 09:06 KW (Rec: 01/07/25 09:29 KW Laptop) Hip Strength Hip Manual Muscle Testing Right Flexion (L2) 4 Good Abduction 4 Good Adduction 4 Good External Rotation 4 Good Internal Rotation 4 Good Comments less painful, no longer with guarded anticipation Left Flexion (L2) 4 Good Abduction 4 Good Adduction 4 Good External Rotation 4 Good Internal Rotation 4 Good Comments less painful, no longer guarded, breath holding PT-OP-Q Treatments Start: 10/10/24 08:58 Freq: Status: Active Protocol: Document 01/07/25 09:06 KW (Rec: 01/07/25 09:29 KW Laptop) Cardio Equipment Recumbent Stepper (Sci-Fit) Duration (Minutes) 10 Gym Equipment Shuttle Balance red Details AP/ML wt shift, breathing, head turns Therapeutic Ball reverse crunch Ball Size/Color small blue Body Position hooklying over ball Reps/Duration 10 Comments lift ball with hamstrings on EXHALE only. hooklying LTR Exercise Details supine, flow with the breath Ball Size/Color small blue Body Position Hooklying Reps/Duration 1 min Comments patient finds good relief Therapeutic Exercises Supine Exercises Leg lengthener Supine Exercise Name CORE stabilization Side left Resistance Gato stretch on R Equipment Used barefoot Reps/Minutes 2x5sec hold each side Comments VC's to DF foot and elongating her leg 4 Supine Exercise Name supine hamstring curls Side bilateral Equipment Used 55cm orange tball Reps/Minutes 10 Comments good coordinated breathing 3 Supine Exercise Name hooklying bridge lift on exhale Side bilateral Equipment Used yellow small ball between knees Reps/Minutes 10 Comments Reminders heel press and elbow into table with exhale during lift effort 2 Supine Exercise Name supine TKE long leg bridge 55ball, lift foot on exhale, lower on the inhale Side bilateral Equipment Used ball Reps/Minutes 10 Comments good breath with reps 1 Supine Exercise Name Hookly bent knee fall outs with coordinated breathing, stay in pn free ROM Side bilateral Resistance TB #2 teal Equipment Used level pelvis/hands under pelvis self feedback, Reps/Minutes 20 reps alternate Comments Impr PPT with TA & breath, KFO range- L limited range gricel before groin pn Prone Exercises quad stretch Prone Exercise Name Reviewed- stand ft on chair today Side bilateral Resistance (verbal review prone, stand grasp foot behind her) Equipment Used contact rail Reps/Minutes 20 SH each LE Comments Cued slow range into & out stretch Standing Exercises hip abd, extension Standing Exercise added to HEP with HO Name Side bilateral Resistance TB #3 teal aorund ankles Equipment Used rail support Reps/Minutes 2x10 reps each direction Comments cued tall posture Gait Training Gait Activity trekking poles Comments trial with trekking poles for B hip pain relief - improved - not always needing them. Neuro Re-Education Treatment Balance Activities Sit Tball Bal Details marching, LAQ Equipment 65cm tball, near table for contact support PRN Reps/Duration 20 reps alternating BLE Comments assimilate bal/stability for return to bike riding PT-OP-T Assessment and Plan Start: 10/10/24 08:58 Freq: Status: Active Protocol: Document 01/07/25 09:06 KW (Rec: 01/07/25 09:29 KW Laptop) Physical Therapy Assessment Goals Three Impairment lack of HEP Short Term Goal (STG pt demonstrates indep with Hep - MET, progressing with ) new ther-ex STG Duration 6 weeks Two Impairment bike riding Short Term Goal (STG return to riding her bike in town 5 miles ) 12/24/24: hasn't tried yet due to busy schedule and has to take it down stairs form apartment and challenging. has done once STG Duration 6 weeks no progression yet. 1 Impairment LEFS 35% limitations with recreation, ADLS, gait, sitting, sit to stand Short Term Goal (STG patient with improved LEFS to 50% MET ) STG Duration 6 weeks Volunteer Patient Representative Goal (LTG) patient with improved LEFS to 75% - MET LTG Duration 12 weeks Progress Towards Goals Progress Towards Progressing Toward Goals Goals Progress Comments patient reports that painful days are now from a result of being active vs non active Assessment Summary Assessment continues to be willing to try new ther-ex at PT, progressing with strength, ROM, function, gait mechanics, balance. Physical Therapy Plan Frequency and Duration Frequency of 1 x week Treatment Duration of 6 treatment (weeks) Plan of Care Start 01/07/25 Date Plan of Care End 04/08/25 Date Therapeutic Interventions Therapeutic Balance Training,Gait Training,Home Exercise Program, Interventions Lymphedema Management,Manual Therapy,Neuromuscular Re- education,Patient/Caregiver Education,Self-Care/Home Management,Soft Tissue Mobilization,Therapeutic Activities,Therapeutic Exercises Modalities Biofeedback,Cold Pack/Ice Massage,Electric Stimulation, Hot Packs,Ultrasound
--- NOTE | 2025-01-07 09:30 | PT.OPPOC ---
Physical, Occupational & Speech Therapy At [facility] Current Diagnoses Pain in right hip (01/07/25) Pain in left hip (01/07/25) Visit Care Team Role Provider Type Michelle Cronin DO Attending Provider Physician Family Provider Primary Care Provider Referring Provider Specialty: Family Practice Address: [address] [place] [address], [address], [facility] Email: [email or web address] Plan Of Care PT-OP-B Current Condition Start: 10/10/24 08:58 Freq: Status: Active Protocol: Document 01/07/25 09:06 KW (Rec: 01/07/25 09:29 KW Laptop) Current Condition History of Current Condition Onset Date 2020 Current Complaints B hip groin pain History of Current 50 yo female, childhood h/o hypermobility, now with B Condition groin pain with sit/stand, ambulation, stairs, ambulation. significant current h/o 80 Lb weight loss, struggling with prior TBI, job loss, stress of sister's sudden , loss of personal relationship. She comes to PT to improve her B hip pain. She is in therapy and is in a TBI support group. She currently bought a [employer] cruiser bike and would like to start riding it around town. Prior Treatments and x-rays years ago, B hips, hip OA Tests Future Testing and F/u with PCP Treatments Planned Prior Functional Status Baseline Function- Independent ADL's Baseline Function- Independent Mobility Baseline Function- has trekking poles for snow shoeing Gait Baseline Function- bike, sail, walking trails Recreation/Hobbies Current Functional Impairments (Reported) Functional struggles to go up/down 2 flights of stairs, especially Limitations- ADL's if carrying objects. - ok now, easier going up PT-OP-T Assessment and Plan Start: 10/10/24 08:58 Freq: Status: Active Protocol: Document 01/07/25 09:06 KW (Rec: 01/07/25 09:29 KW Laptop) Physical Therapy Assessment Goals Three Impairment lack of HEP Short Term Goal (STG pt demonstrates indep with Hep - MET, progressing with ) new ther-ex STG Duration 6 weeks Two Impairment bike riding Short Term Goal (STG return to riding her bike in town 5 miles ) 12/24/24: hasn't tried yet due to busy schedule and has to take it down stairs form apartment and challenging. has done once STG Duration 6 weeks no progression yet. 1 Impairment LEFS 35% limitations with recreation, ADLS, gait, sitting, sit to stand Short Term Goal (STG patient with improved LEFS to 50% MET ) STG Duration 6 weeks Tire Curer Goal (LTG) patient with improved LEFS to 75% - MET LTG Duration 12 weeks Progress Towards Goals Progress Towards Progressing Toward Goals Goals Progress Comments patient reports that painful days are now from a result of being active vs non active Assessment Summary Assessment continues to be willing to try new ther-ex at PT, progressing with strength, ROM, function, gait mechanics, balance. Physical Therapy Plan Frequency and Duration Frequency of 1 x week Treatment Duration of 6 treatment (weeks) Plan of Care Start 01/07/25 Date Plan of Care End 04/08/25 Date Therapeutic Interventions Therapeutic Balance Training,Gait Training,Home Exercise Program, Interventions Lymphedema Management,Manual Therapy,Neuromuscular Re- education,Patient/Caregiver Education,Self-Care/Home Management,Soft Tissue Mobilization,Therapeutic Activities,Therapeutic Exercises Modalities Biofeedback,Cold Pack/Ice Massage,Electric Stimulation, Hot Packs,Ultrasound Plan of Care Dates Plan of Care Start Date 01/07/25 Plan of Care End Date 04/08/25 Electronically Signed by: Anahy Lamb PT 01/07/25 [id number] If you are in agreement with this Plan of Care, please return a signed and dated copy. I have reviewed this Plan of Care and certify that the skilled therapy services above are required to meet the patient?s needs. Physician Signature Date Printed Name and Credentials Clinical Instructor Signature Printed Name and Credentials
--- NOTE | 2025-01-14 09:14 | PT.OTN ---
Current Diagnoses Pain in right hip (01/14/25) Pain in left hip (01/14/25) Physical Therapy Treatment Note PT-OP-A Visit Information Start: 10/10/24 08:58 Freq: Status: Active Protocol: Document 01/14/25 09:09 KW (Rec: 01/14/25 09:14 KW Laptop) Out-Patient Physical Therapy Visit Information Visit Information Visit Type Progress Note Visit Start Time 09:00 Visit Stop Time 09:45 Visit Number 11/17 Evaluation Information Evaluation Date 10/10/24 Precautions Precautions none PT-OP-B Current Condition Start: 10/10/24 08:58 Freq: Status: Active Protocol: Document 01/07/25 09:06 KW (Rec: 01/07/25 09:29 KW Laptop) Current Condition History of Current Condition Onset Date 2020 Current Complaints B hip groin pain History of Current 50 yo female, childhood h/o hypermobility, now with B Condition groin pain with sit/stand, ambulation, stairs, ambulation. significant current h/o 80 Lb weight loss, struggling with prior TBI, job loss, stress of sister's sudden , loss of personal relationship. She comes to PT to improve her B hip pain. She is in therapy and is in a TBI support group. She currently bought a [employer] bike and would like to start riding it around town. Prior Treatments and x-rays years ago, B hips, hip OA Tests Future Testing and F/u with PCP Treatments Planned Prior Functional Status Baseline Function- Independent ADL's Baseline Function- Independent Mobility Baseline Function- has trekking poles for snow shoeing Gait Baseline Function- bike, sail, walking trails Recreation/Hobbies Current Functional Impairments (Reported) Functional struggles to go up/down 2 flights of stairs, especially Limitations- ADL's if carrying objects. 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 has chiro apt next week PT-OP-D Balance Start: 10/10/24 08:58 Freq: Status: Active Protocol: Document 01/07/25 09:06 KW (Rec: 01/07/25 09:29 KW Laptop) OP-PT Balance Assessment Sitting Balance Static Sitting Normal Balance Ability Dynamic Sitting Normal Balance Ability Standing Balance Static Standing Good Balance Ability Dynamic Standing Good Balance Ability Sol Fall Scale Copyright Permission PT-OP-E Functional Tests Start: 10/10/24 08:58 Freq: Status: Active Protocol: Document 10/10/24 09:04 KW (Rec: 10/10/24 10:25 KW [id number]) Functional Tests Timed Up and Go (TUG) TUG Impairment 1 to <20% Impaired (Score 11) Rating PT-OP-F Manual Assessment Start: 10/10/24 08:58 Freq: Status: Active Protocol: Document 01/07/25 09:06 KW (Rec: 01/07/25 09:29 KW Laptop) Manual Assessments Soft Tissue Assessment Soft Tissue Mobility guarded adductor tone R > L - improved Assessment Joint Mobility Assessment Joint Mobility B hip impingement R > L , anterior/inferior Assessment PT-OP-G Mobility & Gait Start: 10/10/24 08:58 Freq: Status: Active Protocol: Document 01/07/25 09:06 KW (Rec: 01/07/25 09:29 KW Laptop) OP Mobility Evaluation Bed Mobility Supine to and from tends to denise knife, cues to exhale as she comes up. Sit Tends to brace with breath hold - much improved Transfers Sit to Stand no longer with pain sit to stand, improved alignment Functional Movements Squats increased lumbar extension Other Functional forward bend to touch top of ankles, R knee hyper- Movements extension> L PT-OP-H Neuro Start: 10/10/24 08:58 Freq: Status: Active Protocol: Document 10/10/24 09:04 KW (Rec: 10/10/24 10:25 KW [id number]) Sensation Evaluation Gross Sensation Gross Sensation WNL PT-OP-J Posture/Palpation/Skin Start: 10/10/24 08:58 Freq: Status: Active Protocol: Document 11/27/24 17:30 KW (Rec: 11/27/24 17:43 KW Laptop) Posture Evaluation Dorian Postural Classification System Dorian Postural Posterior/Anterior Classifications Comments Posture Comments anterior pelvic tilt, genu recurvatum R > L, toe gripping - this is improving with increased stance thru heels and big toe grounded PT-OP-K Range of Motion Start: 10/10/24 08:58 Freq: Status: Active Protocol: Document 11/27/24 17:30 KW (Rec: 11/27/24 17:43 KW Laptop) Hip Goniometric Range of Motion Hip ROM Limitations Hip ROM Limitations Pain Comments R hip IR in sitting 55, supine 15 L hip IR in sitting 60, supine 25 R hip pure flexion 90 before impingement with lumbar compensation and deviation into BLAISE L hip flexion 105, then deviates into BLAISE PT-OP-M Strength Start: 10/10/24 08:58 Freq: Status: Active Protocol: Document 01/07/25 09:06 KW (Rec: 01/07/25 09:29 KW Laptop) Hip Strength Hip Manual Muscle Testing Right Flexion (L2) 4 Good Abduction 4 Good Adduction 4 Good External Rotation 4 Good Internal Rotation 4 Good Comments less painful, no longer with guarded anticipation Left Flexion (L2) 4 Good Abduction 4 Good Adduction 4 Good External Rotation 4 Good Internal Rotation 4 Good Comments less painful, no longer guarded, breath holding PT-OP-Q Treatments Start: 10/10/24 08:58 Freq: Status: Active Protocol: Document 01/14/25 09:09 KW (Rec: 01/14/25 09:14 KW Laptop) Cardio Equipment Recumbent Stepper (Sci-Fit) Duration (Minutes) 10 Gym Equipment Shuttle Balance red Details AP/ML wt shift, breathing, head turns Therapeutic Ball reverse crunch Ball Size/Color small blue Body Position hooklying over ball Reps/Duration 10 Comments lift ball with hamstrings on EXHALE only. hooklying LTR Exercise Details supine, flow with the breath Ball Size/Color small blue Body Position Hooklying Reps/Duration 1 min Comments patient finds good relief Therapeutic Exercises Supine Exercises Leg lengthener Supine Exercise Name CORE stabilization Side left Resistance Gato stretch on R Equipment Used barefoot Reps/Minutes 2x5sec hold each side Comments VC's to DF foot and elongating her leg 4 Supine Exercise Name supine hamstring curls Side bilateral Equipment Used 55cm orange tball Reps/Minutes 10 Comments good coordinated breathing 3 Supine Exercise Name hooklying bridge lift on exhale Side bilateral Equipment Used yellow small ball between knees Reps/Minutes 10 Comments Reminders heel press and elbow into table with exhale during lift effort 2 Supine Exercise Name supine TKE long leg bridge 55ball, lift foot on exhale, lower on the inhale Side bilateral Equipment Used ball Reps/Minutes 10 Comments good breath with reps 1 Supine Exercise Name Hookly bent knee fall outs with coordinated breathing, stay in pn free ROM Side bilateral Resistance TB #2 teal Equipment Used level pelvis/hands under pelvis self feedback, Reps/Minutes 20 reps alternate Comments Impr PPT with TA & breath, KFO range- L limited range gricel before groin pn Prone Exercises quad stretch Side bilateral Resistance (verbal review prone, stand grasp foot behind her) Equipment Used contact rail Reps/Minutes 20 SH each LE Comments Cued slow range into & out stretch Standing Exercises hip abd, extension Side bilateral Resistance TB #3 teal aorund ankles Equipment Used rail support Reps/Minutes 2x10 reps each direction Comments cued tall posture Manual Therapy Treatment Consent Patient gave verbal Yes consent for manual treatment Soft Tissue Mobilization B hips Body Location L>R prox adductor Mobilization Type Rolling Intensity/Depth Moderate Body Position Hooklying Comments gentle STMs, Joint Mobilizations hips Joint B Grade II Body Position Supine Comments anteromedial, lateral and inferior glide - decreased adductor pinching and hip rotation allowance. Neuro Re-Education Treatment Balance Activities Sit Tball Bal Details marching, LAQ Equipment 65cm tball, near table for contact support PRN Reps/Duration 20 reps alternating BLE Comments assimilate bal/stability for return to bike riding PT-OP-T Assessment and Plan Start: 10/10/24 08:58 Freq: Status: Active Protocol: Document 01/14/25 09:09 KW (Rec: 01/14/25 09:14 KW Laptop) Physical Therapy Assessment Goals Three Impairment lack of HEP Short Term Goal (STG pt demonstrates indep with Hep - MET, progressing with ) new ther-ex STG Duration 6 weeks Two Impairment bike riding Short Term Goal (STG return to riding her bike in town 5 miles ) 12/24/24: hasn't tried yet due to busy schedule and has to take it down stairs form apartment and challenging. has done once STG Duration 6 weeks no progression yet. 1 Impairment LEFS 35% limitations with recreation, ADLS, gait, sitting, sit to stand Short Term Goal (STG patient with improved LEFS to 50% MET ) STG Duration 6 weeks Mcfp Goal (LTG) patient with improved LEFS to 75% - MET LTG Duration 12 weeks Progress Towards Goals Progress Towards Progressing Toward Goals Goals Progress Comments patient reports that painful days are now from a result of being active vs non active Assessment Summary Assessment fall impacting progress with ther-ex Physical Therapy Plan Frequency and Duration Frequency of 1 x week Treatment Duration of 6 treatment (weeks) Plan of Care Start 01/07/25 Date Plan of Care End 04/08/25 Date Therapeutic Interventions Therapeutic Balance Training,Gait Training,Home Exercise Program, Interventions Lymphedema Management,Manual Therapy,Neuromuscular Re- education,Patient/Caregiver Education,Self-Care/Home Management,Soft Tissue Mobilization,Therapeutic Activities,Therapeutic Exercises Modalities Biofeedback,Cold Pack/Ice Massage,Electric Stimulation, Hot Packs,Ultrasound Next Visit Focus/Plan Next Note Type Treatment Note Next Visit Plan sit t-ball september & for bal progression, advance higher level stabilization, balance, ther-ex in standing for uneven surface progression * encouragement for community based fitness programs- interested in pool only.
--- NOTE | 2025-01-22 14:48 | PT.OTN ---
Current Diagnoses Pain in right hip (01/22/25) Pain in left hip (01/22/25) Physical Therapy Treatment Note PT-OP-A Visit Information Start: 10/10/24 08:58 Freq: Status: Active Protocol: Document 01/22/25 14:43 KW (Rec: 01/22/25 14:47 KW Laptop) Out-Patient Physical Therapy Visit Information Visit Information Visit Type Progress Note Visit Start Time 14:30 Visit Stop Time 15:15 Visit Number 12/18 Evaluation Information Evaluation Date 10/10/24 Precautions Precautions none PT-OP-B Current Condition Start: 10/10/24 08:58 Freq: Status: Active Protocol: Document 01/07/25 09:06 KW (Rec: 01/07/25 09:29 KW Laptop) Current Condition History of Current Condition Onset Date 2020 Current Complaints B hip groin pain History of Current 50 yo female, childhood h/o hypermobility, now with B Condition groin pain with sit/stand, ambulation, stairs, ambulation. significant current h/o 80 Lb weight loss, struggling with prior TBI, job loss, stress of sister's sudden , loss of personal relationship. She comes to PT to improve her B hip pain. She is in therapy and is in a TBI support group. She currently bought a [employer] bike and would like to start riding it around town. Prior Treatments and x-rays years ago, B hips, hip OA Tests Future Testing and F/u with PCP Treatments Planned Prior Functional Status Baseline Function- Independent ADL's Baseline Function- Independent Mobility Baseline Function- has trekking poles for snow shoeing Gait Baseline Function- bike, sail, walking trails Recreation/Hobbies Current Functional Impairments (Reported) Functional struggles to go up/down 2 flights of stairs, especially Limitations- ADL's if carrying objects. - ok now, easier going up PT-OP-C Subjective Start: 10/10/24 08:58 Freq: Status: Active Protocol: Document 01/22/25 14:43 KW (Rec: 01/22/25 14:47 KW Laptop) OP-PT Subjective Patient Comments Patient Comments hips are level again after chiro visit PT-OP-D Balance Start: 10/10/24 08:58 Freq: Status: Active Protocol: Document 01/07/25 09:06 KW (Rec: 01/07/25 09:29 KW Laptop) OP-PT Balance Assessment Sitting Balance Static Sitting Normal Balance Ability Dynamic Sitting Normal Balance Ability Standing Balance Static Standing Good Balance Ability Dynamic Standing Good Balance Ability Sol Fall Scale Copyright Permission PT-OP-E Functional Tests Start: 10/10/24 08:58 Freq: Status: Active Protocol: Document 10/10/24 09:04 KW (Rec: 10/10/24 10:25 KW [id number]) Functional Tests Timed Up and Go (TUG) TUG Impairment 1 to <20% Impaired (Score 11) Rating PT-OP-F Manual Assessment Start: 10/10/24 08:58 Freq: Status: Active Protocol: Document 01/07/25 09:06 KW (Rec: 01/07/25 09:29 KW Laptop) Manual Assessments Soft Tissue Assessment Soft Tissue Mobility guarded adductor tone R > L - improved Assessment Joint Mobility Assessment Joint Mobility B hip impingement R > L , anterior/inferior Assessment PT-OP-G Mobility & Gait Start: 10/10/24 08:58 Freq: Status: Active Protocol: Document 01/07/25 09:06 KW (Rec: 01/07/25 09:29 KW Laptop) OP Mobility Evaluation Bed Mobility Supine to and from tends to denise knife, cues to exhale as she comes up. Sit Tends to brace with breath hold - much improved Transfers Sit to Stand no longer with pain sit to stand, improved alignment Functional Movements Squats increased lumbar extension Other Functional forward bend to touch top of ankles, R knee hyper- Movements extension> L PT-OP-H Neuro Start: 10/10/24 08:58 Freq: Status: Active Protocol: Document 10/10/24 09:04 KW (Rec: 10/10/24 10:25 KW [id number]) Sensation Evaluation Gross Sensation Gross Sensation WNL PT-OP-J Posture/Palpation/Skin Start: 10/10/24 08:58 Freq: Status: Active Protocol: Document 11/27/24 17:30 KW (Rec: 11/27/24 17:43 KW Laptop) Posture Evaluation Dorian Postural Classification System Dorian Postural Posterior/Anterior Classifications Comments Posture Comments anterior pelvic tilt, genu recurvatum R > L, toe gripping - this is improving with increased stance thru heels and big toe grounded PT-OP-K Range of Motion Start: 10/10/24 08:58 Freq: Status: Active Protocol: Document 11/27/24 17:30 KW (Rec: 11/27/24 17:43 KW Laptop) Hip Goniometric Range of Motion Hip ROM Limitations Hip ROM Limitations Pain Comments R hip IR in sitting 55, supine 15 L hip IR in sitting 60, supine 25 R hip pure flexion 90 before impingement with lumbar compensation and deviation into BLAISE L hip flexion 105, then deviates into BLAISE PT-OP-M Strength Start: 10/10/24 08:58 Freq: Status: Active Protocol: Document 01/07/25 09:06 KW (Rec: 01/07/25 09:29 KW Laptop) Hip Strength Hip Manual Muscle Testing Right Flexion (L2) 4 Good Abduction 4 Good Adduction 4 Good External Rotation 4 Good Internal Rotation 4 Good Comments less painful, no longer with guarded anticipation Left Flexion (L2) 4 Good Abduction 4 Good Adduction 4 Good External Rotation 4 Good Internal Rotation 4 Good Comments less painful, no longer guarded, breath holding PT-OP-Q Treatments Start: 10/10/24 08:58 Freq: Status: Active Protocol: Document 01/22/25 14:43 KW (Rec: 01/22/25 14:47 KW Laptop) Cardio Equipment Recumbent Stepper (Sci-Fit) Duration (Minutes) 10 Gym Equipment Shuttle Balance red Details AP/ML wt shift, breathing, head turns Therapeutic Ball reverse crunch Ball Size/Color small blue Body Position hooklying over ball Reps/Duration 10 Comments lift ball with hamstrings on EXHALE only. hooklying LTR Exercise Details supine, flow with the breath Ball Size/Color small blue Body Position Hooklying Reps/Duration 1 min Comments patient finds good relief Therapeutic Exercises Supine Exercises Leg lengthener Supine Exercise Name CORE stabilization Side left Resistance Gato stretch on R Equipment Used barefoot Reps/Minutes 2x5sec hold each side Comments VC's to DF foot and elongating her leg 4 Supine Exercise Name supine hamstring curls Side bilateral Equipment Used 55cm orange tball Reps/Minutes 10 Comments good coordinated breathing 3 Supine Exercise Name hooklying bridge lift on exhale Side bilateral Equipment Used yellow small ball between knees Reps/Minutes 10 Comments Reminders heel press and elbow into table with exhale during lift effort 2 Supine Exercise Name supine TKE long leg bridge 55ball, lift foot on exhale, lower on the inhale Side bilateral Equipment Used ball Reps/Minutes 10 Comments good breath with reps 1 Supine Exercise Name Hookly bent knee fall outs with coordinated breathing, stay in pn free ROM Side bilateral Resistance TB #2 teal Equipment Used level pelvis/hands under pelvis self feedback, Reps/Minutes 20 reps alternate Comments Impr PPT with TA & breath, KFO range- L limited range gricel before groin pn Prone Exercises quad stretch Side bilateral Resistance (verbal review prone, stand grasp foot behind her) Equipment Used contact rail Reps/Minutes 20 SH each LE Comments Cued slow range into & out stretch Standing Exercises hip abd, extension Side bilateral Resistance TB #3 teal aorund ankles Equipment Used rail support Reps/Minutes 2x10 reps each direction Comments cued tall posture Manual Therapy Treatment Consent Patient gave verbal Yes consent for manual treatment Soft Tissue Mobilization B hips Body Location L>R prox adductor Mobilization Type Rolling Intensity/Depth Moderate Body Position Hooklying Comments gentle STMs, Joint Mobilizations hips Joint B Grade II Body Position Supine Comments anteromedial, lateral and inferior glide - decreased adductor pinching and hip rotation allowance. PT-OP-T Assessment and Plan Start: 10/10/24 08:58 Freq: Status: Active Protocol: Document 01/22/25 14:43 KW (Rec: 01/22/25 14:47 KW Laptop) Physical Therapy Assessment Goals Three Impairment lack of HEP Short Term Goal (STG pt demonstrates indep with Hep - MET, progressing with ) new ther-ex STG Duration 6 weeks Two Impairment bike riding Short Term Goal (STG return to riding her bike in town 5 miles ) 12/24/24: hasn't tried yet due to busy schedule and has to take it down stairs form apartment and challenging. has done once STG Duration 6 weeks no progression yet. 1 Impairment LEFS 35% limitations with recreation, ADLS, gait, sitting, sit to stand Short Term Goal (STG patient with improved LEFS to 50% MET ) STG Duration 6 weeks Senior Security Architect Goal (LTG) patient with improved LEFS to 75% - MET LTG Duration 12 weeks Progress Towards Goals Progress Towards Progressing Toward Goals Goals Progress Comments patient reports that painful days are now from a result of being active vs non active Assessment Summary Assessment fall impacting progress with ther-ex Physical Therapy Plan Frequency and Duration Frequency of 1 x week Treatment Duration of 6 treatment (weeks) Plan of Care Start 01/07/25 Plan of Care End 04/08/25 Date Therapeutic Interventions Therapeutic Balance Training,Gait Training,Home Exercise Program, Interventions Lymphedema Management,Manual Therapy,Neuromuscular Re- education,Patient/Caregiver Education,Self-Care/Home Management,Soft Tissue Mobilization,Therapeutic Activities,Therapeutic Exercises Modalities Biofeedback,Cold Pack/Ice Massage,Electric Stimulation, Hot Packs,Ultrasound Next Visit Focus/Plan Next Note Type Treatment Note Next Visit Plan sit t-ball september & LA for bal progression, advance higher level stabilization, balance, ther-ex in standing for uneven surface progression * encouragement for community based fitness programs- interested in pool only.
--- NOTE | 2025-01-28 14:44 | PT.OTN ---
Current Diagnoses Pain in right hip (01/28/25) Pain in left hip (01/28/25) Physical Therapy Treatment Note PT-OP-A Visit Information Start: 10/10/24 08:58 Freq: Status: Active Protocol: Document 01/28/25 14:37 KW (Rec: 01/28/25 14:44 KW Laptop) Out-Patient Physical Therapy Visit Information Visit Information Visit Type Treatment Note Visit Start Time 14:30 Visit Stop Time 15:15 Visit Number 01/17 Evaluation Information Evaluation Date 10/10/24 Precautions Precautions none PT-OP-B Current Condition Start: 10/10/24 08:58 Freq: Status: Active Protocol: Document 01/07/25 09:06 KW (Rec: 01/07/25 09:29 KW Laptop) Current Condition History of Current Condition Onset Date 2020 Current Complaints B hip groin pain History of Current 50 yo female, childhood h/o hypermobility, now with B Condition groin pain with sit/stand, ambulation, stairs, ambulation. significant current h/o 80 Lb weight loss, struggling with prior TBI, job loss, stress of sister's sudden , loss of personal relationship. She comes to PT to improve her B hip pain. She is in therapy and is in a TBI support group. She currently bought a [email or web address] bike and would like to start riding it around town. Prior Treatments and x-rays years ago, B hips, hip OA Tests Future Testing and F/u with PCP Treatments Planned Prior Functional Status Baseline Function- Independent ADL's Baseline Function- Independent Mobility Baseline Function- has trekking poles for snow shoeing Gait Baseline Function- bike, sail, walking trails Recreation/Hobbies Current Functional Impairments (Reported) Functional struggles to go up/down 2 flights of stairs, especially Limitations- ADL's if carrying objects. - ok now, easier going up PT-OP-C Subjective Start: 10/10/24 08:58 Freq: Status: Active Protocol: Document 01/28/25 14:37 KW (Rec: 01/28/25 14:44 KW Laptop) OP-PT Subjective Patient Comments Patient Comments sleeping on a better mattress and feels better PT-OP-D Balance Start: 10/10/24 08:58 Freq: Status: Active Protocol: Document 01/07/25 09:06 KW (Rec: 01/07/25 09:29 KW Laptop) OP-PT Balance Assessment Sitting Balance Static Sitting Normal Balance Ability Dynamic Sitting Normal Balance Ability Standing Balance Static Standing Good Balance Ability Dynamic Standing Good Balance Ability Sol Fall Scale Copyright Permission PT-OP-E Functional Tests Start: 10/10/24 08:58 Freq: Status: Active Protocol: Document 10/10/24 09:04 KW (Rec: 10/10/24 10:25 KW [id number]) Functional Tests Timed Up and Go (TUG) TUG Impairment 1 to <20% Impaired (Score 11) Rating PT-OP-F Manual Assessment Start: 10/10/24 08:58 Freq: Status: Active Protocol: Document 01/07/25 09:06 KW (Rec: 01/07/25 09:29 KW Laptop) Manual Assessments Soft Tissue Assessment Soft Tissue Mobility guarded adductor tone R > L - improved Assessment Joint Mobility Assessment Joint Mobility B hip impingement R > L , anterior/inferior Assessment PT-OP-G Mobility & Gait Start: 10/10/24 08:58 Freq: Status: Active Protocol: Document 01/07/25 09:06 KW (Rec: 01/07/25 09:29 KW Laptop) OP Mobility Evaluation Bed Mobility Supine to and from tends to denise knife, cues to exhale as she comes up. Sit Tends to brace with breath hold - much improved Transfers Sit to Stand no longer with pain sit to stand, improved alignment Functional Movements Squats increased lumbar extension Other Functional forward bend to touch top of ankles, R knee hyper- Movements extension> L PT-OP-H Neuro Start: 10/10/24 08:58 Freq: Status: Active Protocol: Document 10/10/24 09:04 KW (Rec: 10/10/24 10:25 KW [id number]) Sensation Evaluation Gross Sensation Gross Sensation WNL PT-OP-J Posture/Palpation/Skin Start: 10/10/24 08:58 Freq: Status: Active Protocol: Document 11/27/24 17:30 KW (Rec: 11/27/24 17:43 KW Laptop) Posture Evaluation Dorian Postural Classification System Dorian Postural Posterior/Anterior Classifications Comments Posture Comments anterior pelvic tilt, genu recurvatum R > L, toe gripping - this is improving with increased stance thru heels and big toe grounded PT-OP-K Range of Motion Start: 10/10/24 08:58 Freq: Status: Active Protocol: Document 11/27/24 17:30 KW (Rec: 11/27/24 17:43 KW Laptop) Hip Goniometric Range of Motion Hip ROM Limitations Hip ROM Limitations Pain Comments R hip IR in sitting 55, supine 15 L hip IR in sitting 60, supine 25 R hip pure flexion 90 before impingement with lumbar compensation and deviation into BLAISE L hip flexion 105, then deviates into BLAISE PT-OP-M Strength Start: 10/10/24 08:58 Freq: Status: Active Protocol: Document 01/07/25 09:06 KW (Rec: 01/07/25 09:29 KW Laptop) Hip Strength Hip Manual Muscle Testing Right Flexion (L2) 4 Good Abduction 4 Good Adduction 4 Good External Rotation 4 Good Internal Rotation 4 Good Comments less painful, no longer with guarded anticipation Left Flexion (L2) 4 Good Abduction 4 Good Adduction 4 Good External Rotation 4 Good Internal Rotation 4 Good Comments less painful, no longer guarded, breath holding PT-OP-Q Treatments Start: 10/10/24 08:58 Freq: Status: Active Protocol: Document 01/28/25 14:37 KW (Rec: 01/28/25 14:44 KW Laptop) Cardio Equipment Recumbent Stepper (Sci-Fit) Duration (Minutes) 10 Resistance 3 Gym Equipment Shuttle Balance red Details AP/ML wt shift, breathing, head turns Therapeutic Ball reverse crunch Ball Size/Color small blue Body Position hooklying over ball Reps/Duration 10 Comments lift ball with hamstrings on EXHALE only. hooklying LTR Exercise Details supine, flow with the breath Ball Size/Color small blue Body Position Hooklying Reps/Duration 1 min Comments patient finds good relief Therapeutic Exercises Supine Exercises Leg lengthener Supine Exercise Name CORE stabilization Side left Resistance Gato stretch on R Equipment Used barefoot Reps/Minutes 2x5sec hold each side Comments VC's to DF foot and elongating her leg 4 Supine Exercise Name supine hamstring curls Side bilateral Equipment Used 55cm orange tball Reps/Minutes 10 Comments good coordinated breathing 3 Supine Exercise Name hooklying bridge lift on exhale Side bilateral Equipment Used yellow small ball between knees Reps/Minutes 10 Comments Reminders heel press and elbow into table with exhale during lift effort 2 Supine Exercise Name supine TKE long leg bridge 55ball, lift foot on exhale, lower on the inhale Side bilateral Equipment Used ball Reps/Minutes 10 Comments good breath with reps 1 Supine Exercise Name Hookly bent knee fall outs with coordinated breathing, stay in pn free ROM Side bilateral Resistance TB #2 teal Equipment Used level pelvis/hands under pelvis self feedback, Reps/Minutes 20 reps alternate Comments Impr PPT with TA & breath, KFO range- L limited range gricel before groin pn Prone Exercises quad stretch Side bilateral Resistance (verbal review prone, stand grasp foot behind her) Equipment Used contact rail Reps/Minutes 20 SH each LE Comments Cued slow range into & out stretch Standing Exercises hip abd, extension Side bilateral Resistance TB #3 teal aorund ankles Equipment Used rail support Reps/Minutes 2x10 reps each direction Comments cued tall posture Manual Therapy Treatment Soft Tissue Mobilization B hips Body Location L>R prox adductor Mobilization Type Rolling Intensity/Depth Moderate Body Position Hooklying Comments gentle STMs, Neuro Re-Education Treatment Balance Activities Sit Tball Bal Details marching, LAQ Equipment 65cm tball, near table for contact support PRN Reps/Duration 20 reps alternating BLE Comments assimilate bal/stability for return to bike riding 1 Details Corner bal for home: head turns, weight shifting Surface floor - reviewed with shoes on and off Equipment corner to back/chair front- PRN stability Reps/Duration 8 min Comments Tandem stationary easy then slow head turns for home carryover- Cued elongate posture, even WB BLE, with Rhomboid and TA engagement improved midline stability. PT-OP-T Assessment and Plan Start: 10/10/24 08:58 Freq: Status: Active Protocol: Document 01/28/25 14:37 KW (Rec: 01/28/25 14:44 KW Laptop) Physical Therapy Assessment Rehab Potential Rehabilitation Good Potential Evaluation Complexity Number of Personal 3 or More Factors/ Comorbidities Number of Body 1-2 Systems Impaired Clinical Evolving Presentation at Evaluation Impairments Impairments Activity Tolerance,Functional Mobility,Gait,Pain, Posture,ROM,Strength Goals Three Impairment lack of HEP Short Term Goal (STG pt demonstrates indep with Hep - MET, progressing with ) new ther-ex STG Duration 6 weeks Two Impairment bike riding Short Term Goal (STG return to riding her bike in town 5 miles ) 12/24/24: hasn't tried yet due to busy schedule and has to take it down stairs form apartment and challenging. has done once STG Duration 6 weeks no progression yet. 1 Impairment LEFS 35% limitations with recreation, ADLS, gait, sitting, sit to stand Short Term Goal (STG patient with improved LEFS to 50% MET ) STG Duration 6 weeks Prison Goal (LTG) patient with improved LEFS to 75% - MET LTG Duration 12 weeks Progress Towards Goals Progress Towards Progressing Toward Goals Goals Progress Comments patient reports that painful days are now from a result of being active vs non active Assessment Summary Assessment no new falls, feeling good Physical Therapy Plan Frequency and Duration Frequency of 1 x week Treatment Duration of 6 treatment (weeks) Plan of Care Start 01/07/25 Date Plan of Care End 04/08/25 Date Therapeutic Interventions Therapeutic Balance Training,Gait Training,Home Exercise Program, Interventions Lymphedema Management,Manual Therapy,Neuromuscular Re- education,Patient/Caregiver Education,Self-Care/Home Management,Soft Tissue Mobilization,Therapeutic Activities,Therapeutic Exercises Modalities Biofeedback,Cold Pack/Ice Massage,Electric Stimulation, Hot Packs,Ultrasound Next Visit Focus/Plan Next Note Type Treatment Note Next Visit Plan sit t-ball september & for bal progression, advance higher level stabilization, balance, ther-ex in standing for uneven surface progression * encouragement for community based fitness programs- interested in pool only.
--- NOTE | 2025-02-13 09:58 | PT.OTN ---
Current Diagnoses Pain in right hip (02/13/25) Pain in left hip (02/13/25) Physical Therapy Treatment Note PT OP: Lower Back/Lower Extremity Start: 02/13/25 09:48 Freq: Status: Active Protocol: Document 02/13/25 09:49 KW (Rec: 02/13/25 09:57 KW Laptop) Out-Patient Physical Therapy Visit Information Visit Information Visit Type Progress Note Visit Start Time 09:45 Visit Stop Time 10:25 Visit Number 02/17 OP-PT Subjective Patient Comments Patient Comments feeling pretty good didn't do exercises this week always do some stretching progress note today now able to go up the stairs carrying two bags of groceries dizzy before even getting OOB, feels it is from one of her mental health medications. Impacting her balance Patient Reported Improving Progress Patient Questionnaires Lower Extremity Functional Scale LEFS Score 62 LEFS Impairment 20 to 39% Impaired (Score 48-62) OP-PT Pain Assessment Location head Pain Location hips and low back Details Pain Intensity 2 Scale Used Numeric (0 - 10) Description Aching,Pinching,Pulling,Sharp,With Movement Frequency Frequent Pain Alleviating Cold,Heat,Medication,Position,Massage Factors Radiating Location B thighs, inner primarily Pain Aggravating Position,ADL's,Activity,Exercise,Standing,Walking Factors Other Pain sitting position, ie tucking feet under her when in Aggravating Factors chair Other Pain hooklying supine bolster Alleviating Factors Patient Stated Pain to make it manageable Goal Functional Tests Timed Up and Go (TUG) Score 10 TUG Impairment 1 to <20% Impaired (Score 11) Rating Manual Assessments Soft Tissue Assessment Soft Tissue Mobility guarded adductor tone R > L - improved Assessment Joint Mobility Assessment Joint Mobility B hip impingement R > L , anterior/inferior Assessment Other Manual Assessments Other Manual tight posterior hip capsule R and L Assessments OP Mobility Evaluation Bed Mobility Supine to and from tends to denise knife, cues to exhale as she comes up. Sit Tends to brace with breath hold - much improved Transfers Sit to Stand no longer with pain sit to stand, improved alignment Functional Movements Squats increased lumbar extension - improved Other Functional forward bend to touch top of ankles, R knee hyper- Movements extension> L OP Gait Assessment Gait Gait Assistance Independent Required: Assistive Devices Assistive Device None Gait Deviations General Gait Pattern Antalgic,Wide Based Gait Factors Limiting Gait Function Factors Limiting Pain Gait Function Comments Gait Comments improving with little to no pain, stride length impacts quality of her gait Stair Climbing Evaluation Comments Stair Climbing cues for tracking of knees over toes - able to walk Comments step over step Posture Evaluation Comments Posture Comments anterior pelvic tilt, genu recurvatum R > L, toe gripping - this is improving with increased stance thru heels and big toe grounded Hip Goniometric Range of Motion Hip ROM Limitations Hip ROM Limitations Pain Comments R hip IR in sitting 55, supine 15 L hip IR in sitting 60, supine 25 R hip pure flexion 90 before impingement with lumbar compensation and deviation into BLAISE L hip flexion 105, then deviates into BLAISE Special Tests Hip Special Tests BLAISE Test Results neg Hip Strength Hip Manual Muscle Testing Right Flexion (L2) 4+ Good+ Abduction 4+ Good+ Adduction 4 Good External Rotation 4+ Good+ Internal Rotation 4+ Good+ Comments less painful, no longer with guarded anticipation Left Flexion (L2) 4+ Good+ Abduction 4+ Good+ Adduction 4+ Good+ External Rotation 4+ Good+ Internal Rotation 4+ Good+ Comments less painful, no longer guarded, breath holding Cardio Equipment Recumbent Stepper (Sci-Fit) Duration (Minutes) 10 Resistance 3 Gym Equipment Shuttle Balance red Details AP/ML wt shift, breathing, head turns Therapeutic Ball reverse crunch Ball Size/Color small blue Body Position hooklying over ball Reps/Duration 10 Comments lift ball with hamstrings on EXHALE only. hooklying LTR Exercise Details supine, flow with the breath Ball Size/Color small blue Body Position Hooklying Reps/Duration 1 min Comments patient finds good relief Therapeutic Exercises Supine Exercises Leg lengthener Supine Exercise Name CORE stabilization Side left Resistance Gato stretch on R Equipment Used barefoot Reps/Minutes 2x5sec hold each side Comments VC's to DF foot and elongating her leg 5 Supine Exercise Name supine CORE stabilization: heel slides, bent knee fall outs, marching Reps/Minutes 1 min heel slide, only gricel 10 reps KFO and september before L adductor pain Comments cues for PPT/TA recruitment, continue ed incorporating breaths w/mvmnt. 4 Supine Exercise Name supine hamstring curls Side bilateral Equipment Used 55cm orange tball Reps/Minutes 10 Comments good coordinated breathing 3 Supine Exercise Name hooklying bridge lift on exhale Side bilateral Equipment Used yellow small ball between knees Reps/Minutes 10 Comments Reminders heel press and elbow into table with exhale during lift effort 2 Supine Exercise Name supine TKE long leg bridge 55ball, lift foot on exhale, lower on the inhale Side bilateral Equipment Used ball Reps/Minutes 10 Comments good breath with reps 1 Supine Exercise Name Hookly bent knee fall outs with coordinated breathing, stay in pn free ROM Side bilateral Resistance TB #2 teal Equipment Used level pelvis/hands under pelvis self feedback, Reps/Minutes 20 reps alternate Comments Impr PPT with TA & breath, KFO range- L limited range gricel before groin pn Prone Exercises quad stretch Side bilateral Resistance (verbal review prone, stand grasp foot behind her) Equipment Used contact rail Reps/Minutes 20 SH each LE Comments Cued slow range into & out stretch Sidelying Exercises clamshell Sidelying Exercise REviewed clamshell Name Side bilateral Resistance AROM Equipment Used hand on top hip vs front trunk on table help stacked alignment Reps/Minutes 15 reps Comments Continued cues for breathing exhale effort lift, good mm tiring effort Sitting Exercises 1 Sitting Exercise sit to stand with continued coordinated exhale- Name Reviewed Resistance Tb #1> 2 teal green below knees- arms across chest Equipment Used BIG chair Reps/Minutes [address] thru heels, toes pressing down, hip hinge desc w/ TA w breath Standing Exercises hip abd, extension Side bilateral Resistance TB #3 teal aorund ankles Equipment Used rail support Reps/Minutes 2x10 reps each direction Comments cued tall posture Quad stretch Standing Exercise Reviewed: Name Side bilateral Resistance foot on chair behind, rail contact support Reps/Minutes 30 sec x3 each LE Comments godo feedback quad and adductor stretch Stationary Lunge Standing Exercise : Front & lateral- miniature range Name Side bilateral Resistance * assimulate grasp item on floor Equipment Used rail support Reps/Minutes 10 reps Comments Occ cues for knee behind with forefoot, JEANETTE, buttocks back Adductor stretch Standing Exercise Reviewed Name Side bilateral Equipment Used BUE on side stair rail- ed use car/shopping cart/ dresser/counter PRN Reps/Minutes 20s x2 each Comments Cued wt shift into opp LE and buttocks back-impr prox add flexibility 1 Standing Exercise standing gastroc stretch with wedge, step thru gait Name Reps/Minutes 2/30 sec holds R/L Other Exercises lateral walk out with cable Other Exercise Name reviewed HEP Side bilateral Resistance #3 [employer] green TB Reps/Minutes 10 each Comments cues soft knee bend normal lateral stride, neutral LS/ pelvis, small steps Physical Therapy Assessment Goals Three Impairment lack of HEP Short Term Goal (STG pt demonstrates indep with Hep - MET, progressing with ) new ther-ex - compliance is limiting STG Duration 6 weeks Two Impairment bike riding Short Term Goal (STG return to riding her bike in town 5 miles ) 12/24/24: hasn't tried yet due to busy schedule and has to take it down stairs form apartment and challenging. has done once STG Duration 6 weeks no progression yet. 1 Impairment LEFS 35% limitations with recreation, ADLS, gait, sitting, sit to stand Short Term Goal (STG patient with improved LEFS to 50% MET ) STG Duration 6 weeks Assisted Goal (LTG) patient with improved LEFS to 75% - MET LTG Duration 12 weeks Assessment Summary Assessment patient feels much better, more confident on stairs, more active, out paddle boarding. Last 4 visits will focus on HEP to DC Physical Therapy Plan Frequency and Duration Frequency of 1 x week Treatment Duration of 4 treatment (weeks) Plan of Care Start 01/07/25 Date Plan of Care End 04/08/25 Date Next Visit Focus/Plan Next Note Type Treatment Note Next Visit Plan sit t-ball september & for bal progression, advance higher level stabilization, balance, ther-ex in standing for uneven surface progression * encouragement for community based fitness programs- interested in pool only.
--- NOTE | 2025-02-20 09:54 | PT.OTN ---
Current Diagnoses Pain in right hip (02/20/25) Pain in left hip (02/20/25) Physical Therapy Treatment Note PT OP: Lower Back/Lower Extremity Start: 02/13/25 09:48 Freq: Status: Active Protocol: Document 02/20/25 09:08 SP (Rec: 02/20/25 09:53 SP [id number]) Out-Patient Physical Therapy Visit Information Visit Information Visit Type Treatment Note Visit Start Time 09:08 Visit Stop Time 09:46 Visit Number 03/20 Number of FOREST FIRE PREVENTION SPECIALIST Visits 1 Progress Note Due 03/17/25 OP-PT Subjective Patient Comments Patient Comments Pt reports wants to review HEP and created flow sheet for her to check off and self accoutability. She states thinks can back off to PT every other week until Mar vs 1 day/week discussed wtih PT. Gym Equipment Therapeutic Ball seated core Ball Size/Color patient finds good relief, holding 3-5 sec good core, quad, hip flexor muscle tiring bal Body Position 65cm tball Reps/Duration 5 reps each, side each Ex hold 5 sec if want to if stable Comments patient finds good relief, holding 3-5 sec good core, quad, hip flexor muscle tiring bal Therapeutic Exercises Supine Exercises Leg lengthener Supine Exercise Name CORE stabilization Side left Resistance Gato stretch on R Equipment Used barefoot Reps/Minutes 2x5sec hold each side Comments VC's to DF foot and elongating her leg 5 Supine Exercise Name supine CORE stabilization: heel slides, bent knee fall outs, marching, brid Equipment Used TB #2 teal KFO Reps/Minutes 1 min heel slide, only gricel 10 reps KFO and march before L adductor pain Comments cues for PPT/TA recruitment, continue ed incorp breaths w/mvmnt. Prone Exercises quad stretch Side bilateral Resistance (verbal review prone, stand grasp foot behind her) Equipment Used contact rail Reps/Minutes 20 SH each LE Comments Cued slow range into & out stretch Standing Exercises hip abd, extension Standing Exercise verbal review Name Neuro Re-Education Treatment Balance Activities 1 Details Corner bal for home: tandem Surface floor - reviewed with shoes on Equipment corner to back/chair front- PRN stability Reps/Duration verbal review Comments Tandem stationary easy then slow head turns for home carryover- Cued elongate posture, even WB BLE, with Rhomboid and TA engagement improved midline stability. Physical Therapy Assessment Goals Three Impairment lack of HEP Short Term Goal (STG pt demonstrates indep with Hep - MET, progressing with ) new ther-ex - compliance is limiting STG Duration 6 weeks Two Impairment bike riding Short Term Goal (STG return to riding her bike in town 5 miles ) 12/24/24: hasn't tried yet due to busy schedule and has to take it down stairs form apartment and challenging. has done once STG Duration 6 weeks no progression yet. 1 Impairment LEFS 35% limitations with recreation, ADLS, gait, sitting, sit to stand Short Term Goal (STG patient with improved LEFS to 50% MET ) STG Duration 6 weeks Benefits Manager Goal (LTG) patient with improved LEFS to 75% - MET LTG Duration 12 weeks Assessment Summary Assessment Pt cues for TA and PPT during core ther ex and breath allowance with effort. Initiated ex flow sheet for self accoutability and use HOs for recall visual. Improved understanding and form. Will add more appts. Physical Therapy Plan Frequency and Duration Frequency of 1 x week Treatment Duration of 4 treatment (weeks) Plan of Care Start 01/07/25 Date Plan of Care End 04/08/25 Date Therapeutic Interventions Therapeutic Balance Training,Gait Training,Home Exercise Program, Interventions Lymphedema Management,Manual Therapy,Neuromuscular Re- education,Patient/Caregiver Education,Self-Care/Home Management,Soft Tissue Mobilization,Therapeutic Activities,Therapeutic Exercises Modalities Biofeedback,Cold Pack/Ice Massage,Electric Stimulation, Hot Packs,Ultrasound Next Visit Focus/Plan Next Note Type Treatment Note Next Visit Plan 3 more approved visists. REview core and sit TBall as needed HEP, POC: PRogress higher level stabilization, balance, ther -ex in standing for uneven surface progression * encouragement for community based fitness programs- interested in pool only.
--- NOTE | 2025-02-23 11:33 | PT.OTN ---
Current Diagnoses Pain in right hip (02/23/25) Pain in left hip (02/23/25) Physical Therapy Treatment Note PT OP: Lower Back/Lower Extremity Start: 02/13/25 09:48 Freq: Status: Active Protocol: Document 02/23/25 10:45 SP (Rec: 02/23/25 11:35 SP [id number]) Out-Patient Physical Therapy Visit Information Visit Information Visit Type Treatment Note Visit Start Time 10:47 Visit Stop Time 11:33 Visit Number 10 Number of BARREL LATHE OPERATOR Visits 2 Progress Note Due 03/15/25 Precautions Precautions none OP-PT Subjective Patient Comments Patient Comments Pt reports back in her own bed vs friends. 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 She typically takes bus many transfers to [place] [employer] near then [employer]. At times still gets dizziness self spinning, has see vestibular PT and know can return for if needed. Gym Equipment Therapeutic Ball hooklying LTR Exercise Details 1. supine, flow with the breath 2. seated Pelv Tilt f/ b/l 3. september 09. LAQ Ball Size/Color 65cm tball Body Position Hooklying & sit Reps/Duration 1 min Comments LTR & DKTC against TB #2 teal, bridges (cue/ed for ball under full leg vs jackson/ankle) best leg straight vs bent. Seated pull down rear facing semi reclined PPT/TA engaged TB #1>2>3 [place] green good pelvic tilt positioning for core work and little shld too. Therapeutic Exercises Other Exercises lateral walk out with cable Other Exercise Name reviewed HEP Side bilateral Resistance #3 [place] green TB (double) Reps/Minutes 10 each- good oblique facilitation tiring Comments improv soft knee bend normal lateral stride, neutral LS /pelvis, small steps Physical Therapy Assessment Goals Three Impairment lack of HEP Short Term Goal (STG pt demonstrates indep with Hep - MET, progressing with ) new ther-ex - compliance is limiting STG Duration 6 weeks Two Impairment bike riding Short Term Goal (STG return to riding her bike in town 5 miles ) 12/24/24: hasn't tried yet due to busy schedule and has to take it down stairs form apartment and challenging. has done once STG Duration 6 weeks no progression yet. 1 Impairment LEFS 35% limitations with recreation, ADLS, gait, sitting, sit to stand Short Term Goal (STG patient with improved LEFS to 50% MET ) STG Duration 6 weeks Assisted Goal (LTG) patient with improved LEFS to 75% - MET LTG Duration 12 weeks Assessment Summary Assessment Pt improved core engagement and self pelvic corrections occ cues as needed throughout therex today use 65cm tball hooklying and seated against resistance today by BARREL LATHE OPERATOR and wall. Physical Therapy Plan Frequency and Duration Frequency of 1 x week Treatment Duration of 4 treatment (weeks) Plan of Care Start 01/07/25 Date Plan of Care End 04/08/25 Date Therapeutic Interventions Therapeutic Balance Training,Gait Training,Home Exercise Program, Interventions Lymphedema Management,Manual Therapy,Neuromuscular Re- education,Patient/Caregiver Education,Self-Care/Home Management,Soft Tissue Mobilization,Therapeutic Activities,Therapeutic Exercises Modalities Biofeedback,Cold Pack/Ice Massage,Electric Stimulation, Hot Packs,Ultrasound Next Visit Focus/Plan Next Note Type Treatment Note Next Visit Plan REview core and sit TBall as needed HEP, POC: PRogress higher level stabilization, balance, ther -ex in standing for uneven surface progression * encouragement for community based fitness programs- interested in pool only.
--- NOTE | 2025-03-04 14:07 | PT.OTN ---
Current Diagnoses Pain in right hip (03/04/25) Pain in left hip (03/04/25) Physical Therapy Treatment Note PT OP: Lower Back/Lower Extremity Start: 02/13/25 09:48 Freq: Status: Active Protocol: Document 03/04/25 13:59 KW (Rec: 03/04/25 14:07 KW Laptop) Out-Patient Physical Therapy Visit Information Visit Information Visit Type Treatment Note Visit Note per insurance: [employer] approved extension of time for visits to end 03/31/25 Visit Start Time 13:45 Visit Stop Time 14:25 Visit Number 11/12 Number of SALES AND MARKETING ENGINEER Visits 2 Progress Note Due 03/15/25 Precautions Precautions none OP-PT Subjective Patient Comments Patient Comments back is sore from lifting getting ready for garage sale Patient Reported Improving Progress Patient Questionnaires Lower Extremity Functional Scale LEFS Score 62 LEFS Impairment 20 to 39% Impaired (Score 48-62) Cardio Equipment Recumbent Stepper (Sci-Fit) Duration (Minutes) 10 Resistance 3 Gym Equipment Shuttle Balance red Details AP/ML wt shift, breathing, head turns Therapeutic Ball seated core Ball Size/Color patient finds good relief, holding 3-5 sec good core, quad, hip flexor muscle tiring bal Body Position 65cm tball Reps/Duration 5 reps each, side each Ex hold 5 sec if want to if stable Comments patient finds good relief, holding 3-5 sec good core, quad, hip flexor muscle tiring bal reverse crunch Ball Size/Color small blue Body Position hooklying over ball Reps/Duration 10 Comments lift ball with hamstrings on EXHALE only. hooklying LTR Exercise Details 1. supine, flow with the breath 2. seated Pelv Tilt f/ b/l 3. september 09. LAQ Ball Size/Color 65cm tball Body Position Hooklying & sit Reps/Duration 1 min Comments LTR & DKTC against TB #2 teal, bridges (cue/ed for ball under full leg vs jackson/ankle) best leg straight vs bent. Seated pull down rear facing semi reclined PPT/TA engaged TB #1>2>3 [place] green good pelvic tilt positioning for core work and little shld too. Therapeutic Exercises Supine Exercises Leg lengthener Supine Exercise Name CORE stabilization Side left Resistance Gato stretch on R Equipment Used barefoot Reps/Minutes 2x5sec hold each side Comments VC's to DF foot and elongating her leg 5 Supine Exercise Name supine CORE stabilization: heel slides, bent knee fall outs, marching, brid Equipment Used TB #2 teal KFO Reps/Minutes 1 min heel slide, only gricel 10 reps KFO and march before L adductor pain Comments cues for PPT/TA recruitment, continue ed incorp breaths w/mvmnt. 4 Supine Exercise Name supine hamstring curls Side bilateral Equipment Used 55cm orange tball Reps/Minutes 10 Comments good coordinated breathing 3 Supine Exercise Name hooklying bridge lift on exhale Side bilateral Equipment Used yellow small ball between knees Reps/Minutes 10 Comments Reminders heel press and elbow into table with exhale during lift effort 2 Supine Exercise Name supine TKE long leg bridge 55ball, lift foot on exhale, lower on the inhale Side bilateral Equipment Used ball Reps/Minutes 10 Comments good breath with reps 1 Supine Exercise Name Hookly bent knee fall outs with coordinated breathing, stay in pn free ROM Side bilateral Resistance TB #2 teal Equipment Used level pelvis/hands under pelvis self feedback, Reps/Minutes 20 reps alternate Comments Impr PPT with TA & breath, KFO range- L limited range gricel before groin pn Prone Exercises quad stretch Side bilateral Resistance (verbal review prone, stand grasp foot behind her) Equipment Used contact rail Reps/Minutes 20 SH each LE Comments Cued slow range into & out stretch Sidelying Exercises clamshell Sidelying Exercise REviewed clamshell Name Side bilateral Resistance AROM Equipment Used hand on top hip vs front trunk on table help stacked alignment Reps/Minutes 15 reps Comments Continued cues for breathing exhale effort lift, good mm tiring effort Sitting Exercises 1 Sitting Exercise sit to stand with continued coordinated exhale- Name Reviewed Resistance Tb #1> 2 teal green below knees- arms across chest Equipment Used BIG chair Reps/Minutes [address] thru heels, toes pressing down, hip hinge desc w/ TA w breath Standing Exercises hip abd, extension Standing Exercise verbal review Name Quad stretch Standing Exercise Reviewed: Name Side bilateral Resistance foot on chair behind, rail contact support Reps/Minutes 30 sec x3 each LE Comments godo feedback quad and adductor stretch Stationary Lunge Standing Exercise : Front & lateral- miniature range Name Side bilateral Resistance * assimulate grasp item on floor Equipment Used rail support Reps/Minutes 10 reps Comments Occ cues for knee behind with forefoot, JEANETTE, buttocks back Adductor stretch Standing Exercise Reviewed Name Side bilateral Equipment Used BUE on side stair rail- ed use car/shopping cart/ dresser/counter PRN Reps/Minutes 20s x2 each Comments Cued wt shift into opp LE and buttocks back-impr prox add flexibility 1 Standing Exercise standing gastroc stretch with wedge, step thru gait Name Reps/Minutes 2/30 sec holds R/L Other Exercises lateral walk out with cable Other Exercise Name reviewed HEP Side bilateral Resistance #3 [place] green TB (double) Reps/Minutes 10 each- good oblique facilitation tiring Comments improv soft knee bend normal lateral stride, neutral LS /pelvis, small steps Physical Therapy Assessment Rehab Potential Rehabilitation Good Potential Evaluation Complexity Number of Personal 3 or More Factors/ Comorbidities Number of Body 1-2 Systems Impaired Clinical Evolving Presentation at Evaluation Impairments Impairments Activity Tolerance,Functional Mobility,Gait,Pain, Posture,ROM,Strength Goals Three Impairment lack of HEP Short Term Goal (STG pt demonstrates indep with Hep - MET, progressing with ) new ther-ex - compliance is limiting STG Duration 6 weeks Two Impairment bike riding Short Term Goal (STG return to riding her bike in town 5 miles ) 12/24/24: hasn't tried yet due to busy schedule and has to take it down stairs form apartment and challenging. has done once STG Duration 6 weeks no progression yet. 1 Impairment LEFS 35% limitations with recreation, ADLS, gait, sitting, sit to stand Short Term Goal (STG patient with improved LEFS to 50% MET ) STG Duration 6 weeks Loop Sewer Goal (LTG) patient with improved LEFS to 75% - MET LTG Duration 12 weeks Progress Towards Goals Progress Towards Progressing Toward Goals Goals Progress Comments patient reports that painful days are now from a result of being active vs non active Assessment Summary Assessment pt like lateral walking with ankle band Physical Therapy Plan Frequency and Duration Frequency of 1 x week Treatment Duration of 4 treatment (weeks) Plan of Care Start 01/07/25 Date Plan of Care End 04/08/25 Date Therapeutic Interventions Therapeutic Balance Training,Gait Training,Home Exercise Program, Interventions Lymphedema Management,Manual Therapy,Neuromuscular Re- education,Patient/Caregiver Education,Self-Care/Home Management,Soft Tissue Mobilization,Therapeutic Activities,Therapeutic Exercises Modalities Biofeedback,Cold Pack/Ice Massage,Electric Stimulation, Hot Packs,Ultrasound Next Visit Focus/Plan Next Note Type Treatment Note Next Visit Plan REview core and sit TBall as needed HEP, POC: PRogress higher level stabilization, balance, ther -ex in standing for uneven surface progression * encouragement for community based fitness programs- interested in pool only.
--- NOTE | 2025-03-18 09:15 | PT.OPDS ---
Current Diagnoses Pain in right hip (03/18/25) Pain in left hip (03/18/25) Visit Care Team Role Provider Type Michelle Cronin DO Attending Provider Physician Family Provider Primary Care Provider Referring Provider Specialty: Family Practice Address: [address] [place] [address], [address], [address] Email: [email or web address] Visit Number Visit Number 06/19 Discharge Summary PT OP: Lower Back/Lower Extremity Start: 02/13/25 09:48 Freq: Status: Active Protocol: Document 03/18/25 09:08 KW (Rec: 03/18/25 09:14 KW Laptop) Out-Patient Physical Therapy Visit Information Visit Information Visit Type Discharge Summary Visit Note per insurance: [employer] approved extension of time for visits to end 03/31/25 Visit Start Time 09:00 Visit Stop Time 09:40 Visit Number 06/19 Number of GAME MODERATOR Visits 2 Precautions Precautions none OP-PT Subjective Patient Comments Patient Comments did a bunch of moving which was painful but has recovered. ready to DC to community based program Patient Questionnaires Lower Extremity Functional Scale LEFS Score 75 LEFS Impairment 20 to 39% Impaired (Score 48-62) OP-PT Pain Assessment Location head Pain Location hips and low back Details Pain Intensity 2 Scale Used Numeric (0 - 10) Description Aching,Pinching,Pulling,Sharp,With Movement Frequency Frequent Pain Alleviating Cold,Heat,Medication,Position,Massage Factors Radiating Location B thighs, inner primarily Pain Aggravating Position,ADL's,Activity,Exercise,Standing,Walking Factors Other Pain sitting position, ie tucking feet under her when in Aggravating Factors chair Other Pain hooklying supine bolster Alleviating Factors Patient Stated Pain to make it manageable Goal Functional Tests Timed Up and Go (TUG) Score 10 TUG Impairment 1 to <20% Impaired (Score 11) Rating Manual Assessments Soft Tissue Assessment Soft Tissue Mobility guarded adductor tone R > L - improved Assessment Joint Mobility Assessment Joint Mobility B hip impingement R > L , anterior/inferior Assessment Other Manual Assessments Other Manual tight posterior hip capsule R and L Assessments OP Mobility Evaluation Bed Mobility Supine to and from tends to denise knife, cues to exhale as she comes up. Sit Tends to brace with breath hold - much improved Transfers Sit to Stand no longer with pain sit to stand, improved alignment Functional Movements Squats increased lumbar extension - improved Other Functional forward bend to touch top of ankles, R knee hyper- Movements extension> L Posture Evaluation Dorian Postural Classification System Dorian Postural Posterior/Anterior Classifications Comments Posture Comments anterior pelvic tilt, genu recurvatum R > L, toe gripping - this is improving with increased stance thru heels and big toe grounded Special Tests Hip Special Tests BLAISE Test Results neg Cardio Equipment Recumbent Stepper (Sci-Fit) Duration (Minutes) 10 Resistance 3 Gym Equipment Shuttle Balance red Details AP/ML wt shift, breathing, head turns Therapeutic Ball seated core Ball Size/Color patient finds good relief, holding 3-5 sec good core, quad, hip flexor muscle tiring bal Body Position 65cm tball Reps/Duration 5 reps each, side each Ex hold 5 sec if want to if stable Comments patient finds good relief, holding 3-5 sec good core, quad, hip flexor muscle tiring bal reverse crunch Ball Size/Color small blue Body Position hooklying over ball Reps/Duration 10 Comments lift ball with hamstrings on EXHALE only. hooklying LTR Exercise Details 1. supine, flow with the breath 2. seated Pelv Tilt f/ b/l 3. september 4. LAQ Ball Size/Color 65cm tball Body Position Hooklying & sit Reps/Duration 1 min Therapeutic Exercises Supine Exercises Leg lengthener Supine Exercise Name CORE stabilization Side left Resistance Gato stretch on R Equipment Used barefoot Reps/Minutes 2x5sec hold each side Comments VC's to DF foot and elongating her leg 5 Supine Exercise Name supine CORE stabilization: heel slides, bent knee fall outs, , brid Equipment Used TB #2 teal KFO Reps/Minutes 1 min heel slide, only gricel 10 reps KFO and march before L adductor pain Comments cues for PPT/TA recruitment, continue ed incorp breaths w/mvmnt. 4 Supine Exercise Name supine hamstring curls Side bilateral Equipment Used 55cm orange tball Reps/Minutes 10 Comments good coordinated breathing 3 Supine Exercise Name hooklying bridge lift on exhale Side bilateral Equipment Used yellow small ball between knees Reps/Minutes 10 Comments Reminders heel press and elbow into table with exhale during lift effort 2 Supine Exercise Name supine TKE long leg bridge 55ball, lift foot on exhale, lower on the inhale Side bilateral Equipment Used ball Reps/Minutes 10 Comments good breath with reps 1 Supine Exercise Name Hookly bent knee fall outs with coordinated breathing, stay in pn free ROM Side bilateral Resistance TB #2 teal Equipment Used level pelvis/hands under pelvis self feedback, Reps/Minutes 20 reps alternate Comments Impr PPT with TA & breath, KFO range- L limited range gricel before groin pn Prone Exercises quad stretch Side bilateral Resistance (verbal review prone, stand grasp foot behind her) Equipment Used contact rail Reps/Minutes 20 SH each LE Comments Cued slow range into & out stretch Sidelying Exercises clamshell Side bilateral Resistance AROM Equipment Used hand on top hip vs front trunk on table help stacked alignment Reps/Minutes 15 reps Comments Continued cues for breathing exhale effort lift, good mm tiring effort Sitting Exercises 1 Sitting Exercise sit to stand with continued coordinated exhale- Name Reviewed Resistance Tb #1> 2 teal green below knees- arms across chest Equipment Used BIG chair Reps/Minutes [address] thru heels, toes pressing down, hip hinge desc w/ TA w breath Standing Exercises Quad stretch Side bilateral Resistance foot on chair behind, rail contact support Reps/Minutes 30 sec x3 each LE Comments godo feedback quad and adductor stretch Stationary Lunge Standing Exercise : Front & lateral- miniature range Name Side bilateral Resistance * assimulate grasp item on floor Equipment Used rail support Reps/Minutes 10 reps Comments Occ cues for knee behind with forefoot, JEANETTE, buttocks back Adductor stretch Side bilateral Equipment Used BUE on side stair rail- ed use car/shopping cart/ dresser/counter PRN Reps/Minutes 20s x2 each Comments Cued wt shift into opp LE and buttocks back-impr prox add flexibility 1 Standing Exercise standing gastroc stretch with wedge, step thru gait Name Reps/Minutes 2/30 sec holds R/L Other Exercises lateral walk out with cable Side bilateral Resistance #3 [place] green TB (double) Reps/Minutes 10 each- good oblique facilitation tiring Comments improv soft knee bend normal lateral stride, neutral LS /pelvis, small steps Physical Therapy Assessment Goals Three Impairment lack of HEP Short Term Goal (STG pt demonstrates indep with Hep - MET, progressing with ) new ther-ex - compliance is limiting STG Duration 6 weeks Two Impairment bike riding Short Term Goal (STG return to riding her bike in town 5 miles ) 12/24/24: hasn't tried yet due to busy schedule and has to take it down stairs form apartment and challenging. has done once STG Duration 6 weeks no progression yet. 1 Impairment LEFS 35% limitations with recreation, ADLS, gait, sitting, sit to stand Short Term Goal (STG patient with improved LEFS to 50% MET ) STG Duration 6 weeks Assisted Goal (LTG) patient with improved LEFS to 75% - MET LTG Duration 12 weeks Assessment Summary Assessment appropriate for DC to [facility] community based program Physical Therapy Plan Discharge Physical Therapy Discharge Reasons Goals Met
== END 2025-03-19 13:32 | disposition home or self-care (01) ==
LOC: PHYS 09:00
PROVIDERS: Family Provider Family Medicine; PCP Family Medicine; Referring Provider Family Medicine; Visit Provider Family Medicine
DX: M25.551 Pain in right hip (principal); M25.552 Pain in left hip
CPT/HCPCS: 97110; 97112; 97116; 97140; 97162; 97530